=== PATIENT | female | born 1965 | race Caucasian/White ===

== ENCOUNTER 2016-02-14 19:31 | Inpatient (IN) | payer MEDICAID, MEDICARE ==
[~2016-02-14] VITALS: Ht 154.9 cm; Wt 46.0 kg
[~2016-02-14 19:31] MED LIST: ALLE24TA8 PO; BENZ1TA PO; CLON0.5T PO; COLA100C2 OR; DICL75TA PO; DITR5TAB PO; DOCU100T PO; FIORTAB PO; FOLI1TAB2 PO; GABA600T PO; HYDR-3363 PO; HYDR-4274 PO; HYDRO50TAB PO; IMIT100T PO; KLON1TAB OR; LATU40TA PO; LEVO100T5 PO; LEVO50TA2 OR; LITH300C PO; LITH600C OR; LITH600C PO; MIRA3350 PO; MULT1TAB10 PO; PERP2TA PO; QUET1TAB8 PO; RISP1TAB41 PO; SIMV20TA2 OR; SYNT100T PO; THIA100TA PO; TOLT1TAB PO; TRAZ100T OR; TRAZ150T PO; TRAZ150T14 PO; TYLE325T5 PO; VENL75TA2 OR; VIT D 2000 PO; ZOLP-189 PO
[2016-02-14] MEDS ORDERED: QUEtiapine FUMARATE 100 MG TAB As Ordered ONE ×2 (20:56→21:00)
[2016-02-15] MEDS ORDERED: SERO1TAB2 PO (07:36)
[2016-02-15 07:41] LABS: ABG BASE EXCESS 2.5 (-2.0-2.0); ABG DEVICE NASAL CANN; ABG PARTIAL PRESSURE CO2 41.1 mmHg (35.0-45.0); ABG STANDARD HCO3 26.7 MEQ/L (22.0-26.0); ABG TOTAL CO2 28.2 MEQ/L (22.0-29.0); ABG pH (ARTERIAL) 7.435 UNITS (7.350-7.450)
--- NOTE | 2016-02-15 13:57 | ER ---
DATE OF CONSULTATION: 02/15/2016 CONSULTATION REQUESTED BY: Dr. Elliot Daugherty PSYCHIATRIST: Dr. Moy Kincaid CHIEF COMPLAINT: Nonverbal. HISTORY OF PRESENT ILLNESS: This a 50-year-old female patient with underlying medical history of bipolar disorder, colitis, fibromyalgia, headache, polysubstance abuse, hypothyroidism, anxiety, and chronic obstructive pulmonary disease (COPD). Patient was transferred from [facility] Emergency Department (ED) to [facility] ED for possible psychiatric admission. Called by Dr. Elliot Daugherty to evaluate the patient for possible inpatient medicine admission. Patient was seen and examined in the ED. Patient is nonverbal, but alert and responsive, drinking and eating on her own, follows simple commands, able to write on a piece of paper her name. Patient does not know why she is here. Patient has a history of urinary incontinence. As per paperwork from [facility], as per patient's partner, has not been taking medication, is having urinary incontinence and urinating on herself with possible psychosis. Further history limited based on patient is nonverbal. When asked patient if she has any pain, patient wrote "no" on the piece of paper and when asked patient why she is here in the hospital, patient wrote "I do not no", with "no" as know. Further history not possible. ALLERGIES: ARIPIPRAZOLE, C.I. PIGMENT BLUE 63, DULOXETINE, OLANZAPINE, SULFA DRUGS, SUMATRIPTAN, TOPIRAMATE. PAST MEDICAL HISTORY: 1. Bipolar disorder. 2. Urinary incontinence. 3. Colitis. 4. Fibromyalgia. 5. Headache. 6. Lung disease. 7. Anxiety. 8. Hypothyroidism. 9. COPD. 10. Polysubstance abuse. PAST SURGICAL HISTORY: Hysterectomy. SOCIAL HISTORY: History of polysubstance abuse. Limited history secondary to patient's limited verbal ability. History of alcohol drinking and smoking marijuana, as per documentation, there is possible history of opioid addiction. FAMILY HISTORY: Lives with a partner as per previous documentation. REVIEW OF SYSTEMS: Unobtainable, but patient seems to deny any pain. HOME MEDICATIONS: - acetaminophen 650 mg by mouth every 4 hours as needed - benztropine 1 mg by mouth every 6 hours as needed - folic acid 1 mg by mouth daily - Neurontin 600 mg by mouth three times a day - hydroxyzine 50 mg by mouth every 4 hours as needed - Synthroid 100 mcg by mouth daily - Seroquel 300 mg by mouth nightly - thiamine 100 mg by mouth daily VITAL SIGNS: Temperature 99, respirations 18, pulse 58, blood pressure 127/82, pulse oximetry 100% on room air. GENERAL: Patient comfortable, in no acute distress, follows simple commands, looks straight into the physician. HEENT: Normocephalic, atraumatic. Hyperpigmented. PULMONARY: Bilaterally clear to auscultation. CARDIAC: Regular rate and rhythm, normal S1, S2. ABDOMEN: Soft, nontender, nondistended. Positive bowel sounds. EXTREMITIES: No edema bilateral lower extremities. NEUROLOGIC: Patient is nonverbal, but able to write her name on a piece of paper. Cranial nerves II-XII grossly intact. Able to move all four extremities. No focal deficits. LABORATORY TESTS: From [facility]: WBC 8, hemoglobin and hematocrit 12.8/37.9, platelets 181, BMP 256, sodium 142, potassium 3.8, chloride 102, bicarbonate 30, BUN 12, creatinine 1. Cardiac enzymes negative. Alcohol level negative. Magnesium 1.7, phosphorous 3.4, INR 1.08. TSH 1.06, troponin negative, T4 is 6.3. Urine toxicology positive for marijuana. Ammonia negative. ABG within normal limits. ASSESSMENT AND PLAN: This is a 50-year-old female patient with underlying medical history of bipolar disorder, colitis, fibromyalgia, headache, chronic obstructive pulmonary disease (COPD), anxiety, hypothyroidism, was transferred from [facility] for possible psychosis and nonverbal. PROBLEMS: 1. Psychosis, nonverbal, possibly secondary to underlying medical condition. Neurologically, other than nonverbal, patient has no focal deficits, follows commands. Appreciated laboratory. There is no medical explanation for patient's current condition. Contacted psychiatry, Dr. Kincaid, who stated that he was contacted last night, but has not evaluated the patient, but believes that patient may not be a candidate for inpatient mental health. When asked Dr. Kincaid to evaluate the patient, Dr. Kincaid stated that the current application developer manager psychiatrist should be calling. Contacted the application developer manager psychiatrist to discuss whether patient is a candidate for inpatient mental health versus hospital admission for social reasons and possible placement. The application developer manager psychiatrist stated that Dr. Kincaid was called last night and should be the one evaluating the patient. Subsequently, informed emergency department (ED) physician, Dr. Elliot Daugherty, about the situation and Dr. Elliot Daugherty suggested contacting the nursing drying room supervisor. Subsequently, nursing drying room supervisor, Sahil, was contacted and attempted to resolve the situation between the two psychiatrists and, as per Sahil, current situation is not resolved. Subsequently, Dr. Calvin was contacted as per nursing drying room supervisor Sahil. Currently attempting to figure out disposition for the patient, whether patient should be accepted to inpatient mental health versus admission for social reasons. Will need psychiatry to see the patient in the emergency room prior to determining disposition. 2. Hypothyroidism. Thyroid stimulating hormone (TSH) appreciated. Recommend continued levothyroxine. 3. Bipolar disorder. Management as per psychiatry. 4. History of colitis. Patient is asymptomatic. 5. Chronic obstructive pulmonary disease (COPD). Patient is asymptomatic. 6. Deep venous thrombosis (DVT) prophylaxis. Depends on patient's disposition. DISPOSITION: Pending psychiatry input.
--- NOTE | 2016-02-15 15:29 | ER ---
DATE OF CONSULTATION: 02/15/2016 This is a 50-year-old white female with history of bipolar disorder, brought in to [facility] by her . The patient apparently has not been attending to activities of daily living (ADLs) and has been having urinary and fecal incontinence. Patient was transferred from [facility] Emergency Department (ED) for psychiatric assessment. Patient was mute at time of admission to the emergency room, she would not respond to any questions. Patient did receive Seroquel 300 mg at night with minimal change in her behavior, at which point she was seen by myself. Patient was again mute, refusing to answer any of my questions. however she did move her head up and down to answer a few questions. In response to various questions, she did nod her head affirmatively that she was feeling sad and depressed. She did report also having auditory hallucinations, the voices were telling her not to talk or answer or respond in any way to questioning. Patient did have a recent psychiatric admission under the care of Dr. Tripp from 01/06/2016 through 01/18/2016. Please see that discharge summary. Patient had been on [place], but that was discontinued as her serum creatinine was elevated. Patient was then switched to perphenazine 4 mg twice a day and Seroquel 100 mg nightly with some improvement. Of note, is the patient does have a history of polysubstance use, especially cannabis. The patient is unable to care for herself and appears to have a psychiatric disorder and so appears to be appropriate for a mental health hospitalization. MENTAL STATUS EXAMINATION: The patient was mute, she was staring at me. Affect appears sad. By nodding her head she did affirm that she was feeling depressed and was suffering from auditory hallucinations. There were no signs of johana. She was nonresponsive to any other questioning. I was not able to perform a full mental status examination. DIAGNOSES: 1. Bipolar disorder, depressed, with psychotic features. 2. Cannabis use disorder by history. 3. Alcohol use disorder. PLAN: Admit to mental health on a 9.39 basis. Restart Trilafon. Continue Seroquel 300 mg nightly per her outpatient psychiatric provider.
--- NOTE | 2016-02-15 16:36 | EDDOCDS ---
Nurse's Notes [facility] Name: Lilly Elias Age: 50 yrs Sex: Female : 1965 Arrival Date: 02/14/2016 Time: 19:31 Bed 18 Private MD: Unknown Pcp Diagnosis: Bipolar disorder, current episode depressed, severe, with psychotic features Presentation: 02/13 19:36 Presenting complaint: EMS states: patient nonverbal, patient from [facility]. Taken to [facility] ED due to noncompliance with medication. Presenting complaint: Records from [facility] reports that patient has not taken medications since Thursday and is now incontinent and urinating on herself. Mental Health Triage Level:. Mental Health Triage Level: Level 2: Possible psychosis. Mental Health Triage Level: Level 2:. Suicide/Homicide risk assessment- the patient denies having any suicidal and/or homicidal ideations and does not present with any other emotional, behavioral or mental health complaints. Status: Patient is not a meat service team member or dependent. Transition of care: patient was received from [facility]. 19:36 Acuity: DARREN Level 3 nn1 19:36 Method Of Arrival: Ambulance nn1 02/14 16:33 Adult Sepsis Screening: Patient has new or worsening altered mentation (1 point). jjr Patient's respiratory rate is less than 22. Systolic blood pressure is greater than 100. Patient has a qSOFA score of 1- Negative Sepsis Screen. Triage Assessment: 02/13 19:48 General: Appears in no apparent distress, Behavior is cooperative, Non verbal. Pain: nn1 Unable to use pain scale. Patient appears withdrawn, Non verbal. Not currently exhibiting signs of pain. HIV screening NA for this visit Offered previously. The patient is triaged at the bedside. See Assessment in Nurses Notes section of ED record. Neurological: Level of Consciousness is awake. Respiratory: Airway is patent Respiratory effort is even, unlabored, Respiratory pattern is regular, symmetrical. Derm: Skin is pink, warm & dry. Historical: - Allergies: ARIPIPRAZOLE (suicidal ideation); CI pigment blue 63 (from cymbalta); Duloxetine (from cymbalta); SULFA (SULFONAMIDES) (Nausea); SUMATRIPTAN (Panic Attacks); topiramate (severe mood swings); - Home Meds: 1. benztropine 1 mg Oral tab 1 tab as needed 2. folic acid 1 mg Oral tab 1 tab once daily 3. hydroxyzine HCl 50 mg Oral tab 1 tab every 6 hours As needed 4. levothyroxine 100 mcg Oral cap 1 cap once daily 5. omeprazole 40 mg Oral cpDR 1 cap once daily 6. quetiapine 300 mg oral Tb24 1 tab once daily - PMHx: Bipolar disorder; Colitis; Fibromyalgia; Headaches; lung disease; Anxiety; Hypothyroidism; COPD; - PSHx: Hysterectomy; - Social history: Smoking status: unknown if patient ever smoked tobacco. Patient nonverbal at this time. . - : The pt / caregiver states he / she is not on anticoagulants. Home medication list is obtained from Prior history/[facility] records. - Exposure Risk Screening:: None identified. Screenin:05 Fall risk: No risks identified. Assistance ADL's: unable to assess. Abuse/DV Screen: slm Unable to Assess. Nutritional screening: Unable to Assess. Advance Directives: Unable to assess Advance Directive status due to pt condition. 02/14 16:33 Screening information is obtained from unable. Abuse/DV Screen: The patient / caregiver jjr reports he/she is: pt cannot be assessed for living situation at this time. Assessment: 02/13 19:51 General: See triage assessment . nn1 19:52 General: Appears in no apparent distress, Behavior is flat, pt non verbal with staff . slm 21:04 General: Appears in no apparent distress, slender, Behavior is flat, quiet. General: pt slm resting on stretcher remains non verbal with staff pt follow commands . will cont to monitor . Respiratory: Airway is patent Respiratory effort is even, unlabored. Derm: Skin is pink, warm & dry. 22:00 General: Appears in no apparent distress, comfortable, to be sleeping. Behavior is slm quiet. General: security observing . Respiratory: Airway is patent Respiratory effort is even, unlabored, Respiratory pattern is regular. 22:30 General: Appears in no apparent distress, comfortable, Behavior is flat, quiet. Pain: kas2 Denies pain. Neurological: Level of Consciousness is awake, alert, Oriented to person, place, time. Cardiovascular: Rhythm is regular. Respiratory: No deficits noted. Airway is patent Respiratory effort is even, unlabored, Respiratory pattern is regular, symmetrical. Derm: Skin is intact, is healthy with good turgor, Skin is dry, Skin is pink, warm & dry. Skin temperature is warm. 23:14 General: Appears in no apparent distress, comfortable, to be sleeping. Behavior is slm quiet. General: pt asleep security observing safety maintained . Respiratory: Airway is patent Respiratory effort is even, unlabored. 23:59 General: Appears in no apparent distress, comfortable, to be sleeping. Behavior is slm quiet. General: pt resting on stretcher asleep security observing . Respiratory: Airway is patent Respiratory effort is even, unlabored. 02/14 00:36 General: Appears in no apparent distress, comfortable, to be sleeping. Behavior is slm quiet. General: security observing. Respiratory: No deficits noted. 01:37 General: Appears in no apparent distress, comfortable, to be sleeping. Behavior is slm quiet. General: security observing . Respiratory: Airway is patent Respiratory effort is even, unlabored. 02:17 General: Appears in no apparent distress, comfortable, to be sleeping. Behavior is slm quiet. General: pt resting on stretcher asleep security observing . Respiratory: Airway is patent Respiratory effort is even, unlabored. 03:09 General: Appears in no apparent distress, comfortable, to be sleeping. Behavior is slm quiet. General: security observing . Respiratory: Airway is patent Respiratory effort is even, unlabored. 03:30 General: Patient laying in bed sleeping. No apparent distress. Appears comfortable. kas2 Respiratory pattern even and unlabored. Airway patent. Security observing. Will continue to monitor.. 03:52 General: Appears in no apparent distress, comfortable, to be sleeping. Behavior is slm quiet. General: security observing . Respiratory: Airway is patent Respiratory effort is even, unlabored. 05:22 General: Appears in no apparent distress, comfortable, to be sleeping. Behavior is slm quiet. General: pt asleep on stretcher security observing safety maintained . Respiratory: No deficits noted. 05:46 General: Appears in no apparent distress, Behavior is flat, pt non verbal pt slm incontinent of urine. telegraphic typewriter operator chief ambulated pt to bathroom to wash pt up ,pt assisted back to stretcher pt sitting on side of stretcher drinking H20 will cont to monitor pt . 06:26 General: Appears in no apparent distress, comfortable, to be sleeping. Behavior is slm quiet. General: pt resting on stretcher with eyes closed security observing . Respiratory: Airway is patent Respiratory effort is even, unlabored. Derm: Skin is pink, warm & dry. 07:34 General: Appears in no apparent distress, well nourished, well groomed, Behavior is jjr inappropriate for age, pt is nonverbal, will maintain eye contact, pt is drinking fluids, gait steady. Respiratory: Airway is patent Respiratory effort is even, unlabored, Respiratory pattern is regular. Derm: Skin is pink, warm & dry. 08:02 General: pt will nod head yes or no to some questions, pt did eat banana from breakfast jjr tray, slow to follow commands but cooperative. Cardiovascular: Rhythm is sinus rhythm. 09:00 General: pt continues to refuse to speak did write down that she wanted apple juice. jjr Cardiovascular: Rhythm is sinus rhythm. Respiratory: Airway is patent Respiratory effort is even, unlabored, Respiratory pattern is regular. Derm: Skin is pink, warm & dry. 09:59 General: Appears to be sleeping. Cardiovascular: Rhythm is sinus rhythm. jjr 11:00 General: Appears in no apparent distress, pt refuses to speak, once again wrote on jjr paper provided that she wanted more apple juice.. Cardiovascular: Rhythm is sinus rhythm. Respiratory: No deficits noted. Derm: No deficits noted. 11:57 General: Appears in no apparent distress, Behavior is cooperative, remains non verbal, jjr removed jorge wrap applied over saline lock. Cardiovascular: Rhythm is sinus rhythm. Derm: Skin is pink, warm & dry. 12:29 General: Appears in no apparent distress, ambulatory to BR gait steady, pt requires jjr frequent prompts to complete tasks, able to urinate. 12:45 General: psychiatrist to bedside. jjr 14:03 Adult Sepsis Screening: Patient has new or worsening altered mentation (1 point). jjr Patient's respiratory rate is less than 22. Systolic blood pressure is greater than 100. Patient has a qSOFA score of 1- Negative Sepsis Screen. General: Appears in no apparent distress, Behavior is cooperative, remains non verbal tolerated 75% lunch tray. 14:56 General: Appears in no apparent distress, pt again ambulatory to BR, incontinent of jjr urine, pt remains non verbal. 15:55 General: Appears in no apparent distress, up ad violet in room, remains nonverbal, jjr awaiting response from [facility]. 16:32 General: Appears in no apparent distress, no change from prior assessments. jjr Mental Health Eval: 02/13 20:02 Status: The patient is not a meat service team member or dependent. [facility] cl Behavioral Health: The patient is not an established patient of [facility] Behavioral Health. Referral Information: Evaluation referral is generated by [facility] ED on . The patient was referred for evaluation because Pt with catatonic type behavior in last few days, was incontinent of feces/urine today, pt with hx of Bipolar d/o and prior psych admissions at [facility], last 12/25 for johana.. Subjective: The patients chief complaint is Pt is non-verbal, is either unable/unwilling to speak during interview, will occasionally nod yes when asked a question, will not respond to any questions by any ED staff. Pt has 2 known psych admissions to [facility], 2016 for johana and 2013 for depression/SI. Pt seen and medically cleared at [facility] ED today and sent for MHE. PSA spoke with pt.'s S.O. Tyler Godwin who provided detailed hx of past week. Per Tyler, pt had belly pain last Thursday and was seen at [facility] ED and dx'd with UTI, given Abx. Tyler states he noticed changes in her AMS thru the weekend(less verbal/slow to respond) and by Thursday pt was almost completely non-verbal, would not take any medications, needed to be directed by S.O. to address ADL's, would nod yes "to yes questions", would not shake head "no", would speak briefly and "appear lucid" but only for short time and "go right back to this" referring to current behaviors. Tyler adds he has "never seen her like this before". Tyler took pt to see her therapist/Psychiatrist Thursday02/12/16 and "the therapist took one look at her and sent her right to the ED again". Pt spent most of day in [facility] ED and then was inexplicably sent home that evening, Tyler reports "she was not any better". Tyler reports today pt was incontinent of urine and feces, ("never happened before"). Tyler adds that pt will not care for self at this point, needs hands on care and direction for all activities, also pt has not slept or eaten well in days, he denies pt has made any threats to harm self.. Delusions are unable to assess . Patient's mood is dysphoric, hallucinations are unable to assess. Mental Health history: alcohol abuse, Bipolar Disorder, depression, suicide ideation ideation Mental Health Admissions: [facility] 2016 johana/2013 depression/SI...2006..depression Current Outpatient Mental Health Services: Psychiatrist / Agency: Lisbeth MELTON. Current living environment is The patient currently lives with his / her significant other, . Patient presents to Emergency Department with the following symptoms within the past 2 weeks: decreased appetite, non-compliance, non-communicative/incontinence. sleep disturbance - insomnia. Mental status exam: Patients appearance is disheveled thin, Patient's behavior is non-verbal. Affect is flat. Mood is dysphoric. Appetite is poor. Energy level is unable to assess Content of thought is unable to assess Thought process is unable to assess Patient's insight is absent. Judgement is absent. Rapport with interviewer is non-communicative. Suicidal Ideation is not present. Homicidal ideation is not present. Disposition: Medically cleared for disposition by Oj Middleton DO Psychiatric Consult is performed by phone with Dr Moy Kincaid. 20:51 Narrative: Dr. Kincaid spoke with Dr. Middleton regarding case, Dr. Middleton to order pt'.s cl medications in ED and will assess pt.'s mental status/behaviors after receiving medications....pt remains flat/quiet, did answer "yes" (twice) to Dr. Middleton's questions.... 02/14 07:17 Narrative: Patient awakened by Dr.'s Middleton & Willow, with no noteworthy change in her jl mental status. Dr. Kincaid was re-consulted, who expressed opinion that patient should be a medical admission at this point. Dr. Daugherty spoke with [facility] Hospitalist (Dr. Castaneda), who has agreed to admit her to medicine. 14:26 [facility] Admission Criteria: The patient is experiencing suicidal ideation. The patient ac displays symptoms of severe psychiatric disorder resulting in disordered behavior and significant interference with his / her ability to maintain self care. Hallucinations. The patient requires continuous observation and/or control to protect self, others or property. The patient's care requires a multi-modal treatment plan under close supervision and coordination due to the complexity and severity of the patient's symptoms. The patient requires administration and monitoring of psychoactive medications by skilled medical providers due to the side effects of the psychoactive medications or significant dosage adjustments. Legal Status: Patient's legal status will be Emergency admission: . 14:58 [place] is [place] because the patient does not display any jl suicidal or homicidal ideations and does not pose a risk to self or others. DSM-V Differential Diagnosis: Bipolar I Disorder (F31.0) Current or most recent episode depressed, severe (F31.34). Vital Signs: 02/13 19:46 BP 133 / 80; Pulse 51; Resp 18; Temp 99.0(T); Pulse Ox 98% on R/A; Weight 47 kg; Height slm 61 in. (154.94 cm); 02/14 05:46 BP 127 / 82; Pulse 58; Resp 16; Pulse Ox 100% on R/A; slm 07:57 BP 108 / 77 (auto/); jjr 08:00 Pulse 72 MON; Resp 18; Temp 99(TE); Pulse Ox 100% on R/A; jjr 08:27 BP 111 / 75 (auto/); jjr 08:27 Pulse 84 MON; Pulse Ox 100% ; jjr 08:56 Resp 18; Pulse Ox 99% on R/A; jjr 08:57 BP 115 / 76 (auto/); jjr 10:37 BP 114 / 80 (auto/); jjr 10:37 Pulse 82 MON; Resp 18; Pulse Ox 100% on R/A; jjr 11:54 BP 106 / 68 (auto/); jjr 11:54 Pulse 68 MON; Resp 18; Pulse Ox 97% on R/A; jjr 12:28 BP 106 / 72 (auto/); Pulse 77; Resp 18; jjr 13:28 BP 105 / 70 (auto/); jjr 13:28 Pulse 66 MON; Resp 18; jjr 15:05 BP 92 / 56; Pulse 60; Resp 18; Temp 99.3(O); Pulse Ox 100% on R/A; jjr 16:21 BP 120 / 60; Pulse 53; Resp 18; Temp 99.4(TE); Pulse Ox 100% on R/A; Pain 0/10; rn1 02/13 19:46 Body Mass Index 19.58 (47.00 kg, 154.94 cm) [facility] Vitals: 02/13 19:46 Log In Time N/A - ambulance arrival. [facility] ED Course: 19:32 Patient visited by Mihaela Tatum PCA. tmm1 19:32 Unknown Pcp is Private Physician. tmm1 19:32 Patient moved to Waiting tmm1 19:32 Patient moved to [facility] tmm1 19:33 Raegan Bower LPN is Primary Nurse. m 19:34 Oj Middleton DO is Attending Physician. cs11 19:34 Patient visited by Oj Middleton DO. cs11 19:40 Triage Initiated nn1 19:41 Patient moved to OBSERVATION cs11 19:45 Pt greeted and oriented to ED. Patient advised of names of staff involved in care, kb5 location of call lea, wait times and NPO status. Patient has correct armband on for positive identification. Placed in psych safe attire. Bed in low position. Call light in reach. Side rails up X 1. Security observing. Property removed, inventory done, secured in belongings bag- Placed in Locker 2. Pt placed in safe attire at [facility] prior to transfer; safe attire confirmed by Sarah Bower LPN.. Door closed. Noise minimized. Visitors limited. Psych Safety Check: Location: Psych Room. Visual Assessment: Cooperative. 19:53 Patient visited by Raegan Bower LPN. [facility] 20:00 Psych Safety Check: Location: Psych Room. Visual Assessment: Cooperative. kb5 20:03 Patient visited by Jacky Guajardo PCA. kb5 20:15 Patient visited by Jacky Guajardo PCA. kb5 20:15 Psych Safety Check: Location: Psych Room. Visual Assessment: Cooperative. kb5 20:30 Psych Safety Check: Location: Psych Room. Visual Assessment: Cooperative. kb5 20:31 Patient visited by Jacky Guajardo PCA. kb5 20:45 Patient visited by Jacky Guajardo PCA. kb5 20:45 Psych Safety Check: Location: Psych Room. Visual Assessment: Cooperative. kb5 21:00 Psych Safety Check: Location: Psych Room. Visual Assessment: Cooperative. kb5 21:05 Patient visited by Raegan Bower LPN. slm 21:15 Psych Safety Check: Location: Psych Room. Visual Assessment: Cooperative. kb5 21:18 Patient visited by Jacky Guajardo INDUSTRIAL HEALTH ENGINEER. kb5 21:19 [facility] Payment Agreement was scanned into [employer] and attached to record. zo 21:30 Psych Safety Check: Location: Psych Room. Visual Assessment: Cooperative. kb5 21:32 Patient visited by Roberto Guajardoer INDUSTRIAL HEALTH ENGINEER. kb5 21:45 Patient visited by Roberto Guajardoer INDUSTRIAL HEALTH ENGINEER. kb5 21:45 Psych Safety Check: Location: Psych Room. Visual Assessment: Cooperative. kb5 22:00 Psych Safety Check: Location: Psych Room. Visual Assessment: Cooperative. kb5 22:10 Patient visited by Jacky Guajardo INDUSTRIAL HEALTH ENGINEER. kb5 22:15 Psych Safety Check: Location: Psych Room. Visual Assessment: Cooperative. kb5 22:27 Patient visited by Jacky Guajardo INDUSTRIAL HEALTH ENGINEER. kb5 22:30 Psych Safety Check: Location: Psych Room. Visual Assessment: Cooperative. kb5 22:45 Patient visited by Jacky Guajardo INDUSTRIAL HEALTH ENGINEER. kb5 22:45 Psych Safety Check: Location: Psych Room. Visual Assessment: Cooperative. kb5 23:00 Psych Safety Check: Location: Psych Room. Visual Assessment: Cooperative. kb5 23:15 Patient visited by Raegan Bower LPN. slm 23:15 Psych Safety Check: Location: Psych Room. Visual Assessment: Cooperative. kb5 23:30 Psych Safety Check: Location: Psych Room. Visual Assessment: Cooperative. kb5 23:33 Patient visited by Jacky Guajardo INDUSTRIAL HEALTH ENGINEER. kb5 23:45 Patient visited by Roberto Guajardoer INDUSTRIAL HEALTH ENGINEER. kb5 23:45 Psych Safety Check: Location: Psych Room. Visual Assessment: Cooperative. kb5 23:59 Patient visited by Raegan Bower LPN. sl 02/14 00:00 Psych Safety Check: Location: Psych Room. Visual Assessment: Cooperative. kb5 00:06 Patient visited by Jacky Guajardo INDUSTRIAL HEALTH ENGINEER. kb5 00:15 Patient visited by Jacky Guajardo PCA. kb5 00:15 Psych Safety Check: Location: Psych Room. Visual Assessment: Cooperative. kb5 00:30 Patient visited by Jacky Guajardo PCA. kb5 00:30 Psych Safety Check: Location: Psych Room. Visual Assessment: Cooperative. kb5 00:37 Patient visited by Raegan Bower LPN. slm 00:45 Psych Safety Check: Location: Psych Room. Visual Assessment: Cooperative. kb5 00:46 Patient visited by Jacky Guajardo PCA. kb5 01:00 Patient visited by Jacky Guajardo PCA. kb5 01:00 Psych Safety Check: Location: Psych Room. Visual Assessment: Cooperative. kb5 01:08 Patient visited by Nichelle Torrez RN. kas2 01:15 Patient visited by Jacky Guajardo PCA. kb5 01:15 Psych Safety Check: Location: Psych Room. Visual Assessment: Cooperative. kb5 01:30 Psych Safety Check: Location: Psych Room. Visual Assessment: Cooperative. kb5 01:37 Patient visited by Raegan Bower LPN. slm 01:45 Psych Safety Check: Location: Psych Room. Visual Assessment: Cooperative. kb5 01:48 Patient visited by Jacky Guajardo PCA. kb5 02:00 Psych Safety Check: Location: Psych Room. Visual Assessment: Cooperative. kb5 02:15 Psych Safety Check: Location: Psych Room. Visual Assessment: Cooperative. kb5 02:18 Patient visited by Raegan Bower LPN. slm 02:30 Psych Safety Check: Location: Psych Room. Visual Assessment: Cooperative. kb5 02:45 Psych Safety Check: Location: Psych Room. Visual Assessment: Cooperative. kb5 03:00 Patient visited by Jacky Guajarod PCA. kb5 03:00 Psych Safety Check: Location: Psych Room. Visual Assessment: Cooperative. kb5 03:09 Patient visited by Raegan Bower LPN. slm 03:15 Psych Safety Check: Location: Psych Room. Visual Assessment: Cooperative. kb5 03:45 Patient visited by Jacky Guajardo PCA. kb5 03:45 Psych Safety Check: Location: Psych Room. Visual Assessment: Cooperative. kb5 03:53 Patient visited by Raegan Bower LPN. slm 04:00 Psych Safety Check: Location: Psych Room. Visual Assessment: Cooperative. kb5 04:11 Patient visited by Jacky Guajardo PCA. kb5 04:15 Psych Safety Check: Location: Psych Room. Visual Assessment: Cooperative. kb5 04:17 Patient visited by Jacky Guajardo PCA. kb5 04:30 Patient visited by Jacky Guajardo PCA. kb5 04:30 Psych Safety Check: Location: Psych Room. Visual Assessment: Cooperative. kb5 04:45 Patient visited by Jacky Guajardo PCA. kb5 04:45 Psych Safety Check: Location: Psych Room. Visual Assessment: Cooperative. kb5 05:00 Psych Safety Check: Location: Psych Room. Visual Assessment: Cooperative. kb5 05:06 Patient visited by Jacky Guajardo PCA. kb5 05:15 Psych Safety Check: Location: Psych Room. Visual Assessment: Cooperative. kb5 05:20 Patient visited by Jacky Guajardo PCA. kb5 05:23 Patient visited by Raegan Bower LPN. slm 05:30 Patient visited by Jacky Guajardo PCA. kb5 05:30 Psych Safety Check: Location: Psych Room. Visual Assessment: Cooperative. kb5 05:45 Psych Safety Check: Location: Psych Room. Visual Assessment: Cooperative. kb5 05:47 Patient visited by Nichelle Torrez RN. kas2 05:48 Patient visited by Jacky Guajardo PCA. kb5 05:50 No IV's were initiated during this patient's visit. No procedures done that require slm assistance. 05:51 Patient visited by Raegan Bower LPN. slm 05:51 The patient / caregiver is instructed regarding the plan of care and ED course. slm 06:00 Psych Safety Check: Location: Psych Room. Visual Assessment: Cooperative. kb5 06:06 Patient visited by Jacky Guajardo PCA. kb5 06:15 Psych Safety Check: Location: Psych Room. Visual Assessment: Cooperative. kb5 06:20 Patient visited by Jacky Guajardo PCA. kb5 06:26 Patient visited by Raegan Bower LPN. slm 06:30 Psych Safety Check: Location: Psych Room. Visual Assessment: Cooperative. kb5 06:45 Psych Safety Check: Location: Psych Room. Visual Assessment: Cooperative. kb5 06:51 Patient visited by Jacky Guajardo PCA. kb5 07:00 Psych Safety Check: Location: Psych Room. Visual Assessment: Cooperative. kb5 07:06 Attending Physician role handed off by Oj Middleton DO br1 07:06 Elliot Daugherty MD is Attending Physician. br1 07:06 Patient visited by Elliot Daugherty MD. br1 07:19 Patient visited by Aries Leigh. dpm 07:23 Angela Lorenzo RN is Primary Nurse. dy 07:23 Patient moved to 18 dy 07:24 Zaira Castaneda is Hospitalizing Provider. br1 07:25 Property property moved from locker 2 to locker locker 9. dpm 07:37 Patient visited by Angela Lorenzo RN. jjr 07:37 -Arterial Blood Gas Sent. js11 08:02 Inserted saline lock: 20 gauge in left antecubital area and blood collected. Labs jjr drawn. (by ED staff). Sent per order to lab. 08:03 acid cutter on. Pulse ox on. NIBP on. jjr 08:04 Patient visited by Angela Lorenzo, BLAS. jjr 09:00 Patient visited by Angela Lorenzo, BLAS. jjr 09:32 Patient moved to Admit Hold dy 09:59 Patient visited by Angela Lorenzo, BLAS. jjr 11:01 Patient visited by Angela Lorenzo, BLAS. jjr 11:58 Patient visited by Angela Lorenzo, BLAS. jjr 12:29 Patient visited by Angela Lorenzo, BLAS. jjr 13:44 PCR was scanned into [employer] and attached to record. gb 14:03 Patient visited by Angela Lorenzo, BLAS. jjr 14:31 Hospitalizing Provider role handed off by Zaira Castaneda br1 14:31 Moy Kincaid is Hospitalizing Provider. br1 14:56 Patient visited by Angela Lorenzo RN. jjr 14:58 E Legal paperwork was scanned into [employer] and attached to record. jl 15:06 Discontinued lock intact, bleeding controlled, pressure dressing applied, No jjr redness/swelling at site. 15:08 Patient moved to 18 dy 15:55 Patient visited by Angela Lorenzo RN. jjr Administered Medications: 02/13 21:03 Drug: SEROquel 300 mg Route: PO; [facility] Attachments: 14:58 MHE Legal paperwork jl RT: 07:37 ABG's drawn from right radial artery allens test done and positive pressure held for 5 js11 minutes no bleeding noted specimen sent pt. tolerated well. Order Results: Lab Order: -Arterial Blood Gas; SPEC'M 02/15/16 07:32 Test: ABG pH (ARTERIAL); Value: 7.435; Range: 7.350-7.450; Units: UNITS; Status: F Test: ABG PARTIAL PRESSURE CO2; Value: 41.1; Range: 35.0-45.0; Units: mmHg; Status: F Test: ABG PARTIAL PRESSURE O2; Value: 95.0; Range: 75.0-100.0; Units: mmHg; Status: F Test: ABG TOTAL CO2; Value: 28.2; Range: 22.0-29.0; Units: MEQ/L; Status: F Test: ABG HCO3; Value: 27.0; Range: 22.0-26.0; Abnormal: Above high normal; Units: MEQ/L; Status: F Test: ABG BASE EXCESS; Value: 2.5; Range: -2.0-2.0; Abnormal: Above high normal; Status: F Test: ABG STANDARD HCO3; Value: 26.7; Range: 22.0-26.0; Abnormal: Above high normal; Units: MEQ/L; Status: F Test: ABG O2 SATURATION; Value: 97.5; Range: 95.0-99.0; Units: %; Status: F Test: ABG DEVICE; Value: NASAL LESLI; Status: F Lab Order: Osmolality, Serum; SPEC'M 02/15/16 07:51 Test: OSMOLALITY SERUM; Value: 303; Range: 275-295; Abnormal: Above high normal; Units: MOSM/KG; Status: F Lab Order: Ammonia ([place] Tube on Ice, Not Pea Green); SPEC'M 02/15/16 07:51 Test: AMMONIA; Value: < 25; Range: <32; Units: uMOL/L; Status: F Outcome: 07:24 Decision to Hospitalize by Provider. br1 16:32 Discharge Assessment: patient administered narcotics - no. The following High Risk jjr Discharge criteria are identified: None. Admitted to Psych accompanied by tech, via wheelchair, with chart. Condition: unchanged. No special radiology studies were completed. 16:35 Patient left the ED. jjr Signatures: Mateusz Foster, PSA PSA ac Josh Felix, PSA PSA jl Garrett Palacios, PSA PSA cl Kisha Joseph, Reg Reg gb Almas Benitez, RN RN dy Manfred, Adis zo Casandra, Jacky, INDUSTRIAL HEALTH ENGINEER INDUSTRIAL HEALTH ENGINEER kb5 Elliot Daugherty MD MD br1 Angela Lorenzo, RN RN Devan Sweeney js11 Marolf, Aries dpm Oj Middleton, DO cs11 McLear, Mihaela, INDUSTRIAL HEALTH ENGINEER INDUSTRIAL HEALTH ENGINEER tmm1 Raegan Bower,SATELLITE INSTALLER SATELLITE INSTALLER Ho Gonzalez rn1 Love Salazar,RN RN nn1 Nichelle Torrez,RN RN kas2 Corrections: (The following items were deleted from the chart) 04:46 03:45 Psych Safety Check: Location: Psych Room. Visual Assessment: Lisa kb5 kb5 MTDD
--- NOTE | 2016-02-15 16:36 | EDDOCDS ---
Physician Documentation [facility] Name: Lilly Elias Age: 50 yrs Sex: Female : 1965 Arrival Date: 02/14/2016 Time: 19:31 Bed 18 Private MD: Unknown Pcp Disposition: 02/15/16 07:24 Hospitalization ordered by Moy Kincaid for Inpatient Admission. Preliminary diagnosis is Bipolar disorder, current episode depressed, severe, with psychotic features. - Bed requested for Admit. - Status is Inpatient Admission. jjr - Condition is Stable. - Problem is new. - Symptoms are unchanged. Historical: - Allergies: ARIPIPRAZOLE (suicidal ideation); CI pigment blue 63 (from cymbalta); Duloxetine (from cymbalta); SULFA (SULFONAMIDES) (Nausea); SUMATRIPTAN (Panic Attacks); topiramate (severe mood swings); - Home Meds: 1. benztropine 1 mg Oral tab 1 tab as needed 2. folic acid 1 mg Oral tab 1 tab once daily 3. hydroxyzine HCl 50 mg Oral tab 1 tab every 6 hours As needed 4. levothyroxine 100 mcg Oral cap 1 cap once daily 5. omeprazole 40 mg Oral cpDR 1 cap once daily 6. quetiapine 300 mg oral Tb24 1 tab once daily - PMHx: Bipolar disorder; Colitis; Fibromyalgia; Headaches; lung disease; Anxiety; Hypothyroidism; COPD; - PSHx: Hysterectomy; - Social history: Smoking status: unknown if patient ever smoked tobacco. Patient nonverbal at this time. . - : The pt / caregiver states he / she is not on anticoagulants. Home medication list is obtained from Prior history/[facility] records. - Exposure Risk Screening:: None identified. Vital Signs: 02/13 19:46 BP 133 / 80; Pulse 51; Resp 18; Temp 99.0(T); Pulse Ox 98% on R/A; Weight 47 kg / slm 103.62 lbs; Height 61 in. (154.94 cm); 02/14 05:46 BP 127 / 82; Pulse 58; Resp 16; Pulse Ox 100% on R/A; slm 07:57 BP 108 / 77 (auto/); jjr 08:00 Pulse 72 MON; Resp 18; Temp 99(TE); Pulse Ox 100% on R/A; jjr 08:27 BP 111 / 75 (auto/); jjr 08:27 Pulse 84 MON; Pulse Ox 100% ; jjr 08:56 Resp 18; Pulse Ox 99% on R/A; jjr 08:57 BP 115 / 76 (auto/); jjr 10:37 BP 114 / 80 (auto/); jjr 10:37 Pulse 82 MON; Resp 18; Pulse Ox 100% on R/A; jjr 11:54 BP 106 / 68 (auto/); jjr 11:54 Pulse 68 MON; Resp 18; Pulse Ox 97% on R/A; jjr 12:28 BP 106 / 72 (auto/); Pulse 77; Resp 18; jjr 13:28 BP 105 / 70 (auto/); jjr 13:28 Pulse 66 MON; Resp 18; jjr 15:05 BP 92 / 56; Pulse 60; Resp 18; Temp 99.3(O); Pulse Ox 100% on R/A; jjr 16:21 BP 120 / 60; Pulse 53; Resp 18; Temp 99.4(TE); Pulse Ox 100% on R/A; Pain 0/10; rn1 02/13 19:46 Body Mass Index 19.58 (47.00 kg, 154.94 cm) [facility] MDM: 02/13 19:58 Consult PFS/PSA/Socail Worker: Cleared medically for eval ordered. cs11 20:24 Consult PFS/PSA/Socail Worker: Cleared medically for eval complete. cl 20:26 Financial registration complete. zo 20:52 SEROquel 300 mg PO once ordered. cs11 21:19 [facility] Payment Agreement was scanned into [employer] and attached to record. zo 02/14 05:04 REGULAR DIET PLASTIC GILBERT+DIET ordered. EDMS 07:16 IV Saline Lock ordered. br1 07:16 Call Respiratory ordered. br1 07:17 Misc Education Adviser Order ordered. br1 07:17 -Arterial Blood Gas Ordered. EDMS 07:17 Osmolality, Serum Ordered. EDMS 07:17 Ammonia ([place] Tube on Ice, Not Pea Green) Ordered. EDMS 07:24 Call Respiratory complete. jrd 07:25 King Maker/Pulse Ox/q 30 min VS ordered. br1 07:43 BED REQUEST+ADM ordered. EDMS 07:50 [facility] Adviser Order complete. dy 08:44 -Arterial Blood Gas Reviewed. br1 08:44 Ammonia ([place] Tube on Ice, Not Pea Green) Reviewed. br1 08:44 Osmolality, Serum Reviewed. br1 11:58 REGULAR DIET PLASTIC GILBERT+DIET ordered. EDMS 13:44 PCR was scanned into [employer] and attached to record. gb 14:29 ED course: Dr. He has seen patient and felt patient most appropriate for Psychiatry [facility] service. Patient has been seen in ED by Dr. Kincaid, who has given orders for patient to be admitted to [facility].. 14:34 Admit to IM: ordered. EDMS 14:58 MHE Legal paperwork was scanned into [employer] and attached to record. jl Administered Medications: 02/13 21:03 Drug: SEROquel 300 mg Route: PO; slm Signatures: Dispatcher [employer] EDMS Isidro, Josh, PSA PSA Garrett Finn, PSA PSA cl Kisha Joseph, Reg Reg gb Almas Benitez, Adis Crowe RN, Brian, MD MD br1 Angela Lorenzo RN RN Oj Ndiyae, DO cs11 Zhang Molina, CHAR FILTER OPERATOR HELPER CHAR FILTER OPERATOR HELPER d Love Salazar,RN RN nn1 Raegan Bower LPN slm The chart was reviewed and I authenticate all verbal orders and agree with the evaluation and treatment provided.Attachments: 21:19 [facility] Payment Agreement zo MTDD
[2016-02-15 16:54] VITALS: BP 107/72
[2016-02-15] MEDS ORDERED: MAALOX 30 ML SUSP *UDC PO PRN (17:45)
[2016-02-15] MEDS: QUEtiapine FUMARATE 100 MG TAB PO SCH (21:00)
[2016-02-15] MEDS: PERPHENAZINE 2 MG TAB PO SCH (21:00)
[2016-02-16] MEDS: PERPHENAZINE 2 MG TAB PO SCH ×4 (09:32→21:49)
[2016-02-16] MEDS: NICOTINE 21MG/24HR 1 EA TRANSDERMAL TD SCH (09:39)
[2016-02-16 18:00] VITALS: BP 108/72
[2016-02-16] MEDS: traZODone 50 MG TAB PO PRN (21:48)
[2016-02-16] MEDS: QUEtiapine FUMARATE 100 MG TAB PO SCH (21:49)
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
[2016-02-17] MEDS: LEVOTHYROXINE 0.1 MG TAB (100 MCG) PO SCH (06:19)
[2016-02-17 06:37] VITALS: BP 124/77
[2016-02-17] MEDS: NICOTINE 21MG/24HR 1 EA TRANSDERMAL TD SCH (08:37)
[2016-02-17] MEDS: PERPHENAZINE 2 MG TAB PO SCH ×4 (08:39→20:50)
[2016-02-17 18:44] VITALS: BP 99/68
[2016-02-17] MEDS: traZODone 50 MG TAB PO PRN (20:50)
[2016-02-17] MEDS: QUEtiapine FUMARATE 100 MG TAB PO SCH (20:50)
--- NOTE | 2016-02-17 23:42 | IPN ---
DATE: 02/17/2016 Lilly is seen today; her third day of inpatient hospital admission. CURRENT MEDICATIONS: - Trilafon 4 mg orally four times a day - quetiapine 300 mg orally at bedtime - levothyroxine 0.1 mg daily for hypothyroidism SUBJECTIVE: Patient is still noted to be mute. She is observed sitting quietly and not interacting, although responds to gestures from her sitter. She has been accepting prescribed medications, but has to be encouraged to eat her meals. No reported incidence involving the patient in the past 24 hours. OBJECTIVE: VITAL SIGNS: Her vital signs are stable. Blood pressure is 124/77, pulse 98, respirations 16, and temperature 97.5. As noted, she has been mostly mute and catatonic. No evidence of medication- related adverse events. Patient has refused to engage in any form of discussion. She appears to be responding permanently to internal stimuli. ASSESSMENT: She continues to experience significant catatonia. PLAN: She will be continued on current medications; however, dose of Trilafon will be further adjusted with an increase to 8 mg orally three times daily, which is a a total dose of 24 mg daily. She will be continued on quetiapine 300 mg at bedtime. Patient will be encouraged to socialize more and engage in treatment activities. She will continue to require inpatient hospital stay for stabilization. Ongoing assessment, and supportive therapy. KISHORD
[2016-02-18 06:32] VITALS: BP 116/71
[2016-02-18] MEDS: LEVOTHYROXINE 0.1 MG TAB (100 MCG) PO SCH (06:36)
--- NOTE | 2016-02-18 08:48 | HPE ---
DATE OF ADMISSION: 02/15/2016 HISTORY OF PRESENT ILLNESS: Please refer to psychiatric history and evaluation for further details on this admission. This examination and history is intended for medical issues, which may need treatment, followup or consultation on this 50-year-old female, who was transferred from [facility] for abnormal behavior. PRIMARY CARE PROVIDER: Dr. Rosa Santos. ALLERGIES: SUMATRIPTAN, ARIPIPRAZOLE, CI PIGMENT BLUE 63, DULOXETINE, OLANZAPINE, SULFA DRUGS, TOPAMAX. HOME MEDICATIONS: Per the record: - benztropine methylate 1 mg by mouth every six hours as needed for anxiety - folic acid 1 mg by mouth daily - gabapentin 600 mg by mouth three times a day - hydroxyzine 50 mg by mouth every four hours as needed for anxiety - levothyroxine 100 mcg by mouth daily - Seroquel 300 mg by mouth at night - thiamine 100 mg by mouth daily PAST MEDICAL HISTORY: Bipolar disorder, fibromyalgia, hypothyroidism, hyperlipidemia, migraine headaches, history of opiate abuse, lung disease. PAST SURGICAL HISTORY: Hysterectomy. SOCIAL HISTORY: She lives in [place]. She is single. Lives with a significant other. Has two children. Smokes one pack per day. RECREATIONAL DRUGS: History of marijuana use, as per the record. The patient would just sit, she would not follow commands. She would not talk. She was eating applesauce, she did eat that. She would not participate with review of systems. She did allow me to listen to her heart and lungs. PHYSICAL EXAMINATION: GENERAL: 50-year-old uncooperative female in no acute distress. She is just sitting there and looking straight ahead. She does eat her applesauce. She will not follow commands. She is slightly agitated if I go to listen to her. VITAL SIGNS: Height 61 inches, weight 46 kg, Body Mass Index (BMI) 19.2. Blood pressure 108/72, pulse 68, respirations 16, temperature 97.2. The patient is unable to ascertain if she is alert or oriented. She is just sitting staring ahead. She does put a spoon with applesauce to her mouth occasionally. HEENT: Pupils look equal and reactive to light. Conjunctivae normal. There is no facial asymmetry. She would not allow me to do any examination other than listen to her heart and lungs. LUNGS: Clear to auscultation without wheeze or retraction. HEART: Regular. EXTREMITIES: Showed no cyanosis, clubbing or edema. IMPRESSION/PLAN: 1. Psychiatric plan per psychiatry. 2. Nicotine dependence, patch available. 3. Followup with primary care provider on discharge, Dr. Santos. 4. History of fibromyalgia. 5. History of hypothyroidism. Continue levothyroxine. TSH is therapeutic. 6. History of migraines. None currently.
[2016-02-18] MEDS: NICOTINE 21MG/24HR 1 EA TRANSDERMAL TD SCH (09:00)
[2016-02-18] MEDS: PERPHENAZINE 2 MG TAB PO SCH ×3 (09:06→21:58)
[2016-02-18 15:10] VITALS: BP 111/76
[2016-02-18] MEDS: ACETAMINOPHEN TAB 650MG DOSE (2X325MG) PO PRN (15:13)
--- NOTE | 2016-02-18 16:03 | EDDOCDS ---
Physician Documentation [facility] Name: Lilly Elias Age: 50 yrs Sex: Female : 1965 Arrival Date: 02/14/2016 Time: 19:31 Bed 18 Private MD: Unknown Pcp Disposition: 02/15/16 07:24 Hospitalization ordered by Moy Kincaid for Inpatient Admission. Preliminary diagnosis is Bipolar disorder, current episode depressed, severe, with psychotic features. - Bed requested for Admit. - Status is Inpatient Admission. jjr - Condition is Stable. - Problem is new. - Symptoms are unchanged. Historical: - Allergies: ARIPIPRAZOLE (suicidal ideation); CI pigment blue 63 (from cymbalta); Duloxetine (from cymbalta); SULFA (SULFONAMIDES) (Nausea); SUMATRIPTAN (Panic Attacks); topiramate (severe mood swings); - Home Meds: 1. benztropine 1 mg Oral tab 1 tab as needed 2. folic acid 1 mg Oral tab 1 tab once daily 3. hydroxyzine HCl 50 mg Oral tab 1 tab every 6 hours As needed 4. levothyroxine 100 mcg Oral cap 1 cap once daily 5. omeprazole 40 mg Oral cpDR 1 cap once daily 6. quetiapine 300 mg oral Tb24 1 tab once daily - PMHx: Bipolar disorder; Colitis; Fibromyalgia; Headaches; lung disease; Anxiety; Hypothyroidism; COPD; - PSHx: Hysterectomy; - Social history: Smoking status: unknown if patient ever smoked tobacco. Patient nonverbal at this time. . - : The pt / caregiver states he / she is not on anticoagulants. Home medication list is obtained from Prior history/[place] records. - Exposure Risk Screening:: None identified. Vital Signs: 02/13 19:46 BP 133 / 80; Pulse 51; Resp 18; Temp 99.0(T); Pulse Ox 98% on R/A; Weight 47 kg / slm 103.62 lbs; Height 61 in. (154.94 cm); 02/14 05:46 BP 127 / 82; Pulse 58; Resp 16; Pulse Ox 100% on R/A; slm 07:57 BP 108 / 77 (auto/); jjr 08:00 Pulse 72 MON; Resp 18; Temp 99(TE); Pulse Ox 100% on R/A; jjr 08:27 BP 111 / 75 (auto/); jjr 08:27 Pulse 84 MON; Pulse Ox 100% ; jjr 08:56 Resp 18; Pulse Ox 99% on R/A; jjr 08:57 BP 115 / 76 (auto/); jjr 10:37 BP 114 / 80 (auto/); jjr 10:37 Pulse 82 MON; Resp 18; Pulse Ox 100% on R/A; jjr 11:54 BP 106 / 68 (auto/); jjr 11:54 Pulse 68 MON; Resp 18; Pulse Ox 97% on R/A; jjr 12:28 BP 106 / 72 (auto/); Pulse 77; Resp 18; jjr 13:28 BP 105 / 70 (auto/); jjr 13:28 Pulse 66 MON; Resp 18; jjr 15:05 BP 92 / 56; Pulse 60; Resp 18; Temp 99.3(O); Pulse Ox 100% on R/A; jjr 16:21 BP 120 / 60; Pulse 53; Resp 18; Temp 99.4(TE); Pulse Ox 100% on R/A; Pain 0/10; rn1 02/13 19:46 Body Mass Index 19.58 (47.00 kg, 154.94 cm) [facility] MDM: 02/13 19:58 Consult PFS/PSA/Socail Worker: Cleared medically for eval ordered. cs11 20:24 Consult PFS/PSA/Socail Worker: Cleared medically for eval complete. cl 20:26 Financial registration complete. zo 20:52 SEROquel 300 mg PO once ordered. cs11 21:19 [facility] Payment Agreement was scanned into [employer] and attached to record. zo 02/14 05:04 REGULAR DIET PLASTIC GILBERT+DIET ordered. EDMS 07:16 IV Saline Lock ordered. br1 07:16 Call Respiratory ordered. br1 07:17 Misc Fisheries Enforcement Officer Order ordered. br1 07:17 -Arterial Blood Gas Ordered. EDMS 07:17 Osmolality, Serum Ordered. EDMS 07:17 Ammonia ([place] Tube on Ice, Not Pea Green) Ordered. EDMS 07:24 Call Respiratory complete. jrd 07:25 Practical Nursing Teacher/Pulse Ox/q 30 min VS ordered. br1 07:43 BED REQUEST+ADM ordered. EDMS 07:[facility] Order complete. dy 08:44 -Arterial Blood Gas Reviewed. br1 08:44 Ammonia ([place] Tube on Ice, Not Pea Green) Reviewed. br1 08:44 Osmolality, Serum Reviewed. br1 11:58 REGULAR DIET PLASTIC GILBERT+DIET ordered. EDMS 13:44 PCR was scanned into [employer] and attached to record. gb 14:29 ED course: Dr. He has seen patient and felt patient most appropriate for Psychiatry [facility] service. Patient has been seen in ED by Dr. Kincaid, who has given orders for patient to be admitted to [facility].. 14:34 Admit to IM: ordered. EDMS 14:58 MHE Legal paperwork was scanned into [employer] and attached to record. jl 02/15 10:31 T-Sheet-- Draft Copy was scanned into [employer] and attached to record. gb Administered Medications: 02/13 21:03 Drug: SEROquel 300 mg Route: PO; slm Signatures: Dispatcher [employer] EDMS Josh Felix, PSA PSA Garrett Finn, PSA PSA cl Kisha Joseph, Reg Reg gb Almas Benitez, RN RN Adis Chang Brian, MD MD br1 Angela Lorenzo, RN RN Oj Ndiaye, DO cs11 Zhang Molina, TIRE FABRIC INSPECTOR TIRE FABRIC INSPECTOR Love Fernandez,RN RN nn1 Raegan Bower LPN slm The chart was reviewed and I authenticate all verbal orders and agree with the evaluation and treatment provided.Attachments: 21:19 [facility] Payment Agreement zo 02/15 10:31 T-Sheet-- Draft Copy gb MTDD
--- NOTE | 2016-02-18 16:03 | EDDOCDS ---
Nurse's Notes [facility] Name: Lilly Elias Age: 50 yrs Sex: Female : 1965 Arrival Date: 02/14/2016 Time: 19:31 Bed 18 Private MD: Unknown Pcp Diagnosis: Bipolar disorder, current episode depressed, severe, with psychotic features Presentation: 02/13 19:36 Presenting complaint: EMS states: patient nonverbal, patient from [facility]. Taken to [facility] ED due to noncompliance with medication. Presenting complaint: Records from [facility] reports that patient has not taken medications since Thursday and is now incontinent and urinating on herself. Mental Health Triage Level:. Mental Health Triage Level: Level 2: Possible psychosis. Mental Health Triage Level: Level 2:. Suicide/Homicide risk assessment- the patient denies having any suicidal and/or homicidal ideations and does not present with any other emotional, behavioral or mental health complaints. Status: Patient is not a environmental services project manager or dependent. Transition of care: patient was received from [facility]. 19:36 Acuity: DARREN Level 3 nn1 19:36 Method Of Arrival: Ambulance nn1 02/14 16:33 Adult Sepsis Screening: Patient has new or worsening altered mentation (1 point). jjr Patient's respiratory rate is less than 22. Systolic blood pressure is greater than 100. Patient has a qSOFA score of 1- Negative Sepsis Screen. Triage Assessment: 02/13 19:48 General: Appears in no apparent distress, Behavior is cooperative, Non verbal. Pain: nn1 Unable to use pain scale. Patient appears withdrawn, Non verbal. Not currently exhibiting signs of pain. HIV screening NA for this visit Offered previously. The patient is triaged at the bedside. See Assessment in Nurses Notes section of ED record. Neurological: Level of Consciousness is awake. Respiratory: Airway is patent Respiratory effort is even, unlabored, Respiratory pattern is regular, symmetrical. Derm: Skin is pink, warm & dry. Historical: - Allergies: ARIPIPRAZOLE (suicidal ideation); CI pigment blue 63 (from cymbalta); Duloxetine (from cymbalta); SULFA (SULFONAMIDES) (Nausea); SUMATRIPTAN (Panic Attacks); topiramate (severe mood swings); - Home Meds: 1. benztropine 1 mg Oral tab 1 tab as needed 2. folic acid 1 mg Oral tab 1 tab once daily 3. hydroxyzine HCl 50 mg Oral tab 1 tab every 6 hours As needed 4. levothyroxine 100 mcg Oral cap 1 cap once daily 5. omeprazole 40 mg Oral cpDR 1 cap once daily 6. quetiapine 300 mg oral Tb24 1 tab once daily - PMHx: Bipolar disorder; Colitis; Fibromyalgia; Headaches; lung disease; Anxiety; Hypothyroidism; COPD; - PSHx: Hysterectomy; - Social history: Smoking status: unknown if patient ever smoked tobacco. Patient nonverbal at this time. . - : The pt / caregiver states he / she is not on anticoagulants. Home medication list is obtained from Prior history/[facility] records. - Exposure Risk Screening:: None identified. Screenin:05 Fall risk: No risks identified. Assistance ADL's: unable to assess. Abuse/DV Screen: slm Unable to Assess. Nutritional screening: Unable to Assess. Advance Directives: Unable to assess Advance Directive status due to pt condition. 02/14 16:33 Screening information is obtained from unable. Abuse/DV Screen: The patient / caregiver jjr reports he/she is: pt cannot be assessed for living situation at this time. Assessment: 02/13 19:51 General: See triage assessment . nn1 19:52 General: Appears in no apparent distress, Behavior is flat, pt non verbal with staff . slm 21:04 General: Appears in no apparent distress, slender, Behavior is flat, quiet. General: pt slm resting on stretcher remains non verbal with staff pt follow commands . will cont to monitor . Respiratory: Airway is patent Respiratory effort is even, unlabored. Derm: Skin is pink, warm & dry. 22:00 General: Appears in no apparent distress, comfortable, to be sleeping. Behavior is slm quiet. General: security observing . Respiratory: Airway is patent Respiratory effort is even, unlabored, Respiratory pattern is regular. 22:30 General: Appears in no apparent distress, comfortable, Behavior is flat, quiet. Pain: kas2 Denies pain. Neurological: Level of Consciousness is awake, alert, Oriented to person, place, time. Cardiovascular: Rhythm is regular. Respiratory: No deficits noted. Airway is patent Respiratory effort is even, unlabored, Respiratory pattern is regular, symmetrical. Derm: Skin is intact, is healthy with good turgor, Skin is dry, Skin is pink, warm & dry. Skin temperature is warm. 23:14 General: Appears in no apparent distress, comfortable, to be sleeping. Behavior is slm quiet. General: pt asleep security observing safety maintained . Respiratory: Airway is patent Respiratory effort is even, unlabored. 23:59 General: Appears in no apparent distress, comfortable, to be sleeping. Behavior is slm quiet. General: pt resting on stretcher asleep security observing . Respiratory: Airway is patent Respiratory effort is even, unlabored. 02/14 00:36 General: Appears in no apparent distress, comfortable, to be sleeping. Behavior is slm quiet. General: security observing. Respiratory: No deficits noted. 01:37 General: Appears in no apparent distress, comfortable, to be sleeping. Behavior is slm quiet. General: security observing . Respiratory: Airway is patent Respiratory effort is even, unlabored. 02:17 General: Appears in no apparent distress, comfortable, to be sleeping. Behavior is slm quiet. General: pt resting on stretcher asleep security observing . Respiratory: Airway is patent Respiratory effort is even, unlabored. 03:09 General: Appears in no apparent distress, comfortable, to be sleeping. Behavior is slm quiet. General: security observing . Respiratory: Airway is patent Respiratory effort is even, unlabored. 03:30 General: Patient laying in bed sleeping. No apparent distress. Appears comfortable. kas2 Respiratory pattern even and unlabored. Airway patent. Security observing. Will continue to monitor.. 03:52 General: Appears in no apparent distress, comfortable, to be sleeping. Behavior is slm quiet. General: security observing . Respiratory: Airway is patent Respiratory effort is even, unlabored. 05:22 General: Appears in no apparent distress, comfortable, to be sleeping. Behavior is slm quiet. General: pt asleep on stretcher security observing safety maintained . Respiratory: No deficits noted. 05:46 General: Appears in no apparent distress, Behavior is flat, pt non verbal pt slm incontinent of urine. pattern chart writer ambulated pt to bathroom to wash pt up ,pt assisted back to stretcher pt sitting on side of stretcher drinking H20 will cont to monitor pt . 06:26 General: Appears in no apparent distress, comfortable, to be sleeping. Behavior is slm quiet. General: pt resting on stretcher with eyes closed security observing . Respiratory: Airway is patent Respiratory effort is even, unlabored. Derm: Skin is pink, warm & dry. 07:34 General: Appears in no apparent distress, well nourished, well groomed, Behavior is jjr inappropriate for age, pt is nonverbal, will maintain eye contact, pt is drinking fluids, gait steady. Respiratory: Airway is patent Respiratory effort is even, unlabored, Respiratory pattern is regular. Derm: Skin is pink, warm & dry. 08:02 General: pt will nod head yes or no to some questions, pt did eat banana from breakfast jjr tray, slow to follow commands but cooperative. Cardiovascular: Rhythm is sinus rhythm. 09:00 General: pt continues to refuse to speak did write down that she wanted apple juice. jjr Cardiovascular: Rhythm is sinus rhythm. Respiratory: Airway is patent Respiratory effort is even, unlabored, Respiratory pattern is regular. Derm: Skin is pink, warm & dry. 09:59 General: Appears to be sleeping. Cardiovascular: Rhythm is sinus rhythm. jjr 11:00 General: Appears in no apparent distress, pt refuses to speak, once again wrote on jjr paper provided that she wanted more apple juice.. Cardiovascular: Rhythm is sinus rhythm. Respiratory: No deficits noted. Derm: No deficits noted. 11:57 General: Appears in no apparent distress, Behavior is cooperative, remains non verbal, jjr removed jorge wrap applied over saline lock. Cardiovascular: Rhythm is sinus rhythm. Derm: Skin is pink, warm & dry. 12:29 General: Appears in no apparent distress, ambulatory to BR gait steady, pt requires jjr frequent prompts to complete tasks, able to urinate. 12:45 General: psychiatrist to bedside. jjr 14:03 Adult Sepsis Screening: Patient has new or worsening altered mentation (1 point). jjr Patient's respiratory rate is less than 22. Systolic blood pressure is greater than 100. Patient has a qSOFA score of 1- Negative Sepsis Screen. General: Appears in no apparent distress, Behavior is cooperative, remains non verbal tolerated 75% lunch tray. 14:56 General: Appears in no apparent distress, pt again ambulatory to BR, incontinent of jjr urine, pt remains non verbal. 15:55 General: Appears in no apparent distress, up ad violet in room, remains nonverbal, jjr awaiting response from [facility]. 16:32 General: Appears in no apparent distress, no change from prior assessments. jjr Mental Health Eval: 02/13 20:02 Status: The patient is not a environmental services project manager or dependent. [facility] cl Behavioral Health: The patient is not an established patient of [facility] Behavioral Health. Referral Information: Evaluation referral is generated by [facility] ED on . The patient was referred for evaluation because Pt with catatonic type behavior in last few days, was incontinent of feces/urine today, pt with hx of Bipolar d/o and prior psych admissions at [facility], last 12/25 for johana.. Subjective: The patients chief complaint is Pt is non-verbal, is either unable/unwilling to speak during interview, will occasionally nod yes when asked a question, will not respond to any questions by any ED staff. Pt has 2 known psych admissions to [facility], 2016 for johana and 2013 for depression/SI. Pt seen and medically cleared at [facility] ED today and sent for MHE. PSA spoke with pt.'s S.O. Tyler Godwin who provided detailed hx of past week. Per Tyler, pt had belly pain last Thursday and was seen at [facility] ED and dx'd with UTI, given Abx. Tyler states he noticed changes in her AMS thru the weekend(less verbal/slow to respond) and by Thursday pt was almost completely non-verbal, would not take any medications, needed to be directed by S.O. to address ADL's, would nod yes "to yes questions", would not shake head "no", would speak briefly and "appear lucid" but only for short time and "go right back to this" referring to current behaviors. Tyler adds he has "never seen her like this before". Tyler took pt to see her therapist/Psychiatrist Thursday02/12/16 and "the therapist took one look at her and sent her right to the ED again". Pt spent most of day in [facility] ED and then was inexplicably sent home that evening, Tyler reports "she was not any better". Tyler reports today pt was incontinent of urine and feces, ("never happened before"). Tyler adds that pt will not care for self at this point, needs hands on care and direction for all activities, also pt has not slept or eaten well in days, he denies pt has made any threats to harm self.. Delusions are unable to assess . Patient's mood is dysphoric, hallucinations are unable to assess. Mental Health history: alcohol abuse, Bipolar Disorder, depression, suicide ideation ideation Mental Health Admissions: [facility] 2016 johana/2013 depression/SI...2006..depression Current Outpatient Mental Health Services: Psychiatrist / Agency: Lisbeth MELTON. Current living environment is The patient currently lives with his / her significant other, . Patient presents to Emergency Department with the following symptoms within the past 2 weeks: decreased appetite, non-compliance, non-communicative/incontinence. sleep disturbance - insomnia. Mental status exam: Patients appearance is disheveled thin, Patient's behavior is non-verbal. Affect is flat. Mood is dysphoric. Appetite is poor. Energy level is unable to assess Content of thought is unable to assess Thought process is unable to assess Patient's insight is absent. Judgement is absent. Rapport with interviewer is non-communicative. Suicidal Ideation is not present. Homicidal ideation is not present. Disposition: Medically cleared for disposition by Oj Middleton DO Psychiatric Consult is performed by phone with Dr Moy Kincaid. 20:51 Narrative: Dr. Kincaid spoke with Dr. Middleton regarding case, Dr. Middleton to order pt'.s cl medications in ED and will assess pt.'s mental status/behaviors after receiving medications....pt remains flat/quiet, did answer "yes" (twice) to Dr. Middleton's questions.... 02/14 07:17 Narrative: Patient awakened by Dr.'s Middleton & Willow, with no noteworthy change in her jl mental status. Dr. Kincaid was re-consulted, who expressed opinion that patient should be a medical admission at this point. Dr. Daugherty spoke with [facility] Hospitalist (Dr. Castaneda), who has agreed to admit her to medicine. 14:26 [facility] Admission Criteria: The patient is experiencing suicidal ideation. The patient ac displays symptoms of severe psychiatric disorder resulting in disordered behavior and significant interference with his / her ability to maintain self care. Hallucinations. The patient requires continuous observation and/or control to protect self, others or property. The patient's care requires a multi-modal treatment plan under close supervision and coordination due to the complexity and severity of the patient's symptoms. The patient requires administration and monitoring of psychoactive medications by skilled medical providers due to the side effects of the psychoactive medications or significant dosage adjustments. Legal Status: Patient's legal status will be Emergency admission: . 14:58 [place] is [place] because the patient does not display any jl suicidal or homicidal ideations and does not pose a risk to self or others. DSM-V Differential Diagnosis: Bipolar I Disorder (F31.0) Current or most recent episode depressed, severe (F31.34). Vital Signs: 02/13 19:46 BP 133 / 80; Pulse 51; Resp 18; Temp 99.0(T); Pulse Ox 98% on R/A; Weight 47 kg; Height slm 61 in. (154.94 cm); 02/14 05:46 BP 127 / 82; Pulse 58; Resp 16; Pulse Ox 100% on R/A; slm 07:57 BP 108 / 77 (auto/); jjr 08:00 Pulse 72 MON; Resp 18; Temp 99(TE); Pulse Ox 100% on R/A; jjr 08:27 BP 111 / 75 (auto/); jjr 08:27 Pulse 84 MON; Pulse Ox 100% ; jjr 08:56 Resp 18; Pulse Ox 99% on R/A; jjr 08:57 BP 115 / 76 (auto/); jjr 10:37 BP 114 / 80 (auto/); jjr 10:37 Pulse 82 MON; Resp 18; Pulse Ox 100% on R/A; jjr 11:54 BP 106 / 68 (auto/); jjr 11:54 Pulse 68 MON; Resp 18; Pulse Ox 97% on R/A; jjr 12:28 BP 106 / 72 (auto/); Pulse 77; Resp 18; jjr 13:28 BP 105 / 70 (auto/); jjr 13:28 Pulse 66 MON; Resp 18; jjr 15:05 BP 92 / 56; Pulse 60; Resp 18; Temp 99.3(O); Pulse Ox 100% on R/A; jjr 16:21 BP 120 / 60; Pulse 53; Resp 18; Temp 99.4(TE); Pulse Ox 100% on R/A; Pain 0/10; rn1 02/13 19:46 Body Mass Index 19.58 (47.00 kg, 154.94 cm) [facility] Vitals: 02/13 19:46 Log In Time N/A - ambulance arrival. [facility] ED Course: 19:32 Patient visited by Mihaela Tautm PCA. tmm1 19:32 Unknown Pcp is Private Physician. tmm1 19:32 Patient moved to Waiting tmm1 19:32 Patient moved to [facility] tmm1 19:33 Raegan Bower LPN is Primary Nurse. m 19:34 Oj Middleton DO is Attending Physician. cs11 19:34 Patient visited by Oj Middleton DO. cs11 19:40 Triage Initiated nn1 19:41 Patient moved to OBSERVATION cs11 19:45 Pt greeted and oriented to ED. Patient advised of names of staff involved in care, kb5 location of call lea, wait times and NPO status. Patient has correct armband on for positive identification. Placed in psych safe attire. Bed in low position. Call light in reach. Side rails up X 1. Security observing. Property removed, inventory done, secured in belongings bag- Placed in Locker 2. Pt placed in safe attire at [facility] prior to transfer; safe attire confirmed by Sarah Bower LPN.. Door closed. Noise minimized. Visitors limited. Psych Safety Check: Location: Psych Room. Visual Assessment: Cooperative. 19:53 Patient visited by Raegan Bower LPN. [facility] 20:00 Psych Safety Check: Location: Psych Room. Visual Assessment: Cooperative. kb5 20:03 Patient visited by Jacky Guajardo PCA. kb5 20:15 Patient visited by Jacky Guajardo PCA. kb5 20:15 Psych Safety Check: Location: Psych Room. Visual Assessment: Cooperative. kb5 20:30 Psych Safety Check: Location: Psych Room. Visual Assessment: Cooperative. kb5 20:31 Patient visited by Jacky Guajardo PCA. kb5 20:45 Patient visited by Jacky uGajardo PCA. kb5 20:45 Psych Safety Check: Location: Psych Room. Visual Assessment: Cooperative. kb5 21:00 Psych Safety Check: Location: Psych Room. Visual Assessment: Cooperative. kb5 21:05 Patient visited by Raegan Bower LPN. slm 21:15 Psych Safety Check: Location: Psych Room. Visual Assessment: Cooperative. kb5 21:18 Patient visited by Jacky Guajardo RUBBER CALENDER HELPER. kb5 21:19 [facility] Payment Agreement was scanned into [employer] and attached to record. zo 21:30 Psych Safety Check: Location: Psych Room. Visual Assessment: Cooperative. kb5 21:32 Patient visited by Roberto Guajardoer RUBBER CALENDER HELPER. kb5 21:45 Patient visited by Roberto Guajardoer RUBBER CALENDER HELPER. kb5 21:45 Psych Safety Check: Location: Psych Room. Visual Assessment: Cooperative. kb5 22:00 Psych Safety Check: Location: Psych Room. Visual Assessment: Cooperative. kb5 22:10 Patient visited by Jacky Guajardo RUBBER CALENDER HELPER. kb5 22:15 Psych Safety Check: Location: Psych Room. Visual Assessment: Cooperative. kb5 22:27 Patient visited by Jacky Guajardo RUBBER CALENDER HELPER. kb5 22:30 Psych Safety Check: Location: Psych Room. Visual Assessment: Cooperative. kb5 22:45 Patient visited by Jacky Guajardo RUBBER CALENDER HELPER. kb5 22:45 Psych Safety Check: Location: Psych Room. Visual Assessment: Cooperative. kb5 23:00 Psych Safety Check: Location: Psych Room. Visual Assessment: Cooperative. kb5 23:15 Patient visited by Raegan Bower LPN. slm 23:15 Psych Safety Check: Location: Psych Room. Visual Assessment: Cooperative. kb5 23:30 Psych Safety Check: Location: Psych Room. Visual Assessment: Cooperative. kb5 23:33 Patient visited by Jacky Guajardo RUBBER CALENDER HELPER. kb5 23:45 Patient visited by Roberto Guajardoer RUBBER CALENDER HELPER. kb5 23:45 Psych Safety Check: Location: Psych Room. Visual Assessment: Cooperative. kb5 23:59 Patient visited by Raegan Bower LPN. sl 02/14 00:00 Psych Safety Check: Location: Psych Room. Visual Assessment: Cooperative. kb5 00:06 Patient visited by Jacky Guajardo RUBBER CALENDER HELPER. kb5 00:15 Patient visited by Jacky Guajardo PCA. kb5 00:15 Psych Safety Check: Location: Psych Room. Visual Assessment: Cooperative. kb5 00:30 Patient visited by Jacky Guajardo PCA. kb5 00:30 Psych Safety Check: Location: Psych Room. Visual Assessment: Cooperative. kb5 00:37 Patient visited by Raegan Bower LPN. slm 00:45 Psych Safety Check: Location: Psych Room. Visual Assessment: Cooperative. kb5 00:46 Patient visited by Jacky Guajardo PCA. kb5 01:00 Patient visited by Jacky Guajardo PCA. kb5 01:00 Psych Safety Check: Location: Psych Room. Visual Assessment: Cooperative. kb5 01:08 Patient visited by Nichelle Torrez RN. kas2 01:15 Patient visited by Jacky Guajardo PCA. kb5 01:15 Psych Safety Check: Location: Psych Room. Visual Assessment: Cooperative. kb5 01:30 Psych Safety Check: Location: Psych Room. Visual Assessment: Cooperative. kb5 01:37 Patient visited by Reagan Bower LPN. slm 01:45 Psych Safety Check: Location: Psych Room. Visual Assessment: Cooperative. kb5 01:48 Patient visited by Jacky Guajardo PCA. kb5 02:00 Psych Safety Check: Location: Psych Room. Visual Assessment: Cooperative. kb5 02:15 Psych Safety Check: Location: Psych Room. Visual Assessment: Cooperative. kb5 02:18 Patient visited by Raegan Bower LPN. slm 02:30 Psych Safety Check: Location: Psych Room. Visual Assessment: Cooperative. kb5 02:45 Psych Safety Check: Location: Psych Room. Visual Assessment: Cooperative. kb5 03:00 Patient visited by Jacky Guajardo PCA. kb5 03:00 Psych Safety Check: Location: Psych Room. Visual Assessment: Cooperative. kb5 03:09 Patient visited by Raegan Bower LPN. slm 03:15 Psych Safety Check: Location: Psych Room. Visual Assessment: Cooperative. kb5 03:45 Patient visited by Jacky Guajardo PCA. kb5 03:45 Psych Safety Check: Location: Psych Room. Visual Assessment: Cooperative. kb5 03:53 Patient visited by Raegan Bower LPN. slm 04:00 Psych Safety Check: Location: Psych Room. Visual Assessment: Cooperative. kb5 04:11 Patient visited by Jacky Guajardo PCA. kb5 04:15 Psych Safety Check: Location: Psych Room. Visual Assessment: Cooperative. kb5 04:17 Patient visited by Jacky Guajardo PCA. kb5 04:30 Patient visited by Jacky Guajardo PCA. kb5 04:30 Psych Safety Check: Location: Psych Room. Visual Assessment: Cooperative. kb5 04:45 Patient visited by Jacky Guajardo PCA. kb5 04:45 Psych Safety Check: Location: Psych Room. Visual Assessment: Cooperative. kb5 05:00 Psych Safety Check: Location: Psych Room. Visual Assessment: Cooperative. kb5 05:06 Patient visited by Jacky Guajardo PCA. kb5 05:15 Psych Safety Check: Location: Psych Room. Visual Assessment: Cooperative. kb5 05:20 Patient visited by Jacky Guajardo PCA. kb5 05:23 Patient visited by Raegan Bower LPN. slm 05:30 Patient visited by Jacky Guajardo PCA. kb5 05:30 Psych Safety Check: Location: Psych Room. Visual Assessment: Cooperative. kb5 05:45 Psych Safety Check: Location: Psych Room. Visual Assessment: Cooperative. kb5 05:47 Patient visited by Nichelle Torrez RN. kas2 05:48 Patient visited by Jacky Guajardo PCA. kb5 05:50 No IV's were initiated during this patient's visit. No procedures done that require slm assistance. 05:51 Patient visited by Raegan Bower LPN. slm 05:51 The patient / caregiver is instructed regarding the plan of care and ED course. slm 06:00 Psych Safety Check: Location: Psych Room. Visual Assessment: Cooperative. kb5 06:06 Patient visited by Jacky Guajardo PCA. kb5 06:15 Psych Safety Check: Location: Psych Room. Visual Assessment: Cooperative. kb5 06:20 Patient visited by Jacky Guajardo PCA. kb5 06:26 Patient visited by Raegan Bower LPN. slm 06:30 Psych Safety Check: Location: Psych Room. Visual Assessment: Cooperative. kb5 06:45 Psych Safety Check: Location: Psych Room. Visual Assessment: Cooperative. kb5 06:51 Patient visited by Jacky Guajardo PCA. kb5 07:00 Psych Safety Check: Location: Psych Room. Visual Assessment: Cooperative. kb5 07:06 Attending Physician role handed off by Oj Middleton DO br1 07:06 Elliot Daugherty MD is Attending Physician. br1 07:06 Patient visited by Elliot Daugherty MD. br1 07:19 Patient visited by Aries Leigh. dpm 07:23 Angela Lorenzo RN is Primary Nurse. dy 07:23 Patient moved to 18 dy 07:24 Zaira Castaneda is Hospitalizing Provider. br1 07:25 Property property moved from locker 2 to locker locker 9. dpm 07:37 Patient visited by Angela Lorenzo RN. jjr 07:37 -Arterial Blood Gas Sent. js11 08:02 Inserted saline lock: 20 gauge in left antecubital area and blood collected. Labs jjr drawn. (by ED staff). Sent per order to lab. 08:03 phototypesetting equipment monitor on. Pulse ox on. NIBP on. jjr 08:04 Patient visited by Angela Lorenzo, BLAS. jjr 09:00 Patient visited by Angela Lorenzo, BLAS. jjr 09:32 Patient moved to Admit Hold dy 09:59 Patient visited by Angela Lorenzo, BLAS. jjr 11:01 Patient visited by Angela Lorenzo, BLAS. jjr 11:58 Patient visited by Angela Lorenzo, BLAS. jjr 12:29 Patient visited by Angela Lorenzo, BLAS. jjr 13:44 PCR was scanned into [employer] and attached to record. gb 14:03 Patient visited by Angela Lorenzo, LBAS. jjr 14:31 Hospitalizing Provider role handed off by Zaira Castaneda br1 14:31 Moy Kincaid is Hospitalizing Provider. br1 14:56 Patient visited by Angela Lorenzo RN. jjr 14:58 M[facility] Legal paperwork was scanned into [employer] and attached to record. jl 15:06 Discontinued lock intact, bleeding controlled, pressure dressing applied, No jjr redness/swelling at site. 15:08 Patient moved to 18 dy 15:55 Patient visited by Angela Lorenzo RN. jjr 02/15 10:31 T-Sheet-- Draft Copy was scanned into [employer] and attached to record. gb Administered Medications: 02/13 21:03 Drug: SEROquel 300 mg Route: PO; [facility] Attachments: 14:58 MHE Legal paperwork jl RT: 02/14 07:37 ABG's drawn from right radial artery allens test done and positive pressure held for 5 js11 minutes no bleeding noted specimen sent pt. tolerated well. Order Results: Lab Order: -Arterial Blood Gas; SPEC'M 02/15/16 07:32 Test: ABG pH (ARTERIAL); Value: 7.435; Range: 7.350-7.450; Units: UNITS; Status: F Test: ABG PARTIAL PRESSURE CO2; Value: 41.1; Range: 35.0-45.0; Units: mmHg; Status: F Test: ABG PARTIAL PRESSURE O2; Value: 95.0; Range: 75.0-100.0; Units: mmHg; Status: F Test: ABG TOTAL CO2; Value: 28.2; Range: 22.0-29.0; Units: MEQ/L; Status: F Test: ABG HCO3; Value: 27.0; Range: 22.0-26.0; Abnormal: Above high normal; Units: MEQ/L; Status: F Test: ABG BASE EXCESS; Value: 2.5; Range: -2.0-2.0; Abnormal: Above high normal; Status: F Test: ABG STANDARD HCO3; Value: 26.7; Range: 22.0-26.0; Abnormal: Above high normal; Units: MEQ/L; Status: F Test: ABG O2 SATURATION; Value: 97.5; Range: 95.0-99.0; Units: %; Status: F Test: ABG DEVICE; Value: NASAL LESLI; Status: F Lab Order: Osmolality, Serum; SPEC'M 02/15/16 07:51 Test: OSMOLALITY SERUM; Value: 303; Range: 275-295; Abnormal: Above high normal; Units: MOSM/KG; Status: F Lab Order: Ammonia ([place] Tube on Ice, Not Pea Green); SPEC'M 02/15/16 07:51 Test: AMMONIA; Value: < 25; Range: <32; Units: uMOL/L; Status: F Outcome: 07:24 Decision to Hospitalize by Provider. br1 16:32 Discharge Assessment: patient administered narcotics - no. The following High Risk r Discharge criteria are identified: None. Admitted to Psych accompanied by tech, via wheelchair, with chart. Condition: unchanged. No special radiology studies were completed. 16:35 Patient left the ED. jjr Addendum: 02/18/2016 16:00 Narrative: Spoke to Deepa H \\Sindi\\ [facility] who has approved pt for 6 days(02/14-) with ml4 review due on 02/19 with Tico Oh at [phone], ext [phone]. Auth #[id number]. Signatures: Mateusz Foster, PSA PSA ac Josh Felix, PSA PSA jl Garrett Palacios, PSA PSA cl Kisha Joseph, Reg Reg Almas Castro, RN RN Marilynn De La Torre, PSA PSA ml4 Adis Shearer Kristopher, RUBBER CALENDER HELPER RUBBER CALENDER HELPER kb5 Elliot Daugherty MD MD br1 Angela Lorenzo RN RN Devan Sweeney js11 Aries Leigh dpOj Sneed, DO cs11 Mihaela Tatum, RUBBER CALENDER HELPER RUBBER CALENDER HELPER tmm1 Raegan Bower,NAVIGATING OFFICER NAVIGATING OFFICER slHo Gtz rn1 Love SalazarRN RN nn1 Nichelle Torrez,RN RN kas2 Corrections: (The following items were deleted from the chart) 02/14 04:46 03:45 Psych Safety Check: Location: Psych Room. Visual Assessment: Lisa, kb5 kb5 MTDD
--- NOTE | 2016-02-18 16:03 | EDDOCDS ---
Physician Documentation [facility] Name: Lilly Elias Age: 50 yrs Sex: Female : 1965 Arrival Date: 02/14/2016 Time: 19:31 Bed 18 Private MD: Unknown Pcp Disposition: 02/15/16 07:24 Hospitalization ordered by Moy Kincaid for Inpatient Admission. Preliminary diagnosis is Bipolar disorder, current episode depressed, severe, with psychotic features. - Bed requested for Admit. - Status is Inpatient Admission. jjr - Condition is Stable. - Problem is new. - Symptoms are unchanged. Historical: - Allergies: ARIPIPRAZOLE (suicidal ideation); CI pigment blue 63 (from cymbalta); Duloxetine (from cymbalta); SULFA (SULFONAMIDES) (Nausea); SUMATRIPTAN (Panic Attacks); topiramate (severe mood swings); - Home Meds: 1. benztropine 1 mg Oral tab 1 tab as needed 2. folic acid 1 mg Oral tab 1 tab once daily 3. hydroxyzine HCl 50 mg Oral tab 1 tab every 6 hours As needed 4. levothyroxine 100 mcg Oral cap 1 cap once daily 5. omeprazole 40 mg Oral cpDR 1 cap once daily 6. quetiapine 300 mg oral Tb24 1 tab once daily - PMHx: Bipolar disorder; Colitis; Fibromyalgia; Headaches; lung disease; Anxiety; Hypothyroidism; COPD; - PSHx: Hysterectomy; - Social history: Smoking status: unknown if patient ever smoked tobacco. Patient nonverbal at this time. . - : The pt / caregiver states he / she is not on anticoagulants. Home medication list is obtained from Prior history/[place] records. - Exposure Risk Screening:: None identified. Vital Signs: 02/13 19:46 BP 133 / 80; Pulse 51; Resp 18; Temp 99.0(T); Pulse Ox 98% on R/A; Weight 47 kg / slm 103.62 lbs; Height 61 in. (154.94 cm); 02/14 05:46 BP 127 / 82; Pulse 58; Resp 16; Pulse Ox 100% on R/A; slm 07:57 BP 108 / 77 (auto/); jjr 08:00 Pulse 72 MON; Resp 18; Temp 99(TE); Pulse Ox 100% on R/A; jjr 08:27 BP 111 / 75 (auto/); jjr 08:27 Pulse 84 MON; Pulse Ox 100% ; jjr 08:56 Resp 18; Pulse Ox 99% on R/A; jjr 08:57 BP 115 / 76 (auto/); jjr 10:37 BP 114 / 80 (auto/); jjr 10:37 Pulse 82 MON; Resp 18; Pulse Ox 100% on R/A; jjr 11:54 BP 106 / 68 (auto/); jjr 11:54 Pulse 68 MON; Resp 18; Pulse Ox 97% on R/A; jjr 12:28 BP 106 / 72 (auto/); Pulse 77; Resp 18; jjr 13:28 BP 105 / 70 (auto/); jjr 13:28 Pulse 66 MON; Resp 18; jjr 15:05 BP 92 / 56; Pulse 60; Resp 18; Temp 99.3(O); Pulse Ox 100% on R/A; jjr 16:21 BP 120 / 60; Pulse 53; Resp 18; Temp 99.4(TE); Pulse Ox 100% on R/A; Pain 0/10; rn1 02/13 19:46 Body Mass Index 19.58 (47.00 kg, 154.94 cm) [facility] MDM: 02/13 19:58 Consult PFS/PSA/Socail Worker: Cleared medically for eval ordered. cs11 20:24 Consult PFS/PSA/Socail Worker: Cleared medically for eval complete. cl 20:26 Financial registration complete. zo 20:52 SEROquel 300 mg PO once ordered. cs11 21:19 [facility] Payment Agreement was scanned into [employer] and attached to record. zo 02/14 05:04 REGULAR DIET PLASTIC GILBERT+DIET ordered. EDMS 07:16 IV Saline Lock ordered. br1 07:16 Call Respiratory ordered. br1 07:17 Misc Cardiac Sonographer Order ordered. br1 07:17 -Arterial Blood Gas Ordered. EDMS 07:17 Osmolality, Serum Ordered. EDMS 07:17 Ammonia ([place] Tube on Ice, Not [place]a [place]) Ordered. EDMS 07:24 Call Respiratory complete. jrd 07:25 Structural Welder/Pulse Ox/q 30 min VS ordered. br1 07:43 BED REQUEST+ADM ordered. EDMS 07:[facility] Order complete. dy 08:44 -Arterial Blood Gas Reviewed. br1 08:44 Ammonia ([place] Tube on Ice, Not Pea [place]) Reviewed. br1 08:44 Osmolality, Serum Reviewed. br1 11:58 REGULAR DIET PLASTIC GILBERT+DIET ordered. EDMS 13:44 PCR was scanned into [employer] and attached to record. gb 14:29 ED course: Dr. He has seen patient and felt patient most appropriate for Psychiatry [facility] service. Patient has been seen in ED by Dr. Kincaid, who has given orders for patient to be admitted to [facility].. 14:34 Admit to IM: ordered. EDMS 14:58 M[facility] Legal paperwork was scanned into [employer] and attached to record. jl 02/15 10:31 T-Sheet-- Draft Copy was scanned into [employer] and attached to record. gb Administered Medications: 02/13 21:03 Drug: SEROquel 300 mg Route: PO; slm Signatures: Dispatcher [employer] EDMS Josh Felix, PSA PSA Garrett Finn, PSA PSA cl Kisha Joseph, Reg Reg gb Almas Benitez, RN RN Adis Chang Brian, MD MD br1 Angela Lorenzo, RN RN Oj Ndiaye, DO cs11 Zhang Molina, SOLAR ENERGY SPECIALIST SOLAR ENERGY SPECIALIST Love Fernandez,RN RN nn1 Raegan Bower LPN slm The chart was reviewed and I authenticate all verbal orders and agree with the evaluation and treatment provided.Attachments: 21:19 [facility] [place] Agreement zo 02/15 10:31 T-Sheet-- Draft Copy gb MTDD
[2016-02-18 16:09] VITALS: BP 112/76
--- NOTE | 2016-02-18 17:56 | IPN ---
DATE: 02/18/2016 TREATMENT: The patient is seen and treatment reviewed. This is the fourth day of inpatient hospital admission. CURRENT MEDICATIONS: - Trilafon 8 mg orally three times a day - quetiapine 300 mg orally at bedtime - levothyroxine 0.1 mg daily for hypothyroidism The patient today continues to not engage in discussions. She accepted her medications and ate her meals. She is still noted to be withdrawn, mute and not engaging; however, there have been relative improvements noted, as she is observed to occasionally get out of bed with prompting, walk around, and wash herself. No medication related untoward effects noted. Her vital signs are stable with a blood pressure of 116/71, pulse 85, respirations 18, and temperature 97.3. ASSESSMENT: The patient currently continues to experience notable depressive symptomatology and catatonia; however, improvement is noted relative to her admission status, although such gains have not been robust. She is tolerating her medications and no untoward effects so far noted. PLAN: She will be continued on the current treatment with ongoing encouragement to participate in activities. Intensive one to one supervision will be continued - as precaution to prevent inadvertent harm to self. Ongoing assessment and supportive therapy. BISHOP
[2016-02-18 18:33] VITALS: BP 116/74
[2016-02-18] MEDS: QUEtiapine FUMARATE 100 MG TAB PO SCH (21:58)
[2016-02-18] MEDS: traZODone 50 MG TAB PO PRN (21:58)
[2016-02-19 06:07] VITALS: BP 94/53
[2016-02-19] MEDS: LEVOTHYROXINE 0.1 MG TAB (100 MCG) PO SCH (06:16)
[2016-02-19] MEDS: NICOTINE 21MG/24HR 1 EA TRANSDERMAL TD SCH (09:00)
[2016-02-19] MEDS ORDERED: **PENDING PPD ENTRY XX SCH (09:00)
[2016-02-19] MEDS: PERPHENAZINE 2 MG TAB PO SCH ×3 (09:11→21:11)
--- NOTE | 2016-02-19 09:27 | EDDOCDS ---
Physician Documentation [facility] Name: Lilly Elias Age: 50 yrs Sex: Female : 1965 Arrival Date: 02/14/2016 Time: 19:31 Bed 18 Private MD: Unknown Pcp Disposition: 02/15/16 07:24 Hospitalization ordered by Moy Kincaid for Inpatient Admission. Preliminary diagnosis is Bipolar disorder, current episode depressed, severe, with psychotic features. - Bed requested for Admit. - Status is Inpatient Admission. jjr - Condition is Stable. - Problem is new. - Symptoms are unchanged. Historical: - Allergies: ARIPIPRAZOLE (suicidal ideation); CI pigment blue 63 (from cymbalta); Duloxetine (from cymbalta); SULFA (SULFONAMIDES) (Nausea); SUMATRIPTAN (Panic Attacks); topiramate (severe mood swings); - Home Meds: 1. benztropine 1 mg Oral tab 1 tab as needed 2. folic acid 1 mg Oral tab 1 tab once daily 3. hydroxyzine HCl 50 mg Oral tab 1 tab every 6 hours As needed 4. levothyroxine 100 mcg Oral cap 1 cap once daily 5. omeprazole 40 mg Oral cpDR 1 cap once daily 6. quetiapine 300 mg oral Tb24 1 tab once daily - PMHx: Bipolar disorder; Colitis; Fibromyalgia; Headaches; lung disease; Anxiety; Hypothyroidism; COPD; - PSHx: Hysterectomy; - Social history: Smoking status: unknown if patient ever smoked tobacco. Patient nonverbal at this time. . - : The pt / caregiver states he / she is not on anticoagulants. Home medication list is obtained from Prior history/[place] records. - Exposure Risk Screening:: None identified. Vital Signs: 02/13 19:46 BP 133 / 80; Pulse 51; Resp 18; Temp 99.0(T); Pulse Ox 98% on R/A; Weight 47 kg / slm 103.62 lbs; Height 61 in. (154.94 cm); 02/14 05:46 BP 127 / 82; Pulse 58; Resp 16; Pulse Ox 100% on R/A; slm 07:57 BP 108 / 77 (auto/); jjr 08:00 Pulse 72 MON; Resp 18; Temp 99(TE); Pulse Ox 100% on R/A; jjr 08:27 BP 111 / 75 (auto/); jjr 08:27 Pulse 84 MON; Pulse Ox 100% ; jjr 08:56 Resp 18; Pulse Ox 99% on R/A; jjr 08:57 BP 115 / 76 (auto/); jjr 10:37 BP 114 / 80 (auto/); jjr 10:37 Pulse 82 MON; Resp 18; Pulse Ox 100% on R/A; jjr 11:54 BP 106 / 68 (auto/); jjr 11:54 Pulse 68 MON; Resp 18; Pulse Ox 97% on R/A; jjr 12:28 BP 106 / 72 (auto/); Pulse 77; Resp 18; jjr 13:28 BP 105 / 70 (auto/); jjr 13:28 Pulse 66 MON; Resp 18; jjr 15:05 BP 92 / 56; Pulse 60; Resp 18; Temp 99.3(O); Pulse Ox 100% on R/A; jjr 16:21 BP 120 / 60; Pulse 53; Resp 18; Temp 99.4(TE); Pulse Ox 100% on R/A; Pain 0/10; rn1 02/13 19:46 Body Mass Index 19.58 (47.00 kg, 154.94 cm) [facility] MDM: 02/13 19:58 Consult PFS/PSA/Socail Worker: Cleared medically for eval ordered. cs11 20:24 Consult PFS/PSA/Socail Worker: Cleared medically for eval complete. cl 20:26 Financial registration complete. zo 20:52 SEROquel 300 mg PO once ordered. cs11 21:19 [facility] Payment Agreement was scanned into [employer] and attached to record. zo 02/14 05:04 REGULAR DIET PLASTIC GILBERT+DIET ordered. EDMS 07:16 IV Saline Lock ordered. br1 07:16 Call Respiratory ordered. br1 07:17 Misc Data Management Consultant Order ordered. br1 07:17 -Arterial Blood Gas Ordered. EDMS 07:17 Osmolality, Serum Ordered. EDMS 07:17 Ammonia ([place] Tube on Ice, Not [place]) Ordered. EDMS 07:24 Call Respiratory complete. jrd 07:25 Detonator Assembler/Pulse Ox/q 30 min VS ordered. br1 07:43 BED REQUEST+ADM ordered. EDMS 07:50 [facility] Consultant Order complete. dy 08:44 -Arterial Blood Gas Reviewed. br1 08:44 Ammonia ([place] Tube on Ice, Not Pea [place]) Reviewed. br1 08:44 Osmolality, Serum Reviewed. br1 11:58 REGULAR DIET PLASTIC GILBERT+DIET ordered. EDMS 13:44 PCR was scanned into [employer] and attached to record. gb 14:29 ED course: Dr. He has seen patient and felt patient most appropriate for Psychiatry [facility] service. Patient has been seen in ED by Dr. Kincaid, who has given orders for patient to be admitted to [facility].. 14:34 Admit to IM: ordered. EDMS 14:58 MHE Legal paperwork was scanned into [employer] and attached to record. jl 02/15 10:31 T-Sheet-- Draft Copy was scanned into [employer] and attached to record. gb Administered Medications: 02/13 21:03 Drug: SEROquel 300 mg Route: PO; slm Signatures: Dispatcher [employer] EDMS Josh Felix, PSA PSA Garrett Finn, PSA PSA cl Kisah Joseph, Reg Reg gb Almas Benitez, RN RN Adis Chang Brian, MD MD br1 Angela Lorenzo, RN RN Oj Ndiaye, DO cs11 Zhang Molina, GARMENT FITTER GARMENT FITTER Love Fernandez,RN RN nn1 Raegan Bower LPN slm The chart was reviewed and I authenticate all verbal orders and agree with the evaluation and treatment provided.Attachments: 21:19 [facility] Payment Agreement zo 02/15 10:31 T-Sheet-- Draft Copy gb Chart Complete MTDD
--- NOTE | 2016-02-19 09:27 | EDDOCDS ---
Nurse's Notes [facility] Name: Lilly Elias Age: 50 yrs Sex: Female : 1965 Arrival Date: 02/14/2016 Time: 19:31 Bed 18 Private MD: Unknown Pcp Diagnosis: Bipolar disorder, current episode depressed, severe, with psychotic features Presentation: 02/13 19:36 Presenting complaint: EMS states: patient nonverbal, patient from [facility]. Taken to [facility] ED due to noncompliance with medication. Presenting complaint: Records from [facility] reports that patient has not taken medications since Thursday and is now incontinent and urinating on herself. Mental Health Triage Level:. Mental Health Triage Level: Level 2: Possible psychosis. Mental Health Triage Level: Level 2:. Suicide/Homicide risk assessment- the patient denies having any suicidal and/or homicidal ideations and does not present with any other emotional, behavioral or mental health complaints. Status: Patient is not a library services assistant or dependent. Transition of care: patient was received from [facility]. 19:36 Acuity: DARREN Level 3 nn1 19:36 Method Of Arrival: Ambulance nn1 02/14 16:33 Adult Sepsis Screening: Patient has new or worsening altered mentation (1 point). jjr Patient's respiratory rate is less than 22. Systolic blood pressure is greater than 100. Patient has a qSOFA score of 1- Negative Sepsis Screen. Triage Assessment: 02/13 19:48 General: Appears in no apparent distress, Behavior is cooperative, Non verbal. Pain: nn1 Unable to use pain scale. Patient appears withdrawn, Non verbal. Not currently exhibiting signs of pain. HIV screening NA for this visit Offered previously. The patient is triaged at the bedside. See Assessment in Nurses Notes section of ED record. Neurological: Level of Consciousness is awake. Respiratory: Airway is patent Respiratory effort is even, unlabored, Respiratory pattern is regular, symmetrical. Derm: Skin is pink, warm & dry. Historical: - Allergies: ARIPIPRAZOLE (suicidal ideation); CI pigment blue 63 (from cymbalta); Duloxetine (from cymbalta); SULFA (SULFONAMIDES) (Nausea); SUMATRIPTAN (Panic Attacks); topiramate (severe mood swings); - Home Meds: 1. benztropine 1 mg Oral tab 1 tab as needed 2. folic acid 1 mg Oral tab 1 tab once daily 3. hydroxyzine HCl 50 mg Oral tab 1 tab every 6 hours As needed 4. levothyroxine 100 mcg Oral cap 1 cap once daily 5. omeprazole 40 mg Oral cpDR 1 cap once daily 6. quetiapine 300 mg oral Tb24 1 tab once daily - PMHx: Bipolar disorder; Colitis; Fibromyalgia; Headaches; lung disease; Anxiety; Hypothyroidism; COPD; - PSHx: Hysterectomy; - Social history: Smoking status: unknown if patient ever smoked tobacco. Patient nonverbal at this time. . - : The pt / caregiver states he / she is not on anticoagulants. Home medication list is obtained from Prior history/[place] records. - Exposure Risk Screening:: None identified. Screenin:05 Fall risk: No risks identified. Assistance ADL's: unable to assess. Abuse/DV Screen: slm Unable to Assess. Nutritional screening: Unable to Assess. Advance Directives: Unable to assess Advance Directive status due to pt condition. 02/14 16:33 Screening information is obtained from unable. Abuse/DV Screen: The patient / caregiver jjr reports he/she is: pt cannot be assessed for living situation at this time. Assessment: 02/13 19:51 General: See triage assessment . nn1 19:52 General: Appears in no apparent distress, Behavior is flat, pt non verbal with staff . slm 21:04 General: Appears in no apparent distress, slender, Behavior is flat, quiet. General: pt slm resting on stretcher remains non verbal with staff pt follow commands . will cont to monitor . Respiratory: Airway is patent Respiratory effort is even, unlabored. Derm: Skin is pink, warm & dry. 22:00 General: Appears in no apparent distress, comfortable, to be sleeping. Behavior is slm quiet. General: security observing . Respiratory: Airway is patent Respiratory effort is even, unlabored, Respiratory pattern is regular. 22:30 General: Appears in no apparent distress, comfortable, Behavior is flat, quiet. Pain: kas2 Denies pain. Neurological: Level of Consciousness is awake, alert, Oriented to person, place, time. Cardiovascular: Rhythm is regular. Respiratory: No deficits noted. Airway is patent Respiratory effort is even, unlabored, Respiratory pattern is regular, symmetrical. Derm: Skin is intact, is healthy with good turgor, Skin is dry, Skin is pink, warm & dry. Skin temperature is warm. 23:14 General: Appears in no apparent distress, comfortable, to be sleeping. Behavior is slm quiet. General: pt asleep security observing safety maintained . Respiratory: Airway is patent Respiratory effort is even, unlabored. 23:59 General: Appears in no apparent distress, comfortable, to be sleeping. Behavior is slm quiet. General: pt resting on stretcher asleep security observing . Respiratory: Airway is patent Respiratory effort is even, unlabored. 02/14 00:36 General: Appears in no apparent distress, comfortable, to be sleeping. Behavior is slm quiet. General: security observing. Respiratory: No deficits noted. 01:37 General: Appears in no apparent distress, comfortable, to be sleeping. Behavior is slm quiet. General: security observing . Respiratory: Airway is patent Respiratory effort is even, unlabored. 02:17 General: Appears in no apparent distress, comfortable, to be sleeping. Behavior is slm quiet. General: pt resting on stretcher asleep security observing . Respiratory: Airway is patent Respiratory effort is even, unlabored. 03:09 General: Appears in no apparent distress, comfortable, to be sleeping. Behavior is slm quiet. General: security observing . Respiratory: Airway is patent Respiratory effort is even, unlabored. 03:30 General: Patient laying in bed sleeping. No apparent distress. Appears comfortable. kas2 Respiratory pattern even and unlabored. Airway patent. Security observing. Will continue to monitor.. 03:52 General: Appears in no apparent distress, comfortable, to be sleeping. Behavior is slm quiet. General: security observing . Respiratory: Airway is patent Respiratory effort is even, unlabored. 05:22 General: Appears in no apparent distress, comfortable, to be sleeping. Behavior is slm quiet. General: pt asleep on stretcher security observing safety maintained . Respiratory: No deficits noted. 05:46 General: Appears in no apparent distress, Behavior is flat, pt non verbal pt slm incontinent of urine. race and sports book writer ambulated pt to bathroom to wash pt up ,pt assisted back to stretcher pt sitting on side of stretcher drinking H20 will cont to monitor pt . 06:26 General: Appears in no apparent distress, comfortable, to be sleeping. Behavior is slm quiet. General: pt resting on stretcher with eyes closed security observing . Respiratory: Airway is patent Respiratory effort is even, unlabored. Derm: Skin is pink, warm & dry. 07:34 General: Appears in no apparent distress, well nourished, well groomed, Behavior is jjr inappropriate for age, pt is nonverbal, will maintain eye contact, pt is drinking fluids, gait steady. Respiratory: Airway is patent Respiratory effort is even, unlabored, Respiratory pattern is regular. Derm: Skin is pink, warm & dry. 08:02 General: pt will nod head yes or no to some questions, pt did eat banana from breakfast jjr tray, slow to follow commands but cooperative. Cardiovascular: Rhythm is sinus rhythm. 09:00 General: pt continues to refuse to speak did write down that she wanted apple juice. jjr Cardiovascular: Rhythm is sinus rhythm. Respiratory: Airway is patent Respiratory effort is even, unlabored, Respiratory pattern is regular. Derm: Skin is pink, warm & dry. 09:59 General: Appears to be sleeping. Cardiovascular: Rhythm is sinus rhythm. jjr 11:00 General: Appears in no apparent distress, pt refuses to speak, once again wrote on jjr paper provided that she wanted more apple juice.. Cardiovascular: Rhythm is sinus rhythm. Respiratory: No deficits noted. Derm: No deficits noted. 11:57 General: Appears in no apparent distress, Behavior is cooperative, remains non verbal, jjr removed jorge wrap applied over saline lock. Cardiovascular: Rhythm is sinus rhythm. Derm: Skin is pink, warm & dry. 12:29 General: Appears in no apparent distress, ambulatory to BR gait steady, pt requires jjr frequent prompts to complete tasks, able to urinate. 12:45 General: psychiatrist to bedside. jjr 14:03 Adult Sepsis Screening: Patient has new or worsening altered mentation (1 point). jjr Patient's respiratory rate is less than 22. Systolic blood pressure is greater than 100. Patient has a qSOFA score of 1- Negative Sepsis Screen. General: Appears in no apparent distress, Behavior is cooperative, remains non verbal tolerated 75% lunch tray. 14:56 General: Appears in no apparent distress, pt again ambulatory to BR, incontinent of jjr urine, pt remains non verbal. 15:55 General: Appears in no apparent distress, up ad violet in room, remains nonverbal, jjr awaiting response from [facility]. 16:32 General: Appears in no apparent distress, no change from prior assessments. jjr Mental Health Eval: 02/13 20:02 Status: The patient is not a library services assistant or dependent. [facility] cl Behavioral Health: The patient is not an established patient of [facility] Behavioral Health. Referral Information: Evaluation referral is generated by [facility] ED on . The patient was referred for evaluation because Pt with catatonic type behavior in last few days, was incontinent of feces/urine today, pt with hx of Bipolar d/o and prior psych admissions at [facility], last 12/25 for johana.. Subjective: The patients chief complaint is Pt is non-verbal, is either unable/unwilling to speak during interview, will occasionally nod yes when asked a question, will not respond to any questions by any ED staff. Pt has 2 known psych admissions to [facility], 2016 for johana and 2013 for depression/SI. Pt seen and medically cleared at [facility] ED today and sent for MHE. PSA spoke with pt.'s S.O. Tyler Godwin who provided detailed hx of past week. Per Tyler, pt had belly pain last Thursday and was seen at [facility] ED and dx'd with UTI, given Abx. Tyler states he noticed changes in her AMS thru the weekend(less verbal/slow to respond) and by Thursday pt was almost completely non-verbal, would not take any medications, needed to be directed by S.O. to address ADL's, would nod yes "to yes questions", would not shake head "no", would speak briefly and "appear lucid" but only for short time and "go right back to this" referring to current behaviors. Tyler adds he has "never seen her like this before". Tyler took pt to see her therapist/Psychiatrist Thursday02/12/16 and "the therapist took one look at her and sent her right to the ED again". Pt spent most of day in [facility] ED and then was inexplicably sent home that evening, Tyler reports "she was not any better". Tyler reports today pt was incontinent of urine and feces, ("never happened before"). Tyler adds that pt will not care for self at this point, needs hands on care and direction for all activities, also pt has not slept or eaten well in days, he denies pt has made any threats to harm self.. Delusions are unable to assess . Patient's mood is dysphoric, hallucinations are unable to assess. Mental Health history: alcohol abuse, Bipolar Disorder, depression, suicide ideation ideation Mental Health Admissions: [facility] 2016 johana/2013 depression/SI...2006..depression Current Outpatient Mental Health Services: Psychiatrist / Agency: Lisbeth MELTON. Current living environment is The patient currently lives with his / her significant other, . Patient presents to Emergency Department with the following symptoms within the past 2 weeks: decreased appetite, non-compliance, non-communicative/incontinence. sleep disturbance - insomnia. Mental status exam: Patients appearance is disheveled thin, Patient's behavior is non-verbal. Affect is flat. Mood is dysphoric. Appetite is poor. Energy level is unable to assess Content of thought is unable to assess Thought process is unable to assess Patient's insight is absent. Judgement is absent. Rapport with interviewer is non-communicative. Suicidal Ideation is not present. Homicidal ideation is not present. Disposition: Medically cleared for disposition by Oj Middleton DO Psychiatric Consult is performed by phone with Dr Moy Kincaid. 20:51 Narrative: Dr. Kincaid spoke with Dr. Middleton regarding case, Dr. Middleton to order pt'.s cl medications in ED and will assess pt.'s mental status/behaviors after receiving medications....pt remains flat/quiet, did answer "yes" (twice) to Dr. Middleton's questions.... 02/14 07:17 Narrative: Patient awakened by Dr.'s Middleton & Willow, with no noteworthy change in her jl mental status. Dr. Kincaid was re-consulted, who expressed opinion that patient should be a medical admission at this point. Dr. Daugherty spoke with [facility] Hospitalist (Dr. Castaneda), who has agreed to admit her to medicine. 14:26 [facility] Admission Criteria: The patient is experiencing suicidal ideation. The patient ac displays symptoms of severe psychiatric disorder resulting in disordered behavior and significant interference with his / her ability to maintain self care. Hallucinations. The patient requires continuous observation and/or control to protect self, others or property. The patient's care requires a multi-modal treatment plan under close supervision and coordination due to the complexity and severity of the patient's symptoms. The patient requires administration and monitoring of psychoactive medications by skilled medical providers due to the side effects of the psychoactive medications or significant dosage adjustments. Legal Status: Patient's legal status will be Emergency admission: . 14:58 [place] is [place] because the patient does not display any jl suicidal or homicidal ideations and does not pose a risk to self or others. DSM-V Differential Diagnosis: Bipolar I Disorder (F31.0) Current or most recent episode depressed, severe (F31.34). Vital Signs: 02/13 19:46 BP 133 / 80; Pulse 51; Resp 18; Temp 99.0(T); Pulse Ox 98% on R/A; Weight 47 kg; Height slm 61 in. (154.94 cm); 02/14 05:46 BP 127 / 82; Pulse 58; Resp 16; Pulse Ox 100% on R/A; slm 07:57 BP 108 / 77 (auto/); jjr 08:00 Pulse 72 MON; Resp 18; Temp 99(TE); Pulse Ox 100% on R/A; jjr 08:27 BP 111 / 75 (auto/); jjr 08:27 Pulse 84 MON; Pulse Ox 100% ; jjr 08:56 Resp 18; Pulse Ox 99% on R/A; jjr 08:57 BP 115 / 76 (auto/); jjr 10:37 BP 114 / 80 (auto/); jjr 10:37 Pulse 82 MON; Resp 18; Pulse Ox 100% on R/A; jjr 11:54 BP 106 / 68 (auto/); jjr 11:54 Pulse 68 MON; Resp 18; Pulse Ox 97% on R/A; jjr 12:28 BP 106 / 72 (auto/); Pulse 77; Resp 18; jjr 13:28 BP 105 / 70 (auto/); jjr 13:28 Pulse 66 MON; Resp 18; jjr 15:05 BP 92 / 56; Pulse 60; Resp 18; Temp 99.3(O); Pulse Ox 100% on R/A; jjr 16:21 BP 120 / 60; Pulse 53; Resp 18; Temp 99.4(TE); Pulse Ox 100% on R/A; Pain 0/10; rn1 02/13 19:46 Body Mass Index 19.58 (47.00 kg, 154.94 cm) [facility] Vitals: 02/13 19:46 Log In Time N/A - ambulance arrival. [facility] ED Course: 19:32 Patient visited by Mihaela Tatum PCA. tmm1 19:32 Unknown Pcp is Private Physician. tmm1 19:32 Patient moved to Waiting tmm1 19:32 Patient moved to [facility] tmm1 19:33 Raegan Bower LPN is Primary Nurse. m 19:34 Oj Middleton DO is Attending Physician. cs11 19:34 Patient visited by Oj Middleton DO. cs11 19:40 Triage Initiated nn1 19:41 Patient moved to OBSERVATION cs11 19:45 Pt greeted and oriented to ED. Patient advised of names of staff involved in care, kb5 location of call lea, wait times and NPO status. Patient has correct armband on for positive identification. Placed in psych safe attire. Bed in low position. Call light in reach. Side rails up X 1. Security observing. Property removed, inventory done, secured in belongings bag- Placed in Locker 2. Pt placed in safe attire at [facility] prior to transfer; safe attire confirmed by Sarah Bower LPN.. Door closed. Noise minimized. Visitors limited. Psych Safety Check: Location: Psych Room. Visual Assessment: Cooperative. 19:53 Patient visited by Raegan Bower LPN. [facility] 20:00 Psych Safety Check: Location: Psych Room. Visual Assessment: Cooperative. kb5 20:03 Patient visited by Jacky Guajardo PCA. kb5 20:15 Patient visited by Jacky Guajardo PCA. kb5 20:15 Psych Safety Check: Location: Psych Room. Visual Assessment: Cooperative. kb5 20:30 Psych Safety Check: Location: Psych Room. Visual Assessment: Cooperative. kb5 20:31 Patient visited by Jacky Guajardo PCA. kb5 20:45 Patient visited by Jacky Guajardo PCA. kb5 20:45 Psych Safety Check: Location: Psych Room. Visual Assessment: Cooperative. kb5 21:00 Psych Safety Check: Location: Psych Room. Visual Assessment: Cooperative. kb5 21:05 Patient visited by Raegan Bower LPN. slm 21:15 Psych Safety Check: Location: Psych Room. Visual Assessment: Cooperative. kb5 21:18 Patient visited by Jacky Guajardo ASSISTANT ANALYST. kb5 21:19 [facility] Payment Agreement was scanned into [employer] and attached to record. zo 21:30 Psych Safety Check: Location: Psych Room. Visual Assessment: Cooperative. kb5 21:32 Patient visited by Roberto Guajardoer ASSISTANT ANALYST. kb5 21:45 Patient visited by Roberto Guajardoer ASSISTANT ANALYST. kb5 21:45 Psych Safety Check: Location: Psych Room. Visual Assessment: Cooperative. kb5 22:00 Psych Safety Check: Location: Psych Room. Visual Assessment: Cooperative. kb5 22:10 Patient visited by Jacky Guajardo ASSISTANT ANALYST. kb5 22:15 Psych Safety Check: Location: Psych Room. Visual Assessment: Cooperative. kb5 22:27 Patient visited by Jacky Guajardo ASSISTANT ANALYST. kb5 22:30 Psych Safety Check: Location: Psych Room. Visual Assessment: Cooperative. kb5 22:45 Patient visited by Jacky Guajardo ASSISTANT ANALYST. kb5 22:45 Psych Safety Check: Location: Psych Room. Visual Assessment: Cooperative. kb5 23:00 Psych Safety Check: Location: Psych Room. Visual Assessment: Cooperative. kb5 23:15 Patient visited by Raegan Bower LPN. slm 23:15 Psych Safety Check: Location: Psych Room. Visual Assessment: Cooperative. kb5 23:30 Psych Safety Check: Location: Psych Room. Visual Assessment: Cooperative. kb5 23:33 Patient visited by Jacky Guajardo ASSISTANT ANALYST. kb5 23:45 Patient visited by Roberto Guajardoer ASSISTANT ANALYST. kb5 23:45 Psych Safety Check: Location: Psych Room. Visual Assessment: Cooperative. kb5 23:59 Patient visited by Raegan Bower LPN. sl 02/14 00:00 Psych Safety Check: Location: Psych Room. Visual Assessment: Cooperative. kb5 00:06 Patient visited by Jacky Guajardo ASSISTANT ANALYST. kb5 00:15 Patient visited by Jacky Guajardo PCA. kb5 00:15 Psych Safety Check: Location: Psych Room. Visual Assessment: Cooperative. kb5 00:30 Patient visited by Jacky Guajardo PCA. kb5 00:30 Psych Safety Check: Location: Psych Room. Visual Assessment: Cooperative. kb5 00:37 Patient visited by Raegan Bower LPN. slm 00:45 Psych Safety Check: Location: Psych Room. Visual Assessment: Cooperative. kb5 00:46 Patient visited by Jacky Guajardo PCA. kb5 01:00 Patient visited by Jacky Guajardo PCA. kb5 01:00 Psych Safety Check: Location: Psych Room. Visual Assessment: Cooperative. kb5 01:08 Patient visited by Nichelle Torrez RN. kas2 01:15 Patient visited by Jacky Guajardo PCA. kb5 01:15 Psych Safety Check: Location: Psych Room. Visual Assessment: Cooperative. kb5 01:30 Psych Safety Check: Location: Psych Room. Visual Assessment: Cooperative. kb5 01:37 Patient visited by Raegan Bower LPN. slm 01:45 Psych Safety Check: Location: Psych Room. Visual Assessment: Cooperative. kb5 01:48 Patient visited by Jacky Guajardo PCA. kb5 02:00 Psych Safety Check: Location: Psych Room. Visual Assessment: Cooperative. kb5 02:15 Psych Safety Check: Location: Psych Room. Visual Assessment: Cooperative. kb5 02:18 Patient visited by Raegan Bower LPN. slm 02:30 Psych Safety Check: Location: Psych Room. Visual Assessment: Cooperative. kb5 02:45 Psych Safety Check: Location: Psych Room. Visual Assessment: Cooperative. kb5 03:00 Patient visited by Jacky Guajardo PCA. kb5 03:00 Psych Safety Check: Location: Psych Room. Visual Assessment: Cooperative. kb5 03:09 Patient visited by Raegan Bower LPN. slm 03:15 Psych Safety Check: Location: Psych Room. Visual Assessment: Cooperative. kb5 03:45 Patient visited by Jacky Guajardo PCA. kb5 03:45 Psych Safety Check: Location: Psych Room. Visual Assessment: Cooperative. kb5 03:53 Patient visited by Raegan Bower LPN. slm 04:00 Psych Safety Check: Location: Psych Room. Visual Assessment: Cooperative. kb5 04:11 Patient visited by Jacky Guajardo PCA. kb5 04:15 Psych Safety Check: Location: Psych Room. Visual Assessment: Cooperative. kb5 04:17 Patient visited by Jacky Guajardo PCA. kb5 04:30 Patient visited by Jacky Guajardo PCA. kb5 04:30 Psych Safety Check: Location: Psych Room. Visual Assessment: Cooperative. kb5 04:45 Patient visited by Jacky Guajardo PCA. kb5 04:45 Psych Safety Check: Location: Psych Room. Visual Assessment: Cooperative. kb5 05:00 Psych Safety Check: Location: Psych Room. Visual Assessment: Cooperative. kb5 05:06 Patient visited by Jacky Guajardo PCA. kb5 05:15 Psych Safety Check: Location: Psych Room. Visual Assessment: Cooperative. kb5 05:20 Patient visited by Jacky Guajardo PCA. kb5 05:23 Patient visited by Raegan Bower LPN. slm 05:30 Patient visited by Jacky Guajardo PCA. kb5 05:30 Psych Safety Check: Location: Psych Room. Visual Assessment: Cooperative. kb5 05:45 Psych Safety Check: Location: Psych Room. Visual Assessment: Cooperative. kb5 05:47 Patient visited by Nichelle Torrez RN. kas2 05:48 Patient visited by Jacky Guajardo PCA. kb5 05:50 No IV's were initiated during this patient's visit. No procedures done that require slm assistance. 05:51 Patient visited by Raegan Bower LPN. slm 05:51 The patient / caregiver is instructed regarding the plan of care and ED course. slm 06:00 Psych Safety Check: Location: Psych Room. Visual Assessment: Cooperative. kb5 06:06 Patient visited by Jacky Guajardo PCA. kb5 06:15 Psych Safety Check: Location: Psych Room. Visual Assessment: Cooperative. kb5 06:20 Patient visited by Jacky Guajardo PCA. kb5 06:26 Patient visited by Raegan Bower LPN. slm 06:30 Psych Safety Check: Location: Psych Room. Visual Assessment: Cooperative. kb5 06:45 Psych Safety Check: Location: Psych Room. Visual Assessment: Cooperative. kb5 06:51 Patient visited by Jacky Guajardo PCA. kb5 07:00 Psych Safety Check: Location: Psych Room. Visual Assessment: Cooperative. kb5 07:06 Attending Physician role handed off by Oj Middleton DO br1 07:06 Elliot Daugherty MD is Attending Physician. br1 07:06 Patient visited by Elliot Daugherty MD. br1 07:19 Patient visited by Aries Leigh. dpm 07:23 Angela Lorenzo RN is Primary Nurse. dy 07:23 Patient moved to 18 dy 07:24 Zaira Castaneda is Hospitalizing Provider. br1 07:25 Property property moved from locker 2 to locker locker 9. dpm 07:37 Patient visited by Angela Lorenzo RN. jjr 07:37 -Arterial Blood Gas Sent. js11 08:02 Inserted saline lock: 20 gauge in left antecubital area and blood collected. Labs jjr drawn. (by ED staff). Sent per order to lab. 08:03 manager monitoring on. Pulse ox on. NIBP on. jjr 08:04 Patient visited by Angela Lorenzo, BLAS. jjr 09:00 Patient visited by Angela Lorenzo, BLAS. jjr 09:32 Patient moved to Admit Hold dy 09:59 Patient visited by Angela Lorenzo, BLAS. jjr 11:01 Patient visited by Angela Lorenzo, BLAS. jjr 11:58 Patient visited by Angela Lorenzo, BLAS. jjr 12:29 Patient visited by Angela Lorenzo, BLAS. jjr 13:44 PCR was scanned into [employer] and attached to record. gb 14:03 Patient visited by Angela Lorenzo, BLAS. jjr 14:31 Hospitalizing Provider role handed off by Zaira Castaneda br1 14:31 Moy Kincaid is Hospitalizing Provider. br1 14:56 Patient visited by Angela Lorenzo RN. jjr 14:58 M[facility] Legal paperwork was scanned into [employer] and attached to record. jl 15:06 Discontinued lock intact, bleeding controlled, pressure dressing applied, No jjr redness/swelling at site. 15:08 Patient moved to 18 dy 15:55 Patient visited by Angela Lorenzo RN. jjr 02/15 10:31 T-Sheet-- Draft Copy was scanned into [employer] and attached to record. gb Administered Medications: 02/13 21:03 Drug: SEROquel 300 mg Route: PO; [facility] Attachments: 14:58 MHE Legal paperwork jl RT: 02/14 07:37 ABG's drawn from right radial artery allens test done and positive pressure held for 5 js11 minutes no bleeding noted specimen sent pt. tolerated well. Order Results: Lab Order: -Arterial Blood Gas; SPEC'M 02/15/16 07:32 Test: ABG pH (ARTERIAL); Value: 7.435; Range: 7.350-7.450; Units: UNITS; Status: F Test: ABG PARTIAL PRESSURE CO2; Value: 41.1; Range: 35.0-45.0; Units: mmHg; Status: F Test: ABG PARTIAL PRESSURE O2; Value: 95.0; Range: 75.0-100.0; Units: mmHg; Status: F Test: ABG TOTAL CO2; Value: 28.2; Range: 22.0-29.0; Units: MEQ/L; Status: F Test: ABG HCO3; Value: 27.0; Range: 22.0-26.0; Abnormal: Above high normal; Units: MEQ/L; Status: F Test: ABG BASE EXCESS; Value: 2.5; Range: -2.0-2.0; Abnormal: Above high normal; Status: F Test: ABG STANDARD HCO3; Value: 26.7; Range: 22.0-26.0; Abnormal: Above high normal; Units: MEQ/L; Status: F Test: ABG O2 SATURATION; Value: 97.5; Range: 95.0-99.0; Units: %; Status: F Test: ABG DEVICE; Value: NASAL LESLI; Status: F Lab Order: Osmolality, Serum; SPEC'M 02/15/16 07:51 Test: OSMOLALITY SERUM; Value: 303; Range: 275-295; Abnormal: Above high normal; Units: MOSM/KG; Status: F Lab Order: Ammonia ([place] Tube on Ice, Not Pea Green); SPEC'M 02/15/16 07:51 Test: AMMONIA; Value: < 25; Range: <32; Units: uMOL/L; Status: F Outcome: 07:24 Decision to Hospitalize by Provider. br1 16:32 Discharge Assessment: patient administered narcotics - no. The following High Risk r Discharge criteria are identified: None. Admitted to Psych accompanied by tech, via wheelchair, with chart. Condition: unchanged. No special radiology studies were completed. 16:35 Patient left the ED. jjr Addendum: 02/18/2016 16:00 Narrative: Spoke to Deepa H \\Sindi\\ [facility] who has approved pt for 6 days(02/14-) with ml4 review due on 02/19 with Tico Oh at [phone], ext [phone]. Auth #[id number]. Signatures: Mateusz Foster, PSA PSA ac Josh Felix, PSA PSA jl Garrett Palacios, PSA PSA cl Kisha Joseph, Reg Reg Almas Castro, RN RN Marilynn De La Torre, PSA PSA ml4 Adis Shearer Kristopher, ASSISTANT ANALYST ASSISTANT ANALYST kb5 Elliot Daugherty MD MD br1 Angela Lorenzo RN RN Devan Sweeney js11 Aries Leigh dpOj Sneed, DO cs11 Mihaela Tatum, ASSISTANT ANALYST ASSISTANT ANALYST tmm1 Raegan Bower,BOX PRINTER BOX PRINTER slHo Gtz rn1 Love SalazarRN RN nn1 Nichelle Torrez,RN RN kas2 Corrections: (The following items were deleted from the chart) 02/14 04:46 03:45 Psych Safety Check: Location: Psych Room. Visual Assessment: Lisa, kb5 kb5 Chart Complete MTDD
--- NOTE | 2016-02-19 09:27 | EDDOCDS ---
Physician Documentation [facility] Name: Lilly Elias Age: 50 yrs Sex: Female : 1965 Arrival Date: 02/14/2016 Time: 19:31 Bed 18 Private MD: Unknown Pcp Disposition: 02/15/16 07:24 Hospitalization ordered by Moy Kincaid for Inpatient Admission. Preliminary diagnosis is Bipolar disorder, current episode depressed, severe, with psychotic features. - Bed requested for Admit. - Status is Inpatient Admission. jjr - Condition is Stable. - Problem is new. - Symptoms are unchanged. Historical: - Allergies: ARIPIPRAZOLE (suicidal ideation); CI pigment blue 63 (from cymbalta); Duloxetine (from cymbalta); SULFA (SULFONAMIDES) (Nausea); SUMATRIPTAN (Panic Attacks); topiramate (severe mood swings); - Home Meds: 1. benztropine 1 mg Oral tab 1 tab as needed 2. folic acid 1 mg Oral tab 1 tab once daily 3. hydroxyzine HCl 50 mg Oral tab 1 tab every 6 hours As needed 4. levothyroxine 100 mcg Oral cap 1 cap once daily 5. omeprazole 40 mg Oral cpDR 1 cap once daily 6. quetiapine 300 mg oral Tb24 1 tab once daily - PMHx: Bipolar disorder; Colitis; Fibromyalgia; Headaches; lung disease; Anxiety; Hypothyroidism; COPD; - PSHx: Hysterectomy; - Social history: Smoking status: unknown if patient ever smoked tobacco. Patient nonverbal at this time. . - : The pt / caregiver states he / she is not on anticoagulants. Home medication list is obtained from Prior history/[facility] records. - Exposure Risk Screening:: None identified. Vital Signs: 02/13 19:46 BP 133 / 80; Pulse 51; Resp 18; Temp 99.0(T); Pulse Ox 98% on R/A; Weight 47 kg / slm 103.62 lbs; Height 61 in. (154.94 cm); 02/14 05:46 BP 127 / 82; Pulse 58; Resp 16; Pulse Ox 100% on R/A; slm 07:57 BP 108 / 77 (auto/); jjr 08:00 Pulse 72 MON; Resp 18; Temp 99(TE); Pulse Ox 100% on R/A; jjr 08:27 BP 111 / 75 (auto/); jjr 08:27 Pulse 84 MON; Pulse Ox 100% ; jjr 08:56 Resp 18; Pulse Ox 99% on R/A; jjr 08:57 BP 115 / 76 (auto/); jjr 10:37 BP 114 / 80 (auto/); jjr 10:37 Pulse 82 MON; Resp 18; Pulse Ox 100% on R/A; jjr 11:54 BP 106 / 68 (auto/); jjr 11:54 Pulse 68 MON; Resp 18; Pulse Ox 97% on R/A; jjr 12:28 BP 106 / 72 (auto/); Pulse 77; Resp 18; jjr 13:28 BP 105 / 70 (auto/); jjr 13:28 Pulse 66 MON; Resp 18; jjr 15:05 BP 92 / 56; Pulse 60; Resp 18; Temp 99.3(O); Pulse Ox 100% on R/A; jjr 16:21 BP 120 / 60; Pulse 53; Resp 18; Temp 99.4(TE); Pulse Ox 100% on R/A; Pain 0/10; rn1 02/13 19:46 Body Mass Index 19.58 (47.00 kg, 154.94 cm) [facility] MDM: 02/13 19:58 Consult PFS/PSA/Socail Worker: Cleared medically for eval ordered. cs11 20:24 Consult PFS/PSA/Socail Worker: Cleared medically for eval complete. cl 20:26 Financial registration complete. zo 20:52 SEROquel 300 mg PO once ordered. cs11 21:19 [facility] Payment Agreement was scanned into [employer] and attached to record. zo 02/14 05:04 REGULAR DIET PLASTIC GILBETR+DIET ordered. EDMS 07:16 IV Saline Lock ordered. br1 07:16 Call Respiratory ordered. br1 07:17 Misc Medical Staffing Coordinator Order ordered. br1 07:17 -Arterial Blood Gas Ordered. EDMS 07:17 Osmolality, Serum Ordered. EDMS 07:17 Ammonia ([place] Tube on Ice, Not Pea Green) Ordered. EDMS 07:24 Call Respiratory complete. jrd 07:25 Clinical Nurse Specialist/Pulse Ox/q 30 min VS ordered. br1 07:43 BED REQUEST+ADM ordered. EDMS 07:50 [facility] Medical Staffing Coordinator Order complete. dy 08:44 -Arterial Blood Gas Reviewed. br1 08:44 Ammonia ([place] Tube on Ice, Not Pea Green) Reviewed. br1 08:44 Osmolality, Serum Reviewed. br1 11:58 REGULAR DIET PLASTIC GILBERT+DIET ordered. EDMS 13:44 PCR was scanned into [employer] and attached to record. gb 14:29 ED course: Dr. He has seen patient and felt patient most appropriate for Psychiatry [facility] service. Patient has been seen in ED by Dr. Kincaid, who has given orders for patient to be admitted to [facility].. 14:34 Admit to IM: ordered. EDMS 14:58 MHE Legal paperwork was scanned into [employer] and attached to record. jl 02/15 10:31 T-Sheet-- Draft Copy was scanned into [employer] and attached to record. gb Administered Medications: 02/13 21:03 Drug: SEROquel 300 mg Route: PO; slm Signatures: Dispatcher [employer] EDMS Josh Felix, PSA PSA Garrett Finn, PSA PSA cl Kisha Joseph, Reg Reg gb Almas Benitez, RN RN Adis Chang Brian, MD MD br1 Angela Lorenzo, RN RN Oj Ndiaye, DO cs11 Zhang Molina, GROCERY TEAM MEMBER GROCERY TEAM MEMBER Love Fernandez,RN RN nn1 Raegan Bower LPN slm The chart was reviewed and I authenticate all verbal orders and agree with the evaluation and treatment provided.Attachments: 21:19 [facility] [place] zo 02/15 10:31 T-Sheet-- Draft Copy gb Chart Complete MTDD
[2016-02-19 09:33] LABS: BASO % 0.8 % (0.0-1.0); EOS # 0.1 K/mm3 (0.0-0.50); EOS % 1.1 % (0.0-3.0); LARGE UNSTAINED CELL # 0.1 K/mm3 (0.0-0.4); LARGE UNSTAINED CELL % 0.8 % (0.0-4.0); LYMPH # 0.6 K/mm3 (1.5-4.5); LYMPH % 9.1 % (24.0-44.0); MEAN CORPUSCULAR HEMOGLOBIN 31.1 pg (27.0-33.0); MEAN CORPUSCULAR VOLUME 91.5 fl (80.0-96.0); MONO # 0.3 K/mm3 (0.0-0.8); MONO % 4.4 % (0.0-5.0); NEUTROPHILS # 5.6 K/mm3 (1.8-7.7); PLATELET COUNT, AUTOMATED 190 k/mm3 (150-450); RED CELL DISTRIBUTION WIDTH 13.2 % (11.5-14.5); WHITE BLOOD COUNT 6.7 K/mm3 (4.0-10.0)
[2016-02-19 09:59] LABS: ALBUMIN 4.1 GM/DL (3.2-5.2); ALBUMIN/GLOBULIN RATIO 1.24 (1.00-1.93); BILIRUBIN,TOTAL 0.5 MG/DL (0.2-1.0); CALCIUM LEVEL 10.4 MG/DL (8.5-10.1); CREATININE FOR GFR 1.31 MG/DL (0.55-1.02); GLOMERULAR FILTRATION RATE 45.8 (>51); POTASSIUM SERUM 4.2 MEQ/L (3.5-5.1); TOTAL PROTEIN 7.4 GM/DL (6.4-8.2)
[2016-02-19 14:58] VITALS: BP 108/66
[2016-02-19] MEDS: ACETAMINOPHEN TAB 650MG DOSE (2X325MG) PO PRN (15:00)
--- NOTE | 2016-02-19 15:04 | IPN ---
DATE: 02/19/2016 Day number five of inpatient hospitalization. CURRENT MEDICATIONS: - Trilafon 8 mg orally three times a day - quetiapine 300 mg orally at bedtime - levothyroxine 0.1 mg daily for hypothyroidism Lilly is seen and her treatment reviewed. She is noted still to have difficulty interacting. She is mostly in her bed but has been showing some improvement in that she is able to ambulate and take care of some of her activities of daily living (ADLs). She is beginning to improve in her eating. No major incidents involving the patient in the past 24 hours. However, she is still not speaking spontaneously. OBSERVATION: Her vital signs are stable. Blood pressure 94/53, pulse 109, respiratory rate 18, and temperature 100.9. Of note she was seen today by the medical nurse practitioner for her elevated temperature and is currently being worked up for the same. Her mood remains depressed and she continues to appear catatonic. PLAN: She will be continued on the current treatment. One to one sitter will be discontinued, as she currently has not engaged in any behavior deemed an imminent danger to self or others. The plan also includes possible long-term hospitalization at [facility]. BISHOP
[2016-02-19 16:12] VITALS: BP 104/68
[2016-02-19 16:13] VITALS: BP 108/68
[2016-02-19] MEDS ORDERED: TUBERCULIN PPD 5 UNITS/0.1 ML ID SCH (17:00)
[2016-02-19 18:00] VITALS: BP 105/65
[2016-02-19] MEDS: QUEtiapine FUMARATE 100 MG TAB PO SCH (21:11)
[2016-02-20] MEDS: LEVOTHYROXINE 0.1 MG TAB (100 MCG) PO SCH (06:19)
[2016-02-20 06:47] VITALS: BP 101/56
[2016-02-20] MEDS: NICOTINE 21MG/24HR 1 EA TRANSDERMAL TD SCH (09:00)
[2016-02-20] MEDS: PERPHENAZINE 2 MG TAB PO SCH ×3 (09:32→21:43)
[2016-02-20 09:52] LABS: MEAN CORPUSCULAR HGB CONC 33.2 g/dl (32.0-36.5); MEAN CORPUSCULAR VOLUME 90.2 fl (80.0-96.0); RED CELL DISTRIBUTION WIDTH 13.9 % (11.5-14.5); WHITE BLOOD COUNT 7.2 K/mm3 (4.0-10.0)
[2016-02-20] MEDS: CEFDINIR 300 MG CAP (OMNICEF) PO SCH ×2 (10:00→21:43)
[2016-02-20] MEDS ORDERED: TUBERCULIN PPD 5 UNITS/0.1 ML ID ONE (10:00)
[2016-02-20 10:30] LABS: CALCIUM LEVEL 9.8 MG/DL (8.5-10.1); CREATININE FOR GFR 1.43 MG/DL (0.55-1.02); GLOMERULAR FILTRATION RATE 41.3 (>51)
--- NOTE | 2016-02-20 12:19 | IPNPDOC ---
Assessment/Plan Date Seen The patient was seen on 02/20/16. Problems Problems: (1) UTI (urinary tract infection) Status: Acute Problem Text: * Low grade temps noted. * Pt currently afebrile * UA pos * UC pending. * Omnicef D1 (2) Elevated serum creatinine Status: Acute Problem Text: * poor po intake * nursing to encourage po * I/O requested * Staff states by mouth intake is improving. * Staff is assisting with meals/fluids * Recheck BMP in a.m. (3) Hypothyroid Status: Chronic Response to Treatment: Stable Problem Text: * TSH WNL form [facility] labs. (4) Bipolar disorder Status: Chronic Problem Text: * mgmt as per Psych * CT brain completed at [facility] neg per report. (5) Lung disease Status: Chronic Problem Text: * h/o lung disease * PET 10/25 no hypermetabolic foci. Plan / VTE VTE Prophylaxis Ordered?: No (ambulatory) Subjective Review of Systems CC/HPI The patient is a 50-year-old female admitted with a reason for visit of Bipolar Depressed With Depressed Mood. Events since last encounter Pt remains non verbal. ENT: Denies: Dysphagia, Ear Pain, Head Aches Pulmonary: Denies: Cough, Dyspnea Cardiovascular: Denies: Chest Pain, Lt Headedness, Orthopnea, Palpitations, Paroxysmal Noc. Dyspnea Genitourinary: Denies: Dysuria, Frequency, Incontinence, Retention Objective Physical Examination General Exam: Positive: Alert ENT Exam: Positive: Atraumatic Chest Exam: Positive: Diminished Heart Exam: Positive: Normal S1, Normal S2, Rate Normal, Regular Rhythm, Negative: Murmurs, Rubs Abdomen Exam: Positive: Normal bowel sounds, Soft, Negative: Hepatospenomegaly, Tenderness Vital Signs/I&O Vital Signs Date Time Temp Pulse Resp B/P Pulse Ox O2 Delivery O2 Flow Rate FiO2 02/20/16 06:47 98.5 79 16 101/56 02/16/16 18:00 Room Air 02/15/16 16:54 100 Laboratory Data Labs 24H Laboratory Tests 2 02/20/16 09:21: Anion Gap 10, Blood Urea Nitrogen 22H, Creatinine 1.43H, Sodium Level 144, Potassium Level 4.0, Chloride Level 103, Carbon Dioxide Level 31, Calcium Level 9.8, Glomerular Filtration Rate 41.3L CBC/BMP Laboratory Tests 02/20/16 09:21 Calcium Level 9.8, Red Blood Count 4.57, Mean Corpuscular Volume 90.2, Mean Corpuscular Hemoglobin 30.0, Mean Corpuscular Hemoglobin Concent 33.2, Red Cell Distribution Width 13.9 Microbiology Microbiology 02/19/16 Urine Culture, Received Pending Quin Reinoso Feb 20, 2016 12:19
--- NOTE | 2016-02-20 12:23 | IPNPDOC ---
Assessment/Plan Date Seen The patient was seen on 02/19/16. Problems Problems: (1) UTI (urinary tract infection) Status: Acute Problem Text: * Tmax 100.0 noted. * Pt currently afebrile * UA/UC requested. * Update labs * (2) Elevated serum creatinine Status: Acute Problem Text: * poor po intake noted * nursing to encourage po * Staff noted dinner PM 02/17 uneaten. * Staff is assisting with meals/fluids * Recheck labs in a.m. * closely monitor (3) Hypothyroid Status: Chronic Response to Treatment: Stable Problem Text: * TSH WNL form [facility] labs. (4) Bipolar disorder Status: Chronic Problem Text: * mgmt as per Psych * CT brain completed at [facility] neg per report. Plan / VTE VTE Prophylaxis Ordered?: No (ambulatory) Subjective Review of Systems CC/HPI The patient is a 50-year-old female admitted with a reason for visit of Bipolar Depressed With Depressed Mood. Events since last encounter Patient is nonverbal. Labs are reviewed from [facility]. CT brain from [facility] -neg. Objective Physical Examination General Exam: Positive: Alert, Other (limited cooperation with exam) ENT Exam: Positive: Atraumatic Chest Exam: Positive: Diminished Heart Exam: Positive: Normal S1, Normal S2, Rate Normal, Regular Rhythm, Negative: Murmurs, Rubs Abdomen Exam: Positive: Normal bowel sounds, Soft, Negative: Hepatospenomegaly, Tenderness Vital Signs/I&O Vital Signs Date Time Temp Pulse Resp B/P Pulse Ox O2 Delivery O2 Flow Rate FiO2 02/20/16 06:47 98.5 79 16 101/56 02/16/16 18:00 Room Air 02/15/16 16:54 100 Laboratory Data Labs 24H Laboratory Tests 2 02/20/16 09:21: Anion Gap 10, Blood Urea Nitrogen 22H, Creatinine 1.43H, Sodium Level 144, Potassium Level 4.0, Chloride Level 103, Carbon Dioxide Level 31, Calcium Level 9.8, Glomerular Filtration Rate 41.3L CBC/BMP Laboratory Tests 02/20/16 09:21 Calcium Level 9.8, Red Blood Count 4.57, Mean Corpuscular Volume 90.2, Mean Corpuscular Hemoglobin 30.0, Mean Corpuscular Hemoglobin Concent 33.2, Red Cell Distribution Width 13.9 Microbiology Microbiology 02/19/16 Urine Culture, Received Pending Quin Reinoso Feb 20, 2016 12:23
--- NOTE | 2016-02-20 13:45 | IPN ---
DATE: 02/20/2016 Sixth day of inpatient hospitalization. CURRENT MEDICATIONS: - Trilafon 8 mg orally three times a day - quetiapine 300 mg orally at bedtime - levothyroxine 0.4 mg daily for hypothyroidism The patient is seen and treatment reviewed. There were no changes made in her current medication and dosages. She continues to accept medications and no major incidents over the past 24 hours. She still has not been spontaneously speaking; however, reports indicate that she has been accepting her medications, food and nutrients. She also increasingly has been performing relevant activities of daily living. Although not speaking, she is able to respond with head movements when she is asked a question, and then maintains eye contact and appears to be interested in discussions. OBSERVATION: VITAL SIGNS: Blood pressure 101/64, pulse 79, respirations 16, and temperature 98.5. She is calm, cooperative and is observed sitting in a chair. She does not appear to be in distress. Her grooming is fair and hygiene adequate. No abnormal involuntary movements are noted. When asked about any thoughts, plan or intent of suicide, she shakes her head to indicate that there is none. ASSESSMENT: The patient seems to be responding slowly but steadily to treatment, becoming less catatonic in a sense of her psychomotor activity; however, she continues to be mute and not engage spontaneously. No medication related adverse events. PLAN: She will be continued on the current treatment. Sitter is continued due to imminent risk of harm to self or to others. Ongoing assessment and supportive therapy.
[2016-02-20 18:00] VITALS: BP 106/67
[2016-02-20] MEDS: traZODone 50 MG TAB PO PRN (21:43)
[2016-02-20] MEDS: QUEtiapine FUMARATE 100 MG TAB PO SCH (21:43)
[2016-02-21] MEDS: LEVOTHYROXINE 0.1 MG TAB (100 MCG) PO SCH (05:58)
[2016-02-21 06:13] VITALS: BP 114/66
[2016-02-21 08:05] LABS: MEAN CORPUSCULAR HEMOGLOBIN 30.3 pg (27.0-33.0); MEAN CORPUSCULAR HGB CONC 33.5 g/dl (32.0-36.5); MEAN CORPUSCULAR VOLUME 90.4 fl (80.0-96.0); RED CELL DISTRIBUTION WIDTH 13.2 % (11.5-14.5); WHITE BLOOD COUNT 5.3 K/mm3 (4.0-10.0)
[2016-02-21 08:21] LABS: CALCIUM LEVEL 9.9 MG/DL (8.5-10.1); CREATININE FOR GFR 1.22 MG/DL (0.55-1.02); GLOMERULAR FILTRATION RATE 49.7 (>51); POTASSIUM SERUM 3.9 MEQ/L (3.5-5.1)
[2016-02-21] MEDS: NICOTINE 21MG/24HR 1 EA TRANSDERMAL TD SCH (09:00)
[2016-02-21] MEDS: CEFDINIR 300 MG CAP (OMNICEF) PO SCH ×2 (09:13→22:37)
[2016-02-21] MEDS: PERPHENAZINE 2 MG TAB PO SCH ×3 (09:13→22:37)
--- NOTE | 2016-02-21 11:24 | IPNPDOC ---
Assessment/Plan Date Seen The patient was seen on 02/21/16. Problems Problems: (1) UTI (urinary tract infection) Status: Acute Problem Text: * Afebrile past 24 hours.ile * UC pending. * Omnicef D2 (2) Elevated serum creatinine Status: Acute Problem Text: * By mouth intake improved * nursing to continue to encourage po * I/O requested * Staff reports by mouth intake is improving. * Staff is assisting with meals/fluids * Recheck BMP in a.m. * Serum creatinine trend improved (1.22) (3) Hypothyroid Status: Chronic Response to Treatment: Stable Problem Text: * TSH WNL form [facility] labs. (4) Bipolar disorder Status: Chronic Problem Text: * mgmt as per Psych * CT brain completed at [facility] neg per report. (5) Lung disease Status: Chronic Problem Text: * h/o lung disease * PET 10/25 no hypermetabolic foci. Plan / VTE VTE Prophylaxis Ordered?: No (ambulatory) Subjective Review of Systems CC/HPI The patient is a 50-year-old female admitted with a reason for visit of Bipolar Depressed With Depressed Mood. Events since last encounter Patient nonverbal. Sitting at bedside table, eating breakfast. Will drink fluids. Objective Physical Examination General Exam: Positive: Alert ENT Exam: Positive: Atraumatic Chest Exam: Positive: Diminished Heart Exam: Positive: Normal S1, Normal S2, Rate Normal, Regular Rhythm, Negative: Murmurs, Rubs Abdomen Exam: Positive: Normal bowel sounds, Soft, Negative: Hepatospenomegaly, Tenderness Vital Signs/I&O Vital Signs Date Time Temp Pulse Resp B/P Pulse Ox O2 Delivery O2 Flow Rate FiO2 02/21/16 06:13 96.5 116 18 114/66 02/16/16 18:00 Room Air 02/15/16 16:54 100 I&O- Last 24 Hours up to 6 AM 02/21/16 06:00 Intake Total 1760 ml Output Total 1360 ml Balance 400 ml Laboratory Data Labs 24H Laboratory Tests 2 02/21/16 07:31: Anion Gap 8, Blood Urea Nitrogen 22H, Creatinine 1.22H, Sodium Level 144, Potassium Level 3.9, Chloride Level 105, Carbon Dioxide Level 31, Calcium Level 9.9, Glomerular Filtration Rate 49.7L CBC/BMP Laboratory Tests 02/21/16 07:31 Calcium Level 9.9, Red Blood Count 4.48, Mean Corpuscular Volume 90.4, Mean Corpuscular Hemoglobin 30.3, Mean Corpuscular Hemoglobin Concent 33.5, Red Cell Distribution Width 13.2 Microbiology Microbiology 02/19/16 Urine Culture, Received Pending Quin Reinoso Feb 21, 2016 11:23
--- NOTE | 2016-02-21 12:15 | IPN ---
DATE: 02/21/2016 Seventh day of inpatient hospitalization. CURRENT MEDICATIONS: - Geodon 8 mg orally three times a day - quetiapine 300 mg orally at bedtime - levothyroxine 0.4 mg daily for hypothyroidism So far, she has not been able to participate in psychotherapy interventions. However, she is offered supportive therapy. OBSERVATION: Vital signs: Blood pressure 114/66, respirations 18, pulse 116, temperature 96.5. She is observed sitting on her bed. She currently has been able to feed herself without needing somebody to help her. She also has been able to move down to take a shower and perform her own ADLs. However, she continues not to communicate verbally. However, she is noted now to show some improvement in the ability to respond with gestures. She remains currently mute. However, when asked about any thoughts, plan or intent of suicide or homicide, she shakes her head to indicate that she does not. She is tolerating the current medications and no notable side effects. ASSESSMENT: Patient remains catatonic, apparently appears severely depressed at this time. PLAN: crane chaser treatment facility such as [place]. She will be continued on the current medication with ongoing assessment and supportive therapy. If symptoms continue, recommendation will be made for possible treatment with electroconvulsive therapy (ECT). BISHOP
[2016-02-21] MEDS ORDERED: PPD DOCUMENTATION ENTRY MISC XX SCH (17:00)
[2016-02-21 18:00] VITALS: BP 105/59
[2016-02-21] MEDS: QUEtiapine FUMARATE 100 MG TAB PO SCH (22:37)
[2016-02-21] MEDS: traZODone 50 MG TAB PO PRN (22:37)
[2016-02-22] MEDS: LEVOTHYROXINE 0.1 MG TAB (100 MCG) PO SCH (06:05)
[2016-02-22 06:17] VITALS: BP 124/78
[2016-02-22] MEDS: NICOTINE 21MG/24HR 1 EA TRANSDERMAL TD SCH (09:00)
[2016-02-22] MEDS: CEFDINIR 300 MG CAP (OMNICEF) PO SCH ×2 (09:11→22:30)
[2016-02-22] MEDS: PERPHENAZINE 2 MG TAB PO SCH ×3 (09:20→22:30)
[2016-02-22 09:42] LABS: CREATININE FOR GFR 1.14 MG/DL (0.55-1.02); GLOMERULAR FILTRATION RATE 53.7 (>51); POTASSIUM SERUM 4.6 MEQ/L (3.5-5.1)
[2016-02-22] MEDS: MOM 30ML SUSPENSION UDC PO PRN (10:13)
--- NOTE | 2016-02-22 11:49 | IPNPDOC ---
Assessment/Plan Date Seen The patient was seen on 02/22/16. Problems Problems: (1) UTI (urinary tract infection) Status: Acute Problem Text: * Afebrile. * UC pending. * Omnicef D3 * I have spoken with the lab regarding urine culture results. Preliminary result is Escherichia coli greater than 100,000 CFU. Sensitivities are pending and will not be available until tomorrow. (2) Elevated serum creatinine Status: Acute Problem Text: * By mouth intake improved * nursing to continue to encourage po * I/O requested * Staff reports by mouth intake is improving. * Staff is assisting with meals/fluids * Recheck BMP in a.m. * Serum creatinine trend improved (1.14) (3) Hypothyroid Status: Chronic Response to Treatment: Stable Problem Text: * TSH WNL form [facility] labs. (4) Bipolar disorder Status: Chronic Problem Text: * mgmt as per Psych * CT brain completed at [facility] neg per report. (5) Lung disease Status: Chronic Problem Text: * h/o lung disease * PET 10/25 no hypermetabolic foci. Plan / VTE VTE Prophylaxis Ordered?: No (ambulatory) Subjective Review of Systems CC/HPI The patient is a 50-year-old female admitted with a reason for visit of Bipolar Depressed With Depressed Mood. Events since last encounter Patient remains nonverbal. Objective Physical Examination General Exam: Positive: Alert ENT Exam: Positive: Atraumatic Chest Exam: Positive: Diminished Heart Exam: Positive: Normal S1, Normal S2, Rate Normal, Regular Rhythm Abdomen Exam: Positive: Normal bowel sounds, Soft Vital Signs/I&O Vital Signs Date Time Temp Pulse Resp B/P Pulse Ox O2 Delivery O2 Flow Rate FiO2 02/22/16 06:17 97.8 77 16 124/78 02/16/16 18:00 Room Air I&O- Last 24 Hours up to 6 AM 02/22/16 06:00 Intake Total 2700 ml Balance 2700 ml Laboratory Data Labs 24H Laboratory Tests 2 02/22/16 08:25: Anion Gap 8, Blood Urea Nitrogen 25H, Creatinine 1.14H, Sodium Level 143, Potassium Level 4.6, Chloride Level 106, Carbon Dioxide Level 29, Calcium Level 10.0, Glomerular Filtration Rate 53.7 CBC/BMP Laboratory Tests 02/22/16 08:25 Calcium Level 10.0 Microbiology Microbiology 02/19/16 Urine Culture, Received Pending Quin Reinoso Feb 22, 2016 11:49
--- NOTE | 2016-02-22 12:01 | IPN ---
DATE: 02/22/2016 Eighth day of inpatient hospitalization. TREATMENT: CURRENT MEDICATIONS: - Trilafon 8 mg orally three times a day - quetiapine 300 mg orally at bedtime - levothyroxine 0.4 mg daily for hypothyroidism - She also is started on Cefdinir, an antibiotic, 300 mg orally twice daily for treatment of urinary tract infection. In addition, she continues to be offered supportive therapy. No major incident involving the patient in the past 24 hours. She is observed still not engaging spontaneously, as she Is mostly in her room, although noted to increasingly take care of her activities of daily living (ADL). She is presently not on one-to-one intensive supervision. She has been compliant with her treatment. However, she has not amenable to psychotherapy interventions and still not communicating verbally. OBSERVATION: She is noted to be alert, still slightly mute and catatonic. No evidence of EPS or tardive dyskinesia. Vital signs are stable. ASSESSMENT: She continues to tolerate current medication and shows a little improvement in her symptoms. However, she continues to be slightly catatonic. PLAN: She will continue on the current treatment with ongoing plan for transfer to a long-term facility such as [place]. [facility]
[2016-02-22 18:00] VITALS: BP 136/78
[2016-02-22] MEDS: QUEtiapine FUMARATE 100 MG TAB PO SCH (22:29)
[2016-02-23] MEDS: LEVOTHYROXINE 0.1 MG TAB (100 MCG) PO SCH (06:01)
[2016-02-23 06:20] VITALS: BP 108/63
[2016-02-23] MEDS: PERPHENAZINE 2 MG TAB PO SCH ×3 (08:58→22:19)
[2016-02-23] MEDS: NICOTINE 21MG/24HR 1 EA TRANSDERMAL TD SCH (08:58)
[2016-02-23] MEDS: CEFDINIR 300 MG CAP (OMNICEF) PO SCH ×2 (08:58→22:18)
[2016-02-23] MEDS: MOM 30ML SUSPENSION UDC PO PRN (11:39)
[2016-02-23 12:30] LABS: CALCIUM LEVEL 10.2 MG/DL (8.5-10.1); CREATININE FOR GFR 1.27 MG/DL (0.55-1.02); GLOMERULAR FILTRATION RATE 47.4 (>51); POTASSIUM SERUM 4.4 MEQ/L (3.5-5.1)
[2016-02-23 18:00] VITALS: BP 111/73
[2016-02-23] MEDS: QUEtiapine FUMARATE 100 MG TAB PO SCH (22:19)
[2016-02-24] MEDS: LEVOTHYROXINE 0.1 MG TAB (100 MCG) PO SCH (06:01)
[2016-02-24 06:24] VITALS: BP 117/64
[2016-02-24] MEDS: CEFDINIR 300 MG CAP (OMNICEF) PO SCH ×2 (08:56→21:56)
[2016-02-24] MEDS: PERPHENAZINE 2 MG TAB PO SCH ×3 (08:56→21:56)
[2016-02-24] MEDS: NICOTINE 21MG/24HR 1 EA TRANSDERMAL TD SCH (09:00)
[2016-02-24] MEDS ORDERED: LORazepam 1 MG TAB PO STA (12:36)
[2016-02-24 18:00] VITALS: BP 124/80
[2016-02-24] MEDS: LORazepam 1 MG TAB PO SCH ×2 (18:14→21:56)
[2016-02-24] MEDS ORDERED: LORazepam 1 MG TAB PO SCH (21:00)
[2016-02-24] MEDS: QUEtiapine FUMARATE 100 MG TAB PO SCH (21:57)
[2016-02-24] MEDS: traZODone 50 MG TAB PO PRN (23:17)
--- NOTE | 2016-02-25 02:36 | IPN ---
DATE OF SERVICE: 02/24/2016 The patient today remains nonverbal and basically in a catatonic relation. She is on one-to-one observation level and staff is having to actually feed her. The patient will not answer any questions. MENTAL STATUS EXAMINATION: This patient is as already described catatonic and so I am not able to do a mental status examination. DIAGNOSIS: Bipolar disorder, depressed, with psychotic symptoms and catatonic state. TREATMENT PLAN: At this point, I have decided to try the patient on some Ativan. I gave her one dose of Ativan 1 mg and staff reported that they began to see a bit of an improvement because she was at least standing up on her own. I decided to start her on Ativan 1 mg four times a day because this is often good for catatonic state. I did review her medications and she is on Trilofan 8 mg three times a day and on Seroquel 300 mg nightly. She will continue on one-to-one observation level.
[2016-02-25] MEDS: LEVOTHYROXINE 0.1 MG TAB (100 MCG) PO SCH (05:58)
[2016-02-25 06:00] VITALS: BP 120/76
[2016-02-25] MEDS: NICOTINE 21MG/24HR 1 EA TRANSDERMAL TD SCH (09:00)
[2016-02-25] MEDS: CEFDINIR 300 MG CAP (OMNICEF) PO SCH ×2 (09:31→21:07)
[2016-02-25] MEDS: PERPHENAZINE 2 MG TAB PO SCH (09:31)
[2016-02-25] MEDS: LORazepam 1 MG TAB PO SCH (09:31)
[2016-02-25] MEDS ORDERED: LORazepam 1 MG TAB PO SCH (17:00)
--- NOTE | 2016-02-25 17:47 | IPN ---
DATE: 02/25/2016 MEDICATION: - Ativan 1 mg by mouth four times a day - Trilafon 8 mg by mouth three times a day - Seroquel 300 mg by mouth at bedtime A 50-year-old female with a history of bipolar disorder. Patient was brought to the emergency department (ED) to due reportedly being catatonic, not caring for self, and being incontinent. Patient was unable to communicate, mostly mute. Was not being able to attend to her regular activities of daily living, and it was reported urinary and fecal incontinence. She was treated with Seroquel 300 mg at bedtime with minimal change. It was also reported that she was having auditory hallucinations, and the voices were telling her not to talk, or answer, or respond in any way to the questions. SUBJECTIVE: Patient was originally in bed, selectively mute, unable to answer the questions. OBJECTIVE: Patient is psychotic, bizarre, and may be having side effects with the current medication. MENTAL STATUS EXAMINATION: Patient dressed in [facility]. Very poor eye contact. Selectively mute. Thought blocking. The patient is delusional and has auditory hallucinations. Insight and judgment are poor. ASSESSMENT: Bipolar disorder. PLAN: 1. Discontinue Ativan. 2. Diazepam 5 mg by mouth three times a day only as needed for benzodiazepine withdrawal. 3. Discontinue Trilafon. 4. Discontinue Seroquel. 5. Discontinue trazodone. 6. Will observe the patient closely without psychotropic medications. May be experiencing side effects from the above.
[2016-02-25 18:00] VITALS: BP 120/82
[2016-02-25] MEDS: diazePAM 5 MG TAB PO PRN (22:06)
[2016-02-26] MEDS: LEVOTHYROXINE 0.1 MG TAB (100 MCG) PO SCH (05:45)
[2016-02-26 06:32] VITALS: BP 133/87
[2016-02-26 08:20] LABS: CALCIUM LEVEL 10.1 MG/DL (8.5-10.1); CREATININE FOR GFR 1.1 MG/DL (0.55-1.02); POTASSIUM SERUM 4.2 MEQ/L (3.5-5.1)
[2016-02-26] MEDS: NICOTINE 21MG/24HR 1 EA TRANSDERMAL TD SCH (08:58)
[2016-02-26] MEDS: CEFDINIR 300 MG CAP (OMNICEF) PO SCH ×2 (08:59→20:37)
--- NOTE | 2016-02-26 10:50 | IPNPDOC ---
Assessment/Plan Date Seen The patient was seen on 02/26/16. Problems Problems: (1) UTI (urinary tract infection) Status: Acute Problem Text: * E Coli * Afebrile. * Omnicef D6 (2) Elevated serum creatinine Status: Acute Problem Text: * nursing to continue to encourage po * I/O requested * Staff is assisting with meals/fluids * Recheck BMP 02/27 * Serum creatinine trend improved (1.10) (3) Hypothyroid Status: Chronic Response to Treatment: Stable Problem Text: * TSH WNL form [facility] labs. (4) Bipolar disorder Status: Chronic Problem Text: * mgmt as per Psych * CT brain completed at [facility] neg per report. (5) Lung disease Status: Chronic Problem Text: * h/o lung disease * PET 10/25 no hypermetabolic foci. Plan / VTE VTE Prophylaxis Ordered?: No (ambulatory) Subjective Review of Systems CC/HPI The patient is a 50-year-old female admitted with a reason for visit of Bipolar Depressed With Depressed Mood. Events since last encounter Pt remains nonverbal. Objective Physical Examination General Exam: Positive: Alert ENT Exam: Positive: Atraumatic Chest Exam: Positive: Diminished Heart Exam: Positive: Normal S1, Normal S2, Rate Normal, Regular Rhythm Abdomen Exam: Positive: Normal bowel sounds, Soft Vital Signs/I&O Vital Signs Date Time Temp Pulse Resp B/P Pulse Ox O2 Delivery O2 Flow Rate FiO2 02/26/16 06:32 96.3 98 16 133/87 I&O- Last 24 Hours up to 6 AM 02/26/16 06:00 Intake Total 2660 ml Output Total 1400 ml Balance 1260 ml Laboratory Data Labs 24H Laboratory Tests 2 02/26/16 07:17: Anion Gap 7L, Blood Urea Nitrogen 20H, Creatinine 1.10H, Sodium Level 141, Potassium Level 4.2, Chloride Level 104, Carbon Dioxide Level 30, Calcium Level 10.1, Glomerular Filtration Rate 56.0 CBC/BMP Laboratory Tests 02/26/16 07:17 Calcium Level 10.1 Microbiology Microbiology 02/19/16 Urine Culture - Final, Complete Escherichia Coli Quin Reinoso Feb 26, 2016 10:50
[2016-02-26 12:20] VITALS: BP 136/91
[2016-02-26 18:00] VITALS: BP 138/90
--- NOTE | 2016-02-26 19:42 | IPN ---
DATE: 02/26/2016 HISTORY: A 50-year-old female with history of bipolar disorder, brought to the emergency department for being catatonic, unable to care for self, being incontinent and unable to communicate. She was mostly nude. The patient was unable to attend her regular activities and she had urinary and fecal incontinence. She was treated with Seroquel 300 mg at bedtime with minimal change. Also was reported auditory hallucinations. MEDICATIONS: No psychotropic medication had been given in the last 24 hours. SUBJECTIVE: The patient is selectively mute, unable to answer most of the questions. OBJECTIVE: The patient continues displaying catatonic behavior, although the patient is not sedated. The patient has been walking and going to the [facility] with the help of nursing staff. The patient continues to display some paranoid delusions. MENTAL STATUS EXAMINATION: The patient is dressed in [facility]. Eye contact is poor. Selectively mute. Thought blocking, delusional and catatonic behavior. Insight and judgment are poor. ASSESSMENT: 1. Bipolar disorder by history. 2. Rule out delirium. PLAN: Will continue holding all psychiatric medication and observe the patient closely. We will restart the medication depending on the evolution.
[2016-02-26 21:02] VITALS: BP 128/88
[2016-02-26] MEDS: ACETAMINOPHEN TAB 650MG DOSE (2X325MG) PO PRN (22:25)
[2016-02-26] MEDS: diazePAM 5 MG TAB PO PRN (22:25)
[2016-02-27] MEDS: LEVOTHYROXINE 0.1 MG TAB (100 MCG) PO SCH (05:40)
[2016-02-27 06:38] VITALS: BP 129/78
[2016-02-27 07:19] LABS: ANION GAP 7 MEQ/L (8-16); BLOOD UREA NITROGEN 17 MG/DL (7-18); CALCIUM LEVEL 10.1 MG/DL (8.5-10.1); CARBON DIOXIDE LEVEL 29 MEQ/L (21-32); CHLORIDE LEVEL 105 MEQ/L (98-107); CREATININE FOR GFR 1.03 MG/DL (0.55-1.02); GLOMERULAR FILTRATION RATE > 60.0 (>51); GLUCOSE, FASTING 99 MG/DL (70-105); POTASSIUM SERUM 4.1 MEQ/L (3.5-5.1); SODIUM LEVEL 141 MEQ/L (136-145)
[2016-02-27] MEDS: NICOTINE 21MG/24HR 1 EA TRANSDERMAL TD SCH (09:40)
[2016-02-27] MEDS: CEFDINIR 300 MG CAP (OMNICEF) PO SCH ×2 (09:40→20:20)
[2016-02-27 12:01] VITALS: BP 130/88
[2016-02-27] MEDS: ACETAMINOPHEN TAB 650MG DOSE (2X325MG) PO PRN (13:23)
--- NOTE | 2016-02-27 16:54 | IPN ---
DATE: 02/27/2016 50-year-old female with history of bipolar disorder and anxiety, brought to the emergency department (ED) with symptoms of catatonia, unable to care for herself. She was incontinent, unable to communicate or attend to her regular activities. She had urinary and fecal incontinence. She was treated with Seroquel 300 mg at bedtime with minimal change. She reported auditory hallucinations. MEDICATIONS: All psychotropic medication has been held since there is a high suspicion that the clinical picture is compatible with delirium. SUBJECTIVE: The patient is selectively mute. OBJECTIVE: The patient continues to display catatonic behavior. No longer sedated. Some acting out behavior, but in the context of confusion and delirium. MENTAL STATUS EXAMINATION: Patient is dressed in [facility]. Poor eye contact, selectively mute. Positive thought blocking. Patient is delusional and displays catatonic behavior. Insight and judgment is very poor. ASSESSMENT: 1. Bipolar disorder by history. 2. Rule out delirium. PLAN: Continue to hold all psychotropic medication and observe the patient closely. The medication will be restarted when the delirium clears.
[2016-02-27 18:00] VITALS: BP 124/83
[2016-02-28] MEDS: ACETAMINOPHEN TAB 650MG DOSE (2X325MG) PO PRN ×2 (01:36→09:15)
--- NOTE | 2016-02-28 02:51 | REP ---
Clinical: Trauma. Pain. Technique: AP, lateral, bilateral oblique and sunrise views right knee . Findings: The osseous structures and joint spaces are intact and normal. There is no evidence for acute fracture or dislocation. No joint effusion is appreciated. Surrounding soft tissues are unremarkable. No subcutaneous emphysema or radiodense foreign body. Impression: Normal examination. No acute fracture or dislocation. Signed by Sherwin Friedman MD 02/28/2016 02:43 A
--- NOTE | 2016-02-28 03:02 | REP ---
Clinical: thoracic pain with recent trauma/fall. Technique: AP, lateral, and swimmers views. Findings: Alignment and kyphosis is maintained. Vertebral bodies intact. No acute fracture / compression injury or subluxation. Age-related changes are appreciated. Paravertebral soft tissues are normal. Impression: Normal age appropriate thoracic spine series. No acute fracture / compression injury or subluxation. Signed by Sherwin Friedman MD 02/28/2016 02:54 A
[2016-02-28] MEDS: LEVOTHYROXINE 0.1 MG TAB (100 MCG) PO SCH (06:11)
[2016-02-28 06:43] VITALS: BP 130/89
[2016-02-28 07:30] LABS: CALCIUM LEVEL 9.8 MG/DL (8.5-10.1); CREATININE FOR GFR 1.09 MG/DL (0.55-1.02); GLOMERULAR FILTRATION RATE 56.6 (>51)
[2016-02-28] MEDS: CEFDINIR 300 MG CAP (OMNICEF) PO SCH ×2 (08:56→21:25)
[2016-02-28] MEDS: MULTIVITAMINS/MINERALS THERAP 1 TAB PO SCH (09:00)
[2016-02-28] MEDS: FOLIC ACID 1 MG TAB PO SCH (09:00)
[2016-02-28] MEDS: NICOTINE 21MG/24HR 1 EA TRANSDERMAL TD SCH (09:06)
--- NOTE | 2016-02-28 15:09 | IPN ---
DATE: 02/28/2016 A 50-year-old female with history of bipolar disorder and anxiety. She was brought to the emergency department (ED) with symptoms of catatonia, unable to care for herself. She was incontinent, unable to communicate or attend to her regular activities. She had urinary and fecal incontinence. She also reported auditory hallucinations. MEDICATIONS: All psychotropic medication has been held since the clinical picture is compatible with delirium. SUBJECTIVE: The patient is selectively mute. OBJECTIVE: The patient continues to display catatonic behavior. She is selectively mute but her memory is significantly impaired. MENTAL STATUS EXAMINATION: Patient dressed in [facility]. Poor eye contact, selectively mute. Positive thought blocking. The patient is delusional and displays catatonic behavior. Insight and judgment is very poor. ASSESSMENT: 1. Bipolar disorder by history. 2. Delirium. PLAN: 1. Start thiamine 100 mg by mouth three times a day. 2. Start folic acid 1 mg by mouth daily. 3. Start multivitamins one tablet by mouth daily.
[2016-02-28] MEDS ORDERED: THIAMINE 100 MG TAB PO ONE (15:15)
[2016-02-28 18:00] VITALS: BP 126/91
[2016-02-28] MEDS: diazePAM 5 MG TAB PO PRN (21:25)
[2016-02-28] MEDS: THIAMINE 100 MG TAB PO SCH (21:25)
[2016-02-29] MEDS: LEVOTHYROXINE 0.1 MG TAB (100 MCG) PO SCH (06:03)
[2016-02-29 06:46] VITALS: BP 120/80
[2016-02-29] MEDS: CEFDINIR 300 MG CAP (OMNICEF) PO SCH ×2 (09:09→22:51)
[2016-02-29] MEDS: MULTIVITAMINS/MINERALS THERAP 1 TAB PO SCH (09:09)
[2016-02-29] MEDS: THIAMINE 100 MG TAB PO SCH ×3 (09:09→22:51)
[2016-02-29] MEDS: FOLIC ACID 1 MG TAB PO SCH (09:09)
[2016-02-29] MEDS: NICOTINE 21MG/24HR 1 EA TRANSDERMAL TD SCH (09:10)
[2016-02-29] MEDS ORDERED: zolPIDEM TARTRATE 5 MG TAB PO PRN (14:30)
[2016-02-29] MEDS: HALOPERIDOL 2 MG TAB PO SCH ×2 (14:44→22:51)
[2016-02-29] MEDS ORDERED: HALOPERIDOL 5 MG TAB PO ONE (16:30)
[2016-02-29 18:18] VITALS: BP 111/89
--- NOTE | 2016-02-29 18:24 | IPN ---
DATE: 02/29/2016 A 50-year-old female with a history of bipolar disorder and anxiety brought to the emergency department with symptoms of catatonia, unable to care for herself. She was incontinent. Unable to communicate or to attend the [facility] activities of daily living. She had urinary and fecal incontinence. She also reported auditory hallucinations. MEDICATIONS: All psychotropic medication has been held. SUBJECTIVE: Patient is selectively mute. OBJECTIVE: Patient continues to display catatonic behavior. At times becomes impulsive and throws herself to the floor. Her memory is significantly impaired. MENTAL STATUS EXAMINATION: Patient is dressed in [facility]. Has very poor eye contact. Patient is selectively mute. Positive thought blocking. Patient has delusions and displays catatonic behavior. Insight and judgment are very poor. ASSESSMENT: Bipolar disorder by history. PLAN: 1. Continue with thiamine 100 mg by mouth three times a day. 2. Folic acid 1 mg by mouth daily. 3. Multivitamin one tablet by mouth daily. 4. Will start Haldol 2 mg by mouth twice a day. 5. Will start Ambien 5 mg by mouth at bedtime as needed for insomnia.
[2016-03-01] MEDS: LEVOTHYROXINE 0.1 MG TAB (100 MCG) PO SCH (06:24)
[2016-03-01 06:33] VITALS: BP 134/73
[2016-03-01] MEDS: FOLIC ACID 1 MG TAB PO SCH (09:00)
[2016-03-01] MEDS: NICOTINE 21MG/24HR 1 EA TRANSDERMAL TD SCH (09:00)
[2016-03-01] MEDS: THIAMINE 100 MG TAB PO SCH ×3 (09:00→21:00)
[2016-03-01] MEDS: CEFDINIR 300 MG CAP (OMNICEF) PO SCH ×2 (09:00→21:00)
[2016-03-01] MEDS: HALOPERIDOL 2 MG TAB PO SCH ×2 (09:01→21:00)
[2016-03-01] MEDS: MULTIVITAMINS/MINERALS THERAP 1 TAB PO SCH (09:01)
[2016-03-01] MEDS: ACETAMINOPHEN TAB 650MG DOSE (2X325MG) PO PRN (09:07)
[2016-03-01 18:00] VITALS: BP 136/88
[2016-03-02] MEDS: LEVOTHYROXINE 0.1 MG TAB (100 MCG) PO SCH (06:00)
[2016-03-02 06:58] VITALS: BP 123/85
[2016-03-02 08:54] LABS: MEAN CORPUSCULAR HGB CONC 32.1 g/dl (32.0-36.5); MEAN CORPUSCULAR VOLUME 93.3 fl (80.0-96.0); RED CELL DISTRIBUTION WIDTH 14.1 % (11.5-14.5); WHITE BLOOD COUNT 13.6 K/mm3 (4.0-10.0)
[2016-03-02] MEDS: FOLIC ACID 1 MG TAB PO SCH (09:00)
[2016-03-02] MEDS: CEFDINIR 300 MG CAP (OMNICEF) PO SCH ×2 (09:00→21:19)
[2016-03-02] MEDS: THIAMINE 100 MG TAB PO SCH ×3 (09:00→21:19)
[2016-03-02] MEDS: NICOTINE 21MG/24HR 1 EA TRANSDERMAL TD SCH (09:00)
[2016-03-02] MEDS: MULTIVITAMINS/MINERALS THERAP 1 TAB PO SCH (09:00)
[2016-03-02 09:11] LABS: ALBUMIN/GLOBULIN RATIO 1.25 (1.00-1.93); BILIRUBIN,TOTAL 0.5 MG/DL (0.2-1.0); CALCIUM LEVEL 10.1 MG/DL (8.5-10.1); CREATININE FOR GFR 1.21 MG/DL (0.55-1.02); GLOMERULAR FILTRATION RATE 49.9 (>51); POTASSIUM SERUM 4.6 MEQ/L (3.5-5.1); TOTAL PROTEIN 7.2 GM/DL (6.4-8.2)
[2016-03-02] MEDS: CitaloPRAM (CeleXA) 10 MG TABLET PO SCH (16:17)
[2016-03-02 17:42] LABS: FREE T4 1.47 NG/DL (0.76-1.46)
[2016-03-02 18:00] VITALS: BP 122/79
[2016-03-03] MEDS ORDERED: LEVOTHYROXINE 0.05 MG TAB (50 MCG) PO SCH (06:00)
[2016-03-03 06:36] VITALS: BP 138/80
[2016-03-03 07:09] LABS: BASO % 0.2 % (0.0-1.0); EOS # 0.1 K/mm3 (0.0-0.50); EOS % 0.5 % (0.0-3.0); LARGE UNSTAINED CELL # 0.2 K/mm3 (0.0-0.4); LARGE UNSTAINED CELL % 1.9 % (0.0-4.0); LYMPH # 1.3 K/mm3 (1.5-4.5); LYMPH % 10.5 % (24.0-44.0); MEAN CORPUSCULAR HEMOGLOBIN 30.7 pg (27.0-33.0); MEAN CORPUSCULAR HGB CONC 34.2 g/dl (32.0-36.5); MEAN CORPUSCULAR VOLUME 89.7 fl (80.0-96.0); MONO # 0.8 K/mm3 (0.0-0.8); NEUTROPHILS # 9.5 K/mm3 (1.8-7.7); PLATELET COUNT, AUTOMATED 314 k/mm3 (150-450); RED CELL DISTRIBUTION WIDTH 13.3 % (11.5-14.5); WHITE BLOOD COUNT 11.9 K/mm3 (4.0-10.0)
[2016-03-03 07:18] LABS: ALBUMIN 3.8 GM/DL (3.2-5.2); ALBUMIN/GLOBULIN RATIO 1.12 (1.00-1.93); BILIRUBIN,TOTAL 0.6 MG/DL (0.2-1.0); CALCIUM LEVEL 9.8 MG/DL (8.5-10.1); CREATININE FOR GFR 1.22 MG/DL (0.55-1.02); GLOMERULAR FILTRATION RATE 49.5 (>51); POTASSIUM SERUM 4.3 MEQ/L (3.5-5.1); TOTAL PROTEIN 7.2 GM/DL (6.4-8.2)
--- NOTE | 2016-03-03 08:53 | REP ---
MRI BRAIN WITHOUT CONTRAST: HISTORY: Mental status change. COMPARISON: 09/16/2006. There are no areas of abnormal signal intensity in the brain. There is no intraparenchymal hemorrhage, infarct, mass or midline shift. The ventricular system is normal in appearance. There is no extracerebral collection. The sinuses are clear. IMPRESSION: There is no intracranial lesion. Signed by Fabio Sorenson MD 03/03/2016 08:54 A
[2016-03-03] MEDS: THIAMINE 100 MG TAB PO SCH ×2 (09:00→16:06)
[2016-03-03] MEDS: FOLIC ACID 1 MG TAB PO SCH (09:00)
[2016-03-03] MEDS: NICOTINE 21MG/24HR 1 EA TRANSDERMAL TD SCH (09:00)
[2016-03-03] MEDS: MULTIVITAMINS/MINERALS THERAP 1 TAB PO SCH (09:00)
[2016-03-03] MEDS: CEFDINIR 300 MG CAP (OMNICEF) PO SCH (09:00)
[2016-03-03] MEDS: CitaloPRAM (CeleXA) 10 MG TABLET PO SCH (09:19)
--- NOTE | 2016-03-03 09:57 | IPN ---
DATE: 03/02/2016 She has been most recently treated medically for a urinary tract infection (UTI). She remains on Omnicef. Today, she does not seem as active. The nurses thought she was a little more lethargic. The psychiatrist ordered a MRI of her brain which will be done. She remains almost catatonic. She will not speak or answer questions. I went and assessed her. Blood pressure laying was 130/90 with a pulse of 100 and standing was 136/90 with a pulse of 112. She did not follow any commands. She was moving her arms up above her head and down spontaneously. She did drink some clear fluid and swallow without difficulty. Pupils equal and react to light. Cornea and sclera clear. Conjunctiva normal. No facial asymmetry. She would not open her mouth for inspection. Neck supple, without lymphadenopathy. No thyromegaly. No goiter. Chest had decreased breath sounds. No wheeze or retraction. Heart was regular. Abdomen soft, nontender. No masses, bruits. No organomegaly. Bowel sounds positive. Extremities show no cyanosis, clubbing or edema. IMPRESSION: White count up slightly at 13. We will repeat urine culture and sensitivity (C and S). Patient finished Omnicef. Hemoglobin and hematocrit (H and H) were normal. Platelets were normal. BUN and creatinine were elevated. On 02/26/2016, they were 20 and 1.1, on 02/27/2016 they were 17 and 1.03, and on 02/28/2016, BUN 18, creatinine 1.09. Today, her BUN is 29, creatinine is 1.21. Sodium is 146. TSH was low. Free T4 was elevated. Dose adjustment was made to her levothyroxine. She is allergic C1 pigment blue 63. It is in an 88 mcg dose, it is in a 75 mcg dose, it is not in a 50 mcg dose, so she will take one and a half tablets of that. She will need repeat TSH and free T4 in four weeks. The staff has been instructed to encourage her to drink clear liquids, small amount, at least every 30 minutes to 1 hour while awake, which she has been cooperating with. Will recheck those in the a.m. Sputum for C and S was ordered. Chest x-ray ordered. She is afebrile. Followup on labs. Continue to monitor.
--- NOTE | 2016-03-03 10:42 | REP ---
Chest x-ray: Two views. History: Cough. Comparison chest x-ray January 06, 2016. Findings: The lungs are well inflated and clear. Pleural angles are sharp. Heart size is normal. Pulmonary vasculature is not increased. No significant bony abnormality. Impression: No active disease. Signed by Chris Martin MD 03/03/2016 01:41 P
[2016-03-03 10:45] VITALS: BP 147/89
--- NOTE | 2016-03-03 15:28 | IPNPDOC ---
Assessment/Plan Date Seen The patient was seen on 03/03/16. Problems Problems: (1) Rigidity (muscles) Status: Acute Problem Text: * EEG pending * prolactin pending. * MRI Brain neg. * Clt Neurology. * Discussed at length further with Dr Castaneda and Dr Villalobos, Pt was subsequently transferred to [facility] to care of Dr Castaneda for further care and management. (2) UTI (urinary tract infection) Status: Acute Problem Text: * E Coli UC 02/19/16 * Afebrile. * Omnicef po x 11 days- completed course of treatment. * UC 03/02 neg (3) Elevated serum creatinine Status: Acute Problem Text: * nursing to continue to encourage po * I/O requested * Staff is assisting with meals/fluids * Recheck BMP 03/04 * Monitor Serum creatinine trend (4) Hypothyroid Status: Chronic Response to Treatment: Stable Problem Text: * Synthroid adjusted 03/02 * Recheck labs 4 weeks. (5) Bipolar disorder Status: Chronic Problem Text: * mgmt as per Psych * CT brain completed at [facility] neg per report. * MRI brain 03/03 neg. (6) Lung disease Status: Chronic Problem Text: * h/o lung disease * PET 10/25 no hypermetabolic foci. Plan / VTE VTE Prophylaxis Ordered?: No (ambulatory) Subjective Review of Systems CC/HPI The patient is a 51-year-old female admitted with a reason for visit of Bipolar Depressed With Depressed Mood. Events since last encounter Pt is non verbal. Objective Physical Examination General Exam: Positive: Other (pt is not responding to questions) ENT Exam: Positive: Atraumatic Chest Exam: Positive: Diminished Heart Exam: Positive: Normal S1, Normal S2, Rate Normal, Regular Rhythm Abdomen Exam: Positive: Soft Skin Exam: Positive: Nl turgor and temperature Neuro Exam: Positive: Other (rigity in UE/LEs, DTRs are brisk UEs and LEs, Gait is not tested as pt is unable to Get OOB. ) Vital Signs/I&O Vital Signs Date Time Temp Pulse Resp B/P Pulse Ox O2 Delivery O2 Flow Rate FiO2 03/03/16 11:25 Nasal Cannula 03/03/16 10:45 100.3 79 16 147/89 97 I&O- Last 24 Hours up to 6 AM 03/03/16 06:00 Intake Total 590 ml Output Total 330 ml Balance 260 ml Laboratory Data Labs 24H Laboratory Tests 2 03/02/16 17:02: Free Thyroxine 1.47H, Thyroid Stimulating Hormone (TSH) 0.251L 03/03/16 06:47: Blood Urea Nitrogen 30H, Creatinine 1.22H, Sodium Level 145, Potassium Level 4.3 , Chloride Level 107, Carbon Dioxide Level 29, Calcium Level 9.8, Aspartate Amino Transf (AST/SGOT) 45H, Alanine Aminotransferase (ALT/SGPT) 34, Alkaline Phosphatase 96, Total Bilirubin 0.6, Total Protein 7.2, Albumin 3.8, Albumin/ Globulin Ratio 1.12, Anion Gap 9, White Blood Count 11.9H, Red Blood Count 4.86 , Hemoglobin 14.9, Hematocrit 43.6, Mean Corpuscular Volume 89.7, Mean Corpuscular Hemoglobin 30.7, Mean Corpuscular Hemoglobin Concent 34.2, Red Cell Distribution Width 13.3, Platelet Count 314, Neutrophils (%) (Auto) 80.0H, Lymphocytes (%) (Auto) 10.5L, Monocytes (%) (Auto) 7.0H, Eosinophils (%) (Auto) 0.5, Basophils (%) (Auto) 0.2, Neutrophils # (Auto) 9.5H, Lymphocytes # (Auto) 1.3L, Monocytes # (Auto) 0.8, Eosinophils # (Auto) 0.1, Basophils # (Auto) 0.0, Glomerular Filtration Rate 49.5L, Large Unclassified Cells # 0.2, Large Unclassified Cells % 1.9 CBC/BMP Laboratory Tests 03/03/16 06:47 Calcium Level 9.8, Aspartate Amino Transf (AST/SGOT) 45 H, Alanine Aminotransferase (ALT/SGPT) 34, Alkaline Phosphatase 96, Total Bilirubin 0.6, Total Protein 7.2, Albumin 3.8, Red Blood Count 4.86, Mean Corpuscular Volume 89.7, Mean Corpuscular Hemoglobin 30.7, Mean Corpuscular Hemoglobin Concent 34.2 , Red Cell Distribution Width 13.3, Neutrophils (%) (Auto) 80.0 H, Lymphocytes ( %) (Auto) 10.5 L, Monocytes (%) (Auto) 7.0 H, Eosinophils (%) (Auto) 0.5, Basophils (%) (Auto) 0.2, Neutrophils # (Auto) 9.5 H, Lymphocytes # (Auto) 1.3 L , Monocytes # (Auto) 0.8, Eosinophils # (Auto) 0.1, Basophils # (Auto) 0.0 Microbiology Microbiology 03/02/16 Urine Culture - Final, Complete Quin Reinoso Mar 03, 2016 15:28
--- NOTE | 2016-03-03 16:50 | IPN ---
DATE OF SERVICE: 03/03/2016 A 50-year-old female with history of bipolar disorder and anxiety, brought to the emergency department with symptoms of catatonia. Patient was unable to care for herself. She was incontinent, was unable to communicate, attend to higher activities of daily living. She had urinary and fecal incontinence. She also reported auditory hallucinations. MEDICATIONS: - Celexa 5 mg by mouth every morning All other psychotropic medications have been held. SUBJECTIVE: Patient is electively mute. OBJECTIVE: Patient continues to display catatonic behavior, is selectively mute. Memory significantly impaired for the last several days. ASSESSMENT: Bipolar disorder by history. PLAN: Continue with: - thiamine 100 mg by mouth three times a day - folic acid 1 mg by mouth daily - multivitamin one tablet by mouth daily - Celexa 5 mg by mouth every morning - Ambien 5 mg by mouth nightly as needed for insomnia Patient will be evaluated today by the hospitalist.
[2016-03-03] MEDS ORDERED: MULT1TAB10 PO (17:21)
[2016-03-03] MEDS ORDERED: MOM30SS PO (17:21)
[2016-03-03] MEDS ORDERED: omnicef PO (17:21)
[2016-03-03] MEDS ORDERED: THIA50CA PO (17:21)
[2016-03-03] MEDS ORDERED: MYLASUS6 PO (17:21)
[2016-03-03] MEDS ORDERED: AMBI5TAB PO (17:21)
[2016-03-03] MEDS ORDERED: CELE10TA PO (17:31)
--- NOTE | 2016-03-03 17:50 | MHDS ---
DATE OF ADMISSION: 02/15/2016 DATE OF DISCHARGE: 03/03/2016 HISTORY OF PRESENT ILLNESS: The following information is according to the initial evaluation of Dr. Hong, his progress note, and my own progress note. On 02/16/2016, Dr. Hong wrote Ms. Elias is a 50-year-old [place] woman who was brought to the emergency room due to reportedly being catatonic, not caring for herself, and being incontinent. She has a history of bipolar disorder and has had a previous admission at [facility]. The patient is unable to communicate as she is mostly mute. Therefore, most of the history is obtained from reviewing her records. Reportedly she was brought into [facility] by her due to not being able to attend to activities of daily living and has been having urinary and fecal incontinence. The patient was transferred from [facility] Emergency Department for psychiatric assessment. She was mute at the time of presenting to the emergency room. She did not respond to any questions. She received Seroquel 300 mg at night with minimal change in her behavior, at which point she was seen by Dr. Kincaid following a psychiatric consultation. As per Dr. Kincaid's note, patient did nod her head affirmatively that she was feeling sad and depressed and did admit to having auditory hallucinations and the voices were telling her not to talk or answer or respond in any way to questioning. The patient had a recent psychiatric admission under the care of Dr. Tripp from 01/06/2016 through 01/18/2016. She was diagnosed with bipolar disorder at that time. LABORATORY DATA AT ADMISSION: CBC was unremarkable. BMP showed BUN of 18 and creatinine of 1.31 with osmolality of 303, that was on 02/15/2016. Urinalysis showed 1+ protein, 2+ blood, positive nitrites, 3+ leukocyte esterase, too numerous to count white blood cells, 10+ red blood cells, 1+ bacteria. HOSPITAL COURSE: Patient was admitted by Dr. Hong and was started on Seroquel 300 mg by mouth nightly, Ativan 1 mg by mouth four times a day, and Trilafon 8 mg by mouth three times a day. I started treating the patient on 02/25/2016. That day the patient was somewhat sedated so I decided to hold all the psychotropic medication and observe the patient closely. Patient has been displaying catatonic behavior since then. She was not able to tolerate well 2 mg of Haldol twice a day. I know this patient from a brief period of treatment that she was under my care in December 2015 and, as stated above, she has a history of bipolar disorder with very high anxiety, requesting to be placed on medications and may be having issues being able to handle benzodiazepines. However, this clinical presentation is completely different to the patient I met in December 2015. Consultation to the hospitalist was done and since she needs hydration and her BUN and creatinine is high and she will need to go through brain MRI and some medical differential diagnoses, it was decided to transfer the patient to the medical floor for stabilization. MEDICATIONS AT DISCHARGE: - thiamine 100 mg by mouth three times a day - folic acid 1 mg by mouth daily - multivitamin 1 mg by mouth daily - Omnicef 300 mg by mouth twice a day - Synthroid 0.75 mg by mouth daily - Celexa 5 mg by mouth nightly - Ambien 5 mg by mouth nightly as needed for insomnia MENTAL STATUS EXAMINATION AT DISCHARGE: Patient is dressed in [facility]. Patient is selectively mute, unable to answer questions, displaying catatonic like behavior. Mood appears to be depressed since she is tearful at times. Affect is restricted. There is no evidence of hallucinations or delusions, although she may be responding to internal stimuli. Unable to test cognitive functions. Insight and judgment is very poor. ASSESSMENT: 1. Bipolar disorder by history. 2. Rule out delirium. AXIS II: Deferred. AXIS III: Tension headaches, fibromyalgia, urinary incontinence, hypothyroidism, rule out delirium. RECOMMENDATIONS: Patient will be transferred to the medical floor for workup/differential diagnosis and stabilization.
== END 2016-03-03 18:20 | disposition short-term general hospital (02) | DRG 885 ==
LOC: M ED 19:31 → M PSY 02-15 16:45
PROVIDERS: ADMIT Psychiatry & Neurology Psychiatry; ATTEND Psychiatry & Neurology Psychiatry
DX: F31.5 Bipolar disorder, current episode depressed, severe, with psychotic features (principal); N39.0 Urinary tract infection, site not specified; R41.0 Disorientation, unspecified; G44.209 Tension-type headache, unspecified, not intractable; R32 Unspecified urinary incontinence; R15.9 Full incontinence of feces; M79.7 Fibromyalgia; F94.0 Selective mutism; E03.9 Hypothyroidism, unspecified; F06.1 Catatonic disorder due to known physiological condition; J98.4 Other disorders of lung; F17.210 Nicotine dependence, cigarettes, uncomplicated; E78.5 Hyperlipidemia, unspecified; B96.20 Unspecified Escherichia coli [E. coli] as the cause of diseases classified elsewhere; Z79.899 Other long term (current) drug therapy

== ENCOUNTER 2016-03-03 16:24 | Inpatient (IN) | payer MEDICARE, MEDICAID ==
[~2016-03-03] VITALS: Ht 154.9 cm; Wt 46.1 kg
[~2016-03-03 16:24] MED LIST changes: +SERO1TAB2 PO
[2016-03-03] MEDS ORDERED: BISACODYL 10 MG SUPP PR PRN (16:30)
[2016-03-03] MEDS ORDERED: ONDANSETRON 4MG/2ML VIAL (J2405) IV PRN (16:30)
[2016-03-03] MEDS ORDERED: zolPIDEM TARTRATE 5 MG TAB PO PRN (16:45)
[2016-03-03] MEDS ORDERED: MYLASUS6 PO (17:21)
[2016-03-03] MEDS ORDERED: AMBI5TAB PO (17:21)
[2016-03-03] MEDS ORDERED: THIA50CA PO (17:21)
[2016-03-03] MEDS ORDERED: MULT1TAB10 PO (17:21)
[2016-03-03] MEDS ORDERED: MOM30SS PO (17:21)
[2016-03-03] MEDS ORDERED: omnicef PO (17:21)
[2016-03-03] MEDS ORDERED: CELE10TA PO (17:31)
[2016-03-03 18:35] VITALS: BP 139/91
[2016-03-03] MEDS ORDERED: cefTRIAXone SOD 2 GM in D5W MINI-BAG PLUS 50 ML IV SCH (19:00)
[2016-03-03 20:00] VITALS: BP 142/99; PULSE 98
[2016-03-03] MEDS ORDERED: FOLIC ACID IV ONE (20:00)
[2016-03-03] MEDS ORDERED: [UNRECOGNIZED DRUG - OTHER] IV ONE (20:00)
[2016-03-03] MEDS ORDERED: MULTIVITAMIN ADULT IV ONE (20:00)
[2016-03-03] MEDS ORDERED: THIAMINE HCL IV ONE (20:00)
--- NOTE | 2016-03-03 20:04 | HPE ---
DATE OF ADMISSION: 03/03/2016 PSYCHIATRIST: Dr. Villalobos PRIMARY CARE PROVIDER: Unknown. CHIEF COMPLAINT: Lethargy, catatonia. HISTORY OF THE PRESENT ILLNESS: This is a 51-year-old female patient with underlying medical history of bipolar disorder, colitis, fibromyalgia, headache, polysubstance abuse, hypothyroidism, anxiety and chronic obstructive pulmonary disease (COPD). The patient was transferred initially from [facility] to [facility] for psychiatric admission on 02/15/2016 and for catatonia, nonverbal, possible psychosis. The patient was admitted to inpatient mental health, was prescribed medication. On first presentation, the patient was alert, responsive, drinks and eats on her own, follows commands, able to write on a piece of paper, with underlying urinary incontinence. The patient was subsequently admitted to inpatient mental health, treated by psychiatrist, but starting on Thursday last week, the patient was quite agitated and was given some Haldol. Subsequently, the patient was becoming lethargic and not taking much of her medication, has been refusing medications, is arousable but not really follows command, nonverbal. Further history not possible. ALLERGIES: ARIPIPRAZOLE, CI PIGMENT BLUE 63, DULOXETINE, OLANZAPINE, SULFA DRUGS , SUMATRIPTAN, TOPIRAMATE. PAST MEDICAL HISTORY: Bipolar disorder. Urinary incontinence. Colitis. Fibromyalgia. Headache. Lung disease. Anxiety. Hypothyroidism. Chronic obstructive pulmonary disease (COPD). Substance abuse. PAST SURGICAL HISTORY: Hysterectomy. SOCIAL HISTORY: History of polysubstance abuse. Limited history secondary to patient is nonverbal and not really arousable. History of alcohol drinking, smoking, marijuana use as per documentation. Possible history of opioid addiction. FAMILY HISTORY: Lives with a partner on previous documentation. REVIEW OF SYSTEMS: Unable to obtain. HOME MEDICATIONS: - acetaminophen 650 mg by mouth daily - Mylanta 30 mL by mouth every 4 hours as needed - Celexa 5 mg by mouth daily - folic acid 1 mg by mouth daily - Synthroid 1000 mcg by mouth daily - Milk of Magnesia 30 mL by mouth as needed - multivitamin one tablet by mouth daily - thiamine 100 mg by mouth three times a day - Ambien 5 mg by mouth nightly - Omnicef 300 mg by mouth twice a day PHYSICAL EXAMINATION: GENERAL: Patient nonverbal. Not arousable with verbal command but arousable with pain with verbal curse words, when noxious stimuli was induced, withdrawal to pain, flat affect. HEENT: Normocephalic, atraumatic. Hyperpigmented. PULMONARY: Bilaterally clear. CARDIAC: Regular rate and rhythm. Normal S1, S2. ABDOMEN: Soft, nontender, nondistended, positive bowel sounds. EXTREMITIES: No edema bilateral lower extremities. NEUROLOGIC: The patient is nonverbal but when induced pain, the patient curses. The patient's arm is quite rigid. When arm was lifted, the patient holds the arm up. Muscles are quite rigid for some time before slowly letting it down, withdraws to pain. Brisk reflexes bilateral upper and lower. Cranial nerves II-XII grossly intact. LABORATORY: WBC 19.9, hemoglobin and hematocrit 14.9 over 43.6, platelets 314. Chemistry: Sodium 145, potassium 4.3, chloride 107, bicarbonate 27, BUN 30, creatinine 1.22. ASSESSMENT AND PLAN: This is a 51-year-old female patient with underlying medical history of bipolar disorder, colitis, fibromyalgia, headache, chronic obstructive pulmonary disease, anxiety, hypothyroidism, transferred from [facility], initially admitted to inpatient psychiatry for underlying psychosis. Currently admitted to medicine floor because the patient is not taking orally, dehydration encephalopathy. Problems: 1. Catatonia, nonverbal. Possibly secondary to underlying psychosis versus encephalopathy versus infection. Case discussed with Dr. Villalobos. The patient was transferred to medicine floor, given IV fluids, been on the bags. Cultures were sent. Neurology was consulted. MRI was negative. Neurologic checks. Continue Celexa as per Dr. Villalobos with Ambien as needed for sleep. Continue one-to-one observation. Monitor patient. Plastic silverware. 2. Hypothyroidism. Synthroid has been ingested while the patient was in inpatient mental health. Continue to follow. 3. Urinary tract infection (UTI). Continue Rocephin. 4. History of colitis. Asymptomatic. 5. Chronic obstructive pulmonary disease. Asymptomatic. 6. Deep vein thrombosis (DVT) prophylaxis. Heparin subcu. DISPOSITION PLANNING: Pending clinical improvement, neurology consultation, electroencephalogram (EEG). [facility]
[2016-03-03] MEDS: BACLOFEN 5MG PER 1/2 TABLET PO SCH (20:34)
[2016-03-03] MEDS: HEPARIN SOD (PORCINE) 5000 UNITS/ML VIAL SC SCH (20:35)
[2016-03-04] VITALS: BP 134/92; PULSE 79
[2016-03-04] MEDS ORDERED: ACETAMINOPHEN TAB 650MG DOSE (2X325MG) PO ONE (02:00)
[2016-03-04 04:00] VITALS: BP 137/86; PULSE 62
[2016-03-04 06:19] LABS: MEAN CORPUSCULAR HEMOGLOBIN 29.8 pg (27.0-33.0); MEAN CORPUSCULAR HGB CONC 33.2 g/dl (32.0-36.5); MEAN CORPUSCULAR VOLUME 89.8 fl (80.0-96.0); RED CELL DISTRIBUTION WIDTH 13.1 % (11.5-14.5); WHITE BLOOD COUNT 11.4 K/mm3 (4.0-10.0)
[2016-03-04] MEDS: LEVOTHYROXINE 0.075 MG TAB (75 MCG) PO SCH (06:23)
[2016-03-04 06:40] LABS: ALBUMIN 3.3 GM/DL (3.2-5.2); ALBUMIN/GLOBULIN RATIO 0.92 (1.00-1.93); BILIRUBIN,TOTAL 0.4 MG/DL (0.2-1.0); CREATININE FOR GFR 1.25 MG/DL (0.55-1.02); GLOMERULAR FILTRATION RATE 48.1 (>51); POTASSIUM SERUM 3.9 MEQ/L (3.5-5.1); TOTAL PROTEIN 6.9 GM/DL (6.4-8.2)
[2016-03-04 07:45] VITALS: BP 167/97
[2016-03-04] MEDS: HEPARIN SOD (PORCINE) 5000 UNITS/ML VIAL SC SCH ×2 (09:12→21:46)
[2016-03-04] MEDS: THIAMINE HCL 200 MG/2 ML VIAL (J3411) IV SCH (09:13)
[2016-03-04] MEDS: CitaloPRAM (CeleXA) 10 MG TABLET PO SCH (09:13)
[2016-03-04] MEDS: BACLOFEN 5MG PER 1/2 TABLET PO SCH (09:13)
[2016-03-04] MEDS: FOLIC ACID 1 MG TAB PO SCH (09:14)
[2016-03-04] MEDS ORDERED: LORazepam 0.5 MG TAB PO PRN (11:15)
[2016-03-04 12:30] VITALS: BP 158/97
--- NOTE | 2016-03-04 15:13 | CR ---
DATE OF CONSULTATION: 03/04/2016 REFERRING PHYSICIAN: Dr. Puente The patient is a 50-year-old female who was admitted to the mental health unit on 02/15/2016 secondary to complaints of depression. She was not doing well and with past history of bipolar disorder, she was admitted to the inpatient mental health. She was catatonic at the time of her admission in the beginning of February of this year. She was not able to communicate at that time and seemed to be mute. She is the same at the present time. Reviewing her history, she has been mute and catatonic since the beginning of her admission. This status has persisted since then. She has not been witnessed to have any seizure-like activity. Before admission here, she did have urinary and fecal incontinence. She was initially taken to the [facility] from where she was transferred to the for further care. Before admission here, she was given Seroquel 300 mg to see if her behavior improves. This, however did not help. She was given Haldol 5 mg intramuscular on 02/29/2016 with no change in her neurological status. She continues to be withdrawn and catatonic. She holds her arms if they are raised up. She does not move her arms or legs. She also does not move her eyes. Her medications prior to her admission here included: - Benzatropine - folic acid - Neurontin 600 mg three times a day - hydroxyzine - Levothyroxine - Seroquel - thiamine. Her MRI of the brain is reported to be normal. She had an EEG study today but the results are still pending. PAST MEDICAL HISTORY: 1. Hypothyroidism. 2. Hyperlipidemia. 3. Fibromyalgia. 4. Bipolar depression. 5. Migraine headaches. 6. Opiate abuse. 8. Hysterectomy. PERSONAL AND SOCIAL HISTORY: The patient is single and lives in [place]. She lives with her significant other. She smokes one pack a day. There is no history of any alcohol abuse, although she does smoke marijuana. FAMILY HISTORY: The patient's family history could not be obtained from the patient. REVIEW OF SYSTEMS: All other systems were reviewed and found to be noncontributory. PHYSICAL EXAMINATION: On examination, the patient does not appear in any discomfort. She is catatonic. She does not move her arms or legs. She does not move her eyes either. Her blood pressure is 130/85, pulse is 72 per minute, respirations are 18 per minute. Her height and weight are both normal. Pupils are about 3 mm in size and reactive to light. The consensual light reflex is present bilaterally. Visual rbo could not be tested. Her face is symmetrical. Her motor examination does show significant rigidity in her arms and legs. She however does not drop her arms when raised above her face. There may be some component of cogwheeling in her arms. It is difficult to assess motor function otherwise. There are no resting tremors noted. The sensation to fine touch and pinprick could not be tested well. Deep tendon reflexes are 2+ and symmetrical with downgoing plantar reflexes. Romberg's testing is not performed. Her gait is not tested. ASSESSMENT: 1. History of depression. 2. Decreased motor activity. 3. Question catatonia. 4. Question functional etiology. 5. Question of psychiatric etiology. PLAN: 1. Baclofen 10 mg by mouth three times a day. 2. Ativan 0.5 mg by mouth every six hours. 3. Tylenol as necessary for pain. 4. Continue with other medications. 5. Serum copper and ceruloplasmin level. 6. Serum lead and mercury levels. Thank you very much for this consultation. MTDD
[2016-03-04 16:00] VITALS: BP 186/117
[2016-03-04] MEDS: BACLOFEN 10 MG TAB PO SCH ×2 (16:28→21:46)
--- NOTE | 2016-03-04 17:31 | IPNPDOC ---
Assessment/Plan Date Seen The patient was seen on 03/04/16. Plan / VTE VTE Prophylaxis Ordered?: Yes Plan Plan Text 1. Catatonia, nonverbal. Possibly secondary to underlying psychosis versus metabolic encephalopathy versus infection. MRI of the Brain was negative. Continue Neurologic checks. Neurology input noted--syphilis, Lyme disease screen ordered, copper/lead/ mercury/ceruloplasmin levels, ESR, anti-nuclear antibodies, lupus anti-coagulant , and vitamin B-1, B6, B12 levels also ordered Baclofen increased to 10 mg 3 times a day, Ativan q6hp ordered Continue Celexa Continue one-to-one observation. We will continue to monitor the patient EEG pending 2. Hypothyroidism. Synthroid has been ingested while the patient was in inpatient mental health. Continue to follow. 3. Urinary tract infection (UTI). Was treated for 11 days with Cefdinir at [facility] 4. History of colitis. Stable 5. Chronic obstructive pulmonary disease. Able 6. Deep vein thrombosis (DVT) prophylaxis. Heparin subcu. 7. Chronic kidney disease-stable DISPOSITION PLANNING: Pending clinical improvement, follow-up of lab values, electroencephalogram (EEG). Subjective Review of Systems CC/HPI The patient is a 51-year-old female admitted with a reason for visit of Encephalopathy. General: Reports: ROS Unobtainable Objective Physical Examination General Exam: Positive: No Acute Distress, Negative: Cooperative Eye Exam: Positive: PERRLA ENT Exam: Positive: Atraumatic, Mucous membr. moist/pink Neck Exam: Negative: JVD Chest Exam: Positive: Clear to auscultation, Negative: Rales, Wheezing Heart Exam: Positive: Normal S1, Normal S2, Rate Normal Abdomen Exam: Positive: Soft, Negative: Tenderness Extremity Exam: Negative: Edema, Tenderness Neuro Exam: Positive: Other (patient noted to have some rigidity in her extremities upon passive flexion and extension. She did not drop her arms when her arms were raised above her face. No resting tremors noted. Deep tendon reflexes are 2+ and symmetrical with downgoing plantar reflexes.) Vital Signs/I&O Vital Signs Date Time Temp Pulse Resp B/P Pulse Ox O2 Delivery O2 Flow Rate FiO2 03/04/16 16:00 97.9 116 20 186/117 96 Room Air I&O- Last 24 Hours up to 6 AM 03/04/16 05:59 Intake Total 575 ml Output Total 325 ml Balance 250 ml Laboratory Data Labs 24H Laboratory Tests 2 03/03/16 19:22: Creatine Kinase MB 4.7H, Creatine Kinase MB Relative Index 0.83, Total Creatine Kinase 565H, Troponin I < 0.02 03/03/16 23:13: Creatine Kinase MB 3.1, Creatine Kinase MB Relative Index 0.67, Total Creatine Kinase 462H, Troponin I < 0.02 03/04/16 05:44: Blood Urea Nitrogen 37H, Creatinine 1.25H, Sodium Level 145, Potassium Level 3.9 , Chloride Level 110H, Carbon Dioxide Level 28, Calcium Level 9.0, Aspartate Amino Transf (AST/SGOT) 34, Alanine Aminotransferase (ALT/SGPT) 31, Alkaline Phosphatase 82, Total Bilirubin 0.4, Total Protein 6.9, Albumin 3.3, Albumin/ Globulin Ratio 0.92L, Anion Gap 7L, Glomerular Filtration Rate 48.1L, Magnesium Level 2.0 03/04/16 15:33: Vitamin B12 Level 554 CBC/BMP Laboratory Tests 03/04/16 05:44 Calcium Level 9.0, Aspartate Amino Transf (AST/SGOT) 34, Alanine Aminotransferase (ALT/SGPT) 31, Alkaline Phosphatase 82, Total Bilirubin 0.4, Total Protein 6.9, Albumin 3.3, Red Blood Count 4.33, Mean Corpuscular Volume 89.8, Mean Corpuscular Hemoglobin 29.8, Mean Corpuscular Hemoglobin Concent 33.2 , Red Cell Distribution Width 13.1 Microbiology Microbiology 03/03/16 Blood Culture, Received Pending 03/03/16 Blood Culture, Received Pending 03/03/16 Respiratory Virus Panel (PCR) (JEFF) - Final, Complete RITESH GRIMES MD Mar 04, 2016 17:31
[2016-03-04] MEDS: LABETALOL HCL 100 MG/20 ML VIAL IV SCH ×2 (18:00→23:49)
[2016-03-04 20:00] VITALS: BP 144/95; PULSE 76
[2016-03-05] VITALS: BP 125/86; PULSE 87
[2016-03-05 04:00] VITALS: BP 120/62; PULSE 84
[2016-03-05] MEDS: LABETALOL HCL 100 MG/20 ML VIAL IV SCH ×3 (06:00→17:43)
[2016-03-05] MEDS: LEVOTHYROXINE 0.075 MG TAB (75 MCG) PO SCH (06:05)
[2016-03-05 06:41] LABS: MEAN CORPUSCULAR HGB CONC 33.8 g/dl (32.0-36.5); MEAN CORPUSCULAR VOLUME 88.8 fl (80.0-96.0); WHITE BLOOD COUNT 8.1 K/mm3 (4.0-10.0)
[2016-03-05 06:54] LABS: ALBUMIN 3.4 GM/DL (3.2-5.2); ALBUMIN/GLOBULIN RATIO 0.89 (1.00-1.93); BILIRUBIN,TOTAL 0.4 MG/DL (0.2-1.0); CALCIUM LEVEL 9.4 MG/DL (8.5-10.1); CREATININE FOR GFR 1.28 MG/DL (0.55-1.02); GLOMERULAR FILTRATION RATE 46.8 (>51); MAGNESIUM LEVEL 1.9 MG/DL (1.8-2.4); POTASSIUM SERUM 4.1 MEQ/L (3.5-5.1); TOTAL PROTEIN 7.2 GM/DL (6.4-8.2)
[2016-03-05 07:40] VITALS: BP 148/93
--- NOTE | 2016-03-05 08:19 | EEG ---
DATE OF PROCEDURE: 03/04/2016 DIAGNOSIS: Altered mental status. EEG NUMBER: [id number] HISTORY: Patient is a 51-year-old woman who was admitted at inpatient mental health unit. She has history of polysubstance abuse, alcoholism, use of marijuana and opioids. She has become lethargic and started refusing medications and now does not follow commands. She is nonverbal. This EEG was done to rule out encephalopathy and epileptic potential. She is currently on thiamine, folic acid, ceftriaxone, baclofen, Celexa. TECHNICAL DESCRIPTION: This digital EEG was recorded by 21 scalp, ear and two EKG electrodes and was reviewed in bipolar and referential montages following reformatting in 10-20 International Electrode Placement System. INTERPRETATION The patient was noted to be in awake and drowsy states during this EEG. Resting awake background rhythm consisted of well-formed posterior dominant rhythm with anterior/posterior gradient comprising of 9 Hz alpha activity measuring 15 - 40 microvolts in amplitude, which was symmetric and reactive to eye opening. Attenuation of posterior dominant rhythm was seen during transition into drowsiness. Stage I and II sleep were reviewed and were symmetric bilaterally. Hyperventilation could not be performed. Photic stimulation remained unremarkable. EKG revealed normal sinus rhythm. No focal, lateralizing or epileptiform abnormalities were seen. No clinical or electrographic seizures were recorded. CONCLUSION: This EEG in awake, drowsy states, stage I and II sleep is within normal limits.
[2016-03-05] MEDS: HEPARIN SOD (PORCINE) 5000 UNITS/ML VIAL SC SCH ×2 (08:45→20:16)
[2016-03-05] MEDS: THIAMINE HCL 200 MG/2 ML VIAL (J3411) IV SCH (08:46)
[2016-03-05] MEDS: BACLOFEN 10 MG TAB PO SCH ×3 (08:46→20:16)
[2016-03-05] MEDS: CitaloPRAM (CeleXA) 10 MG TABLET PO SCH (08:46)
[2016-03-05] MEDS: FOLIC ACID 1 MG TAB PO SCH (08:46)
[2016-03-05 12:00] VITALS: BP 132/81
--- NOTE | 2016-03-05 12:00 | IPNPDOC ---
Assessment/Plan Date Seen The patient was seen on 03/05/16. Plan / VTE VTE Prophylaxis Ordered?: Yes Plan Plan Text 1. Catatonia, nonverbal. Possibly secondary to underlying psychosis versus metabolic encephalopathy versus infection. MRI of the Brain was negative. The patient's white blood cell count is normal, she has been afebrile, hemodynamically stable, and without any overt source of infection noted. Continue Neurologic checks. The patient has been taking her by mouth medications, and tolerating a by mouth diet Neurology input noted--syphilis testing non reactive, Lyme disease screen, copper/lead/mercury/ceruloplasmin levels, ESR, anti-nuclear antibodies, lupus anti-coagulant, and vitamin B-1, B6, levels pending Baclofen 10 mg 3 times a day, Ativan q6hp ordered Continue Celexa Continue one-to-one observation. We will continue to monitor the patient EEG results noted w/o any focal epileptiform activity 2. Hypothyroidism. Synthroid has been ingested while the patient was in inpatient mental health. Continue to follow. 3. Urinary tract infection (UTI). Was treated for 11 days with Cefdinir at [facility] 4. History of colitis. Stable 5. Chronic obstructive pulmonary disease. Able 6. Deep vein thrombosis (DVT) prophylaxis. Heparin subcu. 7. Chronic kidney disease-stable DISPOSITION PLANNING: Pending clinical improvement, follow-up of lab values. Subjective Review of Systems CC/HPI The patient is a 51-year-old female admitted with a reason for visit of Encephalopathy. General: Reports: ROS Unobtainable Objective Physical Examination General Exam: Positive: No Acute Distress, Negative: Cooperative Eye Exam: Positive: PERRLA ENT Exam: Positive: Atraumatic, Mucous membr. moist/pink Neck Exam: Negative: JVD Chest Exam: Positive: Clear to auscultation, Negative: Rales, Wheezing Heart Exam: Positive: Normal S1, Normal S2, Rate Normal Abdomen Exam: Positive: Soft, Negative: Tenderness Extremity Exam: Negative: Edema, Tenderness Neuro Exam: Positive: Other (patient noted to have some rigidity in her extremities upon passive flexion and extension. She did not drop her arms when her arms were raised above her face. No resting tremors noted. Deep tendon reflexes are 2+ and symmetrical with downgoing plantar reflexes.) Vital Signs/I&O Vital Signs Date Time Temp Pulse Resp B/P Pulse Ox O2 Delivery O2 Flow Rate FiO2 1/25/17 08:55 Room Air 03/05/16 07:40 97.2 71 20 148/93 95 I&O- Last 24 Hours up to 6 AM 03/05/16 05:59 Intake Total 2035 ml Balance 2035 ml Laboratory Data Labs 24H Laboratory Tests 2 03/04/16 15:33: Erythrocyte Sedimentation Rate 39H, Syphilis Serology NONREACTIVE, Vitamin B12 Level 554 03/05/16 06:13: Blood Urea Nitrogen 30H, Creatinine 1.28H, Sodium Level 144, Potassium Level 4.1 , Chloride Level 107, Carbon Dioxide Level 31, Calcium Level 9.4, Aspartate Amino Transf (AST/SGOT) 25, Alanine Aminotransferase (ALT/SGPT) 30, Alkaline Phosphatase 85, Total Bilirubin 0.4, Total Protein 7.2, Albumin 3.4, Albumin/ Globulin Ratio 0.89L, Anion Gap 6L, Glomerular Filtration Rate 46.8L, Magnesium Level 1.9 CBC/BMP Laboratory Tests 03/05/16 06:13 Calcium Level 9.4, Aspartate Amino Transf (AST/SGOT) 25, Alanine Aminotransferase (ALT/SGPT) 30, Alkaline Phosphatase 85, Total Bilirubin 0.4, Total Protein 7.2, Albumin 3.4, Red Blood Count 4.37, Mean Corpuscular Volume 88.8, Mean Corpuscular Hemoglobin 30.0, Mean Corpuscular Hemoglobin Concent 33.8 , Red Cell Distribution Width 13.0 Microbiology Microbiology 03/03/16 Blood Culture - Preliminary, Resulted No growth after 24 hours . All specim... 03/03/16 Blood Culture - Preliminary, Resulted No growth after 24 hours . All specim... 03/03/16 Respiratory Virus Panel (PCR) (JEFF) - Final, Complete RITESH GRIMES MD Mar 05, 2016 12:00
[2016-03-05 16:00] VITALS: BP 149/87
[2016-03-05 20:00] VITALS: BP 155/95
[2016-03-06] VITALS (8 sets, daily range): BP systolic 122–161; BP diastolic 81–98
[2016-03-06] MEDS: LABETALOL HCL 100 MG/20 ML VIAL IV SCH ×3 (00:38→12:00)
[2016-03-06 05:53] LABS: MEAN CORPUSCULAR HEMOGLOBIN 30.5 pg (27.0-33.0); MEAN CORPUSCULAR HGB CONC 33.3 g/dl (32.0-36.5); MEAN CORPUSCULAR VOLUME 91.4 fl (80.0-96.0); RED CELL DISTRIBUTION WIDTH 13.8 % (11.5-14.5); WHITE BLOOD COUNT 13.1 K/mm3 (4.0-10.0)
[2016-03-06 06:08] LABS: ALBUMIN 3.4 GM/DL (3.2-5.2); ALBUMIN/GLOBULIN RATIO 1.1 (1.00-1.93); BILIRUBIN,TOTAL 0.5 MG/DL (0.2-1.0); CALCIUM LEVEL 9.3 MG/DL (8.5-10.1); CREATININE FOR GFR 1.09 MG/DL (0.55-1.02); GLOMERULAR FILTRATION RATE 56.3 (>51); MAGNESIUM LEVEL 1.9 MG/DL (1.8-2.4); POTASSIUM SERUM 3.9 MEQ/L (3.5-5.1); TOTAL PROTEIN 6.5 GM/DL (6.4-8.2)
[2016-03-06] MEDS: LEVOTHYROXINE 0.075 MG TAB (75 MCG) PO SCH (06:21)
[2016-03-06] MEDS: THIAMINE 100 MG TAB PO SCH (09:02)
[2016-03-06] MEDS: BACLOFEN 10 MG TAB PO SCH ×4 (09:02→21:31)
[2016-03-06] MEDS: CitaloPRAM (CeleXA) 10 MG TABLET PO SCH (09:02)
[2016-03-06] MEDS: LORazepam 0.5 MG TAB PO SCH ×2 (09:02→12:38)
[2016-03-06] MEDS: HEPARIN SOD (PORCINE) 5000 UNITS/ML VIAL SC SCH ×3 (09:03→21:31)
[2016-03-06] MEDS: FOLIC ACID 1 MG TAB PO SCH (09:03)
[2016-03-06] MEDS ORDERED: NS 1,000 ML IV ONE (13:30)
--- NOTE | 2016-03-06 13:36 | IPNPDOC ---
Assessment/Plan Date Seen The patient was seen on 03/06/16. Plan / VTE VTE Prophylaxis Ordered?: Yes Plan Plan Text 1. Catatonia, nonverbal. Possibly secondary to underlying psychosis versus metabolic encephalopathy versus infection. MRI of the Brain was negative. Patient verbal today-she has been screaming obscenities at the house staff this morning, and is not following commands or answering questions appropriately Continue Neurologic checks. The patient has been taking her by mouth medications, and tolerating a by mouth diet Neurology input noted--syphilis testing non reactive, Lyme disease screen, copper/lead/mercury/ceruloplasmin levels, ESR, anti-nuclear antibodies, lupus anti-coagulant, and vitamin B-1, B6, levels pending Baclofen 10 mg 3 times a day, Ativan q6h Continue Celexa Continue one-to-one observation. We will continue to monitor the patient EEG results noted w/o any focal epileptiform activity We will follow up with the patient's progression, and likely discharge back to the inpatient mental health facility tomorrow 2. Hypothyroidism. Synthroid has been ingested while the patient was in inpatient mental health. Continue to follow. 3. Urinary tract infection (UTI). Was treated for 11 days with Cefdinir at [facility] 4. History of colitis. Stable 5. Chronic obstructive pulmonary disease. Able 6. Deep vein thrombosis (DVT) prophylaxis. Heparin subcu. 7. Chronic kidney disease-stable DISPOSITION PLANNING: Likely discharge to inpatient mental health unit in the next 24 hours pending continued clinical improvement. Subjective Review of Systems CC/HPI The patient is a 51-year-old female admitted with a reason for visit of Encephalopathy. Other systems Unable to fully obtain review of systems as the patient is not answering questions appropriately. She is only voicing obscenities towards myself and the staff. Objective Physical Examination General Exam: Positive: Alert, No Acute Distress, Other (patient voicing obscenities to the staff), Negative: Cooperative Eye Exam: Positive: PERRLA ENT Exam: Positive: Atraumatic, Mucous membr. moist/pink Neck Exam: Negative: JVD Chest Exam: Positive: Clear to auscultation, Negative: Rales, Wheezing Heart Exam: Positive: Normal S1, Normal S2, Rate Normal Abdomen Exam: Positive: Soft, Negative: Tenderness Extremity Exam: Negative: Edema, Tenderness Neuro Exam: Positive: Other (patient noted to have some rigidity in her extremities upon passive flexion and extension. She did not drop her arms when her arms were raised above her face. No resting tremors noted. Deep tendon reflexes are 2+ and symmetrical with downgoing plantar reflexes.) Vital Signs/I&O Vital Signs Date Time Temp Pulse Resp B/P Pulse Ox O2 Delivery O2 Flow Rate FiO2 03/06/16 12:03 68 127/81 03/06/16 12:00 96.9 18 96 Room Air I&O- Last 24 Hours up to 6 AM 03/06/16 06:00 Intake Total 1440 ml Balance 1440 ml Laboratory Data Labs 24H Laboratory Tests 2 03/06/16 05:28: Blood Urea Nitrogen 25H, Creatinine 1.09H, Sodium Level 142, Potassium Level 3.9 , Chloride Level 106, Carbon Dioxide Level 29, Calcium Level 9.3, Aspartate Amino Transf (AST/SGOT) 18, Alanine Aminotransferase (ALT/SGPT) 27, Alkaline Phosphatase 88, Total Bilirubin 0.5, Total Protein 6.5, Albumin 3.4, Albumin/ Globulin Ratio 1.10, Anion Gap 7L, Glomerular Filtration Rate 56.3, Magnesium Level 1.9 CBC/BMP Laboratory Tests 03/06/16 05:28 Calcium Level 9.3, Aspartate Amino Transf (AST/SGOT) 18, Alanine Aminotransferase (ALT/SGPT) 27, Alkaline Phosphatase 88, Total Bilirubin 0.5, Total Protein 6.5, Albumin 3.4, Red Blood Count 4.31, Mean Corpuscular Volume 91.4, Mean Corpuscular Hemoglobin 30.5, Mean Corpuscular Hemoglobin Concent 33.3 , Red Cell Distribution Width 13.8 Microbiology Microbiology 03/03/16 Blood Culture - Preliminary, Resulted No Growth after 48 hours. All Specime... 03/03/16 Blood Culture - Preliminary, Resulted No Growth after 48 hours. All Specime... 03/03/16 Respiratory Virus Panel (PCR) (JEFF) - Final, Complete RITESH GRIMES MD Mar 06, 2016 13:35
[2016-03-06] MEDS ORDERED: KETOROLAC TROMETHAMINE 10 MG TAB PO PRN (15:45)
[2016-03-06] MEDS ORDERED: ACETAMINOPHEN TAB 650MG DOSE (2X325MG) PO PRN (15:45)
[2016-03-07] MEDS: LEVOTHYROXINE 0.075 MG TAB (75 MCG) PO SCH (05:54)
[2016-03-07 06:00] VITALS: BP 129/84
[2016-03-07 06:17] LABS: MEAN CORPUSCULAR HEMOGLOBIN 29.7 pg (27.0-33.0); MEAN CORPUSCULAR HGB CONC 33.4 g/dl (32.0-36.5); MEAN CORPUSCULAR VOLUME 89.1 fl (80.0-96.0); RED CELL DISTRIBUTION WIDTH 13.7 % (11.5-14.5); WHITE BLOOD COUNT 12.6 K/mm3 (4.0-10.0)
[2016-03-07 06:29] LABS: ALBUMIN 3.1 GM/DL (3.2-5.2); ALBUMIN/GLOBULIN RATIO 0.94 (1.00-1.93); ALKALINE PHOSPHATASE 80 U/L (45-117); ALT/SGPT 27 U/L (12-78); ANION GAP 9 MEQ/L (8-16); AST/SGOT 21 U/L (15-37); BILIRUBIN,TOTAL 0.6 MG/DL (0.2-1.0); BLOOD UREA NITROGEN 19 MG/DL (7-18); CARBON DIOXIDE LEVEL 27 MEQ/L (21-32); CHLORIDE LEVEL 111 MEQ/L (98-107); CREATININE FOR GFR 0.92 MG/DL (0.55-1.02); GLOMERULAR FILTRATION RATE > 60.0 (>51); GLUCOSE, FASTING 90 MG/DL (70-105); MAGNESIUM LEVEL 1.8 MG/DL (1.8-2.4); POTASSIUM SERUM 3.7 MEQ/L (3.5-5.1); SODIUM LEVEL 147 MEQ/L (136-145); TOTAL PROTEIN 6.4 GM/DL (6.4-8.2)
[2016-03-07 08:07] LABS: Lyme Disease IgG/IgM Antibodie <0.91 ISR (0.00-0.90); Lyme Disease IgM Ab Quantitati <0.80 index (0.00-0.79)
[2016-03-07] MEDS ORDERED: D5W 1,000 ML IV SCH (08:15)
[2016-03-07] MEDS: NYSTATIN 500,000 U/5 ML SUSP UDC SS SCH ×2 (09:27→16:13)
[2016-03-07] MEDS: BACLOFEN 10 MG TAB PO SCH ×2 (09:28→16:13)
[2016-03-07] MEDS: HEPARIN SOD (PORCINE) 5000 UNITS/ML VIAL SC SCH (09:28)
[2016-03-07] MEDS: FOLIC ACID 1 MG TAB PO SCH (09:28)
[2016-03-07] MEDS: CitaloPRAM (CeleXA) 10 MG TABLET PO SCH (09:28)
[2016-03-07] MEDS: THIAMINE 100 MG TAB PO SCH (09:29)
[2016-03-07 14:00] VITALS: BP 130/80
[2016-03-07] MEDS ORDERED: ZIPRASIDONE 20MG CAPSULE (GEODON) PO PRN (16:30)
[2016-03-07] MEDS ORDERED: diphenhydrAMINE 25 MG CAP PO PRN (16:30)
--- NOTE | 2016-03-07 17:13 | DS.PDOC ---
Discharge Summary General Date of Admission Mar 03, 2016 at 18:30 Date of Discharge 03/07/16 Specialist/Consultants Involve Dr. Hutchinson of Neurology. Dr. Villalobos of Psychiatry Discharge Summary PROCEDURES PERFORMED DURING STAY: None. COMPLICATIONS/CHIEF COMPLAINT: Encephalopathy ADMISSION DIAGNOSES: 1. . Alteration in mental status 2. . Nonverbal catatonia 3. . DISCHARGE DIAGNOSES: 1. . Alteration in mental status 2. . Nonverbal catatonia 3. . HISTORY OF PRESENT ILLNESS: 51-year-old female with past medical history of bipolar disorder, fibromyalgia, polysubstance abuse, hypothyroidism, anxiety, and COPD presented to the [facility] emergency room from the [facility] for lethargy and catatonia on 03/03/2016. The patient was initially admitted to the inpatient mental health unit for psychiatric stabilization. However, during her stay there the patient became increasingly lethargic after her psychiatric medications were uptitrated and she received multiple doses of Haldol. The patient was admitted to the hospitalist service for further evaluation and management of the patient's alteration in mental status. During the patient's stay in the hospital an MRI of the brain revealed no acute findings. A neurology consultation was also sought and an EEG was ordered in addition to toxicology screening for vitamin B1, B6, B12, copper, lead, mercury , and ceruloplasmin levels in addition to testing for syphilis and Lyme disease. All of these studies did come back within normal limits or negative. There was no overt source of infectious etiology noted for the patient. However , with IV fluid hydration, withholding of some of her psychiatric medications, and supportive treatment the patient was noted to return back to her normal mentation and she has been asking the staff for food and water. At this time, psychiatry has been consulted for evaluation for readmission back into the inpatient mental health unit. DISCHARGE MEDICATIONS: Please see below. ALLERGIES: Please see below. PHYSICAL EXAMINATION ON DISCHARGE: VITAL SIGNS: Please see below. GENERAL: Awake, alert, follows some commands HEENT: Normocephalic, atraumatic NECK: No JVD CARDIOVASCULAR EXAMINATION: Normal rate, normal rhythm RESPIRATORY EXAMINATION: Clear to auscultation bilaterally ABDOMINAL EXAMINATION: Soft, nontender, nondistended EXTREMITIES: No erythema, no tenderness-less rigidity noted on passive extension and flexion of extremities LABORATORY DATA: Please see below. IMAGING: MRI BRAIN WITHOUT CONTRAST: HISTORY: Mental status change. COMPARISON: 09/16/2006. There are no areas of abnormal signal intensity in the brain. There is no intraparenchymal hemorrhage, infarct, mass or midline shift. The ventricular system is normal in appearance. There is no extracerebral collection. The sinuses are clear. IMPRESSION: There is no intracranial lesion. VTE Prophylaxis ordered?: Yes DISCHARGE CONDITION: Medically stable DISPOSITION: Inpatient mental health unit ACTIVITY: As tolerated DIET: Regular diet DISCHARGE PLAN AND INSTRUCTIONS: 1. . Discharged to inpatient mental health unit for psychiatric stabilization 2. . 3. . TIME SPENT ON DISCHARGE: Greater than 30 minutes. Vital Signs/I&Os Vital Signs Date Time Temp Pulse Resp B/P Pulse Ox O2 Delivery O2 Flow Rate FiO2 03/07/16 14:00 98.1 74 16 130/80 100 Room Air I&O- Last 24 Hours up to 6 AM 03/07/16 06:00 Intake Total 3490 ml Output Total 0 ml Balance 3490 ml Laboratory Data Labs 24H Laboratory Tests 2 03/07/16 05:55: Blood Urea Nitrogen 19H, Creatinine 0.92, Sodium Level 147H, Potassium Level 3.7 , Chloride Level 111H, Carbon Dioxide Level 27, Calcium Level 9.0, Aspartate Amino Transf (AST/SGOT) 21, Alanine Aminotransferase (ALT/SGPT) 27, Alkaline Phosphatase 80, Total Bilirubin 0.6, Total Protein 6.4, Albumin 3.1L, Albumin/ Globulin Ratio 0.94L, Anion Gap 9, Glomerular Filtration Rate > 60.0, Magnesium Level 1.8 CBC/BMP Laboratory Tests 03/07/16 05:55 Calcium Level 9.0, Aspartate Amino Transf (AST/SGOT) 21, Alanine Aminotransferase (ALT/SGPT) 27, Alkaline Phosphatase 80, Total Bilirubin 0.6, Total Protein 6.4, Albumin 3.1 L, Red Blood Count 4.15, Mean Corpuscular Volume 89.1, Mean Corpuscular Hemoglobin 29.7, Mean Corpuscular Hemoglobin Concent 33.4 , Red Cell Distribution Width 13.7 Microbiology Microbiology 03/03/16 Blood Culture - Preliminary, Resulted No Growth after 72 hours. All specime... 03/03/16 Blood Culture - Preliminary, Resulted No Growth after 72 hours. All specime... 03/03/16 Respiratory Virus Panel (PCR) (JEFF) - Final, Complete Medications Scheduled Citalopram Hydrobromide (Celexa) 10 Mg Tab 5 MG PO DAILY MOOD Folic Acid (Folic Acid) 1 Mg Tab 1 MG PO DAILY DEPRESSION Levothyroxine Sodium (Synthroid) 100 Mcg Tab 100 MCG PO DAILY Multivitamins (Multivitamin Adults) 1 Tab Tab 1 TAB PO DAILY nutritional supplement Thiamine HCl (Thiamine) 50 Mg Cap 100 MG PO TID nutritional supplement Scheduled PRN Acetaminophen (Tylenol) 325 Mg Tab 650 MG PO Q4H PRN PRN HEADACHE or DISCOMFORT Aluminum/Magnesium/Simeth (Mylanta Double-Strength 400-400-40 mg/5Ml) 1 Belinda Belinda 30 ML PO Q4HP PRN PRN INDIGESTION Milk Of Magnesia (Milk of Magnesia Concentr) 30 Ml Conc 30 ML PO DAILYPRN PRN PRN CONSTIPATION Allergies Coded Allergies: Sumatriptan (Unverified Allergy, Intermediate, Panic attacks, 12/09/12) Aripiprazole (Unverified Adverse Reaction, Severe, Suicidal ideation, ) CI Pigment Blue 63 (Unverified Adverse Reaction, Severe, 12/09/12) Suicidal ideation Duloxetine (Unverified Adverse Reaction, Severe, 12/09/12) Suicidal ideation Olanzapine (Verified Adverse Reaction, Severe, neurolyptic malignant syndrome, 12/09/12) Sulfa Drugs (Unverified Adverse Reaction, Intermediate, Nausea, 12/09/12) Topiramate (Verified Adverse Reaction, Intermediate, Severe mood swings, 12/09/12) RITESH GRIMES MD Mar 07, 2016 17:13
[2016-03-07] MEDS ORDERED: DIVALPROEX 250 MG TAB PO SCH (21:00)
[2016-03-07] MEDS ORDERED: zolPIDEM TARTRATE 10MG TAB PO SCH (21:00)
[2016-03-07] MEDS ORDERED: PERPHENAZINE 2 MG TAB PO SCH (21:00)
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
== END 2016-03-07 20:06 | DRG 947 ==
LOC: M PCU 18:30 → M MSPAV 03-06 16:50
PROVIDERS: ADMIT Hospitalist; ATTEND Hospitalist
DX: R41.82 Altered mental status, unspecified (principal); G93.49 Other encephalopathy; F20.2 Catatonic schizophrenia; F11.20 Opioid dependence, uncomplicated; F31.9 Bipolar disorder, unspecified; M79.7 Fibromyalgia; E03.9 Hypothyroidism, unspecified; F41.9 Anxiety disorder, unspecified; J44.9 Chronic obstructive pulmonary disease, unspecified; G44.209 Tension-type headache, unspecified, not intractable; F19.10 Other psychoactive substance abuse, uncomplicated; F10.10 Alcohol abuse, uncomplicated; Z79.899 Other long term (current) drug therapy; E86.0 Dehydration; F17.210 Nicotine dependence, cigarettes, uncomplicated; Z62.810 Personal history of physical and sexual abuse in childhood; Z81.8 Family history of other mental and behavioral disorders; Z91.419 Personal history of unspecified adult abuse

== ENCOUNTER 2016-03-07 20:08 | Inpatient (IN) | payer MEDICAID, MEDICARE ==
[~2016-03-07] VITALS: Ht 154.9 cm; Wt 50.5 kg
[~2016-03-07 20:08] MED LIST changes: +AMBI5TAB PO; +CELE10TA PO; +MOM30SS PO; +MYLASUS6 PO; +THIA50CA PO; +omnicef PO
[2016-03-07 20:20] VITALS: BP 130/88
[2016-03-07] MEDS ORDERED: ZIPRASIDONE 20MG CAPSULE (GEODON) PO PRN (20:30)
[2016-03-07] MEDS ORDERED: MAALOX 30 ML SUSP *UDC PO PRN (20:30)
[2016-03-07] MEDS ORDERED: diphenhydrAMINE 25 MG CAP PO PRN (20:30)
[2016-03-07] MEDS ORDERED: zolPIDEM TARTRATE 10MG TAB PO SCH (21:00)
[2016-03-07] MEDS: DIVALPROEX 250 MG TAB PO SCH (22:05)
[2016-03-07] MEDS: PERPHENAZINE 2 MG TAB PO SCH (22:05)
[2016-03-08 06:32] VITALS: BP 144/86
[2016-03-08] MEDS: DIVALPROEX 250 MG TAB PO SCH (09:00)
[2016-03-08] MEDS ORDERED: DIVALPROEX SPRINKLE 125 MG CAP PO SCH (09:00)
[2016-03-08] MEDS: PERPHENAZINE 2 MG TAB PO SCH (09:31)
[2016-03-08 15:34] LABS: ABG BASE EXCESS 1.9 (-2.0-2.0); ABG HCO3 25.3 MEQ/L (22.0-26.0); ABG PARTIAL PRESSURE CO2 35.5 mmHg (35.0-45.0); ABG PARTIAL PRESSURE O2 103.4 mmHg (75.0-100.0); ABG STANDARD HCO3 26.2 MEQ/L (22.0-26.0); ABG TOTAL CO2 26.4 MEQ/L (22.0-29.0); ABG pH (ARTERIAL) 7.471 UNITS (7.350-7.450)
[2016-03-08 15:47] VITALS: BP 140/88
[2016-03-08 16:51] LABS: BASO % 0.4 % (0.0-1.0); EOS # 0.1 K/mm3 (0.0-0.50); EOS % 1.1 % (0.0-3.0); LARGE UNSTAINED CELL # 0.1 K/mm3 (0.0-0.4); LYMPH # 1.2 K/mm3 (1.5-4.5); LYMPH % 11.5 % (24.0-44.0); MEAN CORPUSCULAR HGB CONC 33.6 g/dl (32.0-36.5); MEAN CORPUSCULAR VOLUME 89.1 fl (80.0-96.0); MONO # 0.6 K/mm3 (0.0-0.8); MONO % 5.4 % (0.0-5.0); NEUTROPHILS # 8.4 K/mm3 (1.8-7.7); NEUTROPHILS % 80.7 % (36.0-66.0); PLATELET COUNT, AUTOMATED 292 k/mm3 (150-450); WHITE BLOOD COUNT 10.4 K/mm3 (4.0-10.0)
[2016-03-08 17:13] LABS: ALBUMIN 3.4 GM/DL (3.2-5.2); ALKALINE PHOSPHATASE 94 U/L (45-117); ALT/SGPT 30 U/L (12-78); ANION GAP 6 MEQ/L (8-16); AST/SGOT 23 U/L (15-37); BILIRUBIN,TOTAL 0.3 MG/DL (0.2-1.0); BLOOD UREA NITROGEN 19 MG/DL (7-18); CALCIUM LEVEL 9.3 MG/DL (8.5-10.1); CARBON DIOXIDE LEVEL 31 MEQ/L (21-32); CHLORIDE LEVEL 107 MEQ/L (98-107); CREATININE FOR GFR 0.93 MG/DL (0.55-1.02); GLOMERULAR FILTRATION RATE > 60.0 (>51); GLUCOSE, FASTING 90 MG/DL (70-105); POTASSIUM SERUM 4.2 MEQ/L (3.5-5.1); SODIUM LEVEL 144 MEQ/L (136-145); TOTAL PROTEIN 6.5 GM/DL (6.4-8.2)
[2016-03-08 17:14] LABS: ERYTHROCYTE SEDIMENTATION RATE 57 mm/hr (0-30)
[2016-03-08 18:08] VITALS: BP 126/70
[2016-03-08 18:10] VITALS: BP_SYST 131; BP_DIAS 84; BP_DIAS 91
[2016-03-08 21:39] VITALS: BP_SYST 148; BP_SYST 152; BP_SYST 160; BP_DIAS 89; BP_DIAS 92; BP_DIAS 96
[2016-03-08 21:40] VITALS: BP 148/92
--- NOTE | 2016-03-08 23:30 | REPUSA ---
CLINICAL HISTORY: Head trauma TECHNIQUE: Head CT without contrast COMPARISON: No study for comparison is available at the time of interpretation. Brain: No intracranial hemorrhage or parenchymal edema. Calvarium: No depressed fractures. Sinuses (partially visualized): No hemorrhage fluid levels. IMPRESSION: No intracranial hemorrhage or fracture.
[2016-03-09] MEDS ORDERED: HALOPERIDOL 2 MG TAB PO ONE (00:15)
[2016-03-09] MEDS ORDERED: LORazepam 1 MG TAB PO ONE (00:15)
[2016-03-09 06:11] VITALS: BP 141/86
[2016-03-09 06:56] LABS: AMYLASE 70 U/L (25-115)
[2016-03-09] MEDS: LORazepam 0.5 MG TAB PO SCH ×3 (09:12→21:14)
[2016-03-09] MEDS: HALOPERIDOL 5 MG TAB PO SCH ×2 (09:12→21:14)
[2016-03-09 11:28] LABS: CONTROL LINE INT CTR LINE PRESENT; TRICYCLIC ANTIDEPRESS UR REFL NEGATIVE (NEGATIVE)
--- NOTE | 2016-03-09 12:30 | IPNPDOC ---
Assessment/Plan Date Seen The patient was seen on 03/09/16. Plan / VTE VTE Prophylaxis Ordered?: Yes Plan Plan Text Evaluation for possible underlying Medical cause of the patient's Johana CT scan of the head with no acute findings I have reviewed the imaging/ laboratory studies ordered yesterday and in the recent past during the patient's admission on the medical floors. A thorough medical investigation into the patient's current presentation has been worked up. The following studies have either been negative or unremarkable ; syphilis testing non reactive, Lyme disease screen, copper/lead/mercury levels , ESR, anti-nuclear antibodies, lupus anti-coagulant, and vitamin B-1, B6, B12, TSH levels. EEG was noted to be within normal limits In addition, a neurological consultation was also placed for further evaluation and management, and their input has been noted. I have discussed these findings with Dr. Schmidt of psychiatry, and agree with the addition of Haldol and Ativan to evaluate the patient's response to stabilization of the patient's johana with a pharmacological approach. Subjective Review of Systems CC/HPI The patient is a 51-year-old female admitted with a reason for visit of JOHANA. General: Reports: ROS Unobtainable Other systems Unable to obtain a review of systems patient as she is not answering questions appropriately. She denies any symptoms of pain at this time. Objective Physical Examination General Exam: Positive: No Acute Distress ENT Exam: Positive: Atraumatic, Mucous membr. moist/pink Chest Exam: Positive: Clear to auscultation, Normal air movement Heart Exam: Positive: Normal S1, Normal S2, Rate Normal, Negative: Gallops, Murmurs, Rubs Abdomen Exam: Positive: Soft, Negative: Tenderness Extremity Exam: Negative: Swelling, Tenderness Vital Signs/I&O Vital Signs Date Time Temp Pulse Resp B/P Pulse Ox O2 Delivery O2 Flow Rate FiO2 03/09/16 06:11 97.0 115 20 141/86 03/08/16 21:40 87 03/08/16 09:35 Room Air Laboratory Data Labs 24H Laboratory Tests 2 03/08/16 14:49: Urine Amorphous Sediment , Urine Amphetamines Screen NEGATIVE, Urine Benzodiazepines Screen NEGATIVE, Urine Cannabinoids NEGATIVE, Urine Cocaine Metabolite NEGATIVE, Urine Opiates Screen NEGATIVE, Urine Appearance CLEAR, Urine Color COLORLESS, Urine pH 7.0, Urine Specific Coulter 1.001L, Urine Protein NEGATIVE, Urine Glucose (UA) NEGATIVE, Urine Ketones NEGATIVE, Urine Urobilinogen 0.2, Urine Bilirubin NEGATIVE, Urine Leukocyte Esterase NEGATIVE, Urine Bacteria (Auto) 1+H, Urine Barbiturates Screen NEGATIVE, Urine Blood NEGATIVE, Urine Calcium Carbonate Cryst(Auto) , Urine Calcium Oxalate Cryst ( Auto) , Urine Calcium Phosphate Charley (Auto) , Urine Cellular Casts , Urine Cystine Crystals , Urine Granular Casts (Auto) , Urine Hyaline Casts (Auto) 0, Urine Leucine Crystals , Urine Methadone Screen NEGATIVE, Urine Mucus (Auto) , Urine Nitrite NEGATIVE, Urine Oval Fat Bodies (Auto) , Urine RBC (Auto) 0, Urine Renal Epithelial Cells , Urine Sperm (Auto) , Urine Squamous Epithelial Cells 0, Urine Transitional Epithelial Cells , Urine Trichomonas (Auto) , Urine Tricyclic Antidepressants NEGATIVE, Urine Triple Phosphate Cryst (Auto) , Urine Tyrosine Crystals , Urine Uric Acid Crystals (Auto) , Urine WBC (Auto) 0, Urine Waxy Casts (Auto) , Urine Yeast-Like Cells (Auto) 03/08/16 15:25: Bedside Glucose (Misc Panel) 97 03/08/16 16:34: Ammonia 19, Lactic Acid Level 1.4 03/08/16 16:35: Blood Urea Nitrogen 19H, Creatinine 0.93, Sodium Level 144, Potassium Level 4.2 , Chloride Level 107, Carbon Dioxide Level 31, Calcium Level 9.3, Aspartate Amino Transf (AST/SGOT) 23, Alanine Aminotransferase (ALT/SGPT) 30, Alkaline Phosphatase 94, Total Bilirubin 0.3, Total Protein 6.5, Albumin 3.4, Albumin/ Globulin Ratio 1.10, Anion Gap 6L, White Blood Count 10.4H, Red Blood Count 4.19 , Hemoglobin 12.5, Hematocrit 37.3, Mean Corpuscular Volume 89.1, Mean Corpuscular Hemoglobin 30.0, Mean Corpuscular Hemoglobin Concent 33.6, Red Cell Distribution Width 13.0, Platelet Count 292, Neutrophils (%) (Auto) 80.7H, Lymphocytes (%) (Auto) 11.5L, Monocytes (%) (Auto) 5.4H, Eosinophils (%) (Auto) 1.1, Basophils (%) (Auto) 0.4, Neutrophils # (Auto) 8.4H, Lymphocytes # (Auto) 1.2L, Monocytes # (Auto) 0.6, Eosinophils # (Auto) 0.1, Basophils # (Auto) 0.0, C-Reactive Protein, Quantitative 1.02H, Erythrocyte Sedimentation Rate 57H, Glomerular Filtration Rate > 60.0, Large Unclassified Cells # 0.1, Large Unclassified Cells % 1.0, Thyroid Stimulating Hormone (TSH) 1.470 03/09/16 06:28: Amylase Level 70, Lipase 277 CBC/BMP Laboratory Tests 03/08/16 16:35 Calcium Level 9.3, Aspartate Amino Transf (AST/SGOT) 23, Alanine Aminotransferase (ALT/SGPT) 30, Alkaline Phosphatase 94, Total Bilirubin 0.3, Total Protein 6.5, Albumin 3.4, Red Blood Count 4.19, Mean Corpuscular Volume 89.1, Mean Corpuscular Hemoglobin 30.0, Mean Corpuscular Hemoglobin Concent 33.6 , Red Cell Distribution Width 13.0, Neutrophils (%) (Auto) 80.7 H, Lymphocytes ( %) (Auto) 11.5 L, Monocytes (%) (Auto) 5.4 H, Eosinophils (%) (Auto) 1.1, Basophils (%) (Auto) 0.4, Neutrophils # (Auto) 8.4 H, Lymphocytes # (Auto) 1.2 L , Monocytes # (Auto) 0.6, Eosinophils # (Auto) 0.1, Basophils # (Auto) 0.0 FSBS Laboratory Tests Test 03/08/16 15:25 Range/Units Bedside Glucose (Misc Panel) 97 70-105 MG/DL Microbiology Microbiology 03/08/16 Blood Culture, Received Pending 03/08/16 Blood Culture, Received Pending 03/08/16 Urine Culture, Received Pending RITESH GRIMES MD Mar 09, 2016 12:30
[2016-03-09 18:00] VITALS: BP 135/91
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
--- NOTE | 2016-03-09 23:43 | IPNPDOC ---
[facility] Progress Note Progress Note DATE OF SERVICE: 03/09/16 SUBJECTIVE: She continues to alternate and her level of consciousness. Patient noticed to be alert for a fleeting period of time, then expressing disorganized and disorientated thoughts. Patient highly activated. She is with a one-to-one sitter for her safety. Patient continues to have cataplexic dropping of her upper body. Patient a fall risk as her bed has no side rails. Medicine onboard, working to determine the etiology of suspected delirium. Unable to carry on interview as patient is unable to engage the interviewer. OBJECTIVE: VITAL SIGNS: See below. NEW TEST RESULTS: See below. CURRENT MEDICATIONS: See below. MENTAL STATUS EXAMINATION: Patient is unable to fully participate in the mental status examination. Patient is uncooperative, she is hyperactive behavior, she reaches for an attempt to pick at the air as if responding to visual hallucinations. Speech is pressured, answering questions in monosyllable responses. Intense stare. She inattentive, cognitively and behaviorally displaying poor attention from one stimuli to the next. Mood is manic. Affect is labile. Patient is disoriented to time, place, and situation. Concentration and memory are impaired. Patient is displaying paranoid and grandiose delusions. Thought processes tangential at best also disorganized and disorientated. She is hypersexual and an bizarre in thought content. No evidence of suicidal or homicidal ideation. Judgment and insight are very poor. ASSESSMENT: 1. Delirium, hyperactive subtype; mixed etiology 2. r/o Catatonia 3. Bipolar 1 d/o, unspecified PLAN: 1. Continue Ativan at 0.5mg po TID dose for management of catatonic symptoms. 2. Continue Haldol at 5mg po bid for management of delirium. 3. Continue to hold previous psychotropic med regimen. 4. - Etiology is likely multifactorial including resolution of UTI, clearing of possible offending, medications, and/or a medical process yet to be determined. -This provider requested patient be transferred to the medical floor for management of delirium, if need arises for telemetry, IV access, or crash cart. Hospitalist is onboard to further evaluate etiologies of delirium. TIME SPENT: 30 minutes. Vital Signs Vital Signs Date Time Temp Pulse Resp B/P Pulse Ox O2 Delivery O2 Flow Rate FiO2 03/09/16 18:00 97.2 97 16 135/91 03/08/16 21:40 87 1/28/17 09:35 Room Air Laboratory Data 24H Labs Laboratory Tests 2 03/09/16 06:28: Amylase Level 70, Lipase 277 Current Medications Current Medications Medications (Trade) Dose Ordered Sig/Tatyana Route PRN Reason Start Time Stop Time Status Last Admin Dose Admin Acetaminophen (Tylenol Tab) 650 mg Q6HP PRN PO HEADACHE or DISCOMFORT 03/07/16 20:30 04/06/16 20:29 Al Hydrox/Mg Hydrox/Simethicone (Mylanta) 30 ml Q4HP PRN PO HEARTBURN/INDIGESTION 03/07/16 20:30 04/06/16 20:29 Diphenhydramine HCl (Benadryl) 25 mg Q6HP PRN PO ANXIETY 03/07/16 20:30 03/08/16 18:32 DC Divalproex Sodium (Depakote Sprinkles) 250 mg BID PO 03/08/16 09:00 03/08/16 18:32 DC 03/08/16 12:40 Divalproex Sodium (Depakote) 250 mg BID PO 03/07/16 21:00 03/08/16 11:53 DC 03/07/16 22:05 Haloperidol (Haldol) 5 mg BID PO 03/09/16 09:00 04/08/16 08:59 03/09/16 21:14 Lorazepam (Ativan) 0.5 mg TID PO 03/09/16 09:00 03/16/16 08:59 03/09/16 21:14 Magnesium Hydroxide (Milk Of Magnesia) 30 ml DAILYPRN PRN PO CONSTIPATION 03/07/16 20:30 04/06/16 20:29 Ondansetron HCl (Zofran Odt) 4 mg Q6HP PRN SL NAUSEA OR VOMITING 03/08/16 19:00 04/07/16 18:59 Perphenazine (Trilafon) 4 mg BID PO 03/07/16 21:00 03/08/16 18:32 DC 03/08/16 09:31 Ziprasidone (Geodon) 20 mg BIDP PRN PO AGITATION 03/07/16 20:30 03/08/16 18:32 DC Zolpidem Tartrate (Ambien) 10 mg QHS PO 03/07/16 21:00 03/08/16 18:32 DC 03/07/16 22:05 Allergies Coded Allergies: Sumatriptan (Unverified Allergy, Intermediate, Panic attacks, 12/09/12) Aripiprazole (Unverified Adverse Reaction, Severe, Suicidal ideation, ) CI Pigment Blue 63 (Unverified Adverse Reaction, Severe, 12/09/12) Suicidal ideation Duloxetine (Unverified Adverse Reaction, Severe, 12/09/12) Suicidal ideation Olanzapine (Verified Adverse Reaction, Severe, neurolyptic malignant syndrome, 12/09/12) Sulfa Drugs (Unverified Adverse Reaction, Intermediate, Nausea, 12/09/12) Topiramate (Verified Adverse Reaction, Intermediate, Severe mood swings, 12/09/12) ANGEL RUBALCAVA MD Mar 09, 2016 23:43
--- NOTE | 2016-03-09 23:43 | IPNPDOC ---
[facility] Progress Note Progress Note DATE OF SERVICE: 03/08/16 Please see H&P dictated on this day. Vital Signs Vital Signs Date Time Temp Pulse Resp B/P Pulse Ox O2 Delivery O2 Flow Rate FiO2 03/09/16 18:00 97.2 97 16 135/91 03/08/16 21:40 87 03/08/16 09:35 Room Air Laboratory Data 24H Labs Laboratory Tests 2 03/09/16 06:28: Amylase Level 70, Lipase 277 Current Medications Current Medications Medications (Trade) Dose Ordered Sig/Tatyana Route PRN Reason Start Time Stop Time Status Last Admin Dose Admin Acetaminophen (Tylenol Tab) 650 mg Q6HP PRN PO HEADACHE or DISCOMFORT 03/07/16 20:30 04/06/16 20:29 Al Hydrox/Mg Hydrox/Simethicone (Mylanta) 30 ml Q4HP PRN PO HEARTBURN/INDIGESTION 03/07/16 20:30 04/06/16 20:29 Diphenhydramine HCl (Benadryl) 25 mg Q6HP PRN PO ANXIETY 03/07/16 20:30 03/08/16 18:32 DC Divalproex Sodium (Depakote Sprinkles) 250 mg BID PO 03/08/16 09:00 03/08/16 18:32 DC 03/08/16 12:40 Divalproex Sodium (Depakote) 250 mg BID PO 03/07/16 21:00 03/08/16 11:53 DC 03/07/16 22:05 Haloperidol (Haldol) 5 mg BID PO 03/09/16 09:00 04/08/16 08:59 03/09/16 21:14 Lorazepam (Ativan) 0.5 mg TID PO 03/09/16 09:00 03/16/16 08:59 03/09/16 21:14 Magnesium Hydroxide (Milk Of Magnesia) 30 ml DAILYPRN PRN PO CONSTIPATION 03/07/16 20:30 04/06/16 20:29 Ondansetron HCl (Zofran Odt) 4 mg Q6HP PRN SL NAUSEA OR VOMITING 03/08/16 19:00 04/07/16 18:59 Perphenazine (Trilafon) 4 mg BID PO 03/07/16 21:00 03/08/16 18:32 DC 03/08/16 09:31 Ziprasidone (Geodon) 20 mg BIDP PRN PO AGITATION 03/07/16 20:30 03/08/16 18:32 DC Zolpidem Tartrate (Ambien) 10 mg QHS PO 03/07/16 21:00 03/08/16 18:32 DC 03/07/16 22:05 Allergies Coded Allergies: Sumatriptan (Unverified Allergy, Intermediate, Panic attacks, 12/09/12) Aripiprazole (Unverified Adverse Reaction, Severe, Suicidal ideation, ) CI Pigment Blue 63 (Unverified Adverse Reaction, Severe, 12/09/12) Suicidal ideation Duloxetine (Unverified Adverse Reaction, Severe, 12/09/12) Suicidal ideation Olanzapine (Verified Adverse Reaction, Severe, neurolyptic malignant syndrome, 12/09/12) Sulfa Drugs (Unverified Adverse Reaction, Intermediate, Nausea, 12/09/12) Topiramate (Verified Adverse Reaction, Intermediate, Severe mood swings, 12/09/12) ANGEL RUBALCAVA MD Mar 09, 2016 23:43 Ziprasidone (Geodon) 20 mg BIDP PRN PO AGITATION 03/07/16 20:30 03/08/16 18:32 DC Zolpidem Tartrate (Ambien) 10 mg QHS PO 03/07/16 21:00 03/08/16 18:32 DC 03/07/16 22:05 Allergies Coded Allergies: Sumatriptan (Unverified Allergy, Intermediate, Panic attacks, 12/09/12) Aripiprazole (Unverified Adverse Reaction, Severe, Suicidal ideation, ) CI Pigment Blue 63 (Unverified Adverse Reaction, Severe, 12/09/12) Suicidal ideation Duloxetine (Unverified Adverse Reaction, Severe, 12/09/12) Suicidal ideation Olanzapine (Verified Adverse Reaction, Severe, neurolyptic malignant syndrome, 12/09/12) Sulfa Drugs (Unverified Adverse Reaction, Intermediate, Nausea, 12/09/12) Topiramate (Verified Adverse Reaction, Intermediate, Severe mood swings, 12/09/12) ANGEL RUBALCAVA MD Mar 09, 2016 23:43
[2016-03-10 06:00] VITALS: BP 112/79
[2016-03-10] MEDS ORDERED: GLUCOSE 4 GM CHEW TABLET PO PRN (07:00)
[2016-03-10] MEDS ORDERED: GLUCAGON FOR INJ 1 MG VIAL (J1610) SC PRN (07:00)
[2016-03-10] MEDS ORDERED: ACETAMINOPHEN TAB 650MG DOSE (2X325MG) PO PRN (07:00)
[2016-03-10] MEDS ORDERED: MAALOX 30 ML SUSP *UDC PO PRN (07:00)
[2016-03-10] MEDS ORDERED: DEXTROSE 50% 50 ML SYRINGE IV PRN (07:00)
[2016-03-10] MEDS ORDERED: MOM 30ML SUSPENSION UDC PO PRN (07:00)
[2016-03-10] MEDS ORDERED: traZODone 50 MG TAB PO PRN (07:00)
[2016-03-10 07:28] VITALS: BP 138/54
[2016-03-10] MEDS ORDERED: HumaLOG INSULIN (NovoLOG) PER UNIT SC SCH ×2 (07:30→21:00)
[2016-03-10] MEDS ORDERED: BENZTROPINE 1 MG TAB PO ONE (08:00)
--- NOTE | 2016-03-10 08:31 | CR ---
DATE OF CONSULTATION: 03/08/2016 REASON FOR CONSULTATION: Changes in mentation. HISTORY OF PRESENT ILLNESS: The patient is a 51-year-old female who was initially admitted to inpatient mental health on 02/16/2016. She remained there for several days. She was diagnosed with urinary tract infection. Given that she was having changes in mental status, she was transferred to the medical/surgical floor on 03/03/2016 where she remained for several days. During her medical stay, she was evaluated by Dr. Swartz of neurology. On the hospitalist service, she did have a MRI, EEG, serum copper, ceruloplasmin, lead and mercury levels all checked. Her significant psychiatric medications were held. Her symptoms did resolve to the point that she was medically stable for discharge yesterday. She was seen and evaluated by a psychiatrist yesterday, who once again agreed that she was medically stable for discharge to inpatient mental health. Since arriving back to inpatient mental health yesterday, she has been started on Depakote, Trilafon, Ambien. Since then, she has had waxing and waning mental status, falling, not cooperating with nursing care, preferring to lay on the floor as opposed to her mattress, and as such the medical service was consulted for change in mental status. PAST MEDICAL HISTORY: 1. Bipolar disorder. 2. Substance abuse. 3. Suicide attempt. 4. Urinary incontinence. 5. Fibromyalgia. 6. Migraines. 7. Hypothyroidism. PAST SURGICAL HISTORY: Hysterectomy. SOCIAL HISTORY: History of polysubstance abuse, including alcohol, tobacco and marijuana. REVIEW OF SYSTEMS: Negative. ALLERGIES: DAPIPRAZOLE, PIGMENT BLUE, DULOXETINE, OLANZAPINE, SULFA DRUGS, SUMATRIPTAN, TOPIRAMATE. PHYSICAL EXAMINATION: VITAL SIGNS : Temperature 97.7, pulse 113, respiratory rate 18, blood pressure 144/86, oxygen saturation 98% on room air. GENERAL: She is a frail, slim, female. She is lying on the floor on mats when I entered the room. She does not appear to be in any distress whatsoever. HEENT: Cranial nerves II through XII are grossly intact. She is cooperative with the examination. She is awake, alert, and oriented to person, place, time, and to situation. She is able to tell me the year, the month, the day of the week. Upon my request, she is able to stand up and walk to her bed and sit down on the edge of her bed and follow examinations. NEUROLOGIC: She appears to be intact without any focal deficits whatsoever. CARDIOVASCULAR EXAM: S1, S2. She is mildly tachycardic. RESPIRATORY EXAM: Completely clear. ABDOMINAL EXAM: Benign. EXTREMITIES: No clubbing, cyanosis or edema. LABORATORY STUDIES: From yesterday, WBC 12.6, hemoglobin 12.4, hematocrit 37, platelet count 266. Chemistry panel: Sodium 147, potassium 3.7, chloride 111, bicarbonate 27, BUN 19, creatinine 0.9. She has had a TSH within normal limits. B12, ceruloplasmin, copper, lead, and mercury levels, Lyme screening, syphilis RPR. Microbiology: She had urine culture from 02/19/2016 that was positive for Escherichia (E) coli, but received greater than 10 days of antibiotics for this. IMAGING: The patient had a MRI on the that was essentially unremarkable, as well as an EEG. ASSESSMENT AND PLAN: This is a 51-year-old female with persistent behavioral changes. 1. Behavioral changes. The patient has had a thorough workup for etiologies for delirium, including a neurology consultation. Her last presentation was felt to be secondary to medication adverse effect. Once again, since arriving to the psychiatric floor, the patient was started on four new medications in the last 48 hours. Her symptoms did resolve during her last medical stay with cessation of these medications. I recommend this once again. For completeness, I will check a complete blood count (CBC), CMP, toxicology, CT of the head. Serum ammonia level and arterial blood gas. I will recheck TSH, C-reactive protein, and ESR, repeat urinalysis and urine culture. Since she has completed her treatment it has not been checked. I will recheck this once again to confirm resolution. Even if positive, the patient is able to tolerate oral medications. Neurologically, there is no focal deficits. I did relay this information to Dr. Schmidt, the psychiatrist aegis console operator track, who casually nformed me that we need to find better medical doctors in our facility and insists that the patient needs inpatient medical services with IV access, crash cart etc. I see no need for the aforementioned and see no medical reason for medical hospitalization at this point in time. The patient has had a thorough workup completed and has been deemed medically stable for discharge within the last 24 hours and been accepted to psychiatric services. There does not appear to be any significant change in the patient's status other than that she is somewhat more fatigued, not surprising given the significant amount of psychiatric medications started in the last 48 hours. We will happily continue to follow along with you. BISHOP
[2016-03-10] MEDS ORDERED: TUBERCULIN PPD 5 UNITS/0.1 ML ID ONE (10:00)
[2016-03-10 10:21] LABS: FOLATE > 24.0 NG/ML (>5.4); VITAMIN B12 LEVEL 589 PG/ML (247-911)
--- NOTE | 2016-03-10 11:05 | REP ---
CT of the brain without IV contrast: There are no comparisons. There is no subdural or epidural hematoma. There is no hemorrhage, edema, mass effect or midline shift. Ventricles are normal size and midline. The visualized paranasal sinuses and mastoid air cells are clear. Impression: Essentially negative CT study of the brain. Signed by Noah Castro MD 03/08/2016 04:38 P
--- NOTE | 2016-03-10 11:11 | REP ---
Portable supine AP abdomen, single view: Comparison is the CT abdomen pelvis dated 06/01/2008. The bowel gas pattern is normal. There are no unusual calcifications. Skeletal structures and soft tissues are otherwise unremarkable. Impression: Normal bowel gas pattern. Signed by Noah Castro MD 03/09/2016 09:52 A
--- NOTE | 2016-03-10 12:16 | HPE ---
DATE OF ADMISSION: 03/07/2016 Please refer to the psychiatric history and evaluation for further details on this admission. This examination and history is intended for medical issues which may need treatment, followup or consultation on this 51-year-old female who was initially admitted to the mental health unit. She had increasing BUN and creatinine. She was taken up to the medical floor for further workup for encephalopathy, most of which has been negative and patient has been now back on the inpatient mental health unit. She has had an updated consult by Dr. Ortiz. See his consult done as well. PRIMARY CARE PROVIDER: Dr. Santos. ALLERGIES: - SUMATRIPTAN - ARIPIPRAZOLE - CI PIGMENT BLUE 63 - DULOXETINE - OLANZAPINE - SULFA DRUGS - TOPAMAX PAST MEDICAL HISTORY: 1. Bipolar disorder. 2. Fibromyalgia. 3. Hypothyroidism. 4. Hyperlipidemia. 5. Migraines headaches. 6. History of opiate abuse. 7. History of lung disease. PAST SURGICAL HISTORY: SOCIAL HISTORY: She lives in [place]. She is single. She has two children. She smokes one pack of cigarettes per day. REVIEW OF SYSTEMS: The patient stated no pain, but was basically otherwise nonverbal, but she was alert and sitting up. She did follow commands. CURRENT MEDICATIONS (On the medical floor, she was on): - Ambien 10 mg by mouth at bedtime - Depakote 250 by mouth twice a day - Trilafon 4 mg by mouth twice a day - Geodon 20 mg by mouth twice a day as needed agitation - Benadryl 25 mg by mouth every 6 hours as needed anxiety - Nystatin 5 mL swish and swallow four times a day - thiamine 100 mg by mouth daily - labetalol 10 mg IV every 6 hours as needed for elevated blood pressure - levothyroxine 0.075 mg by mouth daily - heparin 5000 units subcutaneous every 12 hours for deep vein thrombosis prophylaxis - baclofen 5 mg by mouth twice a day - ceftriaxone 2 grams every 24 hours PHYSICAL EXAMINATION: 51-year-old thin cooperative female not wanting to walk, but is in a wheelchair. Weight 44 kg. Height 61 inches. Body mass index (BMI) 18.3. The patient is alert. Pupils equal and react to light. Cornea and sclera clear. Conjunctiva normal. No facial asymmetry. Pharynx, tongue and gums pink and moist. Tongue is midline. Neck is supple, without lymphadenopathy. No thyromegaly. No goiter. Carotids 2+, without bruit. Chest clear to auscultation, without wheeze or retraction. Heart is regular. Abdomen benign. Bowel sounds positive. Genitourinary ()/Rectal: Not done. Extremities show no cyanosis, clubbing or edema. Peripheral pulses equal and palpable bilaterally. IMPRESSION AND PLAN: 1. Psychiatric. Plan per psychiatry. 2. No acute medical issues. 3. Followup on blood cultures and urine culture from 03/08/2016. 4. Hypothyroidism. Continue current dose of levothyroxine. 5. Nicotine dependence. Patch available.
[2016-03-10 14:36] LABS: HIV SCRN NEGATIVE (NEGATIVE)
[2016-03-10 14:37] LABS: CONTROL LINE INT CTR LINE PRESENT; HIV SCRN1 NEGATIVE (NEGATIVE)
--- NOTE | 2016-03-10 16:51 | IPN ---
DATE: 03/10/2016 A 50-year-old female with a history of bipolar disorder and status post delirium. She was transferred to the medical floor after being selectively mute and displaying catatonic behavior. She was stabilized and transferred to our unit. MEDICATIONS: - Haldol 5 mg by mouth twice a day - Ativan 0.5 mg by mouth three times a day SUBJECTIVE: "I want to go home." OBJECTIVE: The patient was started on Haldol 5 mg by mouth twice a day. She did not tolerate well this medication and had to be discontinued this morning. The patient is no longer manic and is selectively mute. The patient is disoriented in time, place and situation. MENTAL STATUS EXAMINATION: The patient is dressed in [facility], poor eye contact, speech selectively mute. Mood is anxious. Affect is blunted. The patient appears to react to internal stimuli and has paranoid grandiose delusions. Insight and judgment is poor. ASSESSMENT: 1. Bipolar disorder. 2. Polysubstance dependency by history. PLAN: Will hold psychotherapeutic medications for 24 hours and reassess tomorrow.
[2016-03-10] MEDS: ACETAMINOPHEN TAB 650MG DOSE (2X325MG) PO PRN (17:15)
[2016-03-10 18:00] VITALS: BP 120/95
[2016-03-10] MEDS ORDERED: BENZTROPINE 0.5 MG TAB PO SCH (21:00)
[2016-03-11 06:00] VITALS: BP_SYST 129; BP_SYST 130; BP_SYST 132; BP_DIAS 100; BP_DIAS 86; BP_DIAS 96
[2016-03-11] MEDS: ACETAMINOPHEN TAB 650MG DOSE (2X325MG) PO PRN ×2 (06:47→06:48)
[2016-03-11] MEDS: CitaloPRAM (CeleXA) 10 MG TABLET PO SCH (09:39)
--- NOTE | 2016-03-11 15:20 | IPN ---
DATE: 03/11/2016 50-year-old female with a history of bipolar disorder, status post delirium. She was transferred to the medical floor for stabilization after being selectively mute and displaying catatonic behavior. She was stabilized and transferred to our unit. Before admission, I could observe manic behavior and she was placed on Haldol 5 mg twice a day. Apparently, she is very sensitive. MEDICATIONS: All psychotropic medications have been held. SUBJECTIVE: "I do not feel well." OBJECTIVE: The patient continues to be selectively mute. Is mostly by herself. Needs one-to-one sitter. Her facial expression is flat. Her memory, attention, and concentration is impaired. The patient is disoriented to time, place and situation. MENTAL STATUS EXAMINATION: The patient is dressed in [facility]. Poor eye contact. Speech is selectively mute. Mood is anxious. Affect is blunted. The patient appears to react intermittently to internal stimuli. Insight and judgment poor. ASSESSMENT: 1. Bipolar disorder. 2. Polysubstance dependency by history. PLAN: 1. Start Celexa 2.5 mg in the morning. 2. Start Ambien 10 mg by mouth at night as needed for insomnia. 3. Close observation.
[2016-03-11 18:00] VITALS: BP 138/89
[2016-03-11] MEDS: DIVALPROEX 125 MG TAB PO SCH (21:57)
[2016-03-11] MEDS: zolPIDEM TARTRATE 10MG TAB PO PRN (21:57)
[2016-03-11] MEDS: ACETAMINOPHEN 325 MG/10.15 ML UDC PO PRN (21:58)
[2016-03-12 06:41] VITALS: BP 141/77
[2016-03-12 06:43] VITALS: BP 148/67
[2016-03-12 08:47] LABS: MEAN CORPUSCULAR HEMOGLOBIN 29.7 pg (27.0-33.0); MEAN CORPUSCULAR HGB CONC 33.3 g/dl (32.0-36.5); MEAN CORPUSCULAR VOLUME 89.2 fl (80.0-96.0); RED CELL DISTRIBUTION WIDTH 14.5 % (11.5-14.5); WHITE BLOOD COUNT 14.7 K/mm3 (4.0-10.0)
[2016-03-12] MEDS: CitaloPRAM (CeleXA) 10 MG TABLET PO SCH (08:51)
[2016-03-12] MEDS: DIVALPROEX 125 MG TAB PO SCH ×2 (08:51→20:34)
[2016-03-12 09:04] LABS: CALCIUM LEVEL 10.5 MG/DL (8.5-10.1); CREATININE FOR GFR 1.19 MG/DL (0.55-1.02); GLOMERULAR FILTRATION RATE 50.9 (>51); POTASSIUM SERUM 4.5 MEQ/L (3.5-5.1)
[2016-03-12] MEDS ORDERED: PPD DOCUMENTATION ENTRY MISC XX SCH (10:00)
[2016-03-12] MEDS: ACETAMINOPHEN 325 MG/10.15 ML UDC PO PRN ×2 (10:19→20:34)
--- NOTE | 2016-03-12 11:03 | IPNPDOC ---
Assessment/Plan Date Seen The patient was seen on 03/12/16. Problems Problems: (1) Behavioral change Status: Chronic Problem Text: * Pt has been evaluated by Neurology 03/04/16. * CT brain 03/08/16 NAD. * MRI Brain 03/02/16 and EEG 03/05/16 unremarkable. * ESR/JEN/Copper/lead/mercury/RPR/Lyme/B12/folate completed. * S/P 11 days abx for UTI. * BC x 2, UC neg 03/08/16. * Continue supportive care/Monitor. (2) Hypothyroid Status: Chronic Problem Text: * Synthroid 75 mcg daily. * TSH WNL 03/08/16. Plan / VTE VTE Prophylaxis Ordered?: No (ambulatory) Subjective Review of Systems CC/HPI The patient is a 51-year-old female admitted with a reason for visit of CRISTOBAL. Events since last encounter Pt is up OOB to wheelchair. She was sitting up to table to eat breakfast in wheelchair. Pt will answer questions and respond. Objective Physical Examination General Exam: Positive: Alert, No Acute Distress ENT Exam: Positive: Atraumatic, Mucous membr. moist/pink Chest Exam: Positive: Clear to auscultation, Normal air movement Heart Exam: Positive: Normal S1, Normal S2, Rate Normal, Negative: Gallops, Murmurs, Rubs Abdomen Exam: Positive: Normal bowel sounds, Soft, Negative: Tenderness Extremity Exam: Negative: Swelling, Tenderness Skin Exam: Positive: Nl turgor and temperature Neuro Exam: Positive: Other (She is responding to questions, she is aware of the date and year and where she is currently. ) Vital Signs/I&O Vital Signs Date Time Temp Pulse Resp B/P Pulse Ox O2 Delivery O2 Flow Rate FiO2 03/12/16 06:43 148/67 03/12/16 06:41 97.7 113 16 03/10/16 18:00 Room Air 03/08/16 21:40 87 I&O- Last 24 Hours up to 6 AM 03/12/16 06:00 Intake Total 1980 ml Output Total 0 ml Balance 1980 ml Laboratory Data Labs 24H Laboratory Tests 2 03/12/16 08:33: Anion Gap 8, Blood Urea Nitrogen 19H, Creatinine 1.19H, Sodium Level 141, Potassium Level 4.5, Chloride Level 102, Carbon Dioxide Level 31, Calcium Level 10.5H, Glomerular Filtration Rate 50.9L CBC/BMP Laboratory Tests 03/12/16 08:33 Calcium Level 10.5 H, Red Blood Count 4.62, Mean Corpuscular Volume 89.2, Mean Corpuscular Hemoglobin 29.7, Mean Corpuscular Hemoglobin Concent 33.3, Red Cell Distribution Width 14.5 Microbiology Microbiology 03/08/16 Blood Culture - Preliminary, Resulted No Growth after 72 hours. All specime... 03/08/16 Blood Culture - Preliminary, Resulted No Growth after 72 hours. All specime... 03/08/16 Urine Culture - Final, Complete Quin Reinoso Mar 12, 2016 11:03
[2016-03-12] MEDS: LEVOTHYROXINE 0.075 MG TAB (75 MCG) PO SCH (12:53)
[2016-03-12] MEDS: THIAMINE 100 MG TAB PO SCH (16:05)
[2016-03-12] MEDS: FOLIC ACID 1 MG TAB PO SCH (16:05)
--- NOTE | 2016-03-12 17:43 | IPN ---
DATE: 03/12/2016 51-year-old female with a history of bipolar disorder, status post delirium. She was transferred to the medical floor for stabilization after being selectively mute and displaying catatonic behavior. She was stabilized and transferred to our unit. Before admission, I could observe manic behavior and she was placed on 5 mg of Haldol twice a day. Currently, she is very sensitive and it had to be discontinued. MEDICATIONS: - Celexa 2.5 mg by mouth in the morning - Ambien 10 mg by mouth at night as needed for insomnia - Depakote 250 mg by mouth twice a day SUBJECTIVE: "I am anxious." OBJECTIVE: The patient continues intermittently selectively mute, very poor speech, very poor eye contact. Interacting minimally with card mounter. The patient intermittently falls asleep. The patient has very little insight into her subjective problems. MENTAL STATUS EXAMINATION: The patient is dressed in [facility]. Very poor eye contact. Speech is selectively mute but able to answer some questions. At times, mood is reported as anxious. Affect is blunted. The patient appears to react to internal stimuli at times. Insight and judgment are poor. ASSESSMENT: 1. Bipolar disorder. 2. Polysubstance dependency by history. 3. Status post delirium. PLAN: 1. Continue with Celexa 2.5 mg by mouth in the morning. 2. Continue with Depakote 150 mg by mouth twice a day. 3. Continue with Ambien 10 mg by mouth at night as needed for insomnia.
[2016-03-12 18:00] VITALS: BP_SYST 136; BP_SYST 137; BP_DIAS 85; BP_DIAS 95
[2016-03-12] MEDS: zolPIDEM TARTRATE 10MG TAB PO PRN (20:33)
[2016-03-13] MEDS ORDERED: hydrOXYzine 50 MG TAB PO ONE
[2016-03-13] MEDS: LEVOTHYROXINE 0.075 MG TAB (75 MCG) PO SCH (06:00)
[2016-03-13] MEDS: ACETAMINOPHEN 325 MG/10.15 ML UDC PO PRN (06:01)
[2016-03-13 06:46] VITALS: BP 160/90
[2016-03-13 06:47] VITALS: BP 145/83
[2016-03-13] MEDS: FOLIC ACID 1 MG TAB PO SCH (09:21)
[2016-03-13] MEDS: THIAMINE 100 MG TAB PO SCH (09:21)
[2016-03-13] MEDS: DIVALPROEX 125 MG TAB PO SCH ×2 (09:21→20:17)
[2016-03-13] MEDS: CitaloPRAM (CeleXA) 10 MG TABLET PO SCH (09:22)
[2016-03-13] MEDS: ACETAMINOPHEN TAB 650MG DOSE (2X325MG) PO PRN (11:00)
--- NOTE | 2016-03-13 17:12 | IPN ---
DATE: 03/13/2016 A 51-year-old female with a history of bipolar disorder, status post delirium. Was transferred from the medical floor for stabilization. Before readmission to our unit she was observed to be manic, talking about suing Zyprexa and making millions of dollars. Patient is very sensitive to psychotropic medications, Celexa 2.5 mg by mouth every morning, Ambien 10 mg by mouth at bedtime as needed for insomnia, Depakote 250 mg by mouth twice a day SUBJECTIVE: "I'm in pain and very anxious." OBJECTIVE: Patient continues to be selectively mute intermittently today. Seems to e more impulsive and makes gestures, as throwing herself out of bed, has poor eye contact, poor speech. Minimally interacting with the automatic pattern edger and surroundings. Intermittently falls asleep. Patient has very little insight. MENTAL STATUS EXAMINATION: Patient dressed in [facility]. Very poor eye contact. Speech is poor and selectively mute. Affect is blunted. Patient appears to react to internal stimuli at times. Insight and judgment are poor. ASSESSMENT: 1. Bipolar disorder. 2. Polysubstance dependency. 3. Status post delirium. PLAN: 1. Continue with Celexa 2.5 mg by mouth every morning. 2. Continue with Depakote 250 mg by mouth at bedtime. 3. Continue with Ambien 10 mg by mouth at bedtime as needed for insomnia.
[2016-03-13 18:00] VITALS: BP 135/87
[2016-03-13 18:01] VITALS: BP 143/96
[2016-03-13 18:02] VITALS: BP 129/78
[2016-03-13] MEDS: IBUPROFEN 400 MG TAB PO PRN (20:17)
[2016-03-13] MEDS: zolPIDEM TARTRATE 10MG TAB PO PRN (20:17)
[2016-03-14] MEDS ORDERED: hydrOXYzine 50 MG TAB PO ONE
[2016-03-14] MEDS: IBUPROFEN 400 MG TAB PO PRN ×2 (03:56→18:03)
[2016-03-14] MEDS: LEVOTHYROXINE 0.075 MG TAB (75 MCG) PO SCH (06:07)
[2016-03-14 06:35] VITALS: BP 139/91
[2016-03-14 06:36] VITALS: BP 135/98
[2016-03-14 09:20] LABS: MEAN CORPUSCULAR HEMOGLOBIN 29.9 pg (27.0-33.0); MEAN CORPUSCULAR HGB CONC 33.3 g/dl (32.0-36.5); RED CELL DISTRIBUTION WIDTH 13.7 % (11.5-14.5); WHITE BLOOD COUNT 10.7 K/mm3 (4.0-10.0)
[2016-03-14 09:26] LABS: ALBUMIN 3.6 GM/DL (3.2-5.2); ALBUMIN/GLOBULIN RATIO 0.92 (1.00-1.93); BILIRUBIN,TOTAL 0.6 MG/DL (0.2-1.0); CREATININE FOR GFR 1.04 MG/DL (0.55-1.02); GLOMERULAR FILTRATION RATE 59.5 (>51); TOTAL PROTEIN 7.5 GM/DL (6.4-8.2)
[2016-03-14] MEDS: CitaloPRAM (CeleXA) 10 MG TABLET PO SCH (09:30)
[2016-03-14] MEDS: THIAMINE 100 MG TAB PO SCH (09:30)
[2016-03-14] MEDS: FOLIC ACID 1 MG TAB PO SCH (09:30)
--- NOTE | 2016-03-14 11:10 | IPNPDOC ---
Assessment/Plan Date Seen The patient was seen on 03/14/16. Problems Problems: (1) Behavioral change Status: Chronic Problem Text: * Pt has been evaluated by Neurology 03/04/16. * CT brain 03/08/16 NAD. * MRI Brain 03/02/16 unremarkable. * EEG 03/05/16 unremarkable. * ESR/JEN/Copper/lead/mercury/RPR/Lyme/B12/folate completed. * S/P 11 days abx for UTI. * BC x 2, UC neg 03/08/16. * Reviewed with Dr. Harmon, who also reviewed and examined the patient. * We have discussed with Dr. Villalobos the patient's status as well. * I have contacted neurology, Dr Hutchinson, who will reevaluate the patient. Recommends repeat EEG. Proceed with lumbar puncture with routine cell count, protein, glucose, Gram stain, culture, HSV, PCR. * Obtain consent for lumbar puncture- Per Psych Pt able to consent for herself and it is placed on chart. * Also called SO- Tyler Godwin- [phone] and obtained verbal consent from him for procedure as well as per Dr Villalobos's request. * Continue supportive care/Monitor. (2) Hypothyroid Status: Chronic Problem Text: * Synthroid 75 mcg daily. * TSH WNL 03/08/16. Plan / VTE VTE Prophylaxis Ordered?: No (ambulatory) Subjective Review of Systems CC/HPI The patient is a 51-year-old female admitted with a reason for visit of CRISTOBAL. Events since last encounter I am requested to reevaluate the patient. She is in the hospital bed. She is responsive to questioning. She knows the year. She states "are you going to hurt me". "Give me an MRI" She was eating some of her breakfast and drinking her juice. Objective Physical Examination General Exam: Positive: Alert, No Acute Distress ENT Exam: Positive: Atraumatic, Mucous membr. moist/pink Chest Exam: Positive: Clear to auscultation, Normal air movement Heart Exam: Positive: Normal S1, Normal S2, Rate Normal, Negative: Gallops, Murmurs, Rubs Abdomen Exam: Positive: Normal bowel sounds, Soft, Negative: Tenderness Extremity Exam: Negative: Swelling, Tenderness Skin Exam: Positive: Nl turgor and temperature Neuro Exam: Positive: Other (She is responding to questions, she is aware of the date and year and where she is currently. ) Vital Signs/I&O Vital Signs Date Time Temp Pulse Resp B/P Pulse Ox O2 Delivery O2 Flow Rate FiO2 03/14/16 06:36 117 135/98 03/14/16 06:35 96.6 18 03/13/16 18:00 Room Air 03/08/16 21:40 87 I&O- Last 24 Hours up to 6 AM 03/14/16 06:00 Intake Total 1040 ml Output Total 800 ml Balance 240 ml Laboratory Data Labs 24H Laboratory Tests 2 03/14/16 08:37: Blood Urea Nitrogen 17, Creatinine 1.04H, Sodium Level 141, Potassium Level 4.0 , Chloride Level 102, Carbon Dioxide Level 31, Calcium Level 10.0, Aspartate Amino Transf (AST/SGOT) 24, Alanine Aminotransferase (ALT/SGPT) 30, Alkaline Phosphatase 92, Total Bilirubin 0.6, Total Protein 7.5, Albumin 3.6, Albumin/ Globulin Ratio 0.92L, Anion Gap 8, Glomerular Filtration Rate 59.5 CBC/BMP Laboratory Tests 03/14/16 08:37 Calcium Level 10.0, Aspartate Amino Transf (AST/SGOT) 24, Alanine Aminotransferase (ALT/SGPT) 30, Alkaline Phosphatase 92, Total Bilirubin 0.6, Total Protein 7.5, Albumin 3.6, Red Blood Count 4.64, Mean Corpuscular Volume 90.0, Mean Corpuscular Hemoglobin 29.9, Mean Corpuscular Hemoglobin Concent 33.3 , Red Cell Distribution Width 13.7 Microbiology Microbiology 03/08/16 Blood Culture - Final, Complete NO GROWTH AFTER 5 DAYS 03/08/16 Blood Culture - Final, Complete NO GROWTH AFTER 5 DAYS 03/08/16 Urine Culture - Final, Complete Quin Reinoso Mar 14, 2016 11:10
[2016-03-14 15:30] VITALS: BP 130/92
[2016-03-14 15:41] LABS: CSF DILUENT LOT # 6109
[2016-03-14 15:48] LABS: RBC CSF AUTO 1 /mm3 (0-0); WBC CSF AUTO 0 /mm3 (0-10)
[2016-03-14 15:49] LABS: APPEARANCE, CSF CLEAR (CLEAR); COLOR, CSF COLORLESS (COLORLESS); CSF DIFF IF INDICATED? NO (NO); CSF TUBE# CELL CNT TUBE 1
[2016-03-14 15:56] LABS: GLUCOSE CSF 75 MG/DL (40-75)
[2016-03-14 16:30] VITALS: BP 132/94
[2016-03-14 17:30] VITALS: BP 134/96
--- NOTE | 2016-03-14 18:29 | IPN ---
DATE: 03/14/2016 HISTORY: A 61-year-old female with history of bipolar disorder, status post delirium, who was transferred from the medical floor for stabilization. Before her admission to our unit, she was observed to be manic, talking about suing [employer] and making millions of dollars. The patient has been showing high sensitivity for psychotropic medications. SUBJECTIVE: "I'm very anxious." OBJECTIVE: The patient's mental status continues to fluctuate. This morning I was called by nursing since she felt very weak and appeared to be worsening; however, consultation with the hospitalist has explored the patient and reviewed the labs, showing that the patient is stable from the medical point of view. The patient's memory is poor. Speech is also poor, at times selectively mute. The patient continues to require one-to-one observation and help with all activities of daily living (ADL) and feeding. MENTAL STATUS EXAMINATION: Patient dressed in [facility]. Poor eye contact. Speech is very poor and selectively mute. Affect is blunted. The patient appears to react to internal stimuli intermittently. Insight and judgment are poor. ASSESSMENT: 1. Bipolar disorder. 2. Polysubstance dependency. 3. Status post delirium. PLAN: 1. Increase Celexa to 5 mg by mouth every morning. 2. Discontinue Depakote. 3. Continue Ambien 10 mg by mouth at bedtime as needed for insomnia. 4. Continue closely monitorng.
--- NOTE | 2016-03-14 19:37 | REP ---
Procedure: For guidance for lumbar puncture. History: Mental status change The procedure was performed under the direct supervision of Dr. Martin. The risks and benefits of the procedure were explained to the patient and informed consent was obtained. The L3-4 interspace was localized using fluoroscopic guidance. The skin was prepped and draped in a sterile fashion. 1% lidocaine was used as a local anesthetic. Using fluoroscopic guidance a 22-gauge spinal needle was inserted and advanced into the thecal sac. 12 ml of spinal fluid was withdrawn and sent to lab. The the patient tolerated the procedure well and there were no immediate complications. 8 seconds of fluoro time was utilized for this procedure. Reviewed by JEFFERSON Chavis 03/14/2016 03:35 PSigned by Chris Martin MD 03/14/2016 07:22 P
[2016-03-15] MEDS: zolPIDEM TARTRATE 10MG TAB PO PRN ×2 (00:42→22:17)
[2016-03-15] MEDS: LEVOTHYROXINE 0.075 MG TAB (75 MCG) PO SCH (06:08)
[2016-03-15 06:54] VITALS: BP 117/72
[2016-03-15] MEDS: THIAMINE 100 MG TAB PO SCH (09:54)
[2016-03-15] MEDS: FOLIC ACID 1 MG TAB PO SCH (09:54)
[2016-03-15] MEDS: CitaloPRAM (CeleXA) 10 MG TABLET PO SCH (09:54)
[2016-03-15] MEDS: IBUPROFEN 400 MG TAB PO PRN ×2 (10:50→20:27)
[2016-03-15] MEDS: MOM 30ML SUSPENSION UDC PO PRN (15:37)
[2016-03-15 18:00] VITALS: BP 133/90
[2016-03-16] MEDS: LEVOTHYROXINE 0.075 MG TAB (75 MCG) PO SCH (05:52)
[2016-03-16 06:48] VITALS: BP 133/99
[2016-03-16] MEDS: THIAMINE 100 MG TAB PO SCH (09:40)
[2016-03-16] MEDS: FOLIC ACID 1 MG TAB PO SCH (09:40)
[2016-03-16] MEDS: CitaloPRAM (CeleXA) 10 MG TABLET PO SCH (09:40)
[2016-03-16] MEDS: IBUPROFEN 400 MG TAB PO PRN (12:26)
[2016-03-16 18:00] VITALS: BP 152/90
[2016-03-17] MEDS: LEVOTHYROXINE 0.075 MG TAB (75 MCG) PO SCH (06:01)
[2016-03-17 06:40] VITALS: BP_SYST 145; BP_SYST 148; BP_DIAS 86; BP_DIAS 95
[2016-03-17] MEDS: FOLIC ACID 1 MG TAB PO SCH (10:43)
[2016-03-17] MEDS: CitaloPRAM (CeleXA) 10 MG TABLET PO SCH (10:43)
[2016-03-17] MEDS: THIAMINE 100 MG TAB PO SCH (10:43)
--- NOTE | 2016-03-17 14:20 | IPN ---
DATE OF SERVICE: 03/17/2016 A 61-year-old female with history of bipolar disorder, status post delirium, who was transferred from the medical floor for stabilization. Before her admission to our unit, she was observed to be manic, talking about suing [employer], and making millions of dollars. The patient has been showing high sensitivity for psychotropic medications. SUBJECTIVE: "I'm ." (dictation cut off) The patient's mental status appears to be somewhat improving as far as her level of conscious and connection with surroundings. The patient is showing some symptoms compatible with johana. Her sitter has stated that she was hypersexual, however, she continues to show thought blocking, speech, being selectively mute, catatonic-like behaviors. She has had a medical workup, that so far has been negative. So, all the above is compatible with delirium. MENTAL STATUS EXAMINATION: The patient is dressed in [facility]. Poor eye contact. Speech is selectively mute. The patient displays intermittently manic-like behavior but other times is just staring at the wall or space and showing catatonic-like symptoms. The patient appears to react to internal stimuli intermittently. Insight and judgment are poor. ASSESSMENT: 1. Bipolar disorder. 2. Polysubstance dependency. 3. Status post delirium. PLAN: 1. Continue Celexa 5 mg by mouth every morning. 2. Continue Ambien 10 mg by mouth nightly as needed insomnia. 3. Continue close monitoring.
[2016-03-17 18:25] VITALS: BP_SYST 124; BP_SYST 125; BP_DIAS 87; BP_DIAS 88
[2016-03-17] MEDS: zolPIDEM TARTRATE 10MG TAB PO PRN (22:15)
[2016-03-18] MEDS: ONDANSETRON 4 MG ORAL DISINTEGRATING TAB (S0181) SL PRN (00:45)
[2016-03-18] MEDS: IBUPROFEN 400 MG TAB PO PRN ×2 (00:45→10:45)
[2016-03-18] MEDS ORDERED: hydrOXYzine 25 MG TAB PO ONE (01:00)
[2016-03-18] MEDS: LEVOTHYROXINE 0.075 MG TAB (75 MCG) PO SCH (06:02)
[2016-03-18 06:32] VITALS: BP 121/85
[2016-03-18 06:33] VITALS: BP 119/82
[2016-03-18 06:45] LABS: MEAN CORPUSCULAR HEMOGLOBIN 30.5 pg (27.0-33.0); MEAN CORPUSCULAR HGB CONC 33.6 g/dl (32.0-36.5); MEAN CORPUSCULAR VOLUME 90.9 fl (80.0-96.0); RED CELL DISTRIBUTION WIDTH 13.6 % (11.5-14.5); WHITE BLOOD COUNT 16.3 K/mm3 (4.0-10.0)
[2016-03-18 07:03] LABS: ALBUMIN 3.9 GM/DL (3.2-5.2); ALBUMIN/GLOBULIN RATIO 1.3 (1.00-1.93); BILIRUBIN,TOTAL 0.3 MG/DL (0.2-1.0); CALCIUM LEVEL 9.9 MG/DL (8.5-10.1); CREATININE FOR GFR 1.24 MG/DL (0.55-1.02); GLOMERULAR FILTRATION RATE 48.5 (>51); POTASSIUM SERUM 4.7 MEQ/L (3.5-5.1); TOTAL PROTEIN 6.9 GM/DL (6.4-8.2)
[2016-03-18] MEDS ORDERED: DIVALPROEX 250 MG TAB PO SCH (09:00)
[2016-03-18] MEDS: THIAMINE 100 MG TAB PO SCH (09:30)
[2016-03-18] MEDS: FOLIC ACID 1 MG TAB PO SCH (09:30)
[2016-03-18] MEDS: CitaloPRAM (CeleXA) 10 MG TABLET PO SCH (09:30)
[2016-03-18] MEDS ORDERED: QUEtiapine FUMARATE 12.5 MG HALF-TAB PO ONE (11:45)
[2016-03-18] MEDS: VALPROIC ACID SYRUP 250 MG/5 ML UDC PO SCH ×2 (14:51→20:33)
[2016-03-18] MEDS: QUEtiapine FUMARATE 12.5 MG HALF-TAB PO SCH (16:26)
--- NOTE | 2016-03-18 16:51 | IPN ---
DATE: 03/18/2016 A 51-year-old female with a history of bipolar disorder, status post delirium, who transferred from the medical floor for stabilization. Before her admission to our unit, she was observed to be manic, talking about suing Zyprexa and making millions of dollars. The patient has been showing high sensitivity for psychotropic medication. SUBJECTIVE: "I need to get our of here." OBJECTIVE: Patient is showing signs of slow improvement, although she continues to be selectively mute. Today she has been awake all morning. She is impulsive at times and needs to be redirected. Patient currently still needs to be in constant observation and have a sitter with her all the time. Sitter reports that is eating a little better, is drinking fluids. The patient is making hypersexual comments and needs to be redirected constantly. MENTAL STATUS EXAMINATION: The patient is dressed in [facility]. Patient is selectively mute, intermittently staring at the space or the wall. Patient is not interacting with the sitter and only at times makes some comments at times of sexual remarks. Affect is very restricted. At times appears to react to internal stimuli. Patient has very little insight and judgment. ASSESSMENT: Bipolar disorder, polysubstance dependency, status post delirium. PLAN: 1. Continue with Celexa 5 mg by mouth every morning. 2. Ambien 10 mg by mouth at bedtime. 3. Depakote liquid 250 mg by mouth twice a day. 4. Seroquel 12.5 mg by mouth twice a day plus 25 mg by mouth at bedtime.
[2016-03-18] MEDS ORDERED: QUEtiapine FUMARATE 50 MG TAB PO ONE (17:00)
[2016-03-18] MEDS: zolPIDEM TARTRATE 10MG TAB PO PRN (20:33)
[2016-03-18] MEDS ORDERED: QUEtiapine FUMARATE 50 MG TAB PO SCH (21:00)
[2016-03-18] MEDS ORDERED: QUEtiapine FUMARATE 25 MG TAB PO SCH (21:00)
[2016-03-18 22:00] VITALS: BP 140/80
[2016-03-19] MEDS: LEVOTHYROXINE 0.075 MG TAB (75 MCG) PO SCH (05:59)
[2016-03-19] MEDS ORDERED: HALOPERIDOL 2 MG TAB PO ONE (06:00)
[2016-03-19] MEDS ORDERED: LORazepam 1 MG TAB PO ONE (06:00)
[2016-03-19 06:45] VITALS: BP 136/79
[2016-03-19 06:49] VITALS: BP 136/84
[2016-03-19] MEDS: QUEtiapine FUMARATE 12.5 MG HALF-TAB PO SCH (06:51)
--- NOTE | 2016-03-19 07:20 | EEG ---
DATE OF PROCEDURE: 03/17/2016 REFERRING PHYSICIAN: Dr. Feroz Villalobos DIAGNOSIS: Altered mental status. EEG #: 17 - 36. HISTORY: The patient is a 51-year-old woman with history of substance abuse who is admitted at the inpatient mental health unit due to mood disorder, bipolar disorder, etc. She has episodes in which she becomes nonverbal and selectively mute. This EEG was done to rule out epileptic potential. She is currently taking levothyroxine, thiamine, citalopram, Ambien, etc. TECHNICAL DESCRIPTION: This digital EEG was recorded by 21 scalp, ear and two EKG electrodes and was reviewed in bipolar and referential montages following reformatting in 10-20 international electrode placement system. INTERPRETATION: The patient was noted to be in awake and drowsy states during this EEG. Resting awake background consisted of 9 Hz alpha activity measuring 15-40 microvolts in amplitude which was symmetric and reactive to eye opening. Attenuation of posterior dominant rhythm was seen during transition into drowsiness. No sleep was achieved. Hyperventilation could not be performed. Photic stimulation remained unremarkable. EKG revealed normal sinus rhythm. No focal, lateralizing or epileptiform abnormalities were seen. No clinical or electrographic seizures were recorded. Movement artifact was noted. CONCLUSION: This EEG in mostly awake state is within normal limits.
[2016-03-19] MEDS: FOLIC ACID 1 MG TAB PO SCH (09:00)
[2016-03-19] MEDS: CitaloPRAM (CeleXA) 10 MG TABLET PO SCH (09:00)
[2016-03-19] MEDS: VALPROIC ACID SYRUP 250 MG/5 ML UDC PO SCH ×3 (09:00→20:29)
[2016-03-19] MEDS: THIAMINE 100 MG TAB PO SCH (09:00)
[2016-03-19] MEDS: QUEtiapine FUMARATE 50 MG TAB PO SCH ×2 (10:52→16:00)
[2016-03-19] MEDS: HALOPERIDOL 5 MG TAB PO SCH ×2 (10:52→20:24)
--- NOTE | 2016-03-19 16:36 | IPN ---
DATE: 03/19/2016 A 51-year-old female with a history of bipolar disorder, status post delirium who was transferred to the medical floor for stabilization. Before her admission to our unit, she was observed to be manic, talking about suing Zyprexa and making millions of dollars. Patient has been showing high sensitivity for psychotropic medication. SUBJECTIVE: "I want to go home." OBJECTIVE: Patient is improving very slowly. Has been tolerating an increasing amount of low dosage of antipsychotics and mood stabilizers. Patient is requiring constant redirection and a sitter one-to-one all day. Patient at times become impulsive and tries to jump from the bed or inappropriately touching sitter or this park worker. It is reported that has been sexually inappropriate. Her energy level is increased, and her delirium is improving. She has required medications for sedation, although the dosage of this medication needs to be carefully since she is sensitive to psychotropics. MENTAL STATUS EXAMINATION: Patient dressed in [facility]. Patient is selectively mute but intermittently talking. She is delusional. Appears to react to internal stimuli. Has fluctuations of the mental status throughout the day. She was able to sleep a few hours this morning after she was medicated. Insight and judgment are poor. ASSESSMENT: 1. Bipolar disorder. 2. Polysubstance dependency. 3. Status post delirium. PLAN: 1. Continue with Celexa 5 mg by mouth every morning. 2. Increase Depakote to 500 mg by mouth twice a day liquid form. 3. Haldol 5 mg by mouth twice a day. This dosage will be re-evaluated on daily basis. 4. The dosage of Seroquel will also be re-evaluated on daily basis. 5. Continue with Celexa 5 mg by mouth every morning. 6. Continue with Ambien 10 mg by mouth at bedtime as needed for insomnia.
[2016-03-19 18:22] VITALS: BP 134/87
[2016-03-19] MEDS: QUEtiapine FUMARATE 100 MG TAB PO SCH (20:24)
[2016-03-19] MEDS ORDERED: DIVALPROEX 500 MG TAB PO SCH (21:00)
[2016-03-19] MEDS: zolPIDEM TARTRATE 10MG TAB PO PRN (21:42)
[2016-03-20 00:06] LABS: CSFLYM10 Absent (.); CSFLYM11 Absent (.); CSFLYM12 Negative (.); CSFLYM14 Absent (.); CSFLYM15 Absent (.); CSFLYM16 Absent (.); CSFLYM17 Negative (.); CSFLYM2 Absent (.); CSFLYM3 Absent (.); CSFLYM4 Absent (.); CSFLYM5 Absent (.); CSFLYM6 Present (.); CSFLYM7 Absent (.); CSFLYM8 Absent (.); CSFLYM9 Absent (.)
[2016-03-20] MEDS: LEVOTHYROXINE 0.075 MG TAB (75 MCG) PO SCH (06:17)
[2016-03-20 07:14] VITALS: BP 118/76
[2016-03-20] MEDS: FOLIC ACID 1 MG TAB PO SCH (08:59)
[2016-03-20] MEDS: CitaloPRAM (CeleXA) 10 MG TABLET PO SCH (08:59)
[2016-03-20] MEDS: QUEtiapine FUMARATE 50 MG TAB PO SCH ×2 (08:59→16:41)
[2016-03-20] MEDS: THIAMINE 100 MG TAB PO SCH (08:59)
[2016-03-20] MEDS: HALOPERIDOL 5 MG TAB PO SCH ×2 (08:59→22:03)
[2016-03-20] MEDS: VALPROIC ACID SYRUP 250 MG/5 ML UDC PO SCH ×2 (09:00→22:03)
[2016-03-20 11:06] LABS: MEAN CORPUSCULAR HEMOGLOBIN 30.4 pg (27.0-33.0); MEAN CORPUSCULAR HGB CONC 33.5 g/dl (32.0-36.5); MEAN CORPUSCULAR VOLUME 90.8 fl (80.0-96.0); RED CELL DISTRIBUTION WIDTH 13.6 % (11.5-14.5); WHITE BLOOD COUNT 7.3 K/mm3 (4.0-10.0)
[2016-03-20 11:14] LABS: ANION GAP 8 MEQ/L (8-16); BLOOD UREA NITROGEN 19 MG/DL (7-18); CALCIUM LEVEL 9.3 MG/DL (8.5-10.1); CARBON DIOXIDE LEVEL 30 MEQ/L (21-32); CHLORIDE LEVEL 109 MEQ/L (98-107); CREATININE FOR GFR 1.02 MG/DL (0.55-1.02); GLOMERULAR FILTRATION RATE > 60.0 (>51); GLUCOSE, FASTING 119 MG/DL (70-105); POTASSIUM SERUM 4.4 MEQ/L (3.5-5.1); SODIUM LEVEL 147 MEQ/L (136-145)
[2016-03-20 18:00] VITALS: BP 128/92
[2016-03-20] MEDS: QUEtiapine FUMARATE 100 MG TAB PO SCH (22:02)
[2016-03-20] MEDS: IBUPROFEN 400 MG TAB PO PRN (22:03)
[2016-03-20] MEDS: zolPIDEM TARTRATE 10MG TAB PO PRN (22:03)
[2016-03-21] MEDS: LEVOTHYROXINE 0.075 MG TAB (75 MCG) PO SCH (06:24)
[2016-03-21 06:40] VITALS: BP 107/68
[2016-03-21] MEDS: CitaloPRAM (CeleXA) 10 MG TABLET PO SCH (09:19)
[2016-03-21] MEDS: QUEtiapine FUMARATE 50 MG TAB PO SCH ×2 (09:20→15:54)
[2016-03-21] MEDS: HALOPERIDOL 5 MG TAB PO SCH ×2 (09:20→21:18)
[2016-03-21] MEDS: THIAMINE 100 MG TAB PO SCH (09:20)
[2016-03-21] MEDS: VALPROIC ACID SYRUP 250 MG/5 ML UDC PO SCH ×2 (09:20→21:18)
[2016-03-21] MEDS: FOLIC ACID 1 MG TAB PO SCH (09:20)
--- NOTE | 2016-03-21 16:42 | IPN ---
DATE: 03/21/2016 51-year-old female with history of bipolar disorder status post delirium who was transferred to the medical floor for stabilization. Before her admission to our unit she was observed to be manic, talking about suing Zyprexa and making millions of dollars. The patient was showing high sensitivity for psychotropic medication. SUBJECTIVE: "I need help." OBJECTIVE: Patient continues to improve slowly. Patient is still in need of constant redirection and one-to-one sitter but is not as impulsive or catatonic. Her mental status examination does not fluctuate as much and she is able to tolerate higher dosage of mood stabilizers and antipsychotic. Patient is now taking 500 mg of Depakote twice a day and 200 mg of Depakote daily. Also, is taking 10 mg of Haldol daily and is tolerating it well the above medications. Patient continued to be selectively mute, although at times she make contact as "I need a lot of help" or "what's wrong with me." Patient is eating and drinking a little better but needs continuous reinforcement. MENTAL STATUS EXAMINATION: Patient is dressed in [facility]. Continues to have some fluctuations of the mental status but they are improved. Continues selectively mute but talking more frequently. She at times appear to be react to internal stimuli. She was able to sleep well last night. Insight and judgment is very poor. ASSESSMENT: 1. Bipolar disorder. 2. Polysubstance dependency. 3. Status post delirium. PLAN: 1. Decrease the Haldol to 5 mg by mouth daily. 2. Continue with Depakote 500 mg by mouth twice a day. 3. Continue with Celexa 5 mg by mouth every morning. 4. Continue with Seroquel 50 mg by mouth twice a day plus 100 mg at bed time. 5. Continue with Ambien 10 mg by mouth at bedtime as needed for insomnia.
[2016-03-21 18:00] VITALS: BP 110/77
[2016-03-21] MEDS: QUEtiapine FUMARATE 100 MG TAB PO SCH (21:18)
[2016-03-21] MEDS: IBUPROFEN 400 MG TAB PO PRN (21:18)
[2016-03-22] MEDS: IBUPROFEN 400 MG TAB PO PRN ×3 (06:06→19:45)
[2016-03-22] MEDS: LEVOTHYROXINE 0.075 MG TAB (75 MCG) PO SCH (06:06)
[2016-03-22 06:17] VITALS: BP 120/73
[2016-03-22] MEDS: FOLIC ACID 1 MG TAB PO SCH (09:00)
[2016-03-22] MEDS: THIAMINE 100 MG TAB PO SCH (09:00)
[2016-03-22] MEDS: QUEtiapine FUMARATE 50 MG TAB PO SCH ×2 (09:00→15:14)
[2016-03-22] MEDS: CitaloPRAM (CeleXA) 10 MG TABLET PO SCH (09:00)
[2016-03-22] MEDS: VALPROIC ACID SYRUP 250 MG/5 ML UDC PO SCH ×2 (09:04→19:46)
[2016-03-22 18:37] VITALS: BP 113/75
[2016-03-22] MEDS: QUEtiapine FUMARATE 100 MG TAB PO SCH (19:45)
[2016-03-22] MEDS: ONDANSETRON 4 MG ORAL DISINTEGRATING TAB (S0181) SL PRN (19:45)
[2016-03-22] MEDS: HALOPERIDOL 5 MG TAB PO SCH (19:45)
[2016-03-23] MEDS: LEVOTHYROXINE 0.075 MG TAB (75 MCG) PO SCH (05:54)
[2016-03-23] MEDS: IBUPROFEN 400 MG TAB PO PRN (05:54)
[2016-03-23 06:37] VITALS: BP 139/84
[2016-03-23] MEDS: THIAMINE 100 MG TAB PO SCH (09:01)
[2016-03-23] MEDS: CitaloPRAM (CeleXA) 10 MG TABLET PO SCH (09:01)
[2016-03-23] MEDS: QUEtiapine FUMARATE 50 MG TAB PO SCH ×2 (09:01→15:20)
[2016-03-23] MEDS: FOLIC ACID 1 MG TAB PO SCH (09:01)
[2016-03-23] MEDS: VALPROIC ACID SYRUP 250 MG/5 ML UDC PO SCH ×2 (09:02→22:56)
--- NOTE | 2016-03-23 12:33 | IPN ---
DATE OF SERVICE: 03/22/2016 CHIEF COMPLAINT: Says offers no complaint, as has been for lunch in the lunchroom. SUBJECTIVE: She is sitting up in bed at present and says wants me to help her to lie down, then lies down on her own gently. She is coherent when she suggests that, but displays poverty of speech and has a flattish affect, possibly internally preoccupied. PLAN: I suggest continuing current care and observation.
[2016-03-23 18:00] VITALS: BP 116/77
[2016-03-24] MEDS: HALOPERIDOL 5 MG TAB PO SCH ×2 (00:16→22:04)
[2016-03-24] MEDS: QUEtiapine FUMARATE 100 MG TAB PO SCH ×2 (00:16→22:04)
[2016-03-24] MEDS: zolPIDEM TARTRATE 10MG TAB PO PRN ×2 (00:17→22:04)
[2016-03-24] MEDS: IBUPROFEN 400 MG TAB PO PRN (00:31)
[2016-03-24 06:23] VITALS: BP 111/74
[2016-03-24] MEDS: LEVOTHYROXINE 0.075 MG TAB (75 MCG) PO SCH (06:34)
--- NOTE | 2016-03-24 06:57 | IPN ---
DATE: 03/23/2016 She has been in bed, currently eating, carrie is eating, this is a staff member. The patient says that she has soiled herself. She is cooperative, displays some psychomotor retardation. Affect is very restricted in range. Cognition is possibly diminished. Denies any suicidal thoughts, but appears internally preoccupied. She is alert. Judgment and insight remain poor. Plan is to continue current care, observations, including one-on-one observations.
[2016-03-24] MEDS: QUEtiapine FUMARATE 50 MG TAB PO SCH ×3 (09:00→16:19)
[2016-03-24] MEDS: CitaloPRAM (CeleXA) 10 MG TABLET PO SCH (09:00)
[2016-03-24] MEDS: VALPROIC ACID SYRUP 250 MG/5 ML UDC PO SCH ×2 (09:00→22:04)
[2016-03-24] MEDS: THIAMINE 100 MG TAB PO SCH (09:00)
[2016-03-24] MEDS: FOLIC ACID 1 MG TAB PO SCH (09:00)
[2016-03-24] MEDS: MOM 30ML SUSPENSION UDC PO PRN (10:08)
[2016-03-24 11:01] LABS: MEAN CORPUSCULAR HEMOGLOBIN 30.9 pg (27.0-33.0); MEAN CORPUSCULAR HGB CONC 33.2 g/dl (32.0-36.5); MEAN CORPUSCULAR VOLUME 92.9 fl (80.0-96.0); RED CELL DISTRIBUTION WIDTH 13.8 % (11.5-14.5); WHITE BLOOD COUNT 7.4 K/mm3 (4.0-10.0)
[2016-03-24 11:21] VITALS: BP 124/86
[2016-03-24 11:28] LABS: ALBUMIN 3.5 GM/DL (3.2-5.2); ALBUMIN/GLOBULIN RATIO 1.21 (1.00-1.93); BILIRUBIN,TOTAL 0.3 MG/DL (0.2-1.0); CALCIUM LEVEL 9.7 MG/DL (8.5-10.1); CREATININE FOR GFR 1.06 MG/DL (0.55-1.02); GLOMERULAR FILTRATION RATE 58.2 (>51); POTASSIUM SERUM 4.4 MEQ/L (3.5-5.1); TOTAL PROTEIN 6.4 GM/DL (6.4-8.2)
[2016-03-24] MEDS: PANTOPRAZOLE 20 MG TAB PO SCH (14:51)
--- NOTE | 2016-03-24 15:17 | IPN ---
DATE: 03/24/2016 A 51-year-old female with history of bipolar disorder, status post delirium, who was transferred to the medical floor for stabilization. Before her admission to our unit, she was observed to be manic, talking about suing Zyprexa and making millions of dollars. The patient was showing high sensitivity for psychotropic medications. SUBJECTIVE: The patient is selectively mute. OBJECTIVE: The patient feels nauseated. The patient complained of nausea last evening and this morning. A valproic level was drawn. Results are 60. The patient appears to be tolerating well the slow increase of medication but continues to be selectively mute. Appears to interact with internal stimuli and needs constant redirection. MENTAL STATUS EXAMINATION: The patient is dressed in [facility]. The patient continues to have fluctuation in the mental status examination although she is improving very slowly. She continues to be selectively mute. Appears to react to interval stimuli. She is sleeping better with the help of medication. Insight and judgment is poor. ASSESSMENT: 1. Bipolar disorder. 2. Polysubstance dependency. 3. Status post delirium. PLAN: 1. Continue with Haldol 5 mg by mouth at bedtime. 2. Depakote 500 mg by mouth twice a day. 3. Celexa 5 mg by mouth every morning. 4. Seroquel 50 mg by mouth twice a day plus 100 by mouth at bedtime. 5. Ambien 10 mg by mouth at bedtime.
[2016-03-24 18:00] VITALS: BP 120/71
[2016-03-25] MEDS: LEVOTHYROXINE 0.075 MG TAB (75 MCG) PO SCH (06:07)
[2016-03-25] MEDS: MOM 30ML SUSPENSION UDC PO PRN (06:21)
[2016-03-25 07:16] VITALS: BP 117/73
[2016-03-25] MEDS: QUEtiapine FUMARATE 50 MG TAB PO SCH ×2 (09:15→15:13)
[2016-03-25] MEDS: THIAMINE 100 MG TAB PO SCH (09:16)
[2016-03-25] MEDS: FOLIC ACID 1 MG TAB PO SCH (09:16)
[2016-03-25] MEDS: VALPROIC ACID SYRUP 250 MG/5 ML UDC PO SCH ×2 (09:16→20:06)
[2016-03-25] MEDS: CitaloPRAM (CeleXA) 10 MG TABLET PO SCH (09:16)
[2016-03-25] MEDS: PANTOPRAZOLE 20 MG TAB PO SCH (09:16)
[2016-03-25] MEDS: FLEET ENEMA PR ONE ×2 (10:30→21:17)
[2016-03-25] MEDS: DOCUSATE SODIUM 100 MG CAP PO SCH ×2 (11:44→20:06)
--- NOTE | 2016-03-25 11:58 | IPNPDOC ---
Subjective General Date Seen The patient was seen on 03/25/16. Subjective Chief Complaint/HPI The patient is a 51-year-old female admitted with a reason for visit of CRISTOBAL. Events since last encounter Patient with sitter at bedside. Patient requesting to use commode. No other complaints at this time. Per nursing patient was partially disimpacted this morning. Hard stool was still present. Milk of magnesia given 03/24 and 03/25 Objective Physical Examination General Exam: Positive: Alert, No Acute Distress ENT Exam: Positive: Atraumatic, Mucous membr. moist/pink Chest Exam: Positive: Clear to auscultation, Normal air movement Heart Exam: Positive: Normal S1, Normal S2, Rate Normal, Negative: Gallops, Murmurs, Rubs Abdomen Exam: Positive: Normal bowel sounds, Soft, Negative: Tenderness Extremity Exam: Negative: Swelling, Tenderness Skin Exam: Positive: Nl turgor and temperature Neuro Exam: Positive: Other (She is responding to questions, she is aware of the date and year and where she is currently. ) Assessment /Plan Problems Problems: (1) Behavioral change Status: Chronic Problem Text: * Pt has been evaluated by Neurology 03/04/16. * CT brain 03/08/16 NAD. * MRI Brain 03/02/16 unremarkable. * EEG 03/05/16, 03/19/16 unremarkable. * ESR/JEN/Copper/lead/mercury/RPR/Lyme/B12/folate completed. * previously treated for UTI. * BC x 2, UC neg 03/08/16. * LP unremarkable. * (2) Hypothyroid Status: Chronic Problem Text: * Synthroid 75 mcg daily. * TSH WNL 03/08/16. (3) Constipation Status: Acute Problem Text: * Colace 100 mg by mouth twice a day * Fleet enema 1 today * Milk of magnesia 30 mL daily as needed. (4) Elevated serum creatinine Status: Chronic Problem Text: * Recheck BMP in a.m. (5) Elevated temperature Status: Acute Problem Text: * WBC 7.4 03/24/16. * MAXIMUM TEMPERATURE 99.5 * Rapid flu neg 03/24 * Check UA/UC Plan/VTE VTE Prophylaxis Ordered?: No (ambulatory) VS, I&O, 24H, Fishbone Vital Signs/I&O Vital Signs Date Time Temp Pulse Resp B/P Pulse Ox O2 Delivery O2 Flow Rate FiO2 2/14/17 07:16 98.6 98 20 117/73 03/24/16 18:00 Room Air Laboratory Data Microbiology Microbiology 03/24/16 Influenza Virus Type A Antigen - Final, Complete 03/24/16 Influenza Virus Type B Antigen - Final, Complete 03/18/16 Urine Culture - Final, Complete Quin Reinoso Mar 25, 2016 11:58
[2016-03-25] MEDS: IBUPROFEN 400 MG TAB PO PRN (15:13)
[2016-03-25 18:00] VITALS: BP 113/71
[2016-03-25] MEDS: HALOPERIDOL 5 MG TAB PO SCH (20:06)
[2016-03-25] MEDS: QUEtiapine FUMARATE 100 MG TAB PO SCH (20:06)
[2016-03-25] MEDS: zolPIDEM TARTRATE 10MG TAB PO PRN (20:06)
--- NOTE | 2016-03-25 20:40 | IPN ---
DATE: 03/25/2016 51-year-old female with a history of bipolar disorder, status post delirium, who was transferred to the medical floor for stabilization. Before her admission to our unit, she was observed to be manic, talking about suing Zyprexa and making millions of dollars. The patient was showing high sensitivity to psychotropic medications. SUBJECTIVE: "I want to walk." OBJECTIVE: The patient continues to have mental status changes throughout the day, although she is more awake and is able to interact a little better, although she continues selectively mute. She has intermittent episodes of impulsivity, so she may ask to have a walk and then throws herself to the floor. The patient is tolerating better the medications, needs to continue one to one observation/sitter and also continues to need redirection. The patient is dressed in [facility]. Again, continues to have fluctuation of her mental status. Unable to test attention, concentration and memory. She is selectively mute. Appears to be reacting to internal stimuli. The patient is able to sleep with the help of medication. Insight and judgment is poor. ASSESSMENT: 1. Bipolar disorder. 2. Polysubstance dependency. 3. Status post delirium. PLAN: 1. Continue with Haldol 5 mg by mouth at night. 2. Depakote 500 mg by mouth twice a day. 3. Celexa 5 mg by mouth in the morning. 4. Seroquel 50 mg by mouth twice a day and 100 mg by mouth at night. 5. Ambien 10 mg by mouth at night.
[2016-03-26] MEDS: LEVOTHYROXINE 0.075 MG TAB (75 MCG) PO SCH (06:14)
[2016-03-26 06:47] VITALS: BP 136/76
[2016-03-26 08:05] LABS: CALCIUM LEVEL 9.3 MG/DL (8.5-10.1); CREATININE FOR GFR 1.09 MG/DL (0.55-1.02); GLOMERULAR FILTRATION RATE 56.3 (>51); POTASSIUM SERUM 4.1 MEQ/L (3.5-5.1)
[2016-03-26] MEDS: DOCUSATE SODIUM 100 MG CAP PO SCH ×2 (08:16→20:34)
[2016-03-26] MEDS: QUEtiapine FUMARATE 50 MG TAB PO SCH ×2 (08:16→15:54)
[2016-03-26] MEDS: FOLIC ACID 1 MG TAB PO SCH (08:16)
[2016-03-26] MEDS: THIAMINE 100 MG TAB PO SCH (08:16)
[2016-03-26] MEDS: BENZTROPINE 1 MG TAB PO SCH ×2 (08:16→20:34)
[2016-03-26] MEDS: PANTOPRAZOLE 20 MG TAB PO SCH (08:16)
[2016-03-26] MEDS: CitaloPRAM (CeleXA) 10 MG TABLET PO SCH (08:16)
[2016-03-26] MEDS: VALPROIC ACID SYRUP 250 MG/5 ML UDC PO SCH ×2 (08:17→20:34)
[2016-03-26] MEDS: IBUPROFEN 400 MG TAB PO PRN (15:54)
[2016-03-26 18:00] VITALS: BP_SYST 123; BP_SYST 125; BP_SYST 142; BP_DIAS 76; BP_DIAS 83; BP_DIAS 87
[2016-03-26] MEDS: QUEtiapine FUMARATE 100 MG TAB PO SCH (20:34)
[2016-03-26] MEDS: HALOPERIDOL 5 MG TAB PO SCH (20:34)
--- NOTE | 2016-03-26 20:37 | IPN ---
DATE: 03/26/2016 HISTORY: A 51-year-old female, history of bipolar disorder, status post delirium, who was transferred to the medical floor for stabilization. Before her admission to our unit, she was displaying manic-like behavior, talking about making millions of dollars for suing the drug companies of Zyprexa. The patient also showed sensitivity to psychotropic medications and changes in mental status if the doses were increased at faster taper. SUBJECTIVE: "I need help." OBJECTIVE: The patient is improving slowly although symptoms are still compatible with a mixture of her bipolar disorder and status post delirium. She is more alert and oriented, and is able to carry short sentences. She continues to be impulsive, needs constant redirection and one-to-one nursing staff has tried to help the patient to walk, but all of a sudden, she becomes impulsive and throws herself to the floor. This behavior is apparently without a purpose, although at times she reacts to internal stimuli, but I do not believe those are command auditory hallucinations. The patient is tolerating well the medication. MENTAL STATUS EXAMINATION: The patient is dressed in [facility]. The patient is still selectively mute, but able to carry short sentences. Poor eye contact. Mood is euthymic. Affect is blunted. The patient appears to react to internal stimuli. Unable to test cognitive function. Unable to test attention, concentration and memory. No evidence of suicidal ideations. Insight and judgment are poor. ASSESSMENT: 1. Bipolar disorder. 2. Polysubstance dependency. 3. Status post delirium. PLAN: 1. Continue with Haldol 5 mg by mouth at bedtime. 2. Continue with Depakote 500 mg by mouth twice a day. 3. Continue with Celexa 5 mg by mouth every morning. 4. Continue with Seroquel 50 mg by mouth twice a day, plus 100 mg by mouth at bedtime. 5. Continue with Ambien 10 mg by mouth at bedtime.
[2016-03-27] MEDS: zolPIDEM TARTRATE 10MG TAB PO PRN ×2 (00:08→20:33)
[2016-03-27] MEDS: IBUPROFEN 400 MG TAB PO PRN ×2 (05:11→16:16)
[2016-03-27] MEDS: LEVOTHYROXINE 0.075 MG TAB (75 MCG) PO SCH (05:11)
[2016-03-27 07:00] VITALS: BP 126/85
[2016-03-27] MEDS: CitaloPRAM (CeleXA) 10 MG TABLET PO SCH (08:19)
[2016-03-27] MEDS: THIAMINE 100 MG TAB PO SCH (08:19)
[2016-03-27] MEDS: DOCUSATE SODIUM 100 MG CAP PO SCH ×2 (08:19→20:33)
[2016-03-27] MEDS: FOLIC ACID 1 MG TAB PO SCH (08:19)
[2016-03-27] MEDS: QUEtiapine FUMARATE 50 MG TAB PO SCH ×2 (08:19→16:16)
[2016-03-27] MEDS: BENZTROPINE 1 MG TAB PO SCH ×2 (08:19→20:33)
[2016-03-27] MEDS: PANTOPRAZOLE 20 MG TAB PO SCH (08:19)
[2016-03-27] MEDS: VALPROIC ACID SYRUP 250 MG/5 ML UDC PO SCH ×2 (08:19→20:34)
--- NOTE | 2016-03-27 15:56 | IPN ---
DATE: 03/27/2016 HISTORY: A 51-year-old female with history of bipolar disorder, status post delirium who was transferred from the medical floor for stabilization. Before her return to our unit, she was displaying manic-like behavior, talking about making millions of dollars or suing the drug company of Zyprexa. The patient has been sensitive to all the psychotropic medications since her delirium episode. SUBJECTIVE: "I am very anxious and need Klonopin." OBJECTIVE: The patient continued to improve very slowly. The patient is alert during waking hours, although she falls asleep intermittently. She continues to be impulsive and shows some catatonic-like behavior and poverty of speech. The patient is selectively mute, although she communicates a little better with short sentences. The patient has very low insight and appears to be tolerating the medication well. MENTAL STATUS EXAMINATION: The patient is dressed in [facility]. The patient continues selectively mute but able to carry very short sentences. She has poor eye contact. Mood is euthymic. Affect is blunted. The patient appears to be react to internal stimuli intermittently. Insight and judgment is poor. ASSESSMENT: 1. Bipolar disorder. 2. Polysubstance dependency. 3. Status post delirium PLAN: 1. Continue with Haldol 5 mg by mouth at bedtime. 2. Depakote 500 mg by mouth twice a day. 3. Increase Celexa to 10 mg by mouth every morning. 4. Seroquel 50 mg by mouth twice a day and 100 mg by mouth at bedtime. 5. Ambien 10 mg as needed for insomnia.
[2016-03-27 18:00] VITALS: BP 117/58
[2016-03-27] MEDS: QUEtiapine FUMARATE 100 MG TAB PO SCH (20:33)
[2016-03-27] MEDS: HALOPERIDOL 5 MG TAB PO SCH (20:33)
[2016-03-28] MEDS: LEVOTHYROXINE 0.075 MG TAB (75 MCG) PO SCH (05:49)
[2016-03-28] MEDS: IBUPROFEN 400 MG TAB PO PRN (05:49)
[2016-03-28 06:22] VITALS: BP 111/77
[2016-03-28 07:25] LABS: CALCIUM LEVEL 9.1 MG/DL (8.5-10.1); CREATININE FOR GFR 1.16 MG/DL (0.55-1.02); GLOMERULAR FILTRATION RATE 52.4 (>51); POTASSIUM SERUM 4.6 MEQ/L (3.5-5.1)
[2016-03-28] MEDS: VALPROIC ACID SYRUP 250 MG/5 ML UDC PO SCH ×2 (08:45→20:17)
[2016-03-28] MEDS: DOCUSATE SODIUM 100 MG CAP PO SCH ×2 (08:45→20:17)
[2016-03-28] MEDS: CitaloPRAM (CeleXA) 10 MG TABLET PO SCH (08:45)
[2016-03-28] MEDS: BENZTROPINE 1 MG TAB PO SCH ×2 (08:46→20:17)
[2016-03-28] MEDS: PANTOPRAZOLE 20 MG TAB PO SCH (08:46)
[2016-03-28] MEDS: FOLIC ACID 1 MG TAB PO SCH (08:46)
[2016-03-28] MEDS: THIAMINE 100 MG TAB PO SCH (08:46)
[2016-03-28] MEDS: QUEtiapine FUMARATE 50 MG TAB PO SCH ×3 (08:46→16:17)
[2016-03-28] MEDS ORDERED: QUEtiapine FUMARATE 25 MG TAB PO SCH (16:00)
[2016-03-28 18:00] VITALS: BP 116/78
--- NOTE | 2016-03-28 18:37 | IPN ---
DATE: 03/28/2016 HISTORY: A 51-year-old female with history of bipolar disorder, status post delirium, who was transferred from the medical floor for stabilization. Before her return to the unit, she was displaying manic-like behavior. She was talking about making millions of dollars and suing the drug company of Zyprexa. The patient has been sensitive to all psychotropic medications since her delirium episode. SUBJECTIVE: "I need something for my pain." OBJECTIVE: The patient continues to improve very slowly. The patient is more alert and able to communicate, although she does that in very short sentences. The patient appears to be reacting to internal stimuli, but less frequently than before. The patient is compliant with medication. The patient is tolerating well the treatment. The patient needs to continue on a one-to-one observation, and she needs constant redirection. The patient impulsively throws herself to the floor so is a risk for fall. MENTAL STATUS EXAMINATION: The patient is dressed in [facility]. The patient continues to be selectively mute, but again, she is interacting better with her one-to-one sitter and is able to make short sentences. Has poor eye contact. Mood is euthymic. Affect is blunted. The patient appears to react to internal stimuli but less frequently than before. Insight and judgment are poor. ASSESSMENT: 1. Bipolar disorder. 2. Polysubstance dependency. 3. Status post delirium. PLAN: 1. Continue with Haldol 5 mg by mouth at bedtime. 2. Depakote 500 mg by mouth twice a day. 3. Celexa 10 mg by mouth every morning. 4. Seroquel 50 mg by mouth twice a day, plus 100 mg by mouth at bedtime. 5. Will discontinue Ambien.
[2016-03-28] MEDS: HALOPERIDOL 5 MG TAB PO SCH (20:17)
[2016-03-28] MEDS: QUEtiapine FUMARATE 100 MG TAB PO SCH (20:17)
[2016-03-28] MEDS: QUEtiapine FUMARATE 25 MG TAB PO PRN (21:36)
[2016-03-29] MEDS: LEVOTHYROXINE 0.075 MG TAB (75 MCG) PO SCH (06:00)
[2016-03-29 06:57] VITALS: BP 129/75
[2016-03-29 07:15] LABS: ANION GAP 6 MEQ/L (8-16); BLOOD UREA NITROGEN 21 MG/DL (7-18); CALCIUM LEVEL 9.1 MG/DL (8.5-10.1); CARBON DIOXIDE LEVEL 31 MEQ/L (21-32); CHLORIDE LEVEL 109 MEQ/L (98-107); CREATININE FOR GFR 1.01 MG/DL (0.55-1.02); GLOMERULAR FILTRATION RATE > 60.0 (>51); GLUCOSE, FASTING 83 MG/DL (70-105); POTASSIUM SERUM 4.8 MEQ/L (3.5-5.1); SODIUM LEVEL 146 MEQ/L (136-145)
[2016-03-29] MEDS: VALPROIC ACID SYRUP 250 MG/5 ML UDC PO SCH ×2 (08:48→20:13)
[2016-03-29] MEDS: CitaloPRAM (CeleXA) 10 MG TABLET PO SCH (08:48)
[2016-03-29] MEDS: QUEtiapine FUMARATE 25 MG TAB PO SCH ×2 (08:48→15:54)
[2016-03-29] MEDS: FOLIC ACID 1 MG TAB PO SCH (08:48)
[2016-03-29] MEDS: PANTOPRAZOLE 20 MG TAB PO SCH (08:48)
[2016-03-29] MEDS: BENZTROPINE 1 MG TAB PO SCH ×2 (08:48→20:12)
[2016-03-29] MEDS: DOCUSATE SODIUM 100 MG CAP PO SCH ×2 (08:48→20:12)
[2016-03-29] MEDS: THIAMINE 100 MG TAB PO SCH (08:48)
[2016-03-29 18:00] VITALS: BP 125/85
[2016-03-29] MEDS: QUEtiapine FUMARATE 100 MG TAB PO SCH (20:12)
[2016-03-29] MEDS: HALOPERIDOL 5 MG TAB PO SCH (20:13)
[2016-03-30] MEDS: LEVOTHYROXINE 0.075 MG TAB (75 MCG) PO SCH (06:10)
[2016-03-30 06:17] VITALS: BP 136/84
[2016-03-30 06:51] VITALS: BP_SYST 122; BP_SYST 136; BP_DIAS 69; BP_DIAS 84; BP_DIAS 89
[2016-03-30] MEDS: THIAMINE 100 MG TAB PO SCH (08:26)
[2016-03-30] MEDS: QUEtiapine FUMARATE 25 MG TAB PO SCH ×2 (08:26→15:10)
[2016-03-30] MEDS: PANTOPRAZOLE 20 MG TAB PO SCH (08:26)
[2016-03-30] MEDS: FOLIC ACID 1 MG TAB PO SCH (08:26)
[2016-03-30] MEDS: CitaloPRAM (CeleXA) 10 MG TABLET PO SCH (08:26)
[2016-03-30] MEDS: DOCUSATE SODIUM 100 MG CAP PO SCH ×2 (08:26→20:02)
[2016-03-30] MEDS: VALPROIC ACID SYRUP 250 MG/5 ML UDC PO SCH ×2 (08:26→20:02)
[2016-03-30] MEDS: BENZTROPINE 1 MG TAB PO SCH ×2 (08:26→20:02)
[2016-03-30 18:00] VITALS: BP_SYST 100; BP_SYST 116; BP_SYST 125; BP_DIAS 61; BP_DIAS 77; BP_DIAS 81
[2016-03-30] MEDS: PERPHENAZINE 2 MG TAB PO SCH (20:02)
[2016-03-30] MEDS: traZODone 100 MG TAB PO SCH (20:02)
[2016-03-30] MEDS: QUEtiapine FUMARATE 100 MG TAB PO SCH (20:02)
[2016-03-30] MEDS: IBUPROFEN 400 MG TAB PO PRN (20:03)
[2016-03-31] MEDS: QUEtiapine FUMARATE 25 MG TAB PO PRN (01:50)
[2016-03-31] MEDS: LEVOTHYROXINE 0.075 MG TAB (75 MCG) PO SCH (06:33)
[2016-03-31 06:44] VITALS: BP 116/78
[2016-03-31 07:19] LABS: CALCIUM LEVEL 9.2 MG/DL (8.5-10.1); CREATININE FOR GFR 1.14 MG/DL (0.55-1.02); GLOMERULAR FILTRATION RATE 53.5 (>51); POTASSIUM SERUM 4.5 MEQ/L (3.5-5.1)
[2016-03-31] MEDS: DOCUSATE SODIUM 100 MG CAP PO SCH ×2 (09:29→20:07)
[2016-03-31] MEDS: THIAMINE 100 MG TAB PO SCH (09:29)
[2016-03-31] MEDS: VALPROIC ACID SYRUP 250 MG/5 ML UDC PO SCH ×2 (09:29→20:08)
[2016-03-31] MEDS: FOLIC ACID 1 MG TAB PO SCH (09:29)
[2016-03-31] MEDS: PERPHENAZINE 2 MG TAB PO SCH ×2 (09:29→20:07)
[2016-03-31] MEDS: CitaloPRAM (CeleXA) 10 MG TABLET PO SCH (09:30)
[2016-03-31] MEDS: BENZTROPINE 1 MG TAB PO SCH ×2 (09:30→20:07)
[2016-03-31] MEDS: QUEtiapine FUMARATE 25 MG TAB PO SCH ×2 (09:30→15:08)
[2016-03-31] MEDS: PANTOPRAZOLE 20 MG TAB PO SCH (09:30)
[2016-03-31] MEDS: QUEtiapine FUMARATE 100 MG TAB PO SCH (20:07)
[2016-03-31] MEDS: traZODone 100 MG TAB PO SCH (20:07)
[2016-03-31] MEDS: IBUPROFEN 400 MG TAB PO PRN (20:11)
[2016-04-01] MEDS: LEVOTHYROXINE 0.075 MG TAB (75 MCG) PO SCH (05:52)
[2016-04-01 06:35] VITALS: BP 114/76
--- NOTE | 2016-04-01 08:07 | IPN ---
DATE: 03/31/2016 51-year-old female with history of bipolar disorder, status post delirium, who was transferred from the medical floor after stabilization. Before her returned to our unit, patient was displaying manic behavior mixed with features of delirium. She sensitive to psychotropic medications. SUBJECTIVE: "I need something for my anxiety." OBJECTIVE: Patient continues to improve slowly. Patient is eating and sleeping a little better, although she continues to have trouble staying asleep during the night. Patient is interacting better with the sitter and is able to make longer sentences. Patient is tolerating well all the psychotropic medications. MENTAL STATUS EXAMINATION: Patient dressed in [facility]. Patient continues to be selectively mute, but is interacting better and making longer sentences. Patient has poor eye contact. Mood appears to be euthymic. Affect is blunted. At times appears to interact to internal stimuli. Insight and judgment is poor. ASSESSMENT: 1. Bipolar disorder. 2. Polysubstance dependency. 3. Status post delirium. PLAN: 1. Continue with Celexa 5 mg by mouth every morning. 2. Continue with Trilafon 4 mg by mouth twice a day. 3. Continue with trazodone 100 mg by mouth nightly. 4. Continue with Seroquel 25 mg by mouth at 9 a.m. and 16:00 and 75 mg at bedtime as needed for insomnia. 5. Continue with Depakote 500 mg by mouth twice a day. 6. Continue with Seroquel 100 mg by mouth nightly.
[2016-04-01] MEDS: DOCUSATE SODIUM 100 MG CAP PO SCH ×2 (09:08→20:35)
[2016-04-01] MEDS: BENZTROPINE 1 MG TAB PO SCH ×2 (09:08→20:35)
[2016-04-01] MEDS: FOLIC ACID 1 MG TAB PO SCH (09:08)
[2016-04-01] MEDS: THIAMINE 100 MG TAB PO SCH (09:08)
[2016-04-01] MEDS: PANTOPRAZOLE 20 MG TAB PO SCH (09:09)
[2016-04-01] MEDS: QUEtiapine FUMARATE 25 MG TAB PO SCH (09:09)
[2016-04-01] MEDS: CitaloPRAM (CeleXA) 10 MG TABLET PO SCH (09:09)
[2016-04-01] MEDS: VALPROIC ACID SYRUP 250 MG/5 ML UDC PO SCH ×2 (09:09→20:35)
[2016-04-01] MEDS: PERPHENAZINE 2 MG TAB PO SCH ×2 (09:09→20:35)
[2016-04-01 18:00] VITALS: BP 128/72
--- NOTE | 2016-04-01 18:06 | IPN ---
DATE: 04/01/2016 51-year-old female with history of bipolar disorder status post delirium who was transferred from the medical floor after stabilization. Before her return to our unit, patient was displaying manic-like behavior with mixed features of delirium. She is sensitive to psychotropic medications. SUBJECTIVE: "I need something for my anxiety." OBJECTIVE: Patient continues to improve slowly. Patient today has been mostly in bed and interacting very little with the sitter. Patient has tendency to be impulsive and at times tries impulsively to fall to the floor in an impulsive act. Patient is making longer sentences. Patient continues to request medication for anxiety, but she does not appear to be anxious, but says "I'm nervous inside and I have a tight chest." Patient is requesting Klonopin or hydroxyzine. Patient has a long history of chemical dependency and I told her that benzodiazepines are not good for her and she accepted, but requested to be placed on hydroxyzine. MENTAL STATUS EXAMINATION: Patient is dressed in [facility]. Patient continues to be selectively mute but is interacting better and making longer sentences. Patient has poor eye contact. Mood is euthymic, affect is blunted. Patient appears to interact to internal stimuli intermittently. Judgment and insight is poor. ASSESSMENT: 1. Bipolar disorder. 2. Polysubstance dependency. 3. Status post delirium. PLAN: 1. Increase Celexa to 5 mg by mouth every morning. 2. Continue with Trilafon 4 mg by mouth twice a day. 3. Continue with trazodone 100 mg by mouth nightly. 4. Discontinue Seroquel 25 mg by mouth twice a day. 5. Start hydroxyzine 25 mg by mouth every 6 hours as needed for anxiety. 6. Continue with Depakote 500 mg by mouth twice a day. 7. Continue with Seroquel 100 mg by mouth nightly as needed for insomnia.
[2016-04-01] MEDS: QUEtiapine FUMARATE 100 MG TAB PO SCH (20:35)
[2016-04-01] MEDS: traZODone 100 MG TAB PO SCH (20:35)
[2016-04-01] MEDS: IBUPROFEN 400 MG TAB PO PRN (20:36)
[2016-04-01] MEDS: QUEtiapine FUMARATE 25 MG TAB PO PRN (22:58)
[2016-04-02] MEDS: LEVOTHYROXINE 0.075 MG TAB (75 MCG) PO SCH (05:46)
[2016-04-02 06:44] VITALS: BP 114/80
[2016-04-02 08:24] LABS: CALCIUM LEVEL 9.2 MG/DL (8.5-10.1); CREATININE FOR GFR 1.23 MG/DL (0.55-1.02); POTASSIUM SERUM 4.3 MEQ/L (3.5-5.1)
[2016-04-02] MEDS: PANTOPRAZOLE 20 MG TAB PO SCH (09:25)
[2016-04-02] MEDS: DOCUSATE SODIUM 100 MG CAP PO SCH ×2 (09:26→20:45)
[2016-04-02] MEDS: BENZTROPINE 1 MG TAB PO SCH ×2 (09:26→20:45)
[2016-04-02] MEDS: FOLIC ACID 1 MG TAB PO SCH (09:26)
[2016-04-02] MEDS: CitaloPRAM (CeleXA) 10 MG TABLET PO SCH (09:26)
[2016-04-02] MEDS: PERPHENAZINE 2 MG TAB PO SCH ×2 (09:26→20:45)
[2016-04-02] MEDS: THIAMINE 100 MG TAB PO SCH (09:26)
[2016-04-02] MEDS: VALPROIC ACID SYRUP 250 MG/5 ML UDC PO SCH ×2 (09:27→20:45)
[2016-04-02] MEDS: hydrOXYzine 25 MG TAB PO PRN (09:29)
[2016-04-02] MEDS: MOM 30ML SUSPENSION UDC PO PRN (13:15)
--- NOTE | 2016-04-02 15:02 | IPN ---
DATE: 04/02/2016 51-year-old female with a history of bipolar disorder, status post delirium, who was transferred from the medical floor after stabilization. Before her return to our unit, the patient was displaying a mixture of manic-like behavior and delirium features. The patient is very sensitive to psychotropic medications after the episode of delirium. SUBJECTIVE: "I need something for anxiety." OBJECTIVE: The patient continues to improve slowly. The patient is eating and drinking more. She is interacting better with a sitter, although she needs frequent redirection. The patient is able to make longer sentences. The patient continues to impulsively throw herself to the floor, but it is less frequent. The patient has very little insight. At times, she continues to interact with internal stimuli. MENTAL STATUS EXAMINATION: The patient is dressed in [facility]. The patient continues to be selectively mute, but she is able to interact more frequently with a sitter and is able to make longer sentences. Has poor eye contact. Mood is euthymic. Affect is blunted. The patient continues to interact with internal stimuli intermittently. Judgment and insight are poor. ASSESSMENT: 1. Bipolar disorder. 2. Polysubstance dependency. 3. Status post delirium. PLAN: 1. Celexa 10 mg by mouth in the morning. 2. Hydroxyzine 25 mg by mouth every six hours as needed for anxiety. 3. Trilafon 4 mg by mouth twice a day. 4. Trazodone 100 mg by mouth at night. 5. Seroquel 75 mg by mouth at night as needed for insomnia. 6. Depakote 500 mg by mouth twice a day. 7. Seroquel 100 mg by mouth at night. 8. Continue close observation.
[2016-04-02] MEDS ORDERED: FLEET ENEMA PR ONE (16:00)
[2016-04-02] MEDS: MIRALAX *UNIT DOSE* 17GM PACKET PO SCH (16:38)
[2016-04-02 18:00] VITALS: BP_SYST 100; BP_SYST 110; BP_SYST 112; BP_DIAS 59; BP_DIAS 78
[2016-04-02] MEDS: QUEtiapine FUMARATE 100 MG TAB PO SCH (20:45)
[2016-04-02] MEDS: traZODone 100 MG TAB PO SCH (20:45)
[2016-04-02] MEDS: IBUPROFEN 400 MG TAB PO PRN (20:49)
[2016-04-03] MEDS: QUEtiapine FUMARATE 25 MG TAB PO PRN ×2 (00:18→23:45)
[2016-04-03] MEDS: hydrOXYzine 25 MG TAB PO PRN ×2 (00:18→22:13)
[2016-04-03] MEDS: LEVOTHYROXINE 0.075 MG TAB (75 MCG) PO SCH (06:14)
[2016-04-03] MEDS: IBUPROFEN 400 MG TAB PO PRN (06:15)
[2016-04-03 06:44] VITALS: BP 105/57
[2016-04-03] MEDS: DOCUSATE SODIUM 100 MG CAP PO SCH ×2 (08:18→20:04)
[2016-04-03] MEDS: CitaloPRAM (CeleXA) 10 MG TABLET PO SCH (08:18)
[2016-04-03] MEDS: BENZTROPINE 1 MG TAB PO SCH ×2 (08:18→20:04)
[2016-04-03] MEDS: THIAMINE 100 MG TAB PO SCH (08:18)
[2016-04-03] MEDS: MIRALAX *UNIT DOSE* 17GM PACKET PO SCH (08:18)
[2016-04-03] MEDS: PANTOPRAZOLE 20 MG TAB PO SCH (08:18)
[2016-04-03] MEDS: FOLIC ACID 1 MG TAB PO SCH (08:18)
[2016-04-03] MEDS: VALPROIC ACID SYRUP 250 MG/5 ML UDC PO SCH ×2 (08:18→20:04)
[2016-04-03] MEDS: PERPHENAZINE 2 MG TAB PO SCH ×2 (08:18→20:05)
[2016-04-03 18:00] VITALS: BP 136/78
--- NOTE | 2016-04-03 18:16 | IPN ---
DATE: 04/03/2016 A 51-year-old female with a history of bipolar disorder, status post delirium, who was transferred from the medical floor after stabilization. Before her return to our unit, the patient was displaying a mixture of manic-like behavior and delirium features. The patient has been very sensitive to psychotherapeutic medications after the episode of delirium. SUBJECTIVE: "When I can go home?" OBJECTIVE: The patient continues to improve. Her ability to make longer sentences has improved. The patient is complaining of anxiety and "I need medication for anxiety." The patient stated that could sleep well overnight with the help of medication. The patient continues to request frequent redirection but is interacting better with a sitter and is able to carry some information. The patient is eating and drinking better and is compliant with the medication. MENTAL STATUS EXAMINATION: The patient is dressed in [facility]. The patient continues to be selectively mute but is improving slowly. The patient continues the need of frequent redirection, especially when she impulsively throws herself to the side of the bed or when she is walking in the . The patient stated that "don't know why she is doing that." She has poor eye contact, is impulsive. Mood is euthymic. Affect is blunted. Judgment and insight are poor. ASSESSMENT: 1. Bipolar disorder. 2. Polysubstance dependency. 3. Status post delirium. PLAN: 1. Continue Celexa 10 mg by mouth every morning 2. Hydroxyzine 25 mg every 6 hours as needed for anxiety. 3. Trilafon 4 mg by mouth twice a day 4. Trazodone 100 mg by mouth nightly. 5. Seroquel 75 mg by mouth nightly as needed for insomnia. 6. Depakote 500 mg by mouth twice a day. 7. Seroquel 100 mg by mouth nightly. 8. Continue close observation.
[2016-04-03] MEDS: QUEtiapine FUMARATE 100 MG TAB PO SCH (20:04)
[2016-04-03] MEDS: traZODone 100 MG TAB PO SCH (20:04)
[2016-04-04] MEDS: LEVOTHYROXINE 0.075 MG TAB (75 MCG) PO SCH (06:26)
[2016-04-04 07:00] VITALS: BP 101/70
[2016-04-04 07:28] LABS: CALCIUM LEVEL 9.2 MG/DL (8.5-10.1); CREATININE FOR GFR 1.34 MG/DL (0.55-1.02); GLOMERULAR FILTRATION RATE 44.4 (>51); POTASSIUM SERUM 4.5 MEQ/L (3.5-5.1)
[2016-04-04] MEDS: CitaloPRAM (CeleXA) 10 MG TABLET PO SCH (08:22)
[2016-04-04] MEDS: PERPHENAZINE 2 MG TAB PO SCH ×2 (08:22→20:14)
[2016-04-04] MEDS: THIAMINE 100 MG TAB PO SCH (08:22)
[2016-04-04] MEDS: PANTOPRAZOLE 20 MG TAB PO SCH (08:23)
[2016-04-04] MEDS: DOCUSATE SODIUM 100 MG CAP PO SCH ×2 (08:23→20:14)
[2016-04-04] MEDS: MIRALAX *UNIT DOSE* 17GM PACKET PO SCH (08:23)
[2016-04-04] MEDS: FOLIC ACID 1 MG TAB PO SCH (08:23)
[2016-04-04] MEDS: VALPROIC ACID SYRUP 250 MG/5 ML UDC PO SCH ×2 (08:23→20:14)
[2016-04-04] MEDS: BENZTROPINE 1 MG TAB PO SCH ×2 (08:23→20:14)
[2016-04-04] MEDS: hydrOXYzine 25 MG TAB PO PRN (15:27)
--- NOTE | 2016-04-04 17:06 | IPN ---
DATE: 04/04/2016 A 51-year-old female with history of bipolar disorder status post delirium who was transferred from the medical floor after stabilization. Before her return to our unit, patient was displaying a mixture of manic-like behavior and delirium features. Patient has been very sensitive to psychotropic medications after the episode of delirium. SUBJECTIVE: "When do you think I can go home." OBJECTIVE: Patient continues to improve slowly. She is making longer sentences. She is eating almost all the meals and drinking fluid normally. She is sleeping better with the help of medication. Patient continues to be somewhat paranoid and reacting to internal stimuli at times but is significantly better. MENTAL STATUS EXAMINATION: Patient is dressed in [facility]. Patient continues to be selectively mute, but she can construct longer sentences and is more aware of her surrounding. Patient needs frequent redirection but is no longer as impulsive as a few days ago. She has poor eye contact. Judgment and insight are poor. ASSESSMENT: 1. Bipolar disorder. 2. Polysubstance dependency. 3. Status post delirium. PLAN: 1. Continue Celexa 10 mg by mouth every morning. 2. Continue hydroxyzine 25 mg by mouth every 6 hours as needed for anxiety. 3. Trilafon 4 mg by mouth twice a day 4. Trazodone 100 mg by mouth at bedtime. 5. Seroquel 75 mg by mouth at bedtime as needed for insomnia. 6. Depakote 500 mg by mouth twice a day. 7. Seroquel 100 mg by mouth at bedtime. 8. Continue close observation and one to one.
[2016-04-04 18:00] VITALS: BP_SYST 104; BP_SYST 112; BP_SYST 93; BP_DIAS 53; BP_DIAS 71; BP_DIAS 72
[2016-04-04] MEDS: QUEtiapine FUMARATE 100 MG TAB PO SCH (20:14)
[2016-04-04] MEDS: traZODone 100 MG TAB PO SCH (20:14)
[2016-04-04] MEDS: QUEtiapine FUMARATE 25 MG TAB PO PRN (22:41)
[2016-04-05] MEDS: LEVOTHYROXINE 0.075 MG TAB (75 MCG) PO SCH (05:59)
[2016-04-05 06:37] VITALS: BP 111/64
[2016-04-05 07:42] LABS: CALCIUM LEVEL 8.9 MG/DL (8.5-10.1); CREATININE FOR GFR 1.09 MG/DL (0.55-1.02); GLOMERULAR FILTRATION RATE 56.3 (>51); POTASSIUM SERUM 4.4 MEQ/L (3.5-5.1)
[2016-04-05] MEDS: PANTOPRAZOLE 20 MG TAB PO SCH (08:21)
[2016-04-05] MEDS: BENZTROPINE 1 MG TAB PO SCH ×2 (08:21→20:08)
[2016-04-05] MEDS: PERPHENAZINE 2 MG TAB PO SCH ×2 (08:21→20:08)
[2016-04-05] MEDS: THIAMINE 100 MG TAB PO SCH (08:21)
[2016-04-05] MEDS: CitaloPRAM (CeleXA) 10 MG TABLET PO SCH (08:21)
[2016-04-05] MEDS: DOCUSATE SODIUM 100 MG CAP PO SCH ×2 (08:21→20:08)
[2016-04-05] MEDS: FOLIC ACID 1 MG TAB PO SCH (08:21)
[2016-04-05] MEDS: VALPROIC ACID SYRUP 250 MG/5 ML UDC PO SCH ×2 (08:21→20:09)
[2016-04-05] MEDS: MIRALAX *UNIT DOSE* 17GM PACKET PO SCH (08:21)
[2016-04-05 18:26] VITALS: BP 88/50
[2016-04-05 18:27] VITALS: BP 113/65
[2016-04-05 18:28] VITALS: BP 105/63
[2016-04-05] MEDS: traZODone 100 MG TAB PO SCH (20:08)
[2016-04-05] MEDS: QUEtiapine FUMARATE 100 MG TAB PO SCH (20:08)
[2016-04-05] MEDS: QUEtiapine FUMARATE 25 MG TAB PO PRN (21:39)
[2016-04-05] MEDS: hydrOXYzine 25 MG TAB PO PRN (21:39)
[2016-04-06] MEDS: MOM 30ML SUSPENSION UDC PO PRN (01:49)
[2016-04-06] MEDS: LEVOTHYROXINE 0.075 MG TAB (75 MCG) PO SCH (06:00)
[2016-04-06 06:49] VITALS: BP 108/67
[2016-04-06] MEDS: MIRALAX *UNIT DOSE* 17GM PACKET PO SCH (08:26)
[2016-04-06] MEDS: VALPROIC ACID SYRUP 250 MG/5 ML UDC PO SCH ×2 (08:26→20:10)
[2016-04-06] MEDS: BENZTROPINE 1 MG TAB PO SCH ×2 (08:27→20:10)
[2016-04-06] MEDS: FOLIC ACID 1 MG TAB PO SCH (08:27)
[2016-04-06] MEDS: PANTOPRAZOLE 20 MG TAB PO SCH (08:27)
[2016-04-06] MEDS: THIAMINE 100 MG TAB PO SCH (08:27)
[2016-04-06] MEDS: DOCUSATE SODIUM 100 MG CAP PO SCH ×2 (08:27→20:10)
[2016-04-06] MEDS: ACETAMINOPHEN TAB 650MG DOSE (2X325MG) PO PRN ×2 (08:27→16:03)
[2016-04-06] MEDS: CitaloPRAM (CeleXA) 10 MG TABLET PO SCH (08:27)
[2016-04-06] MEDS: PERPHENAZINE 2 MG TAB PO SCH ×2 (08:27→20:10)
[2016-04-06 18:00] VITALS: BP 103/62
[2016-04-06] MEDS: QUEtiapine FUMARATE 100 MG TAB PO SCH (20:10)
[2016-04-06] MEDS: traZODone 100 MG TAB PO SCH (20:10)
[2016-04-06] MEDS: hydrOXYzine 25 MG TAB PO PRN (23:37)
[2016-04-06] MEDS: QUEtiapine FUMARATE 25 MG TAB PO PRN (23:37)
[2016-04-07] MEDS: LEVOTHYROXINE 0.075 MG TAB (75 MCG) PO SCH (05:51)
[2016-04-07 06:53] VITALS: BP 99/55
[2016-04-07 07:13] LABS: CALCIUM LEVEL 8.7 MG/DL (8.5-10.1); CREATININE FOR GFR 1.14 MG/DL (0.55-1.02); GLOMERULAR FILTRATION RATE 53.5 (>51); POTASSIUM SERUM 4.1 MEQ/L (3.5-5.1)
[2016-04-07] MEDS: CitaloPRAM (CeleXA) 10 MG TABLET PO SCH (08:26)
[2016-04-07] MEDS: FOLIC ACID 1 MG TAB PO SCH (08:26)
[2016-04-07] MEDS: THIAMINE 100 MG TAB PO SCH (08:26)
[2016-04-07] MEDS: PERPHENAZINE 2 MG TAB PO SCH (08:26)
[2016-04-07] MEDS: MIRALAX *UNIT DOSE* 17GM PACKET PO SCH (08:26)
[2016-04-07] MEDS: BENZTROPINE 1 MG TAB PO SCH (08:26)
[2016-04-07] MEDS: DOCUSATE SODIUM 100 MG CAP PO SCH ×2 (08:26→20:38)
[2016-04-07] MEDS: PANTOPRAZOLE 20 MG TAB PO SCH (08:29)
[2016-04-07] MEDS: VALPROIC ACID SYRUP 250 MG/5 ML UDC PO SCH ×2 (08:29→20:39)
[2016-04-07] MEDS: GABAPENTIN 300 MG CAP PO SCH ×2 (11:19→20:39)
[2016-04-07] MEDS: diphenhydrAMINE 25 MG CAP PO SCH ×3 (11:19→20:38)
--- NOTE | 2016-04-07 15:03 | IPN ---
DATE: 04/07/2016 A 51-year-old female with history of bipolar disorder, status post delirium, transferred from the medical floor for stabilization. The patient was displaying a mixture of manic-like behavior and delirium features. The patient has been very sensitive to psychotropic medications. SUBJECTIVE: "I need something for anxiety." OBJECTIVE: The patient continues to improve. The patient is able now to feed herself and is walking more frequently. She is able to elaborate longer sentences. Her memory is impaired but she is able to tell the year, the month, and the place. The patient is displaying some symptoms of akathisia. MENTAL STATUS EXAMINATION: The patient is dressed in [facility]. The patient has poor eye contact. Speech is soft and monotone, poor. Mood is euthymic. Affect is blunted. No evidence of delusions or hallucinations. The patient is oriented to year and month and place. Memory is impaired. The patient is denying suicidal or homicidal ideation. Insight and judgment is very poor. ASSESSMENT: 1. Bipolar disorder. 2. Polysubstance dependency. 3. Status post delirium. PLAN: 1. We will discontinue Celexa. 2. Increase trazodone to 200 mg by mouth at bedtime. 3. We will discontinue hydroxyzine. 4. We will discontinue Cogentin. 5. Start Benadryl 25 mg by mouth three times a day. 6. Discontinue Trilafon. 7. Continue with Seroquel 100 mg by mouth at bedtime. 8. Continue Depakote 500 mg by mouth twice a day. 9. We will start tapering down the one-to-one observation and see if she can manage by herself.
[2016-04-07 18:00] VITALS: BP 107/67
[2016-04-07] MEDS: QUEtiapine FUMARATE 100 MG TAB PO SCH (20:39)
[2016-04-07] MEDS: traZODone 100 MG TAB PO SCH (20:39)
[2016-04-08] MEDS: LEVOTHYROXINE 0.075 MG TAB (75 MCG) PO SCH (06:15)
[2016-04-08 06:48] VITALS: BP 109/64
[2016-04-08] MEDS: FOLIC ACID 1 MG TAB PO SCH (08:07)
[2016-04-08] MEDS: DOCUSATE SODIUM 100 MG CAP PO SCH ×2 (08:07→20:38)
[2016-04-08] MEDS: GABAPENTIN 300 MG CAP PO SCH ×2 (08:07→20:38)
[2016-04-08] MEDS: THIAMINE 100 MG TAB PO SCH (08:07)
[2016-04-08] MEDS: diphenhydrAMINE 25 MG CAP PO SCH ×3 (08:07→20:38)
[2016-04-08] MEDS: VALPROIC ACID SYRUP 250 MG/5 ML UDC PO SCH ×2 (08:08→20:38)
[2016-04-08] MEDS: MIRALAX *UNIT DOSE* 17GM PACKET PO SCH (08:08)
[2016-04-08] MEDS: PANTOPRAZOLE 20 MG TAB PO SCH (08:08)
[2016-04-08 08:22] LABS: CALCIUM LEVEL 8.6 MG/DL (8.5-10.1); CREATININE FOR GFR 1.29 MG/DL (0.55-1.02); GLOMERULAR FILTRATION RATE 46.4 (>51); POTASSIUM SERUM 4.7 MEQ/L (3.5-5.1)
[2016-04-08] MEDS: ACETAMINOPHEN TAB 650MG DOSE (2X325MG) PO PRN (17:56)
[2016-04-08 18:00] VITALS: BP 96/55
--- NOTE | 2016-04-08 18:26 | IPN ---
DATE: 04/08/2016 51-year-old female with history of bipolar disorder status post delirium transferred from the medical floor for stabilization. Patient was displaying a mixture of manic-like behavior and delirium features. Patient has been very sensitive to psychotropic medication. SUBJECTIVE: "I need my hydroxyzine." OBJECTIVE: Patient continues to improve slowly. Patient is now able to make longer sentences. Patient is still in a one-to-one, but she has been stable to go to the bathroom by herself, feeding by herself. She is still incontinent at times. She is no longer throwing herself to the floor but continues to display some symptoms compatible with akathisia. MENTAL STATUS EXAMINATION: Patient is dressed in [facility]. Patient has better eye contact. Speech is slow and monotone but is able to make sentences. Mood is euthymic, somewhat anxious. Affect is blunted. Patient is oriented times four today. Memory continues to be impaired. Patient is denying suicidal or homicidal ideation. Judgment and insight is poor. ASSESSMENT: 1. Bipolar disorder. 2. Polysubstance dependency. 3. Status post delirium. PLAN: 1. Continue trazodone 200 mg by mouth nightly. 2. Continue Benadryl 25 mg by mouth three times a day. 3. Continue Seroquel 100 mg by mouth nightly. 4. Continue Depakote 500 mg by mouth twice a day.
[2016-04-08] MEDS: QUEtiapine FUMARATE 100 MG TAB PO SCH (20:38)
[2016-04-08] MEDS: traZODone 100 MG TAB PO SCH (20:38)
[2016-04-08] MEDS: QUEtiapine FUMARATE 25 MG TAB PO PRN (21:49)
[2016-04-09] MEDS: LEVOTHYROXINE 0.075 MG TAB (75 MCG) PO SCH (05:55)
[2016-04-09 06:38] VITALS: BP 83/48
[2016-04-09] MEDS: FOLIC ACID 1 MG TAB PO SCH (08:03)
[2016-04-09] MEDS: MIRALAX *UNIT DOSE* 17GM PACKET PO SCH (08:03)
[2016-04-09] MEDS: PANTOPRAZOLE 20 MG TAB PO SCH (08:04)
[2016-04-09] MEDS: GABAPENTIN 300 MG CAP PO SCH (08:04)
[2016-04-09] MEDS: VALPROIC ACID SYRUP 250 MG/5 ML UDC PO SCH (08:04)
[2016-04-09] MEDS: diphenhydrAMINE 25 MG CAP PO SCH (08:04)
[2016-04-09] MEDS: DOCUSATE SODIUM 100 MG CAP PO SCH (08:04)
[2016-04-09] MEDS: THIAMINE 100 MG TAB PO SCH (08:04)
[2016-04-09] MEDS: ACETAMINOPHEN TAB 650MG DOSE (2X325MG) PO PRN (08:09)
--- NOTE | 2016-04-09 09:23 | DSES ---
DATE OF ADMISSION: 03/07/2016 DATE OF DISCHARGE: 04/09/2016 HISTORY OF PRESENT ILLNESS: The following information is according to the initial evaluation of Dr. Schmidt, his progress note and my own progress note. On 03/08/2016, Dr. Schmidt wrote, 51-year-old white female with history of bipolar disorder and polysubstance dependency who was transferred to the medical floor from the inpatient mental health unit because of mental status change, catatonic behavior and dehydration. Patient was diagnosed with encephalopathy. The patient was originally admitted on 02/15/[address] Hong care due reportedly to being catatonic, not caring for herself and being incontinent. She was placed on Seroquel 300 mg by mouth at bedtime, Ativan 1 mg by mouth four times a day and Trilafon 8 mg by mouth three times a day. This medication was discontinued on the medical floor because patient was excessively sedated. The patient was not improving. She refused to eat. She was selectively mute when she was treated on the medical floor and displaying catatonic behavior. During her treatment at the medical floor, patient was given intravenous (IV) fluids and in 4 days she was significantly better from the medical point of view. Now, she is displaying symptoms of johana, being very impulsive, talkative, at times yelling at the nurses, delusional, making inappropriate/grandiose statements such as, "I'm suing Zyprexa." "I'm going to make millions of dollars." The patient cannot participate in a formal mental status examination and is not able to answer my questions. Patient was noted to be bizarre and hypersexual in what comments she did make. Per nursing staff and this provider nurturing the patient throughout the day, the patient is waxing and waning in admission. She is also displaying episodes of cataplexy. Urinary tract infection (UTI) was diagnosed on February 18 and antibiotic course was started. No repeated urinalysis (UA) to determine if UTI has resolved. Extensive workup has been done to determine possible medical cause of patient's altered mental status, to this point everything is negative. Etiology is likely multifactorial, including resolution of UTI, clearing of possible offending medications and/or medical process yet to be determined. LABS AT ADMISSION: Initial labs were not drawn since the patient was just recently transferred from the medical floor when she went through extensive medical workup. HOSPITAL COURSE: The patient returned to our unit. Her symptoms were compatible with delirium. The patient continued to have the waxing and waning of the mental status. She was selectively mute. Unable to make sentences. Appeared to respond to internal stimuli. Patient had to be placed on one-to-one observation and she was in need of constant redirection. The patient has been improving very slowly. The patient has been shown to be very sensitive to psychotropic medications and her mental status has been changing if the medications were increased. After a prolonged hospital stay, the delirium has cleared and now is only showing symptoms of her bipolar illness. She is tolerating well the medication. She is now able to interact with other patients and staff. She is alert and oriented times four. She still needs help with activities of daily living (ADLs). She cannot take care of self so she cannot be discharged at this point. A bed to [facility] has become available and the patient will be transferred to continue her treatment there. MEDICATIONS AT DISCHARGE: - trazodone 200 mg by mouth at bedtime - Benadryl 25 mg by mouth three times a day - Neurontin 600 mg by mouth twice a day - Depakote 500 mg by mouth twice a day - Seroquel 100 mg by mouth at bedtime MENTAL STATUS EXAMINATION AT DISCHARGE: The patient is dressed in [facility]. The patient is cooperative during the interview. Speech is poor. Has fair eye contact. Mood is anxious. Affect is restricted. The patient is oriented to time, place, person and situation. Maintains attention and concentration fairly. Instant recall, recent and remote memory are impaired. The patient does not have auditory or visual hallucinations. The patient does not have paranoid, persecutory, somatic, grandiose or nondenominational delusions. The patient is denying suicidal or homicidal ideation. Judgment and insight are poor. DIAGNOSES: [place] I: Bipolar disorder. Polysubstance abuse by history. [place] II: Deferred. [place] III: Status post delirium. Status post dehydration. FOLLOWUP: The patient will be transferred to [facility] today to continue her psychiatric care in that facility.
[2016-04-09] MEDS ORDERED: MIRA3350 PO (10:24)
[2016-04-09] MEDS ORDERED: BENADRYL PO (10:24)
[2016-04-09] MEDS ORDERED: COLA100C PO (10:24)
[2016-04-09] MEDS ORDERED: DEPAKENE PO (10:24)
[2016-04-09] MEDS ORDERED: NEUR600T PO (10:24)
[2016-04-09] MEDS ORDERED: TRAZODONE PO (10:24)
[2016-04-09] MEDS ORDERED: PROT20TA11 PO (10:24)
[2016-04-09] MEDS ORDERED: SERO1TAB PO (10:30)
[2016-04-09 11:47] VITALS: BP 101/60
== END 2016-04-09 13:20 | DRG 753 ==
LOC: M PSY 20:08
PROVIDERS: ADMIT Psychiatry & Neurology Psychiatry; ATTEND Psychiatry & Neurology Psychiatry
DX: F31.9 Bipolar disorder, unspecified (principal); Z79.899 Other long term (current) drug therapy; Z88.2 Allergy status to sulfonamides; Z88.8 Allergy status to other drugs, medicaments and biological substances; E03.9 Hypothyroidism, unspecified; M79.7 Fibromyalgia; E78.5 Hyperlipidemia, unspecified; G43.909 Migraine, unspecified, not intractable, without status migrainosus; F17.210 Nicotine dependence, cigarettes, uncomplicated; K59.00 Constipation, unspecified

== ENCOUNTER → 2017-06-24 | Outpatient (CLI) | payer MEDICARE, MEDICAID | LOC: M RAD 13:59 | DX: Z12.31 Encounter for screening mammogram for malignant neoplasm of breast (principal) | CPT/HCPCS: 77067 ==

== ENCOUNTER → 2017-10-15 | Outpatient (REF) | payer MEDICARE, MEDICAID ==
[2017-10-15 17:47] LABS: C REACTIVE PROTEIN QUANTITATIV 2.96 MG/DL (0.00-0.30); RHEUMATOID FACTOR QUANT < 10.0 IU/ML (<15.0)
[2017-10-15 17:47] LABS: URIC ACID 6.2 MG/DL (2.6-6.0)
[2017-10-15 21:23] LABS: ERYTHROCYTE SEDIMENTATION RATE 59 mm/hr (0-30)
[2017-10-17 10:24] LABS: ANTI DOUBLE STRAND-DNA AB <1 IU/mL (0-9); ANTINUCLEAR ANTIBODIES DIRECT Negative (Negative)
[2017-10-18 00:07] LABS: CYCLIC CITRULLINATED PEPTIDE 19 units (0-19)
== END ==
LOC: M LAB REF 17:01
DX: M25.40 Effusion, unspecified joint (principal)
CPT/HCPCS: 84550

== ENCOUNTER 2017-10-29 15:16 | Emergency (ER) | payer MEDICARE, MEDICAID | END 2017-10-29 15:45 | disposition left against medical advice (07) | LOC: M ED 15:16 | DX: M62.838 Other muscle spasm (principal); Z53.21 Procedure and treatment not carried out due to patient leaving prior to being seen by health care provider ==

== ENCOUNTER → 2018-09-07 | Outpatient (REF) | payer MEDICARE, MEDICAID ==
[~2018-09-07] MED LIST changes: +BENADRYL PO; +BENZ-52 PO; -BENZ1TA PO; -CLON0.5T PO; +CLON0.5T8 PO; +COLA100C5 PO; +DEPA500T2 PO; +DEPAKENE PO; +DIVA500T94 PO; +FOLI1TAB11 PO; -FOLI1TAB2 PO; -GABA600T PO; +GABA600T4 PO; +HYDR50TA70 PO; +NEUR600T PO; +PROT20TA11 PO; -RISP1TAB41 PO; +RISP1TAB42 PO; +SERO1TAB PO; +TRAZ-252 PO; -TRAZ150T14 PO; +TRAZ1TAB14 PO; +TRAZODONE PO
[2018-09-07 20:02] LABS: ALBUMIN 3.4 GM/DL (3.2-5.2); BILIRUBIN,TOTAL 0.3 MG/DL (0.2-1.0); CHOLESTEROL RISK RATIO 4.847 (<5); CREATININE FOR GFR 1.57 MG/DL (0.55-1.30); FREE T4 1.31 NG/DL (0.76-1.46); GLOMERULAR FILTRATION RATE 36.7 (>51); POTASSIUM SERUM 4.4 MEQ/L (3.5-5.1); THYROID STIMULATING HORMONE 0.18 uIU/ML (0.358-3.740); TOTAL PROTEIN 6.9 GM/DL (6.4-8.2)
[2018-09-07 20:06] LABS: TOTAL 25(OH) VITAMIN D 21.3 NG/ML (30.0-100.0)
[2018-09-07 20:07] LABS: APPEARANCE, URINE CLOUDY (CLEAR); BACTERIA, URINE AUTO 2+ (NEGATIVE); BILIRUBIN, URINE AUTO NEGATIVE (NEGATIVE); BLOOD, URINE BLOOD 1+ (NEGATIVE); COLOR, URINE YELLOW (YELLOW); GLUCOSE, URINE (UA) AUTO NEGATIVE (NEGATIVE); KETONE, URINE AUTO NEGATIVE (NEGATIVE); LEUKOCYTE ESTERASE, URINE AUTO 3+ (NEGATIVE); MUCUS, URINE SMALL (NEGATIVE); NITRITE, URINE AUTO NEGATIVE (NEGATIVE); PROTEIN, URINE AUTO 1+ mg/dL (NEGATIVE); RBC, URINE AUTO 11 /HPF (0-3); SPECIFIC GRAVITY URINE AUTO 1.008 (1.002-1.035); SQUAMOUS EPITHELIAL CELL UR AU 3 /HPF (0-6); UROBILINOGEN, URINE AUTO 0.2 mg/dL (0.0-2.0); WBC, URINE AUTO TNTC /HPF (0-3)
[2018-09-07 20:12] LABS: HEMOGLOBIN A1c 5.3 %
== END ==
LOC: M LAB REF 16:34
PROVIDERS: ATTEND Nurse Practitioner Adult Health
DX: R30.0 Dysuria (principal); Z79.899 Other long term (current) drug therapy

== ENCOUNTER → 2018-09-28 | Outpatient (REF) | payer MEDICARE, MEDICAID ==
[~2018-09-28] MED LIST changes: +HYDR1TAB33 PO; -HYDRO50TAB PO
[2018-09-28 19:08] LABS: APPEARANCE, URINE CLOUDY (CLEAR); BACTERIA, URINE AUTO 1+ (NEGATIVE); BILIRUBIN, URINE AUTO NEGATIVE (NEGATIVE); BLOOD, URINE BLOOD 1+ (NEGATIVE); COLOR, URINE YELLOW (YELLOW); GLUCOSE, URINE (UA) AUTO NEGATIVE (NEGATIVE); KETONE, URINE AUTO NEGATIVE (NEGATIVE); LEUKOCYTE ESTERASE, URINE AUTO TRACE (NEGATIVE); MUCUS, URINE SMALL (NEGATIVE); NITRITE, URINE AUTO NEGATIVE (NEGATIVE); PROTEIN, URINE AUTO 1+ mg/dL (NEGATIVE); RBC, URINE AUTO 3 /HPF (0-3); SPECIFIC GRAVITY URINE AUTO 1.011 (1.002-1.035); SQUAMOUS EPITHELIAL CELL UR AU 20 /HPF (0-6); UROBILINOGEN, URINE AUTO 0.2 mg/dL (0.0-2.0); WBC, URINE AUTO 24 /HPF (0-3)
[2018-09-28 20:08] LABS: ALBUMIN 3.3 GM/DL (3.2-5.2); BILIRUBIN,TOTAL 0.4 MG/DL (0.2-1.0); CALCIUM LEVEL 9.1 MG/DL (8.5-10.1); CREATININE FOR GFR 1.47 MG/DL (0.55-1.30); GLOMERULAR FILTRATION RATE 39.6 (>51); POTASSIUM SERUM 4.3 MEQ/L (3.5-5.1); THYROID STIMULATING HORMONE 0.175 uIU/ML (0.358-3.740); TOTAL PROTEIN 6.7 GM/DL (6.4-8.2)
== END ==
LOC: M LAB REF 18:19
PROVIDERS: ATTEND Nurse Practitioner Adult Health
DX: N28.9 Disorder of kidney and ureter, unspecified (principal); Z86.39 Personal history of other endocrine, nutritional and metabolic disease

== ENCOUNTER → 2019-01-03 | Outpatient (REF) | payer MEDICARE, MEDICAID ==
[2019-01-03 20:35] LABS: BILIRUBIN,TOTAL 0.4 MG/DL (0.2-1.0); CALCIUM LEVEL 9.2 MG/DL (8.5-10.1); CREATININE FOR GFR 1.38 MG/DL (0.55-1.30); FREE T4 1.27 NG/DL (0.76-1.46); GLOMERULAR FILTRATION RATE 42.6 (>51); POTASSIUM SERUM 3.7 MEQ/L (3.5-5.1); THYROID STIMULATING HORMONE 1.91 uIU/ML (0.358-3.740); TOTAL PROTEIN 6.3 GM/DL (6.4-8.2)
== END ==
LOC: M LAB REF 18:59
PROVIDERS: ATTEND Nurse Practitioner Adult Health
DX: Z13.9 Encounter for screening, unspecified (principal); Z86.39 Personal history of other endocrine, nutritional and metabolic disease; N28.9 Disorder of kidney and ureter, unspecified; Z79.899 Other long term (current) drug therapy

== ENCOUNTER → 2019-11-28 | Outpatient (REF) | payer MEDICARE, MEDICAID ==
[~2019-11-28] MED LIST changes: +CLON0.5T2 PO; -CLON0.5T8 PO; +QUET100T2 PO; -QUET1TAB8 PO
[2019-11-28 17:38] LABS: ALBUMIN 3.2 GM/DL (3.2-5.2); BILIRUBIN,TOTAL 0.3 MG/DL (0.2-1.0); CALCIUM LEVEL 9.6 MG/DL (8.5-10.1); CHOLESTEROL RISK RATIO 3.851 (<5); CREATININE FOR GFR 1.29 MG/DL (0.55-1.30); FREE T4 1.07 NG/DL (0.76-1.46); GLOMERULAR FILTRATION RATE 45.8 (>51); POTASSIUM SERUM 4.3 MEQ/L (3.5-5.1); THYROID STIMULATING HORMONE 0.317 uIU/ML (0.358-3.740); TOTAL PROTEIN 6.6 GM/DL (6.4-8.2)
[2019-11-28 17:42] LABS: BASO % 0.6 % (0.0-1.0); EOS # 0.1 10^3/uL (0.0-0.5); EOS % 1.5 % (0.0-3.0); HEMATOCRIT 47.1 % (36.0-47.0); HEMOGLOBIN 14.7 g/dl (12.0-15.5); LYMPH % 29.3 % (24.0-44.0); MEAN CORPUSCULAR HEMOGLOBIN 29.6 pg (27.0-33.0); MEAN CORPUSCULAR HGB CONC 31.2 g/dl (32.0-36.5); MONO # 0.5 10^3/uL (0.0-0.8); NEUTROPHILS # 4.1 10^3/uL (1.5-8.5); NEUTROPHILS % 61.2 % (36.0-66.0); PLATELET COUNT, AUTOMATED 271 10^3/uL (150-450); RED BLOOD COUNT 4.96 10^6/uL (4.00-5.40); WHITE BLOOD COUNT 6.7 10^3/uL (4.0-10.0)
[2019-11-28 18:04] LABS: HEMOGLOBIN A1c 4.9 %
== END ==
LOC: M LAB REF 16:16
PROVIDERS: ATTEND Nurse Practitioner Adult Health
DX: Z13.9 Encounter for screening, unspecified (principal); E07.9 Disorder of thyroid, unspecified; E78.00 Pure hypercholesterolemia, unspecified

== ENCOUNTER → 2020-03-22 | Outpatient (REF) | payer MEDICARE, MEDICAID ==
[2020-03-22 11:46] LABS: BASO % 0.5 % (0.0-1.0); EOS # 0.1 10^3/uL (0.0-0.5); EOS % 1.7 % (0.0-3.0); HEMATOCRIT 41.5 % (36.0-47.0); HEMOGLOBIN 13.1 g/dl (12.0-15.5); LYMPH # 2.3 10^3/uL (1.5-5.0); MEAN CORPUSCULAR HEMOGLOBIN 30.4 pg (27.0-33.0); MEAN CORPUSCULAR HGB CONC 31.6 g/dl (32.0-36.5); MEAN CORPUSCULAR VOLUME 96.3 fl (80.0-96.0); MONO # 0.5 10^3/uL (0.0-0.8); MONO % 6.1 % (0.0-5.0); NEUTROPHILS # 4.6 10^3/uL (1.5-8.5); NEUTROPHILS % 61.3 % (36.0-66.0); PLATELET COUNT, AUTOMATED 244 10^3/uL (150-450); RED BLOOD COUNT 4.31 10^6/uL (4.00-5.40); WHITE BLOOD COUNT 7.6 10^3/uL (4.0-10.0)
[2020-03-22 12:23] LABS: ALBUMIN 3.3 GM/DL (3.2-5.2); ALT/SGPT 8 U/L (12-78); BILIRUBIN,TOTAL 0.1 MG/DL (0.2-1.0); BLOOD UREA NITROGEN 11 MG/DL (7-18); CALCIUM LEVEL 9.3 MG/DL (8.5-10.1); CARBON DIOXIDE LEVEL 34 MEQ/L (21-32); CHLORIDE LEVEL 107 MEQ/L (98-107); CREATININE FOR GFR 1.19 MG/DL (0.55-1.30); GLOMERULAR FILTRATION RATE 50.1 (>51); GLUCOSE, FASTING 89 MG/DL (70-100); POTASSIUM SERUM 4.1 MEQ/L (3.5-5.1); SODIUM LEVEL 146 MEQ/L (136-145); TOTAL PROTEIN 6.2 GM/DL (6.4-8.2); VALPROIC ACID (DEPAKOTE) 66.5 UG/ML (50.0-100.0)
[2020-03-22 12:25] LABS: TOTAL 25(OH) VITAMIN D 27.3 NG/ML (30.0-100.0)
== END ==
LOC: M LAB REF 11:23
PROVIDERS: ATTEND Pediatrics
DX: E55.9 Vitamin D deficiency, unspecified (principal); Z51.81 Encounter for therapeutic drug level monitoring; Z79.899 Other long term (current) drug therapy

== ENCOUNTER 2020-06-03 15:44 | Inpatient (IN) | payer MEDICARE, MEDICAID ==
[~2020-06-03] VITALS: Ht 154.9 cm; Wt 58.0 kg
[2020-06-03 17:16] LABS: HEMATOCRIT 39.2 % (36.0-47.0); HEMOGLOBIN 12.4 g/dl (12.0-15.5); MEAN CORPUSCULAR HGB CONC 31.6 g/dl (32.0-36.5); MEAN CORPUSCULAR VOLUME 94.9 fl (80.0-96.0); PLATELET COUNT, AUTOMATED 276 10^3/uL (150-450); RED BLOOD COUNT 4.13 10^6/uL (4.00-5.40); WHITE BLOOD COUNT 8.9 10^3/uL (4.0-10.0)
[2020-06-03 17:36] LABS: AMPHETAMINES LEVEL URINE NEGATIVE (NEGATIVE); BARBITURATES URINE NEGATIVE (NEGATIVE); BENZODIAZEPINES URINE NEGATIVE (NEGATIVE); CANNABINOIDS URINE POSITIVE (NEGATIVE); COCAINE METABOLITE URINE NEGATIVE (NEGATIVE); METHADONE URINE NEGATIVE (NEGATIVE); OPIATES URINE NEGATIVE (NEGATIVE); PHENCYCLIDINE URINE NEGATIVE (NEGATIVE)
[2020-06-03 17:51] LABS: ACETAMINOPHEN LEVEL < 2.0 UG/ML (10.0-30.0); ALBUMIN 3.6 GM/DL (3.2-5.2); ALT/SGPT 19 U/L (12-78); BILIRUBIN,DIRECT 0.1 MG/DL (0.0-0.2); BILIRUBIN,TOTAL 0.6 MG/DL (0.2-1.0); BLOOD UREA NITROGEN 21 MG/DL (7-18); CALCIUM LEVEL 10.5 MG/DL (8.5-10.1); CARBON DIOXIDE LEVEL 31 MEQ/L (21-32); CHLORIDE LEVEL 108 MEQ/L (98-107); CREATININE FOR GFR 1.36 MG/DL (0.55-1.30); ETHYL ALCOHOL (ETHANOL) < 0.003 % (0.000-0.010); GLUCOSE, FASTING 78 MG/DL (70-100); POTASSIUM SERUM 4.6 MEQ/L (3.5-5.1); SODIUM LEVEL 143 MEQ/L (136-145); TOTAL PROTEIN 6.5 GM/DL (6.4-8.2)
[2020-06-03] MEDS ORDERED: ALPRAZolam 0.5 MG TAB PO ONE (18:45)
[2020-06-03] MEDS ORDERED: NICOTINE 21MG/24HR 1 EA TRANSDERMAL TD ONE (18:45)
[2020-06-03] MEDS ORDERED: PROP10TA56 PO (23:05)
[2020-06-03] MEDS ORDERED: FLUO10CA16 PO (23:05)
[2020-06-03] MEDS ORDERED: SYNT88TA2 PO (23:05)
[2020-06-03] MEDS ORDERED: ACET1TAB55 PO (23:05)
[2020-06-03] MEDS ORDERED: OXYB15TA14 PO (23:05)
[2020-06-03] MEDS ORDERED: FOLI1TAB11 PO (23:05)
[2020-06-03] MEDS ORDERED: DIVA250T67 PO (23:08)
[2020-06-04] MEDS ORDERED: LORazepam 2 MG TAB PO STA (03:59)
[2020-06-04] MEDS ORDERED: LORazepam 1 MG TAB PO ONE ×2 (04:00→10:40)
[2020-06-04] MEDS ORDERED: ACETAMINOPHEN TAB 650MG DOSE (2X325MG) PO ONE (04:00)
--- NOTE | 2020-06-04 06:42 | ECGEPIP ---
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
[2020-06-04 08:29] LABS: VALPROIC ACID (DEPAKOTE) < 3.0 UG/ML (50.0-100.0)
[2020-06-04] MEDS: PROPRANOLOL 10 MG TAB PO SCH ×2 (09:23→21:12)
[2020-06-04] MEDS: PANTOPRAZOLE 20 MG TAB PO SCH (10:22)
[2020-06-04] MEDS: oxyBUTYnin *DITROPAN XL* 5 MG TABCR PO SCH (10:22)
[2020-06-04 11:15] LABS: RSV AMPLIFICATION NEGATIVE (NEGATIVE)
[2020-06-04] MEDS ORDERED: MAALOX 30 ML SUSP *UDC PO PRN (13:00)
[2020-06-04] MEDS ORDERED: MOM 30ML SUSPENSION UDC PO PRN (13:00)
[2020-06-04 14:04] VITALS: BP 148/89
[2020-06-04] MEDS ORDERED: MIRALAX *UNIT DOSE* 17GM PACKET PO PRN (15:45)
[2020-06-04] MEDS: NICOTINE 21MG/24HR 1 EA TRANSDERMAL TD SCH (17:04)
[2020-06-04 18:47] VITALS: BP 137/72
[2020-06-04] MEDS: BENZTROPINE 0.5 MG TAB PO SCH (21:10)
[2020-06-04] MEDS: haloperidoL 5 MG TAB PO SCH (21:10)
[2020-06-04] MEDS: traZODone 50 MG TAB PO PRN (21:10)
[2020-06-05] MEDS: LEVOTHYROXINE 88MCG TABLET (0.088 MG) PO SCH (05:56)
[2020-06-05] MEDS: haloperidoL 5 MG TAB PO SCH ×3 (05:56→20:26)
[2020-06-05 06:49] VITALS: BP 109/58
[2020-06-05] MEDS: NICOTINE 21MG/24HR 1 EA TRANSDERMAL TD SCH (08:29)
[2020-06-05] MEDS: PROPRANOLOL 10 MG TAB PO SCH ×2 (08:30→20:26)
[2020-06-05] MEDS: oxyBUTYnin *DITROPAN XL* 5 MG TABCR PO SCH (08:30)
[2020-06-05] MEDS: PANTOPRAZOLE 20 MG TAB PO SCH (08:30)
[2020-06-05] MEDS: BENZTROPINE 0.5 MG TAB PO SCH ×2 (08:30→20:26)
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
[2020-06-05] MEDS: LORazepam 1 MG TAB PO PRN (14:34)
[2020-06-05] MEDS: CEPACOL LOZENGE PO PRN ×2 (14:34→16:43)
--- NOTE | 2020-06-05 16:11 | HPEPDOC ---
[facility] Medical History & Physical Date of Admission Jun 03, 2020 Date of Service: Jun 05, 2020 History and Physical CHIEF COMPLAINT: suicidal ideation, psychosis HISTORY OF PRESENT ILLNESS: 55 year old female brought in by police for causing disturbance, including yelling at people, possession of a weapon, in addition to suicidal ideation. She also noted non-compliance with medical therapy, intentionally not taking her prescribed medications. This afternoon she noted sore throat, and sinus congestion. She denies chest pain, shortness of breath, abdominal pain, N/V/D. PAST MEDICAL HISTORY: #fibromyalgia #peripheral neuropathy #psychiatric illnesses ALLERGIES: Please see below. REVIEW OF SYSTEMS: Negative except as per HPI. HOME MEDICATIONS: Please see below. PHYSICAL EXAMINATION: VITAL SIGNS: See below General: NAD, sitting comfortably in chair HEENT: NC/AT, EOMI Lungs; CTA B/L Heart: +S1S2, RRR Abd: soft, NT, +BS LABORATORY DATA: See below. MICROBIOLOGY: Please see below. A/P: 55 yo female admitted for suicidal ideation. #psych - as per primary team #pharyngitis/sinus congestion - continue with supportive care #constipation - continue with bowel regimen #peripheral neuropathy - patient refusing her previously prescribed gabapentin - follow up as outpatient with her PCP Thank you for this consultation. Please re-consult as needed. Vital Signs Vital Signs Date Time Temp Pulse Resp B/P (MAP) Pulse Ox O2 Delivery O2 Flow Rate FiO2 06/05/20 08:30 100 123/90 06/05/20 06:49 98.0 14 98 Room Air Laboratory Data Microbiology Microbiology 06/03/20 Group A Streptococcus Screen (JEFF) - Final, Complete Home Medications Scheduled Divalproex Sodium (Divalproex Sodium) 250 Mg Tablet.dr, 250 MG PO BID Fluoxetine Hcl (Fluoxetine HCl) 10 Mg Capsule, 10 MG PO DAILY Folic Acid (Folic Acid) 1 Mg Tablet, 1 MG PO DAILY Gabapentin (Neurontin) 600 Mg Tab, 600 MG PO TID Levothyroxine Sodium (Synthroid) 88 Mcg Tablet, 88 MCG PO DAILY Oxybutynin Chloride (Oxybutynin Chloride ER) 15 Mg Tab.er.24, 15 MG PO DAILY Pantoprazole Sodium (Protonix) 20 Mg Tab, 20 MG PO DAILY for GERD Propranolol HCl (Propranolol HCl) 10 Mg Tablet, 10 MG PO BID Trazodone HCl (Trazodone HCl) 50 Mg Tab, 50 MG PO QHS Scheduled PRN Acetaminophen (Acetaminophen) 325 Mg Tablet, 650 MG PO Q4H PRN for PAIN Hydroxyzine HCl (Hydroxyzine HCl) 25 Mg Tab, 25 MG PO TID PRN for ANXIETY Allergies Coded Allergies: aripiprazole (Verified Adverse Reaction, Severe, SUICIDAL IDEATION, 06/04/20) duloxetine (Verified Adverse Reaction, Severe, SUICIDAL IDEATION, 06/04/20) olanzapine (Verified Adverse Reaction, Severe, neurolyptic malignant syndrome, 06/04/20) Sulfa (Sulfonamide Antibiotics) (Verified Adverse Reaction, Intermediate, NAUSEA, 06/04/20) pregabalin (Verified Adverse Reaction, Intermediate, DYSKINESIA, 06/04/20) sumatriptan (Verified Adverse Reaction, Intermediate, PANIC ATTACKS, 06/04/20) topiramate (Verified Adverse Reaction, Intermediate, SEVERE MOOD SWINGS, 06/04/20) A-FIB/CHADSVASC A-FIB History Current/History of A-Fib/PAF?: No LEROY PLUMMER MD Jun 05, 2020 16:11
[2020-06-05] MEDS: ACETAMINOPHEN TAB 650MG DOSE (2X325MG) PO PRN (16:38)
[2020-06-05] MEDS: traZODone 50 MG TAB PO PRN (20:26)
[2020-06-06] MEDS: haloperidoL 5 MG TAB PO SCH ×3 (06:00→21:15)
[2020-06-06] MEDS: LEVOTHYROXINE 88MCG TABLET (0.088 MG) PO SCH (06:00)
[2020-06-06 06:28] VITALS: BP 119/84
[2020-06-06] MEDS: PANTOPRAZOLE 20 MG TAB PO SCH (08:41)
[2020-06-06] MEDS: NICOTINE 21MG/24HR 1 EA TRANSDERMAL TD SCH (08:41)
[2020-06-06] MEDS: BENZTROPINE 0.5 MG TAB PO SCH ×2 (08:41→21:15)
[2020-06-06] MEDS: oxyBUTYnin *DITROPAN XL* 5 MG TABCR PO SCH (08:41)
[2020-06-06] MEDS: PROPRANOLOL 10 MG TAB PO SCH ×2 (08:42→21:16)
[2020-06-06] MEDS: ACETAMINOPHEN TAB 650MG DOSE (2X325MG) PO PRN ×2 (08:43→19:12)
[2020-06-06] MEDS: LORazepam 1 MG TAB PO PRN ×2 (08:44→19:10)
[2020-06-06] MEDS: CEPACOL LOZENGE PO PRN ×3 (11:05→23:22)
--- NOTE | 2020-06-06 12:48 | MHIPNPDOC ---
[facility] Progress Note Progress Note DATE OF SERVICE: 06/06/20 HISTORY: Patient is a 55 -year-old , female, who [facility] after a neighbor called the police because patient was yelling at people outside. Patient states "I was yelling at people, garry across the street was howling at me. The garry called 911 on me. Bowling Alley Attendant showed up, I held a knife, they told me to drop the knife, i dropped it and they threw me at the back of the care". Patient says she was feeling suicidal yesterday. Says she called the suicide hotline last week because she has been " stressed out and suicidal". She names multiple stressors that are causing her to be distressed; She broke up with boyfriend of 20years. her best friend Paula will not talk to her , he has cancer. Say her son overdosed on Klonopin a week ago and called 911 on her when she tried to help him. Says her youngest son is now "transgendered". Says her mother is , her father and younger brother are also . She has history of Bipolar Disorder and has not taken her Depakote because she is "tired of taking many pills, I take 10 pills a day",she states. She had been using cannabis and her drug test is positive for cannabis. VITAL SIGNS: See below. CURRENT MEDICATIONS: See below. MENTAL STATUS EXAMINATION: Patient is a 55 year old domicile patient who was admitted on legal after a neighbor called the police because patient was yelling at people outside. General Appearance: unkempt, disheveled, does not appear stated age, hospital scrubs/clothing Build: thin Demeanor: very fidgety Eye Contact: avoidant Activity: anxious Behavior: impulsive, restless Speech: rapid Mood: labile Affect: anxious Thought Process: Improved today, more linear Thought Content (Delusions): denies SI, HI. Thought Content (Other): Denies Thought Content (Aggressive): none Perception (Hallucinations): Denies Perception (Other): none reported Cognition(Intelligence Est.): borderline Oriented: Awake, Alert, Oriented times three Insight: Improving Judgment: Improving Psychosis: Denies DIAGNOSES: Bipolar Disorder, recurrent, manic episode Nicotine use disorder Cannabis use disorder History of polysubstance use -per old charts ASSESSMENT:Patient is seen today. She is dishevelled and unkempt. She is asking discharged and stating that she was promised discharge today. States that the Haldol helped her. She is labile but more organized in her thought process today. She started the interview by demanding to be discharged, then got angry when told that she would not be discharged today, then she was crying pleading that she be discharged. She is fixated on discharge. States that she will miss her court case if she stays in the hospital. States that she has court for her 4 traffic tickets and missed court for an assault charge yesterday.States that she is being evicted and needs to pack but does not have an apartment. She denies SI. Denies HI/AH/VH. Management/ plan: Continue with all the medication. Will discharge when stable. Time spent: 25 minutes Vital Signs Vital Signs Date Time Temp Pulse Resp B/P (MAP) Pulse Ox O2 Delivery O2 Flow Rate FiO2 06/06/20 08:42 96 116/76 06/06/20 07:48 Room Air 06/06/20 06:28 99.0 20 97 Current Medications Current Medications Medications (Trade) Dose Ordered Sig/Tatyana Route PRN Reason Start Time Stop Time Status Last Admin Dose Admin Acetaminophen (Tylenol Tab) 650 mg Q6HP PRN PO HEADACHE or DISCOMFORT 06/04/20 13:00 06/06/20 08:43 Al Hydrox/Mg Hydrox/Simethicone (Mylanta) 30 ml Q4HP PRN PO HEARTBURN/INDIGESTION 06/04/20 13:00 Benztropine Mesylate (Cogentin) 0.5 mg BID PO 06/04/20 21:00 06/06/20 08:41 Cetylpyridinium Chloride (Cepacol) 1 romero Q2HP PRN PO COUGH 06/04/20 17:30 06/06/20 11:05 Haloperidol (Haldol) 5 mg Q8H PO 06/04/20 22:00 06/06/20 06:00 Levothyroxine Sodium (Synthroid) 88 mcg DAILY@06 PO 06/05/20 06:00 06/06/20 06:00 Lorazepam (Ativan) 1 mg Q8HP PRN PO ANXIETY 06/04/20 15:45 06/06/20 08:44 Lorazepam (Ativan) 2 mg STAT STAT PO 06/04/20 03:59 06/04/20 04:02 DC 06/04/20 04:09 Magnesium Hydroxide (Milk Of Magnesia) 30 ml DAILYPRN PRN PO CONSTIPATION 06/04/20 13:00 Nicotine (Nicoderm Cq 21mg) 1 patch DAILY TD 06/04/20 09:00 06/06/20 08:41 Oxybutynin Chloride (Ditropan Xl) 15 mg DAILY PO 06/04/20 09:00 06/06/20 08:41 Pantoprazole Sodium (Protonix) 20 mg DAILY PO 06/04/20 09:00 06/06/20 08:41 Polyethylene Glycol (Miralax) 1 pkt DAILYPRN PRN PO CONSTIPATION 06/04/20 15:45 Propranolol HCl (Inderal) 10 mg BID PO 06/04/20 09:00 06/06/20 08:42 Trazodone HCl (Desyrel) 50 mg QHSP PRN PO INSOMNIA 06/04/20 13:00 06/05/20 20:26 Allergies Coded Allergies: aripiprazole (Verified Adverse Reaction, Severe, SUICIDAL IDEATION, 06/04/20) duloxetine (Verified Adverse Reaction, Severe, SUICIDAL IDEATION, 06/04/20) olanzapine (Verified Adverse Reaction, Severe, neurolyptic malignant syndrome, 06/04/20) Sulfa (Sulfonamide Antibiotics) (Verified Adverse Reaction, Intermediate, NAUSEA, 06/04/20) pregabalin (Verified Adverse Reaction, Intermediate, DYSKINESIA, 06/04/20) sumatriptan (Verified Adverse Reaction, Intermediate, PANIC ATTACKS, 06/04/20) topiramate (Verified Adverse Reaction, Intermediate, SEVERE MOOD SWINGS, 06/04/20) LYNNE BAUTISTA NP Jun 06, 2020 12:48
[2020-06-06 16:15] VITALS: BP 100/57
[2020-06-06] MEDS: traZODone 50 MG TAB PO PRN (21:15)
[2020-06-06] MEDS: GABAPENTIN 300 MG CAP PO SCH (21:15)
[2020-06-07] MEDS: ACETAMINOPHEN TAB 650MG DOSE (2X325MG) PO PRN (01:48)
[2020-06-07] MEDS: CEPACOL LOZENGE PO PRN ×2 (01:48→08:15)
[2020-06-07] MEDS: LEVOTHYROXINE 88MCG TABLET (0.088 MG) PO SCH (06:07)
[2020-06-07] MEDS: haloperidoL 5 MG TAB PO SCH (06:07)
[2020-06-07 06:58] VITALS: BP 140/88
[2020-06-07] MEDS: BENZTROPINE 0.5 MG TAB PO SCH (08:13)
[2020-06-07] MEDS: PANTOPRAZOLE 20 MG TAB PO SCH (08:13)
[2020-06-07] MEDS: oxyBUTYnin *DITROPAN XL* 5 MG TABCR PO SCH (08:13)
[2020-06-07 08:15] VITALS: BP 140/88
[2020-06-07] MEDS: GABAPENTIN 300 MG CAP PO SCH (08:15)
[2020-06-07] MEDS: PROPRANOLOL 10 MG TAB PO SCH (08:15)
[2020-06-07] MEDS: NICOTINE 21MG/24HR 1 EA TRANSDERMAL TD SCH (08:15)
[2020-06-07] MEDS ORDERED: NICO21PAT TD (09:10)
--- NOTE | 2020-06-07 10:40 | MHDSPDOC ---
[facility] Discharge Summary Discharge Summary DATE OF ADMISSION: Jun 04, 2020 at 12:58 DATE OF DISCHARGE: June 07, 2020 0912 DISCHARGE DIAGNOSES: Bipolar Disorder, recurrent, manic episode Nicotine use disorder Cannabis use disorder History of polysubstance use -per old charts REASON FOR ADMISSION: Patient is a 55 -year-old but legally , Domiciled, , female, who was admitted to [facility] on legal status aft er a neighbor called the police because patient was yelling at people outside. Patient states "I was yelling at people, garry across the street was howling at me. The garry called 911 on me. Media Sales Executive showed up, I held a knife, they told me to drop the knife, i dropped it and they threw me at the back of the care". Patient says she was feeling suicidal yesterday. Says she called the suicide hotline last week because she has been " stressed out and suicidal". She names multiple stressors that are causing her to be distressed; She broke up with boyfriend of 20years. her best friend Paula will not talk to her , he has cancer. Say her son overdosed on Klonopin a week ago and called 911 on her when she tried to help him. Says her youngest son is now "transgendered". Says her mother is , her father and younger brother are also . She has history of Bipolar Disorder and has not taken her Depakote because she is "tired of taking many pills, I take 10 pills a day",she states. She had been using cannabis and her drug test is positive for cannabis. CONSULTANTS INVOLVED: See Medical H + P by Hospitalist TREATMENT AND PROGRESS ON THE UNIT: Patient was admitted to the [facility] on a legal status he was afforded the following treatment modalities: 1) Individual Therapy 2) Group Therapy 3) Medication Management 4) Milieu Therapy 5) Safe Environment HOSPITAL COURSE: Patient was admitted to [facility] on a legal status. She was agreeable to Haldol and continuation of her home medications. She had reported that she was doing well on the Haldol but reported today that she was not psychotic, delusional or paranoid. Patient no longer exhibits dangerous behaviors to herself or others and is seen by the treatment team as meeting criteria for discharge today. Discussed with the patient that need for Haldol, she denied that she needed this and it was discontinued from her medication reconciliation. Patient states that her daughter will be living with her. She reports that her son is communicating with her, she reported that her son was upset with her and was the catalyst of her being hospitalized. She reports that she is being evicted and is motivated to pack and find a new apartment. Today she had showered and was ready for discussion about being discharged. In today's meeting she was euthymic and pleasant, she was very relieved to be going home. DISCHARGE ASSESSMENT: In today's interview, patient is alert and oriented, pts dress is appropriate. Hygiene and grooming is well-kempt. Smiles on approach and is pleasant and engaged in the interview. Denies depression and anxiety. Denies suicidal and homicidal ideation, planning or intent. Denies and is not observed with johana, psychotic symptoms of delusions, bizarre thinking, obsessions, paranoia, ruminations illogical thoughts, flight of ideas or having poor insight and judgement. Patient has normal mentation, declines further hospitalization on a voluntary status and meets criteria for discharge today. Patient encouraged to return to hospital if symptoms worsen or change and encouraged to call unit if he/she/they needs to speak to provider for questions regarding medications or care. MENTAL STATUS EXAMINATION ON DISCHARGE: Patient is a 55 -year-old but legally , Domiciled, , female, who was admitted to [facility] on legal status after a neighbor called the police because patient was yelling at people outside. Dressed appropriately, hygiene and grooming is well-kempt, eye contact is well- maintained and she is not observed with psychomotor agitation and retardation. Pleasant and cooperative in the interview. Speech: Is fluid, conversant, normal rate, tone and volume Language skills are intact Thought processes including: linear and goal oriented Thought content: denies depression and anxiety. Denies suicidal/homicidal ideation, planning or intent. Abstract reasoning, and computation: fair Description of associations: denies, none observed Description of abnormal or psychotic thoughts: denies, none observed. Judgment: fair Insight: fair Orientation: alert and oriented to person, place, time and situation Recent and remote memory: intact Attention span and concentration: good Language: expansive Fund of knowledge: average Mood: Euthymic Mood Affect: reactive MEDICATIONS ON DISCHARGE: See Medication Reconciliation. Patient was continued on her home medications, she denies that she needs renewals and was given Rx for Nicotine Patch PLAN/FOLLOWUP ARRANGEMENTS: Patient is following up at [facility] The amount of time spent in the coordination of care for this patient was approximately 25 minutes. ETOH/Disorder Med Rx ETOH/DRUG DISORDER RX: Offrd @ d/c & pt refused Vital Signs/I&Os Vital Signs Date Time Temp Pulse Resp B/P (MAP) Pulse Ox O2 Delivery O2 Flow Rate FiO2 06/07/20 08:28 Room Air 06/07/20 08:15 74 140/88 06/07/20 06:58 97.4 20 100 Laboratory Data Microbiology Microbiology 06/03/20 Group A Streptococcus Screen (JEFF) - Final, Complete Medications Scheduled Divalproex Sodium (Divalproex Sodium) 250 Mg Tablet.dr, 250 MG PO BID, (R eported) Fluoxetine Hcl (Fluoxetine HCl) 10 Mg Capsule, 10 MG PO DAILY, (Reported) Folic Acid (Folic Acid) 1 Mg Tablet, 1 MG PO DAILY, (Reported) Gabapentin (Neurontin) 600 Mg Tab, 600 MG PO TID, (Reported) Levothyroxine Sodium (Synthroid) 88 Mcg Tablet, 88 MCG PO DAILY, (Reported) Nicotine (Nicotine Patch) 21 Mg Patch.td24, 1 PATCH TD DAILY for Nicotine Withdr naylor, #7 Oxybutynin Chloride (Oxybutynin Chloride ER) 15 Mg Tab.er.24, 15 MG PO DAILY, (Reported) Pantoprazole Sodium (Protonix) 20 Mg Tab, 20 MG PO DAILY for GERD, (Reported) Propranolol HCl (Propranolol HCl) 10 Mg Tablet, 10 MG PO BID, (Reported) Trazodone HCl (Trazodone HCl) 50 Mg Tab, 50 MG PO QHS, (Reported) Scheduled PRN Acetaminophen (Acetaminophen) 325 Mg Tablet, 650 MG PO Q4H PRN for PAIN, (Reported) Hydroxyzine HCl (Hydroxyzine HCl) 25 Mg Tab, 25 MG PO TID PRN for ANXIETY, (Reported) Allergies Coded Allergies: aripiprazole (Verified Adverse Reaction, Severe, SUICIDAL IDEATION, 06/04/20) duloxetine (Verified Adverse Reaction, Severe, SUICIDAL IDEATION, 06/04/20) olanzapine (Verified Adverse Reaction, Severe, neurolyptic malignant syndrome, 06/04/20) Sulfa (Sulfonamide Antibiotics) (Verified Adverse Reaction, Intermediate, NAUSEA, 06/04/20) pregabalin (Verified Adverse Reaction, Intermediate, DYSKINESIA, 06/04/20) sumatriptan (Verified Adverse Reaction, Intermediate, PANIC ATTACKS, ) topiramate (Verified Adverse Reaction, Intermediate, SEVERE MOOD SWINGS, 06/04/20) LYNNE BAUTISTA NP Jun 07, 2020 09:12
== END 2020-06-07 12:10 | disposition home or self-care (01) | DRG 885 ==
LOC: M ED 15:44 → M PSY 06-04 12:58 → M ED 06-04 13:37 → M PSY 06-04 16:07
PROVIDERS: ADMIT Psychiatry & Neurology Psychiatry; ATTEND Psychiatry & Neurology Psychiatry
DX: F31.2 Bipolar disorder, current episode manic severe with psychotic features (principal); R45.851 Suicidal ideations; K57.00 Diverticulitis of small intestine with perforation and abscess without bleeding; F17.210 Nicotine dependence, cigarettes, uncomplicated; F12.10 Cannabis abuse, uncomplicated; E03.9 Hypothyroidism, unspecified; M79.7 Fibromyalgia; J02.9 Acute pharyngitis, unspecified; G62.9 Polyneuropathy, unspecified; Z20.822 Contact with and (suspected) exposure to COVID-19; Z91.14 Patient's other noncompliance with medication regimen; Z88.2 Allergy status to sulfonamides; Z88.8 Allergy status to other drugs, medicaments and biological substances; Z79.899 Other long term (current) drug therapy; Z62.810 Personal history of physical and sexual abuse in childhood; Z63.4 Disappearance and death of family member; Z81.8 Family history of other mental and behavioral disorders

== ENCOUNTER 2023-01-17 22:49 | Emergency (ER) | payer MEDICARE, MEDICAID ==
[~2023-01-17] VITALS: Ht 154.9 cm; Wt 70.5 kg
[~2023-01-17 22:49] MED LIST changes: +ACET1TAB55 PO; -BENZ-52 PO; +BENZ1TAB5 PO; +DIVA250T67 PO; +FLUO10CA18 PO; +NICO21PAT TD; +OXYB15TA14 PO; +PROP10TA56 PO; +SYNT88TA2 PO
[2023-01-17] MEDS ORDERED: LORazepam 2 MG TAB PO STA (23:26)
[2023-01-17 23:31] LABS: MEAN CORPUSCULAR HEMOGLOBIN 30.4 pg (27.0-33.0); MEAN CORPUSCULAR HGB CONC 29.7 g/dl (32.0-36.5); MEAN CORPUSCULAR VOLUME 102.6 fl (80.0-96.0); PLATELET COUNT, AUTOMATED 813 10^3/uL (150-450); RED BLOOD COUNT 1.15 10^6/uL (4.00-5.40)
[2023-01-17 23:35] LABS: HEMOGLOBIN 3.5 g/dl (12.0-15.5); WHITE BLOOD COUNT 43.6 10^3/uL (4.0-10.0)
[2023-01-17 23:36] LABS: HEMATOCRIT 11.8 % (36.0-47.0)
[2023-01-17 23:44] LABS: AMPHETAMINES LEVEL URINE NEGATIVE (NEGATIVE); BARBITURATES URINE NEGATIVE (NEGATIVE); BENZODIAZEPINES URINE NEGATIVE (NEGATIVE); COCAINE METABOLITE URINE NEGATIVE (NEGATIVE)
[2023-01-17 23:45] LABS: METHADONE URINE NEGATIVE (NEGATIVE); OPIATES URINE NEGATIVE (NEGATIVE); PHENCYCLIDINE URINE NEGATIVE (NEGATIVE)
[2023-01-17 23:47] LABS: CANNABINOIDS URINE POSITIVE (NEGATIVE)
[2023-01-17 23:59] LABS: ETHYL ALCOHOL (ETHANOL) 0.004 % (0.000-0.010)
[2023-01-18 00:01] LABS: ALBUMIN 2.8 G/DL (3.2-5.2); ALKALINE PHOSPHATASE 69 U/L (46-116); ALT/SGPT 12 U/L (7.0-40); AST/SGOT 11 U/L (<34); BILIRUBIN,DIRECT < 0.1 MG/DL (<0.4); BILIRUBIN,TOTAL 0.2 MG/DL (0.3-1.2); BLOOD UREA NITROGEN 34 MG/DL (9-23); CALCIUM LEVEL 8.8 MG/DL (8.5-10.1); CARBON DIOXIDE LEVEL 22 MMOL/L (20-31); CHLORIDE LEVEL 102 MMOL/L (98-107); GLOMERULAR FILTRATION RATE 19.3 (>51); GLUCOSE, FASTING 99 MG/DL (60-100); POTASSIUM SERUM 4.7 MMOL/L (3.5-5.1); SALICYLATE LEVEL < 3.0 MG/DL (<30); SODIUM LEVEL 136 MMOL/L (136-145); TOTAL PROTEIN 6.1 G/DL (5.7-8.2)
[2023-01-18 00:03] LABS: THYROID STIMULATING HORMONE 1.583 uIU/ML (0.55-4.78)
[2023-01-18] MEDS ORDERED: NS 1,000 ML IV ONE ×2 (00:10→01:55)
[2023-01-18] MEDS ORDERED: HYDR-3363 PO (00:33)
[2023-01-18] MEDS ORDERED: ARIP1TAB6 PO (00:33)
[2023-01-18] MEDS ORDERED: GABA-282 PO (00:33)
[2023-01-18] MEDS ORDERED: LEVO88TA3 PO (00:33)
[2023-01-18] MEDS ORDERED: LOSA25TA13 PO (00:33)
[2023-01-18] MEDS ORDERED: PROP20TA72 PO (00:33)
[2023-01-18] MEDS ORDERED: TRAZ-257 PO (00:33)
[2023-01-18] MEDS ORDERED: FLUO20CA22 PO (00:33)
[2023-01-18] MEDS ORDERED: DIVA500T94 PO (00:34)
[2023-01-18] MEDS ORDERED: DOCU100C17 PO (00:36)
[2023-01-18] MEDS ORDERED: NATU1TAB5 PO (00:36)
[2023-01-18] MEDS ORDERED: HOME MED LIST COMPLETE! XX SCH (00:40)
[2023-01-18 06:03] LABS: HEMATOCRIT 10.3 % (36.0-47.0); MEAN CORPUSCULAR HGB CONC 29.1 g/dl (32.0-36.5); WHITE BLOOD COUNT 31.7 10^3/uL (4.0-10.0)
[2023-01-18 06:21] LABS: EOSINOPHILS 1 % (0-3); LYMPHOCYTES 9 % (16-44); MONOCYTES 5 % (0-5); MYELOCYTES 3 % (0-0); NEUTROPHILS 75 % (28-66)
[2023-01-18 06:22] LABS: ANISOCYTOSIS 4+; PLATELET CLUMPS SMALL AMT; PLATELET ESTIMATE INCREASED (NORMAL); POLYCHROMASIA 1+
[2023-01-18 06:23] LABS: POIKILOCYTOSIS 1+; SCHISTOCYTES 1+
[2023-01-18 06:24] LABS: TEAR DROP CELLS 1+
[2023-01-18 06:25] LABS: HYPOCHROMASIA 1+
[2023-01-18 08:23] VITALS: BP 93/58; TEMP 97; O2SAT 98
[2023-01-18 08:40] VITALS: BP 104/55; TEMP 96.9; O2SAT 96
== END 2023-01-18 08:50 | disposition short-term general hospital (02) ==
LOC: M ED 22:49
DX: D72.829 Elevated white blood cell count, unspecified (principal); D64.9 Anemia, unspecified; R56.9 Unspecified convulsions; F32.A Depression, unspecified; F31.9 Bipolar disorder, unspecified; F41.9 Anxiety disorder, unspecified; K21.9 Gastro-esophageal reflux disease without esophagitis; F17.200 Nicotine dependence, unspecified, uncomplicated; K57.30 Diverticulosis of large intestine without perforation or abscess without bleeding; Z79.899 Other long term (current) drug therapy; Z88.2 Allergy status to sulfonamides; Z88.8 Allergy status to other drugs, medicaments and biological substances
CPT/HCPCS: 36415; 71250; 74176; 80047; 80048; 80076; 80143; 80307; 82077; 84443; 85007; 85027; 86850; 86900; 86901; 86920; 87635; 99285; P9016